=== PATIENT | female | born 1930 | race Caucasian/White ===

== ENCOUNTER 2016-03-10 09:28 | Emergency (ER) | payer MEDICARE ==
[~2016-03-10 09:28] MED LIST: /ATOR40TA OR; /LANS30GR OR; /MOXI40TA PO; /SUCR1TA OR; /WARF25TA OR; ACET50TAOT PO; ACET65TA OR; ACET65TA PR; ACTO75TA OR; ACYC400T PO; ADV250INH INH; ALPR0.25 OR; ASPI81TA13 PO; ASPI81TA83 OR; ATEN25TA OR; ATEN25TA PO; ATEN50TA2 OR; ATOR40TA PO; AVAP150T OR; BISA10SU2 RE; BISA5TA OR; CALCCHW12 OR; CETI10TA OR; CHLO125TA PO; CLAR10CA3 PO; COZA100T OR; GLIP5TAB8 PO; HEPA500020 SC; INSUDET SC; ISOS30TA4 OR; ISOS30TA4 PO; Isosorbide OR; KLOR1TAB73 PO; LEVO112T2 PO; LEVO75TA2 OR; LOSA50TA20 PO; NITR0.4S SL; NITR4TASL SL; OMEP20CA3 PO; PLAV75TA2 OR; PLAV75TA38 PO; PRED20TAB PO; PROA1AER INH; TRAM50TA2 OR; TYL RE; TYLE325T5 PO; VELC3.5I IV; VIT D 2000 PO; VITA-113 OR; VITA-121 PO; VITA100T PO; ZETI10TA OR; januvia OR
[2016-03-10] MEDS ORDERED: ACETAMINOPHEN 325 MG TAB As Ordered ONE (09:59)
--- NOTE | 2016-03-10 10:49 | REP ---
PELVIS RIGHT HIP: Three views. HISTORY: Trauma. FINDINGS: AP view of the pelvis shows an intact bony pelvic ring. No sacral or pelvic fracture is seen. Proximal femurs appear intact. The hip joint spaces are preserved. AP and frog leg views of the right hip show normal bones joints and soft tissues. IMPRESSION: No fracture noted. Signed by Honorio Zarate MD 03/10/2016 01:18 P
--- NOTE | 2016-03-10 10:52 | REP ---
RIGHT FOREARM: Two views. HISTORY: Trauma. Injury in a fall. FINDINGS: AP and lateral views of the right forearm show coronoid and olecranon process spurring on the proximal ulna. No fracture or subluxation is seen. There is some diffuse osteopenia. IMPRESSION: No fracture noted. Signed by Honorio Zarate MD 03/10/2016 01:18 P
--- NOTE | 2016-03-10 10:53 | REP ---
RIGHT HUMERUS: Two views. HISTORY: Trauma. FINDINGS: Two views of the right humerus demonstrate normal alignment of the glenohumeral and acromioclavicular joints. There is some glenohumeral joint osteoarthritic spurring. Diffuse osteopenia is noted. No fracture or subluxation is seen. IMPRESSION: No fracture noted. Signed by Honorio Zarate MD 03/10/2016 01:18 P
--- NOTE | 2016-03-10 10:53 | REP ---
RIGHT FEMUR: Two views. HISTORY: Injury in a fall. FINDINGS: AP and lateral views of the right femur demonstrate osteoarthritis of the knee. No fracture or subluxation is seen. IMPRESSION: No fracture noted. Osteoarthritic changes noted at the knee. Signed by Honorio aZrate MD 03/10/2016 01:18 P
--- NOTE | 2016-03-10 10:54 | REP ---
RIGHT TIBIA/FIBULA SERIES: Four views. HISTORY: Trauma. FINDINGS: Four views right tibia and fibula demonstrate osteoarthritis at the knee and some vascular calcification. No fracture or subluxation is seen. Achilles calcaneal spurring is noted. IMPRESSION: Diffuse osteopenia. Knee joint osteoarthritis. No fracture seen. Signed by Honorio Zarate MD 03/10/2016 01:18 P
--- NOTE | 2016-03-10 11:26 | EDDOCDS ---
Physician Documentation [facility] Name: Kristina Cheema Age: 85 yrs Sex: Female : 1930 Arrival Date: 03/10/2016 Time: 09:28 Bed TR7 Private MD: Gwyn Lawler Disposition: 03/10/16 11:03 Discharged to Home/Self Care. Impression: Pain in right arm - Upper and Lower Arm, Pain in right leg - Upper and Lower, Pain in right hip, Osteoarthritis of knee - Right and diffuse osteopenia on R knee film, Fall due to ice and snow. - Condition is Stable. - Discharge Instructions: Musculoskeletal Pain, Hip Pain, Arthritis, Nonspecific, [id number]. - Medication Reconciliation, Local Pharmacy Hours form. - Follow up: Gwyn Lawler; When: 1 - 2 days; Reason: Recheck today's complaints, Continuance of care. Follow up: Emergency Department; Reason: Worsening of conditions. Follow up: Mannie Owens; When: Call to arrange an appointment; Reason: Further diagnostic work-up, Recheck today's complaints, Continuance of care. - Problem is new. - Symptoms have improved. Historical: - Allergies: Codeine Sulfate; Latex; SULFA (SULFONAMIDES); HYDROQUINONE DERIVATIVES; Vicodin; Morphine; - Home Meds: 1. Plavix 75 mg Oral tab 1 tab once daily 2. levothyroxine 100 mcg Oral tab 1 tab once daily 3. Advair Diskus Inhl 1 puff 2 times per day 4. chlorthalidone 25 mg Oral tab 0.5 tab once daily 5. glipizide 2.5 mg Oral tr24 2 x daily 6. potassium chloride 10 mEq Oral cpER 1 cap once daily 7. aspirin 81 mg Oral tab 1 tab once daily 8. atenolol 50 mg Oral tab 2 tabs once daily 9. losartan 50 mg oral tab 1 tab once daily 10. atorvastatin 40 mg oral tab 1 tab once daily 11. Vitamin B-12 100 mcg Oral tab daily 12. Vitamin D3 1,000 unit oral tab daily 13. Nitrostat 0.4 mg SL subl 1 tab every 5 minutes 14. Levemir 100 unit/mL subcutaneous soln 22 units daily 15. isosorbide mononitrate 30 mg Oral Tb24 1 tab once daily 16. spingloin 1 tab daily - PMHx: Cancer, Bone; Hypertension; Diabetes - IDDM: controlled; Heart Disease; - PSHx: Cardiac stents; Knee surgery- Left; Lasik Surgery; - Social history: Smoking status: Patient states was never smoker of tobacco. No barriers to communication noted, The patient speaks fluent Frisian, Speaks appropriately for age. - Family history: Not pertinent. - : The pt / caregiver states he / she is on anticoagulants: Plavix. Home medication list is obtained from the patient. - Exposure Risk Screening:: None identified. Vital Signs: 03/10 09:30 BP 137 / 56; Pulse 70; Resp 20; Temp 97(O); Pulse Ox 96% ; Weight 69.85 kg / 153.99 cmb lbs; Height 5 ft. 0 in. (152.40 cm); Pain 10/10; 11:23 BP 144 / 65; Pulse 61; Resp 16; Temp 97; Pulse Ox 98% on R/A; Pain 8/10; ead 09:30 Body Mass Index 30.07 (69.85 kg, 152.40 cm) cmb MDM: 09:57 Acetaminophen Tablet 650 mg PO once ordered. ef1 09:57 Ice Pack ordered. ef1 09:57 Tibia/Fibula Ordered. EDMS 09:57 Femur Ordered. EDMS 09:59 Humerus Ordered. EDMS 09:59 Forearm (radius/ulna) Ordered. EDMS 09:59 Hip,AP,LAT to include Pelvis Ordered. EDMS 11:11 [facility] Payment Agreement was scanned into [employer] and attached to record. jp5 11:11 Financial registration complete. jp5 Administered Medications: 10:03 Drug: Acetaminophen 650 mg [acetaminophen 325 mg tablet (2 tabs)] Route: PO; kr3 Signatures: Dispatcher [employer] EDMS Rhiannon Hemphill RN RN kr3 Estela Shay PAPaul PAPaul ef1 Ambar Valderrama,RN RN Dhara Gregory jp5 The chart was reviewed and I authenticate all verbal orders and agree with the evaluation and treatment provided.Attachments: 11:11 [facility] Payment Agreement jp5 MTDD
--- NOTE | 2016-03-10 11:26 | EDDOCDS ---
Nurse's Notes [facility] Name: Kristina Cheema Age: 85 yrs Sex: Female : 1930 Arrival Date: 03/10/2016 Time: 09:28 Bed TR7 Private MD: Gwyn Lawler Diagnosis: Pain in right arm-Upper and Lower Arm;Pain in right leg-Upper and Lower;Pain in right hip;Osteoarthritis of knee-Right and diffuse osteopenia on R knee film;Fall due to ice and snow Presentation: 03/10 09:35 Presenting complaint: Patient states: pain right knee. Reports twisted knee when fell. kr3 Pain right ankle and reports swelling to ankle. Adult Sepsis Screening: The patient does not have new or worsening altered mentation. Patient's respiratory rate is less than 22. Systolic blood pressure is greater than 100. Patient has a qSOFA score of 0- Negative Sepsis Screen. Suicide/Homicide risk assessment- the patient denies having any suicidal and/or homicidal ideations and does not present with any other emotional, behavioral or mental health complaints. 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 Transition of care: patient was not received from another setting of care. 09:35 Acuity: MARYLIN Level 4 kr3 09:35 Method Of Arrival: Wheelchair kr3 Triage Assessment: 09:41 General: Appears in no apparent distress, comfortable, Behavior is cooperative. Pain: kr3 Location: right ankle and right knee Pain currently is 10 out of 10 on a pain scale. Respiratory: Respiratory effort is even, unlabored. Derm: Skin is normal. Musculoskeletal:. Historical: - Allergies: Codeine Sulfate; Latex; SULFA (SULFONAMIDES); HYDROQUINONE DERIVATIVES; Vicodin; Morphine; - Home Meds: 1. Plavix 75 mg Oral tab 1 tab once daily 2. levothyroxine 100 mcg Oral tab 1 tab once daily 3. Advair Diskus Inhl 1 puff 2 times per day 4. chlorthalidone 25 mg Oral tab 0.5 tab once daily 5. glipizide 2.5 mg Oral tr24 2 x daily 6. potassium chloride 10 mEq Oral cpER 1 cap once daily 7. aspirin 81 mg Oral tab 1 tab once daily 8. atenolol 50 mg Oral tab 2 tabs once daily 9. losartan 50 mg oral tab 1 tab once daily 10. atorvastatin 40 mg oral tab 1 tab once daily 11. Vitamin B-12 100 mcg Oral tab daily 12. Vitamin D3 1,000 unit oral tab daily 13. Nitrostat 0.4 mg SL subl 1 tab every 5 minutes 14. Levemir 100 unit/mL subcutaneous soln 22 units daily 15. isosorbide mononitrate 30 mg Oral Tb24 1 tab once daily 16. spingloin 1 tab daily - PMHx: Cancer, Bone; Hypertension; Diabetes - IDDM: controlled; Heart Disease; - PSHx: Cardiac stents; Knee surgery- Left; Lasik Surgery; - Social history: Smoking status: Patient states was never smoker of tobacco. No barriers to communication noted, The patient speaks fluent Chinese, Speaks appropriately for age. - Family history: Not pertinent. - : The pt / caregiver states he / she is on anticoagulants: Plavix. Home medication list is obtained from the patient. - Exposure Risk Screening:: None identified. Screenin:04 Screening information is obtained from the patient. Fall risk: No risks identified. kr3 Assistance ADL's: requires no assistance with activities of daily living. Abuse/DV Screen: The patient / caregiver reports he/she is: not in a situation that causes fear, pain or injury. Nutritional screening: On diabetic diet. Advance Directives: Currently, there is a health care proxy, son. home support is adequate. Assessment: 10:03 Reassessment: Patient appears in no apparent distress at this time. Pain: Location: kr3 left knee, left ankle right elbow Pain currently is 10 out of 10 on a pain scale. Neurological: Level of Consciousness is awake, alert. Respiratory: Respiratory effort is even, unlabored. Derm: Skin is normal. 11:23 General: Appears in no apparent distress, comfortable, Behavior is appropriate for age, ead cooperative, pleasant. Neurological: No deficits noted. Respiratory: Airway is patent Respiratory effort is even, unlabored. Derm: Skin is pink, warm & dry. Vital Signs: 09:30 BP 137 / 56; Pulse 70; Resp 20; Temp 97(O); Pulse Ox 96% ; Weight 69.85 kg; Height 5 cmb ft. 0 in. (152.40 cm); Pain 10/10; 11:23 BP 144 / 65; Pulse 61; Resp 16; Temp 97; Pulse Ox 98% on R/A; Pain 8/10; ead 09:30 Body Mass Index 30.07 (69.85 kg, 152.40 cm) cmb Vitals: 09:30 Log In Time: March 10, 2016 at 09:28. cmb ED Course: 09:30 Patient visited by Lorenza Olmstead. cmb 09:30 Gwyn Lawler MD is Private Physician. cmb 09:30 Patient moved to Waiting cmb 09:33 Patient moved to Pre RCE cmb 09:36 Triage Initiated kr3 09:42 Patient moved to Triage 1 kr3 09:43 Patient moved to Triage 3 kr3 09:49 [facility]C [facility]. ef1 09:49 Hannah Spencer MD is Attending Physician. ef1 09:49 Patient visited by Estela Shay PA-C. ef1 10:04 The patient / caregiver is instructed regarding the plan of care and ED course. kr3 Accompanied by Family Member, Patient has correct armband on for positive identification. 10:04 Patient moved to TR1 kr3 10:20 Patient visited by Estela Shay PA-C. ef1 10:51 Patient visited by Estela Shay PA-C. ef1 11:03 Gwyn Lawler MD is Referral Physician. ef1 11:03 Mannie Owens is Referral Physician. ef1 11:04 Hip,AP,LAT to include Pelvis Returned. EDMS 11:04 Forearm (radius/ulna) Returned. EDMS 11:04 Humerus Returned. EDMS 11:04 Femur Returned. EDMS 11:04 Tibia/Fibula Returned. EDMS 11:11 [facility] Payment Agreement was scanned into [employer] and attached to record. jp5 11:17 Patient moved to PD2 / 27 ead 11:23 Patient moved to TR7 ead 11:23 No IV's were initiated during this patient's visit. No procedures done that require ead assistance. Administered Medications: 10:03 Drug: Acetaminophen 650 mg [acetaminophen 325 mg tablet (2 tabs)] Route: PO; kr3 Order Results: Radiology Order: Tibia/Fibula Test: Tibia/Fibula REASON FOR EXAMINATION: Trauma; RIGHT TIBIA/FIBULA SERIES: Four views.; ; HISTORY: Trauma.; ; FINDINGS: Four views right tibia and fibula demonstrate osteoarthritis at the; knee and some vascular calcification. No fracture or subluxation is seen.; Achilles calcaneal spurring is noted.; ; IMPRESSION:; Diffuse osteopenia. Knee joint osteoarthritis. No fracture seen.; ; ; ; ; Unreviewed; Radiology Order: Femur Test: Femur REASON FOR EXAMINATION: Trauma; RIGHT FEMUR: Two views.; ; HISTORY: Injury in a fall.; ; FINDINGS: AP and lateral views of the right femur demonstrate osteoarthritis of; the knee. No fracture or subluxation is seen.; ; IMPRESSION:; No fracture noted. Osteoarthritic changes noted at the knee.; ; ; ; ; Unreviewed; Radiology Order: Humerus Test: Humerus REASON FOR EXAMINATION: Trauma; RIGHT HUMERUS: Two views.; ; HISTORY: Trauma.; ; FINDINGS: Two views of the right humerus demonstrate normal alignment of the; glenohumeral and acromioclavicular joints. There is some glenohumeral joint; osteoarthritic spurring. Diffuse osteopenia is noted. No fracture or; subluxation is seen.; ; IMPRESSION:; No fracture noted.; ; ; ; ; Unreviewed; Radiology Order: Forearm (radius/ulna) Test: Forearm (radius/ulna) REASON FOR EXAMINATION: Trauma; RIGHT FOREARM: Two views.; ; HISTORY: Trauma. Injury in a fall.; ; FINDINGS: AP and lateral views of the right forearm show coronoid and olecranon; process spurring on the proximal ulna. No fracture or subluxation is seen.; There is some diffuse osteopenia.; ; IMPRESSION:; No fracture noted.; ; ; ; ; Unreviewed; Radiology Order: Hip,AP,LAT to include Pelvis Test: Hip,AP,LAT to include Pelvis REASON FOR EXAMINATION: Trauma; PELVIS RIGHT HIP: Three views.; ; HISTORY: Trauma.; ; FINDINGS: AP view of the pelvis shows an intact bony pelvic ring. No sacral or; pelvic fracture is seen. Proximal femurs appear intact. The hip joint spaces; are preserved. AP and frog leg views of the right hip show normal bones joints; and soft tissues.; ; IMPRESSION:; No fracture noted.; ; ; ; ; Unreviewed; Outcome: 11:03 Discharge ordered by Provider. ef1 11:23 Discharge Assessment: Patient awake and alert. obeys commands, Oriented to person, ead place and time. patient administered narcotics - no. The following High Risk Discharge criteria are identified: None. Discharged to home via wheelchair, with family. Condition: unchanged. Discharge instructions given to patient, Instructed on discharge instructions, follow up and referral plans. Demonstrated understanding of instructions, Pt was receptive of discharge instructions/ teaching. No special radiology studies were completed. Property sent home with patient. 11:24 Patient left the ED. ead Signatures: Dispatcher [employer] Rhiannon Holguin,RN RN kr3 Estela Shay, PA-C PA-C ef1 Lorenza Olmstead Emily, RN RN ead Dhara Dodson jp5 Corrections: (The following items were deleted from the chart) 09:33 09:30 BP 13 / 56; Pulse 70bpm; Resp 20bpm; Pulse Ox 96%; Temp 97F Oral; 69.85 kg; cmb Height 5 ft. 0 in.; BMI: 30.0; Pain 10/10; cmb MTDD
--- NOTE | 2016-03-12 12:26 | EDDOCDS ---
Physician Documentation [facility] Name: Kristina Cheema Age: 85 yrs Sex: Female : 1930 Arrival Date: 03/10/2016 Time: 09:28 Bed TR7 Private MD: Gwyn Lawler Disposition: 03/10/16 11:03 Discharged to Home/Self Care. Impression: Pain in right arm - Upper and Lower Arm, Pain in right leg - Upper and Lower, Pain in right hip, Osteoarthritis of knee - Right and diffuse osteopenia on R knee film, Fall due to ice and snow. - Condition is Stable. - Discharge Instructions: Musculoskeletal Pain, Hip Pain, Arthritis, Nonspecific, [id number]. - Medication Reconciliation, Local Pharmacy Hours form. - Follow up: Gwyn Lawler; When: 1 - 2 days; Reason: Recheck today's complaints, Continuance of care. Follow up: Emergency Department; Reason: Worsening of conditions. Follow up: Mannie Owens; When: Call to arrange an appointment; Reason: Further diagnostic work-up, Recheck today's complaints, Continuance of care. - Problem is new. - Symptoms have improved. Historical: - Allergies: Codeine Sulfate; Latex; SULFA (SULFONAMIDES); HYDROQUINONE DERIVATIVES; Vicodin; Morphine; - Home Meds: 1. Plavix 75 mg Oral tab 1 tab once daily 2. levothyroxine 100 mcg Oral tab 1 tab once daily 3. Advair Diskus Inhl 1 puff 2 times per day 4. chlorthalidone 25 mg Oral tab 0.5 tab once daily 5. glipizide 2.5 mg Oral tr24 2 x daily 6. potassium chloride 10 mEq Oral cpER 1 cap once daily 7. aspirin 81 mg Oral tab 1 tab once daily 8. atenolol 50 mg Oral tab 2 tabs once daily 9. losartan 50 mg oral tab 1 tab once daily 10. atorvastatin 40 mg oral tab 1 tab once daily 11. Vitamin B-12 100 mcg Oral tab daily 12. Vitamin D3 1,000 unit oral tab daily 13. Nitrostat 0.4 mg SL subl 1 tab every 5 minutes 14. Levemir 100 unit/mL subcutaneous soln 22 units daily 15. isosorbide mononitrate 30 mg Oral Tb24 1 tab once daily 16. spingloin 1 tab daily - PMHx: Cancer, Bone; Hypertension; Diabetes - IDDM: controlled; Heart Disease; - PSHx: Cardiac stents; Knee surgery- Left; Lasik Surgery; - Social history: Smoking status: Patient states was never smoker of tobacco. No barriers to communication noted, The patient speaks fluent Welsh, Speaks appropriately for age. - Family history: Not pertinent. - : The pt / caregiver states he / she is on anticoagulants: Plavix. Home medication list is obtained from the patient. - Exposure Risk Screening:: None identified. Vital Signs: 03/10 09:30 BP 137 / 56; Pulse 70; Resp 20; Temp 97(O); Pulse Ox 96% ; Weight 69.85 kg / 153.99 cmb lbs; Height 5 ft. 0 in. (152.40 cm); Pain 10/10; 11:23 BP 144 / 65; Pulse 61; Resp 16; Temp 97; Pulse Ox 98% on R/A; Pain 8/10; ead 09:30 Body Mass Index 30.07 (69.85 kg, 152.40 cm) cmb MDM: 09:57 Acetaminophen Tablet 650 mg PO once ordered. ef1 09:57 Ice Pack ordered. ef1 09:57 Tibia/Fibula Ordered. EDMS 09:57 Femur Ordered. EDMS 09:59 Humerus Ordered. EDMS 09:59 Forearm (radius/ulna) Ordered. EDMS 09:59 Hip,AP,LAT to include Pelvis Ordered. EDMS 11:11 [facility] Payment Agreement was scanned into [employer] and attached to record. 5 11:11 Financial registration complete. 5 14:19 T-Sheet-- Draft Copy was scanned into [employer] and attached to record. 14:19 Radiology Report was scanned into [employer] and attached to record. Administered Medications: 10:03 Drug: Acetaminophen 650 mg [acetaminophen 325 mg tablet (2 tabs)] Route: PO; kr3 Signatures: Dispatcher [employer] EDMS Ange Vega, Rhiannon Mendoza,RN RN kr3 Estela Shay PAChaseC PAChaseC ef1 Ambar Valderrama,RN RN Dhara Gregory jp5 The chart was reviewed and I authenticate all verbal orders and agree with the evaluation and treatment provided.Attachments: 11:11 [facility] Payment Agreement jp5 14:19 T-Sheet-- Draft Copy gb Chart Complete MTDD
--- NOTE | 2016-03-12 12:26 | EDDOCDS ---
Nurse's Notes [facility] Name: Kristina Cheema Age: 85 yrs Sex: Female : 1930 Arrival Date: 03/10/2016 Time: 09:28 Bed TR7 Private MD: Gwyn Lawler Diagnosis: Pain in right arm-Upper and Lower Arm;Pain in right leg-Upper and Lower;Pain in right hip;Osteoarthritis of knee-Right and diffuse osteopenia on R knee film;Fall due to ice and snow Presentation: 03/10 09:35 Presenting complaint: Patient states: pain right knee. Reports twisted knee when fell. kr3 Pain right ankle and reports swelling to ankle. Adult Sepsis Screening: The patient does not have new or worsening altered mentation. Patient's respiratory rate is less than 22. Systolic blood pressure is greater than 100. Patient has a qSOFA score of 0- Negative Sepsis Screen. Suicide/Homicide risk assessment- the patient denies having any suicidal and/or homicidal ideations and does not present with any other emotional, behavioral or mental health complaints. Status: Patient is not a director human services or dependent. Transition of care: patient was not received from another setting of care. 09:35 Acuity: MARYLIN Level 4 kr3 09:35 Method Of Arrival: Wheelchair kr3 Triage Assessment: 09:41 General: Appears in no apparent distress, comfortable, Behavior is cooperative. Pain: kr3 Location: right ankle and right knee Pain currently is 10 out of 10 on a pain scale. Respiratory: Respiratory effort is even, unlabored. Derm: Skin is normal. Musculoskeletal:. Historical: - Allergies: Codeine Sulfate; Latex; SULFA (SULFONAMIDES); HYDROQUINONE DERIVATIVES; Vicodin; Morphine; - Home Meds: 1. Plavix 75 mg Oral tab 1 tab once daily 2. levothyroxine 100 mcg Oral tab 1 tab once daily 3. Advair Diskus Inhl 1 puff 2 times per day 4. chlorthalidone 25 mg Oral tab 0.5 tab once daily 5. glipizide 2.5 mg Oral tr24 2 x daily 6. potassium chloride 10 mEq Oral cpER 1 cap once daily 7. aspirin 81 mg Oral tab 1 tab once daily 8. atenolol 50 mg Oral tab 2 tabs once daily 9. losartan 50 mg oral tab 1 tab once daily 10. atorvastatin 40 mg oral tab 1 tab once daily 11. Vitamin B-12 100 mcg Oral tab daily 12. Vitamin D3 1,000 unit oral tab daily 13. Nitrostat 0.4 mg SL subl 1 tab every 5 minutes 14. Levemir 100 unit/mL subcutaneous soln 22 units daily 15. isosorbide mononitrate 30 mg Oral Tb24 1 tab once daily 16. spingloin 1 tab daily - PMHx: Cancer, Bone; Hypertension; Diabetes - IDDM: controlled; Heart Disease; - PSHx: Cardiac stents; Knee surgery- Left; Lasik Surgery; - Social history: Smoking status: Patient states was never smoker of tobacco. No barriers to communication noted, The patient speaks fluent German, Speaks appropriately for age. - Family history: Not pertinent. - : The pt / caregiver states he / she is on anticoagulants: Plavix. Home medication list is obtained from the patient. - Exposure Risk Screening:: None identified. Screenin:04 Screening information is obtained from the patient. Fall risk: No risks identified. kr3 Assistance ADL's: requires no assistance with activities of daily living. Abuse/DV Screen: The patient / caregiver reports he/she is: not in a situation that causes fear, pain or injury. Nutritional screening: On diabetic diet. Advance Directives: Currently, there is a health care proxy, son. home support is adequate. Assessment: 10:03 Reassessment: Patient appears in no apparent distress at this time. Pain: Location: kr3 left knee, left ankle right elbow Pain currently is 10 out of 10 on a pain scale. Neurological: Level of Consciousness is awake, alert. Respiratory: Respiratory effort is even, unlabored. Derm: Skin is normal. 11:23 General: Appears in no apparent distress, comfortable, Behavior is appropriate for age, ead cooperative, pleasant. Neurological: No deficits noted. Respiratory: Airway is patent Respiratory effort is even, unlabored. Derm: Skin is pink, warm & dry. Vital Signs: 09:30 BP 137 / 56; Pulse 70; Resp 20; Temp 97(O); Pulse Ox 96% ; Weight 69.85 kg; Height 5 cmb ft. 0 in. (152.40 cm); Pain 10/10; 11:23 BP 144 / 65; Pulse 61; Resp 16; Temp 97; Pulse Ox 98% on R/A; Pain 8/10; ead 09:30 Body Mass Index 30.07 (69.85 kg, 152.40 cm) cmb Vitals: 09:30 Log In Time: March 10, 2016 at 09:28. cmb ED Course: 09:30 Patient visited by Lorenza Olmstead. cmb 09:30 Gwyn Lawler MD is Private Physician. cmb 09:30 Patient moved to Waiting cmb 09:33 Patient moved to Pre RCE cmb 09:36 Triage Initiated kr3 09:42 Patient moved to Triage 1 kr3 09:43 Patient moved to Triage 3 kr3 09:49 [facility] ef1 09:49 Hannah Spencer MD is Attending Physician. ef1 09:49 Patient visited by Estela Shay PA-C. ef1 10:04 The patient / caregiver is instructed regarding the plan of care and ED course. kr3 Accompanied by Family Member, Patient has correct armband on for positive identification. 10:04 Patient moved to TR1 kr3 10:20 Patient visited by Estela Shay PA-C. ef1 10:51 Patient visited by Estela Shay PA-C. ef1 11:03 Gwyn Lawler MD is Referral Physician. ef1 11:03 Mannie Owens is Referral Physician. ef1 11:04 Hip,AP,LAT to include Pelvis Returned. EDMS 11:04 Forearm (radius/ulna) Returned. EDMS 11:04 Humerus Returned. EDMS 11:04 Femur Returned. EDMS 11:04 Tibia/Fibula Returned. EDMS 11:11 [facility] Payment Agreement was scanned into [employer] and attached to record. jp5 11:17 Patient moved to PD2 / 27 ead 11:23 Patient moved to TR7 ead 11:23 No IV's were initiated during this patient's visit. No procedures done that require ead assistance. 14:19 T-Sheet-- Draft Copy was scanned into [employer] and attached to record. gb 14:19 Radiology Report was scanned into [employer] and attached to record. gb Administered Medications: 10:03 Drug: Acetaminophen 650 mg [acetaminophen 325 mg tablet (2 tabs)] Route: PO; kr3 Order Results: Radiology Order: Tibia/Fibula Test: Tibia/Fibula REASON FOR EXAMINATION: Trauma; RIGHT TIBIA/FIBULA SERIES: Four views.; ; HISTORY: Trauma.; ; FINDINGS: Four views right tibia and fibula demonstrate osteoarthritis at the; knee and some vascular calcification. No fracture or subluxation is seen.; Achilles calcaneal spurring is noted.; ; IMPRESSION: Diffuse osteopenia. Knee joint osteoarthritis. No fracture seen.; ; ; Signed by; Honorio Zarate MD 03/10/2016 01:18 P; Radiology Order: Femur Test: Femur REASON FOR EXAMINATION: Trauma; RIGHT FEMUR: Two views.; ; HISTORY: Injury in a fall.; ; FINDINGS: AP and lateral views of the right femur demonstrate osteoarthritis of; the knee. No fracture or subluxation is seen.; ; IMPRESSION: No fracture noted. Osteoarthritic changes noted at the knee.; ; ; Signed by; Honorio Zarate MD 03/10/2016 01:18 P; Radiology Order: Humerus Test: Humerus REASON FOR EXAMINATION: Trauma; RIGHT HUMERUS: Two views.; ; HISTORY: Trauma.; ; FINDINGS: Two views of the right humerus demonstrate normal alignment of the; glenohumeral and acromioclavicular joints. There is some glenohumeral joint; osteoarthritic spurring. Diffuse osteopenia is noted. No fracture or; subluxation is seen.; ; IMPRESSION: No fracture noted.; ; ; Signed by; Honorio Zarate MD 03/10/2016 01:18 P; Radiology Order: Forearm (radius/ulna) Test: Forearm (radius/ulna) REASON FOR EXAMINATION: Trauma; RIGHT FOREARM: Two views.; ; HISTORY: Trauma. Injury in a fall.; ; FINDINGS: AP and lateral views of the right forearm show coronoid and olecranon; process spurring on the proximal ulna. No fracture or subluxation is seen.; There is some diffuse osteopenia.; ; IMPRESSION: No fracture noted.; ; ; Signed by; Honorio Zarate MD 03/10/2016 01:18 P; Radiology Order: Hip,AP,LAT to include Pelvis Test: Hip,AP,LAT to include Pelvis REASON FOR EXAMINATION: Trauma; PELVIS RIGHT HIP: Three views.; ; HISTORY: Trauma.; ; FINDINGS: AP view of the pelvis shows an intact bony pelvic ring. No sacral or; pelvic fracture is seen. Proximal femurs appear intact. The hip joint spaces; are preserved. AP and frog leg views of the right hip show normal bones joints; and soft tissues.; ; IMPRESSION: No fracture noted.; ; ; Signed by; Honorio Zarate MD 03/10/2016 01:18 P; Outcome: 11:03 Discharge ordered by Provider. ef1 11:23 Discharge Assessment: Patient awake and alert. obeys commands, Oriented to person, ead place and time. patient administered narcotics - no. The following High Risk Discharge criteria are identified: None. Discharged to home via wheelchair, with family. Condition: unchanged. Discharge instructions given to patient, Instructed on discharge instructions, follow up and referral plans. Demonstrated understanding of instructions, Pt was receptive of discharge instructions/ teaching. No special radiology studies were completed. Property sent home with patient. 11:24 Patient left the ED. ead Signatures: Dispatcher [employer] EDMS Ange Vega, Rhiannon Mendoza,RN RN kr3 Estela Shay PAChaseC PA-C ef1 Lorenza Olmstead Emily,CHRIS RN ead Dhara Dodson jp5 Corrections: (The following items were deleted from the chart) 09:33 09:30 BP 13 / 56; Pulse 70bpm; Resp 20bpm; Pulse Ox 96%; Temp 97F Oral; 69.85 kg; cmb Height 5 ft. 0 in.; BMI: 30.0; Pain 10/10; cmb Chart Complete MTDD
--- NOTE | 2016-03-12 12:26 | EDDOCDS ---
Physician Documentation [facility] Name: Kristina Cheema Age: 85 yrs Sex: Female : 1930 Arrival Date: 03/10/2016 Time: 09:28 Bed TR7 Private MD: Gwyn Lawler Disposition: 03/10/16 11:03 Discharged to Home/Self Care. Impression: Pain in right arm - Upper and Lower Arm, Pain in right leg - Upper and Lower, Pain in right hip, Osteoarthritis of knee - Right and diffuse osteopenia on R knee film, Fall due to ice and snow. - Condition is Stable. - Discharge Instructions: Musculoskeletal Pain, Hip Pain, Arthritis, Nonspecific, [id number]. - Medication Reconciliation, Local Pharmacy Hours form. - Follow up: Gwyn Lawler; When: 1 - 2 days; Reason: Recheck today's complaints, Continuance of care. Follow up: Emergency Department; Reason: Worsening of conditions. Follow up: Mannie Owens; When: Call to arrange an appointment; Reason: Further diagnostic work-up, Recheck today's complaints, Continuance of care. - Problem is new. - Symptoms have improved. Historical: - Allergies: Codeine Sulfate; Latex; SULFA (SULFONAMIDES); HYDROQUINONE DERIVATIVES; Vicodin; Morphine; - Home Meds: 1. Plavix 75 mg Oral tab 1 tab once daily 2. levothyroxine 100 mcg Oral tab 1 tab once daily 3. Advair Diskus Inhl 1 puff 2 times per day 4. chlorthalidone 25 mg Oral tab 0.5 tab once daily 5. glipizide 2.5 mg Oral tr24 2 x daily 6. potassium chloride 10 mEq Oral cpER 1 cap once daily 7. aspirin 81 mg Oral tab 1 tab once daily 8. atenolol 50 mg Oral tab 2 tabs once daily 9. losartan 50 mg oral tab 1 tab once daily 10. atorvastatin 40 mg oral tab 1 tab once daily 11. Vitamin B-12 100 mcg Oral tab daily 12. Vitamin D3 1,000 unit oral tab daily 13. Nitrostat 0.4 mg SL subl 1 tab every 5 minutes 14. Levemir 100 unit/mL subcutaneous soln 22 units daily 15. isosorbide mononitrate 30 mg Oral Tb24 1 tab once daily 16. spingloin 1 tab daily - PMHx: Cancer, Bone; Hypertension; Diabetes - IDDM: controlled; Heart Disease; - PSHx: Cardiac stents; Knee surgery- Left; Lasik Surgery; - Social history: Smoking status: Patient states was never smoker of tobacco. No barriers to communication noted, The patient speaks fluent Irish, Speaks appropriately for age. - Family history: Not pertinent. - : The pt / caregiver states he / she is on anticoagulants: Plavix. Home medication list is obtained from the patient. - Exposure Risk Screening:: None identified. Vital Signs: 03/10 09:30 BP 137 / 56; Pulse 70; Resp 20; Temp 97(O); Pulse Ox 96% ; Weight 69.85 kg / 153.99 cmb lbs; Height 5 ft. 0 in. (152.40 cm); Pain 10/10; 11:23 BP 144 / 65; Pulse 61; Resp 16; Temp 97; Pulse Ox 98% on R/A; Pain 8/10; ead 09:30 Body Mass Index 30.07 (69.85 kg, 152.40 cm) cmb MDM: 09:57 Acetaminophen Tablet 650 mg PO once ordered. ef1 09:57 Ice Pack ordered. ef1 09:57 Tibia/Fibula Ordered. EDMS 09:57 Femur Ordered. EDMS 09:59 Humerus Ordered. EDMS 09:59 Forearm (radius/ulna) Ordered. EDMS 09:59 Hip,AP,LAT to include Pelvis Ordered. EDMS 11:11 [facility] Payment Agreement was scanned into [employer]IG[employer] and attached to record. 5 11:11 Financial registration complete. 5 14:19 T-Sheet-- Draft Copy was scanned into [employer] and attached to record. 14:19 Radiology Report was scanned into [employer] and attached to record. Administered Medications: 10:03 Drug: Acetaminophen 650 mg [acetaminophen 325 mg tablet (2 tabs)] Route: PO; kr3 Signatures: Dispatcher [employer] EDMS Ange Vega, Rhiannon Mendoza,RN RN kr3 Estela Shay PAChaseC PAChaseC ef1 Ambar Valderrama,RN RN Dhara Gregory jp5 The chart was reviewed and I authenticate all verbal orders and agree with the evaluation and treatment provided.Attachments: 11:11 [facility] Payment Agreement jp5 14:19 T-Sheet-- Draft Copy gb Chart Complete MTDD
== END 2016-03-10 11:24 | disposition home or self-care (01) ==
LOC: M ED 09:28
DX: M79.601 Pain in right arm (principal); M79.604 Pain in right leg; M25.551 Pain in right hip; M17.11 Unilateral primary osteoarthritis, right knee; M85.861 Other specified disorders of bone density and structure, right lower leg; I10 Essential (primary) hypertension; E11.9 Type 2 diabetes mellitus without complications; I51.9 Heart disease, unspecified; Z79.899 Other long term (current) drug therapy; Z79.51 Long term (current) use of inhaled steroids; Z79.82 Long term (current) use of aspirin; Z79.4 Long term (current) use of insulin; Z88.2 Allergy status to sulfonamides; Z88.8 Allergy status to other drugs, medicaments and biological substances; Z88.5 Allergy status to narcotic agent; Z91.040 Latex allergy status; Z85.830 Personal history of malignant neoplasm of bone

== ENCOUNTER → 2016-04-08 | Outpatient (REF) | payer MEDICARE ==
[2016-04-08 12:43] LABS: PERCENT SATURATION 31.8 % (13.2-37.4)
[2016-04-08 14:03] LABS: FOLATE 8.5 NG/ML
== END ==
LOC: M LAB REF 11:52
PROVIDERS: ATTEND Nurse Practitioner Adult Health
DX: D64.9 Anemia, unspecified (principal)

== ENCOUNTER 2016-05-16 20:30 | Inpatient (IN) | payer MEDICARE ==
[~2016-05-16] VITALS: Ht 154.9 cm; Wt 69.9 kg
[2016-05-16] MEDS ORDERED: ASPIRIN 81 MG CHEW TABLET PO ONE (21:00)
[2016-05-16] MEDS ORDERED: POTA10TA34 PO (21:02)
[2016-05-16] MEDS ORDERED: INSUDET SC (21:02)
[2016-05-16] MEDS ORDERED: GLIP5TAB8 PO (21:02)
[2016-05-16] MEDS: NITROGLYCERIN 0.4 MG SUBL TABLET SL PRN ×3 (21:19→21:34)
[2016-05-16 21:53] LABS: BASO % 0.3 % (0.0-1.0); EOS # 0.2 K/mm3 (0.0-0.50); EOS % 3.8 % (0.0-3.0); LARGE UNSTAINED CELL # 0.2 K/mm3 (0.0-0.4); LARGE UNSTAINED CELL % 2.9 % (0.0-4.0); LYMPH % 17.3 % (24.0-44.0); MEAN CORPUSCULAR HEMOGLOBIN 29.5 pg (27.0-33.0); MEAN CORPUSCULAR HGB CONC 31.5 g/dl (32.0-36.5); MEAN CORPUSCULAR VOLUME 93.4 fl (80.0-96.0); MONO # 0.6 K/mm3 (0.0-0.8); MONO % 10.7 % (0.0-5.0); NEUTROPHILS # 3.4 K/mm3 (1.8-7.7); PLATELET COUNT, AUTOMATED 188 k/mm3 (150-450); RED CELL DISTRIBUTION WIDTH 15.8 % (11.5-14.5); WHITE BLOOD COUNT 5.2 K/mm3 (4.0-10.0)
[2016-05-16 22:00] LABS: INR 1.12
[2016-05-16] MEDS ORDERED: POTA20TA PO (22:13)
[2016-05-16] MEDS ORDERED: ATEN50TA2 PO (22:13)
[2016-05-16] MEDS ORDERED: CHLO125TA PO (22:15)
[2016-05-16 22:19] LABS: ALBUMIN 3.6 GM/DL (3.2-5.2); ALKALINE PHOSPHATASE 77 U/L (45-117); ALT/SGPT 14 U/L (12-78); ANION GAP 11 MEQ/L (8-16); AST/SGOT 10 U/L (15-37); BILIRUBIN,DIRECT 0.2 MG/DL (0.0-0.2); BILIRUBIN,TOTAL 0.6 MG/DL (0.2-1.0); BLOOD UREA NITROGEN 17 MG/DL (7-18); CALCIUM LEVEL 9.1 MG/DL (8.8-10.2); CARBON DIOXIDE LEVEL 24 MEQ/L (21-32); CHLORIDE LEVEL 101 MEQ/L (98-107); CREATININE FOR GFR 1.54 MG/DL (0.55-1.02); GLOMERULAR FILTRATION RATE 33.9 (>32); GLUCOSE, FASTING 217 MG/DL (83-110); POTASSIUM SERUM 3.6 MEQ/L (3.5-5.1); SODIUM LEVEL 136 MEQ/L (136-145)
[2016-05-16] MEDS ORDERED: ISOVUE-370 76% 100ML VIAL (Q9967) As Ordered ONE (23:00)
--- NOTE | 2016-05-16 23:30 | REPUSA ---
CT angiogram of the chest Clinical statement: Chest pain. Technique: Multiple axial CT images were obtained from the thoracic inlet through the upper abdomen a fter a bolus administration of nonionic intravenous contrast. Coronal and sagittal reconstructions we re also obtained. No comparison is available. Findings: The pulmonary arteries are well-opacified with contrast, with no intraluminal filling defec ts to suggest embolism. The thoracic aorta is unremarkable. Thyroid gland is within normal limits. Th ere is no thoracic lymphadenopathy. There are no pericardial or pleural effusions. The lungs are bisi r. Limited imaging of the upper abdomen is unremarkable. There are no suspicious osseous lesions. Impression: Unremarkable CT examination of the chest. No evidence of pulmonary embolism.
[2016-05-17] MEDS ORDERED: HEPARIN SOD (PORCINE) 5000 UNITS/ML VIAL SC SCH (01:00)
[2016-05-17] MEDS ORDERED: NITROGLYCERIN 0.4 MG SUBL TABLET SL PRN (01:00)
[2016-05-17] MEDS ORDERED: ALBUTEROL 90 MCG/ACT 8GM HFA INHALER INH PRN (01:00)
[2016-05-17] MEDS ORDERED: ACETAMINOPHEN TAB 650MG DOSE (2X325MG) PO PRN (01:00)
[2016-05-17] MEDS ORDERED: GLUCOSE 4 GM CHEW TABLET PO PRN (01:15)
[2016-05-17] MEDS ORDERED: DEXTROSE 50% 50 ML SYRINGE IV PRN (01:15)
[2016-05-17] MEDS ORDERED: GLUCAGON FOR INJ 1 MG VIAL (J1610) SC PRN (01:15)
[2016-05-17 01:37] LABS: PERCENT SATURATION 30.7 % (13.2-37.4); TOTAL IRON BINDING CAPACITY 257 UG/DL (250-450)
[2016-05-17 01:56] VITALS: BP 133/69
--- NOTE | 2016-05-17 02:41 | HPE ---
DATE OF ADMISSION: 05/17/2016 PRIMARY CARE PROVIDER: Dr. Lawler DRY KILN LOADER: Dr. Pinzon ONCOLOGIST: Dr. Mazariegos. Patient's new oncologist, Dr. Charles, however, they have not had their first meeting. CHIEF COMPLAINT: Chest pain. HISTORY OF PRESENT ILLNESS: Patient is an 85-year-old female with a past medical history significant for multiple myeloma, asthma, coronary artery disease status post five stents, gastroesophageal reflux disease (GERD), hypertension, diabetes, angina, chronic kidney disease stage 3, hyperlipidemia, hypothyroidism, aortic regurgitation, mitral regurgitation, who presented to [facility] on 05/16/2016, after an episode of chest pain. Patient was on her way to the emergency room, on her way out of the car, the patient started having chest pain, originally from the right arm pit and pain radiated to the whole front chest. The pain was sharp and the pain lasted approximately a half hour. The pain improved after aspirin and nitroglycerin. Besides the chest pain, the patient complained about dizziness, worsening shortness of breath, weakness. Patient states that she has been having intermittent chest pain in the last few weeks sometimes the chest pain occurred at the left chest, sometimes it ioccurs at the right chest. She cannot recall any specific patterns. A few days ago, the patient received a call from her primary care provider (PCP) and she was informed that she has significant anemia. Patient does have a significant coronary artery disease. Patient had five stents performed in the past. Patient was seen Dr. Carranza in the past. The patient has a regular supervisor policy change clerks, Dr. Pinzon. Patient does have a history of multiple myeloma. Patient had chemotherapy in the past. Cancer was in remission in the past. However, patient had a visit with Dr. Still and patient was told her cancer started to recur. Currently, patient has not told the news to the primary care provider nor the new oncologist, Dr. Charles. Patient is not sure whether she wants to start on chemotherapy, because she does not feel that it is useful. When patient arrived at the emergency room, multiple tests were performed. CT angiogram showed negative for pulmonary embolism (PE). However, EKG showed starting of ST-T depression, which was not present last year in November 2015. First set of troponin was obtained and supervisor policy change clerks on-call, Dr. Moreno was informed about the case and recommended cardiac telemetry monitoring and trending the troponin. Hospitalist team was called for admission. ALLERGIES: 1. SULFA (migraine and gastrointestinal (GI) upset). 2. MORPHINE (palpitations). 3. CODEINE (decreased mentation). 4. VICODIN (confusion). 5. LISINOPRIL (rash). 6. Patient is unable to tolerate metformin or glitazones due to poor renal function. PAST MEDICAL HISTORY: 1. Asthma. 2. Coronary artery disease status post five stents in 2001, 2003, and 2004. 3. Gastroesophageal reflux disease. 4. History of gastric ulcer. 5. Hypertension. 6. Diabetes. 7. Multiple myeloma. 8. Angina. 9. Chronic kidney disease stage 3. 10. Hyperlipidemia. 11. Hypothyroidism. 12. Aortic regurgitation. 13. Mitral regurgitation. 14. Foot drop. PAST SURGICAL HISTORY: 1. Cardiac stents times five. 2. Left cataract surgery. 3. Hysterectomy. 4. Left knee repair. 5. Appendectomy. 6. Bilateral carpal tunnel repair. 7. Gastric ulcer repair. HOME MEDICATIONS: - albuterol two puff inhalation four times a day as needed - aspirin 81 mg by mouth daily - atenolol 50 mg by mouth daily - atorvastatin 40 mg by mouth daily - chlorthalidone 12.5 mg by mouth daily - Plavix 75 mg by mouth daily - glipizide 2.5 mg by mouth daily - Levemir 22 units subcu daily - isosorbide mononitrate 30 mg by mouth daily - Synthroid 112 mcg by mouth every morning - losartan 50 mg by mouth daily - nitroglycerin 0.5 mg sublingual as needed for chest pain - omeprazole 20 mg by mouth daily - potassium chloride 20 mEq by mouth daily - Advair Diskus one puff inhalation twice a day. REVIEW OF SYSTEMS: GENERAL: No fever, no chills. HEENT: No vision changes, no auditory changes. CARDIOVASCULAR: Patient started having sharp chest pain across the whole chest today during dinner time. Pain resolved with nitroglycerin and aspirin. Patient has intermittent chest pain in the past few weeks. Patient has significant history of myocardial infarction (FL) status post stent in the past. Currently, denies any palpitations. RESPIRATORY: Having increased shortness of breath during the chest pain episode. Denies any cough or sputum production. GI: No nausea, no vomiting, no abdominal pain, no diarrhea. MUSCULOSKELETAL: History of osteoarthritis. Denies any other joint pain or muscle pain. NEUROLOGICAL: No numbness or tingling. HEMATOLOGICAL Patient has history of multiple myeloma status post chemotherapy was in remission. However, patient was told that her multiple myeloma has recurred. Patient had cancer metastasis in the past. OBJECTIVE: VITAL SIGNS: Temperature is 96.8, pulse is 72, blood pressure is 133/60, pulse oximetry is 95% in room air. GENERAL: Pale, no signs of acute distress, alert, and oriented times three. HEENT: Normocephalic, atraumatic. Extraocular movements are grossly intact. CARDIOVASCULAR: Positive S1, S2, very distant heart sounds, mildly irregular. RESPIRATORY: Clear to auscultation bilaterally. ABDOMEN: Soft and nontender, nondistended. Bowel sounds are present. No rebound, no guarding. EXTREMITIES: Positive pitting edema bilaterally. No cyanosis. LABORATORY DATA: WBC is 5.3, hemoglobin 7.7, hematocrit 24.4, platelet count is 188. Sodium 136, potassium 3.6, chloride 101, carbon dioxide 24, BUN 17, creatinine 1.54, GFR is 33.9, fasting glucose 217, calcium is 9.1, total bilirubin 0.6, direct bilirubin 0.2, AST 10, ALT 14, alkaline phosphatase 77, total CK is 247, troponin I is less than 0.02, BNP is 167, total protein 6, albumin 3.6, lipase is 127. PT is 14.5, INR is 1.12, PTT is 28.6, D-dimer is 699.6. IMAGING STUDIES: CT angiogram of the chest showed unremarkable CT of the chest. No evidence of pulmonary embolism. ASSESSMENT AND PLAN: 1. Non-ST segment elevation myocardial infarction (NSTEMI). Patient will be admitted to the progressive care unit (PCU) under inpatient status. Dr. Moreno has been consulted. Patient does have significant cardiac history including status post five stents. Patient will be on aspirin, atenolol, atorvastatin, Plavix, and patient will have as needed sublingual nitroglycerin. We will continue to trend cardiac enzymes. The first set is negative. We will also repeat EKG. Patient does have significant anemia. Consent obtained. Patient will get blood transfusion and follow hemoglobin and hematocrit. 2. Anemia, possibly due to chronic disease. We will check stool occult, iron studies, folate, and B12. 3. Multiple myeloma with history of metastasis status post chemotherapy in the past. Patient was seeing Dr. Mazariegos in the past; however, after Dr. Mazariegos retired, patient was assigned to Dr. Charles; however, she has not been seen by Dr. Charles. Patient was told her cancer may have recurred by Dr. Still. 4. Gastroesophageal reflux disease on IV Protonix. Patient has history of gastric ulcers requiring significant surgical repair. 5. History of angina. 6. Hypertension. Losartan on hold due to worsening renal function. 7. Tbnnv-lb-obddgot kidney disease stage 3. Will follow renal function and repeat hemoglobin and hematocrit. 8. Hyperlipidemia. Continue statin. 9. History of aortic regurgitation. 10. Mitral regurgitation. 11. Osteoarthritis. 12. Deep vein thrombosis (DVT) prophylaxis on thromboembolic compression stockings and sequential compression devices (SCDs).
[2016-05-17 03:25] LABS: CHOLESTEROL LEVEL 127 MG/DL (<200); TRIGLYCERIDES LEVEL 167 MG/DL (<150)
[2016-05-17] MEDS: ADVAIR DISKUS 250/50 INH PWD INH SCH ×3 (04:53→20:43)
[2016-05-17 05:41] LABS: MEAN CORPUSCULAR HEMOGLOBIN 29.7 pg (27.0-33.0); MEAN CORPUSCULAR HGB CONC 32.8 g/dl (32.0-36.5); MEAN CORPUSCULAR VOLUME 90.5 fl (80.0-96.0); RED CELL DISTRIBUTION WIDTH 15.4 % (11.5-14.5); WHITE BLOOD COUNT 4.6 K/mm3 (4.0-10.0)
[2016-05-17 06:02] LABS: CALCIUM LEVEL 9.1 MG/DL (8.8-10.2); CREATININE FOR GFR 1.41 MG/DL (0.55-1.02); GLOMERULAR FILTRATION RATE 37.6 (>32); MAGNESIUM LEVEL 1.9 MG/DL (1.8-2.4); POTASSIUM SERUM 3.9 MEQ/L (3.5-5.1)
[2016-05-17] MEDS: LEVOTHYROXINE 0.112 MG TAB (112 MCG) PO SCH (06:09)
--- NOTE | 2016-05-17 07:20 | ECGEPIP ---
Stationary ECG Study [facility] - ED Test Date: 2016-05-16 Pat Name: CHELLE BROOKS Department: Room: - Gender: F Paper Slitter: TrevinoB: 1930 Requested By: MARIAMA Shearer Order Number: [id number] Reading MD: Apolinar Irene Measurements Intervals [place] Rate: 84 P: 42 FL: 191 QRS: -3 QRSD: 90 T: 44 QT: 364 QTc: 430 Interpretive Statements SINUS RHYTHM WITH OCCASIONAL VENTRICULAR PREMATURE COMPLEXES WITH FREQUENT SUPRAVENTRICULAR PREMATURE COMPLEXES NONSPECIFIC ST DEPRESSION ECTOPY NEW COMPARED TO 11/23/15 Electronically Signed On 05-17-2016 7:20:37 EDT by Apolinar Irene
[2016-05-17 08:00] VITALS: BP 148/67
--- NOTE | 2016-05-17 08:05 | REP ---
Clinical: Chest pain. Technique: AP and lateral. Comparison: 11/22/2015. Findings: Mediastinum and cardiac silhouette are within normal limits and stable. Lung zaidi demonstrate chronic changes. Trace basilar atelectasis cannot be excluded. No focal consolidation, effusion, or pneumothorax. Skeletal structures demonstrate age-related changes. Impression: No focal consolidation. Cannot exclude trace basilar atelectasis. Signed by Nils Ying MD 05/17/2016 07:56 A
[2016-05-17] MEDS: PANTOPRAZOLE 40MG INJ (PROTONIX) (C9113) IV SCH (08:16)
[2016-05-17] MEDS: CLOPIDOGREL 75 MG TAB PO SCH (08:16)
[2016-05-17] MEDS: LEVEMIR (INSULIN DETEMIR) 1 UNITS/0.01ML SC SCH (08:16)
[2016-05-17] MEDS: ASPIRIN 81 MG ENTERIC TAB PO SCH (08:17)
[2016-05-17] MEDS: CHLORTHALIDONE 12.5MG PER 1/2 TABLET PO SCH (08:17)
[2016-05-17] MEDS: ISOSORBIDE MON. (IMDUR) 30 MG XR TAB PO SCH (08:17)
[2016-05-17] MEDS: ATORVASTATIN 20 MG TAB PO SCH (08:17)
[2016-05-17] MEDS: ATENOLOL 50 MG TAB PO SCH (08:17)
[2016-05-17] MEDS: HumaLOG INSULIN (NovoLOG) PER UNIT SC SCH ×3 (08:18→18:27)
--- NOTE | 2016-05-17 08:25 | ECGEPIP ---
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
--- NOTE | 2016-05-17 11:21 | ECGEPIP ---
Stationary ECG Study [facility] Test Date: 2016-05-17 Pat Name: CHELLE BROOKS Department: Room: [place] [address] Gender: F Buttonhole Maker Hand: SHERRY : 1930 Requested By: ALETHEA LUNA Order Number: [id number] Reading MD: Desmond Paniagua Measurements Intervals [place] Rate: 74 P: 64 [place]: 195 QRS: -4 QRSD: 89 T: 40 QT: 388 QTc: 431 Interpretive Statements Normal sinus rhythm with occasional PVC and PAC Nonspecific repolarization abnormality no significant change since prior tracing done on 05/17/2016 at 02 32 Electronically Signed On 05-17-2016 11:21:12 EDT by Desmond Paniagua
[2016-05-17 11:42] VITALS: BP 131/59
--- NOTE | 2016-05-17 11:48 | CR ---
CARDIOLOGY CONSULTATION: DATE: 05/17/2016 REFERRING PROVIDER: Erica Hernandez MD PRIMARY LAUNDRY HOUSEKEEPING AIDE: Timo Stevens MD PRIMARY PHYSICIAN: Gwyn Lawler MD ONCOLOGIST: Sravani Marsh MD CANDY CUTTER MACHINE: Solis Still MD REASON FOR CONSULTATION: Chest pain. HISTORY OF PRESENT ILLNESS: 85-year-old woman with a history of coronary artery disease as well as percutaneous transluminal coronary angioplasty (PTCA) in the past has been stable from a cardiac point of view, but for about a week, she has been having chest pain on and off, severe, with activities, relieved with rest. She also complains of shortness of breath with activities and relieved with rest. She denies any palpitations. She had some blood work done earlier this week and she was called by her primary and she was told that she is markedly anemic, to come to his office on this coming Wednesday. She developed more chest pain yesterday and she was brought to the hospital by her family for further evaluation. She was found to have abnormal EKG and she was admitted for further management and monitoring. She also was found to be markedly anemic and she was transfused 1 unit of packed red blood cells. When I saw Mrs. Kristina Cheema this morning, she was sitting in a chair in no acute distress, and just finishing her breakfast. She stated that the chest pain was a heaviness in the chest with radiation to both upper extremities and also to the neck, associated with shortness of breath, with activities. It is also difficult to catch her breath. She denies any palpitations, pedal edema. She has no orthopnea or paroxysmal nocturnal dyspnea (PND). She denies any bleeding. She was coughing and she thought that the shortness of breath was related to bronchitis. She has occasional heartburn, being treated. She denies any nausea, vomiting, diarrhea, melena, or hematemesis. She denies any dysuria, polyuria, or hematuria. There is no active swelling or redness of the joints. Since in the hospital, she has been free of chest pain and she is feeling much better without any shortness of breath after blood transfusion. She has a past medical history as mentioned above for coronary artery disease with PTCA/stent and last fall she stated that she was told that it was okay. She also has a history of hypertension, hyperlipidemia, diabetes mellitus, multiple myeloma and chronic kidney disease, hypothyroidism, valvular heart disease, gastroesophageal reflux disease (GERD) and peptic ulcer disease, as well as left foot drop. There is no history of congestive heart failure, atrial fibrillation, cerebrovascular accident (CVA), cardiomyopathy, sudden cardiac . She denies any prior history of myocardial infarction. PAST SURGICAL HISTORY: 1. Left cataract extraction. 2. LASIK surgery. 3. Hysterectomy. 4. Left knee repair. 5. Appendectomy. 6. Bilateral carpal tunnel repair. 7. Surgery done for gastric ulcer. FAMILY HISTORY: Positive for heart disease. MEDICATIONS AT HOME: - aspirin 81 mg by mouth daily - atenolol 50 mg by mouth daily - atorvastatin 40 mg by mouth daily - albuterol nebulizer 2 puffs four times a day as needed - chlorthalidone 12.5 mg by mouth daily - glipizide 2.5 mg by mouth daily - Levemir 22 units subcutaneous daily - Plavix 75 mg by mouth daily - isosorbide mononitrate 30 mg by mouth daily - Synthroid 112 mcg by mouth daily - losartan 50 mg by mouth daily - nitroglycerin sublingual as needed for chest pain - omeprazole 20 mg by mouth daily - KCl 20 mEq by mouth daily - Advair Diskus 1 puff twice daily SOCIAL HISTORY: The patient lives with her family and she does not smoke or abuse alcohol. ALLERGIES: She has multiple allergies to SULFA and adverse reaction describes migraine headache and GI upset. She also has allergies to MORPHINE that caused palpitations, CODEINE that caused altered mental status, as well as VICODIN. Also allergies to LISINOPRIL, adverse reaction described as rash. She was not able to tolerate METFORMIN/GLITAZONE COMBINATION because of renal function. CURRENT MEDICATIONS: - Regular insulin coverage - pantoprazole 40 mg IV every 24 hours - aspirin 81 mg by mouth daily - atenolol 50 mg by mouth daily - Lipitor 40 mg by mouth daily - chlorthalidone 12.5 mg by mouth daily - Plavix 75 mg by mouth daily - Levemir 22 units subcutaneous daily - isosorbide mononitrate 10 mg by mouth daily - levothyroxine 112 mcg by mouth daily - glucose 16 grams as needed for hypoglycemia - glucagon 1 mg subcutaneous as needed for hypoglycemia - Tylenol 650 mg every 4 hours as needed for mild pain or fever - D50 25 mL IV as needed for hypoglycemia - albuterol sulfate 2 puffs four times a day as needed for shortness of breath - nitroglycerin sublingual 0.4 mg as needed for chest pain - Advair Diskus 1 puff twice a day PHYSICAL EXAMINATION: The patient is alert and oriented, in no acute distress and last vital signs this morning revealed a blood pressure of 148/67 with a pulse of 72, respiration 18, and maximum temperature is 99.2 degrees Fahrenheit with an oxygen saturation of 96% on room air. When she arrived on the floor last night her blood pressure was 138/65. HEAD: Normocephalic, atraumatic. NECK: Supple. No jugular venous distention (JVD) or carotid bruits. LUNGS: Clear bilaterally on auscultation without any wheezing or crackles. HEART: Revealed normal S1, S2. Without gallops. The point of maximal impulse (PMI) is not displaced. There is no rub. There is a systolic murmur, grade 1 to 2 over 6 at the lower left sternal border and at the apex without any significant radiation. ABDOMEN: Soft, nontender, bowel sounds active. EXTREMITIES: Revealed trace nonpitting lower leg and ankle edema. SKIN: Appeared to be normal. NEUROLOGICAL: Grossly was negative for focal deficit in the upper extremities. LABS: CBC done today revealed a WBC of 4.6, hemoglobin 8.8, hematocrit 26.8 and platelets 153,000. On admission the CBC revealed a WBC of 5.2, hemoglobin 7.7, hematocrit 24.4 and platelets 188,000. PT is 14.5 with an INR of 1.12 and a PTT of 28.6. BMP revealed a sodium of 138, potassium 3.9, chloride 104, CO2 23, BUN 18, creatinine 1.41, GFR 37.6. Fasting glucose 130, calcium 9.1 and magnesium 1.9. Serum troponin is less than 0.02 times two. BNP is 167. Lipid profile done today revealed a total cholesterol of 127, triglycerides 167, LDL cholesterol 53.6 and AGL 40. TSH is 0.95. On admission BMP revealed a sodium of 136, potassium 3.6, chloride 101, CO2 23. BUN 17, creatinine 1.54, GFR 33.9, and fasting glucose 217 and calcium 9.1. Anemia workup revealed a total iron of 79 with a TIBC of 257 and transferrin saturation 30.7. Liver enzymes revealed a total bilirubin of 0.6 and direct bilirubin 0.2, AST 10, ALT 14, alkaline phosphatase is 77. Total protein 6.0. Albumin 3.6. Albumin/globulin ratio of 1.5. Serum lipase was 127. PT was 14.5 with an INR of 1.12 and a PTT of 28.6. Electrocardiogram on admission revealed normal sinus rhythm with isolated premature atrial contractions (PACs) and premature ventricular contractions (PVCs), and nonspecific ST-T abnormalities noted in the anterolateral leads. Repeat electrocardiogram done today 05/17/2016 revealed also normal sinus rhythm with isolated PACs and PVCs with a heart rate of 74 beats per minute and nonspecific ST-T abnormalities noted also in the anterolateral leads. Chest x-ray was reviewed and revealed no manifestation of heart failure, no cardiomegaly and no pleural effusion. No pneumonia. The patient had a CT angio of the chest looking for pulmonary embolism because of elevated D-dimer and it was unremarkable. Not mentioned above, serum D-dimer was 699.6. IMPRESSION: Chest pain in this 85-year-old woman with a history of coronary artery disease and PTCA/stent and patient was found to have EKG changes consistent with ischemia, but her serum troponin remained negative. She also was markedly anemic; that could be a contributing factor of her chest pain. She feels better and asymptomatic since in the hospital and after transfusion of 1 pack of red blood cells. Stool guaiac was done as per her hospitalist and it was negative. I will continue current management and transfuse her one more unit of packed red blood cells. If she remains asymptomatic, she can be discharged later today or tomorrow for followup with her primary as well as her hair preparer, and her oncologist. It was a pleasure to participate in the care of Mrs. Kristina Cheema for her underlying cardiac condition. I will continue to monitor along with you as needed while in the hospital. Please do not hesitate to call if any changes in her condition.
--- NOTE | 2016-05-17 12:25 | REP ---
Clinical: Shortness of breath and crackles. Comparison: 05/16/2016. Findings: Mediastinum and cardiac silhouette are stable. Portable technique accentuates the pulmonary vasculature and interstitium, and mild pulmonary vascular congestion cannot be excluded. No focal consolidation, effusion, or pneumothorax. Skeletal structures stable. Impression: No obvious acute cardiopulmonary process. Mild pulmonary vascular congestion cannot be excluded. Signed by Nils Ying MD 05/17/2016 12:17 P
[2016-05-17] MEDS ORDERED: FUROSEMIDE 40 MG/4 ML VIAL (J1940) IV ONE (13:00)
[2016-05-17 20:00] VITALS: BP 120/47
[2016-05-17] MEDS ORDERED: HumaLOG INSULIN (NovoLOG) PER UNIT SC SCH (21:00)
[2016-05-18] VITALS: BP 100/49
[2016-05-18] MEDS ORDERED: SLF 3 ML SYR IV PRN (00:15)
[2016-05-18 04:00] VITALS: BP 135/66
[2016-05-18 05:33] LABS: MEAN CORPUSCULAR HEMOGLOBIN 30.2 pg (27.0-33.0); MEAN CORPUSCULAR HGB CONC 33.3 g/dl (32.0-36.5); MEAN CORPUSCULAR VOLUME 90.6 fl (80.0-96.0); RED CELL DISTRIBUTION WIDTH 15.3 % (11.5-14.5); WHITE BLOOD COUNT 4.6 K/mm3 (4.0-10.0)
[2016-05-18] MEDS: LEVOTHYROXINE 0.112 MG TAB (112 MCG) PO SCH (05:41)
[2016-05-18 05:43] LABS: CALCIUM LEVEL 9.6 MG/DL (8.8-10.2); CREATININE FOR GFR 1.47 MG/DL (0.55-1.02); GLOMERULAR FILTRATION RATE 35.8 (>32); POTASSIUM SERUM 3.2 MEQ/L (3.5-5.1)
[2016-05-18] MEDS ORDERED: SLF 3 ML SYR IV SCH (06:00)
[2016-05-18] MEDS ORDERED: POTASSIUM CHLORIDE 10 MEQ SR TABLET PO ONE (07:15)
[2016-05-18 08:00] VITALS: BP 180/79
[2016-05-18] MEDS: ADVAIR DISKUS 250/50 INH PWD INH SCH (08:57)
[2016-05-18 09:01] VITALS: BP 125/65
[2016-05-18] MEDS: ASPIRIN 81 MG ENTERIC TAB PO SCH (09:01)
[2016-05-18] MEDS: ATORVASTATIN 20 MG TAB PO SCH (09:01)
[2016-05-18] MEDS: ISOSORBIDE MON. (IMDUR) 30 MG XR TAB PO SCH (09:01)
[2016-05-18] MEDS: CLOPIDOGREL 75 MG TAB PO SCH (09:02)
[2016-05-18] MEDS: CHLORTHALIDONE 12.5MG PER 1/2 TABLET PO SCH (09:02)
[2016-05-18] MEDS: ATENOLOL 50 MG TAB PO SCH (09:03)
[2016-05-18] MEDS: PANTOPRAZOLE 40MG INJ (PROTONIX) (C9113) IV SCH (09:04)
[2016-05-18] MEDS: HumaLOG INSULIN (NovoLOG) PER UNIT SC SCH (09:08)
[2016-05-18] MEDS: LEVEMIR (INSULIN DETEMIR) 1 UNITS/0.01ML SC SCH (09:31)
[2016-05-18 09:34] LABS: VITAMIN B12 LEVEL 416 PG/ML
[2016-05-18 09:35] LABS: FOLATE 8.4 NG/ML
[2016-05-18] MEDS ORDERED: PROTPAK PO (10:08)
--- NOTE | 2016-05-18 11:21 | DSES ---
DATE OF ADMISSION: 05/17/2016 DATE OF DISCHARGE: ATTENDING PHYSICIAN: Dr. Tita Walker DICTATING PHYSICIAN: Dr. Tita Walker PRIMARY CARE PHYSICIAN: Dr. Gwyn Lawler REFERRING PHYSICIAN: None. CONSULTING PHYSICIAN: Dr. Moreno CONDITION ON DISCHARGE: Stable. FINAL DIAGNOSIS: Chest pain with some shortness of breath, possibly secondary to anemia, possibly secondary to gastrointestinal etiology, less likely secondary to cardiac etiology. PROCEDURES: None. HISTORY OF PRESENT ILLNESS: The patient is an 85-year-old female with a past medical history significant for multiple myeloma, asthma, coronary artery disease, status post five stents, gastroesophageal reflux disease (GERD), hypertension, diabetes, angina, chronic kidney disease stage III, dyslipidemia, hypothyroidism, aortic regurgitation, mitral regurgitation, who presented to the emergency room after an episode of chest pain. The patient complains of chest pain originating at the right arm and radiating to the whole front of her chest. The pain was sharp and lasted for about 30 minutes. The pain improved with aspirin and nitroglycerin. The patient was admitted to progressive care unit (PCU) for serial monitoring of her cardiac enzymes and cardiology was consulted. HOSPITALIZATION COURSE: 1. Chest pain, possibly secondary to non ST elevation myocardial infarction. EKG revealed that there was some ST segment depressions in leads 3, 4, and 5. However, her cardiac enzymes have remained negative. The patient was continued with her home medications and cardiology was consulted and has been cleared. 2. Anemia, possibly secondary to chronic disease, possibly secondary to multiple myeloma. The patient's hemoglobin upon admission was 7.7. She has received 2 units of packed red blood cell transfusion and is no longer experiencing any symptoms. Her hemoglobin has remained stable. 3. Multiple myeloma with history of metastases, status post chemotherapy. The patient is going to followup with Dr. Sravani Marsh as an outpatient. 4. Gastroesophageal reflux disease (GERD). Continue with Protonix. She has been put on Protonix upon discharge. 5. History of angina. 6. Hypertension. Blood pressure running well controlled. 7. Acute on chronic kidney disease stage III. 8. Dyslipidemia. 9. Aortic regurgitation. 10. Mitral regurgitation. 11. Osteoarthritis. 12. Deep vein thrombosis (DVT) prophylaxis. She has been on sleeve compression devices. DISCHARGE MEDICATIONS: The patient will be discharged home with the following medication list: - albuterol two puffs inhaled four times a day as needed for shortness of breath - aspirin 81 mg by mouth daily - atenolol 50 mg by mouth daily - atorvastatin 40 mg by mouth daily - chlorthalidone 12.5 mg by mouth daily - Plavix 75 mg by mouth daily - glipizide 2.5 mg by mouth daily - Levemir 22 units subcutaneously daily - isosorbide mononitrate 30 mg by mouth daily - levothyroxine 112 mcg by mouth in the morning - losartan 50 mg by mouth daily - nitroglycerin 0.4 sublingual to be taken as directed - potassium chloride 20 mEq by mouth daily - Advair Diskus 250/50 one puff inhaled twice a day Stopped medications include: - omeprazole 20 mg by mouth daily New medications include: - Protonix 40 mg by mouth daily DISCHARGE INSTRUCTIONS: The patient has been advised to followup with primary care provider and cardiology, as well as oncology, Dr. Sravani Marsh, within the next 7 days. She has been advised to remain compliant with treatment plan and medications and return to the emergency room if she experiences any problems. Time spent on discharge: 35 minutes.
== END 2016-05-18 12:09 | disposition home or self-care (01) | DRG 842 ==
LOC: M ED 21:39 → M ED INP 05-17 01:09 → M PCU 05-17 02:00
PROVIDERS: ADMIT Internal Medicine; ATTEND Internal Medicine
PROC: 30253N1 (ICD-10-PCS; principal; 2016-05-17)
DX: C90.00 Multiple myeloma not having achieved remission (principal); D63.0 Anemia in neoplastic disease; J45.909 Unspecified asthma, uncomplicated; I25.119 Atherosclerotic heart disease of native coronary artery with unspecified angina pectoris; K21.9 Gastro-esophageal reflux disease without esophagitis; I12.9 Hypertensive chronic kidney disease with stage 1 through stage 4 chronic kidney disease, or unspecified chronic kidney disease; E11.9 Type 2 diabetes mellitus without complications; E78.5 Hyperlipidemia, unspecified; N18.3 Chronic kidney disease, stage 3 (moderate); E03.9 Hypothyroidism, unspecified; I08.0 Rheumatic disorders of both mitral and aortic valves; M19.90 Unspecified osteoarthritis, unspecified site; Z95.5 Presence of coronary angioplasty implant and graft; Z92.21 Personal history of antineoplastic chemotherapy; Z88.2 Allergy status to sulfonamides; Z88.5 Allergy status to narcotic agent; Z88.8 Allergy status to other drugs, medicaments and biological substances; Z79.82 Long term (current) use of aspirin; Z79.02 Long term (current) use of antithrombotics/antiplatelets; Z79.4 Long term (current) use of insulin; Z79.84 Long term (current) use of oral hypoglycemic drugs; Z79.899 Other long term (current) drug therapy; Z79.51 Long term (current) use of inhaled steroids

== ENCOUNTER → 2016-05-21 | Outpatient (REF) | payer MEDICARE ==
[~2016-05-21] MED LIST changes: +ATEN50TA2 PO; +POTA10TA34 PO; +POTA20TA PO; +PROTPAK PO
[2016-05-21 19:19] LABS: PERCENT SATURATION 30.3 % (13.2-37.4)
== END ==
LOC: M LAB REF 16:51
PROVIDERS: ATTEND Internal Medicine Nephrology
DX: C90.01 Multiple myeloma in remission (principal); D50.9 Iron deficiency anemia, unspecified

== ENCOUNTER → 2016-05-27 | Outpatient (REF) | payer MEDICARE ==
[2016-05-27 19:43] LABS: IMMUNOGLOBULIN G 258 MG/DL (681-1648); TOTAL PROTEIN 6.1 GM/DL (6.4-8.2)
[2016-05-27 20:09] LABS: IMMUNOGLOBULIN M < 5.3 MG/DL (40-230)
[2016-05-28 12:30] LABS: ALBUMIN 3.86 GM/DL (3.29-5.55); ALBUMIN % 63.3 % (55.8-66.1); GAMMA GLOBULIN % 4.3 % (11.1-18.8)
[2016-05-29 14:37] LABS: BETA 2 MICROGLOBULIN 5.9 mg/L (0.6-2.4)
[2016-05-30 00:06] LABS: FREE KAPPA LIGHT CHAINS SERUM 7.93 mg/L (3.30-19.40)
== END ==
LOC: M LAB REF 17:00
PROVIDERS: ATTEND Internal Medicine Medical Oncology
DX: C90.00 Multiple myeloma not having achieved remission (principal)

== ENCOUNTER → 2016-06-01 | Outpatient (CLI) | payer MEDICARE ==
--- NOTE | 2016-06-01 08:46 | REP ---
Pelvis, bilateral hip study: History: Multiple myeloma. Findings: AP view of the pelvis and AP and frog-leg views of both hips are obtained. There is a 6 mm radiolucency in the ischium on the right side. A lytic 9 mm lesion is seen in the right femoral neck near its junction with the intertrochanteric portion of the femur. No other definite lytic lesion is appreciated. Impression: Suspect two lytic lesions, one in the right ischium and the other in the base of the right femoral neck. Signed by Honorio Zarate MD 06/01/2016 12:07 P
--- NOTE | 2016-06-01 09:08 | REP ---
Adult skeletal survey: 13 views. History: Multiple myeloma. Comparison is made with today's radiographs of the hips and pelvis as well as recent chest CT study. Technique: PA and lateral views of the skull are obtained along with AP and lateral views of the cervical, thoracic and lumbar spine, and AP views of each humerus and each femur. Findings: The bony calvarium is intact. No suspicious lytic lesion is seen. The patient is edentulous. There are degenerative spondylosis changes in the cervical spine and lumbar spine. Vertebral body heights are preserved and alignment is normal. No collapse or fracture is seen in the cervical, thoracic or lumbar spine. There are osteoarthritic changes in the shoulders bilaterally and some diffuse osteopenia is seen. No definite lytic lesion is seen in the long bones. 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 Impression: No lytic bony destructive lesion seen. Signed by Honorio Zarate MD 06/01/2016 12:07 P
== END ==
LOC: M LAB 07:39
PROVIDERS: ATTEND Internal Medicine Medical Oncology
DX: C90.00 Multiple myeloma not having achieved remission (principal); M25.559 Pain in unspecified hip

== ENCOUNTER → 2016-06-09 | Outpatient (CLI) | payer MEDICARE ==
[2016-06-09 10:28] LABS: BASO % 0.5 % (0.0-1.0); EOS # 0.2 K/mm3 (0.0-0.50); EOS % 4.4 % (0.0-3.0); LARGE UNSTAINED CELL # 0.1 K/mm3 (0.0-0.4); LARGE UNSTAINED CELL % 2.1 % (0.0-4.0); MEAN CORPUSCULAR HEMOGLOBIN 30.8 pg (27.0-33.0); MEAN CORPUSCULAR HGB CONC 34.4 g/dl (32.0-36.5); MEAN CORPUSCULAR VOLUME 89.7 fl (80.0-96.0); MONO # 0.5 K/mm3 (0.0-0.8); MONO % 9.9 % (0.0-5.0); NEUTROPHILS # 3.3 K/mm3 (1.8-7.7); NEUTROPHILS % 65.2 % (36.0-66.0); PLATELET COUNT, AUTOMATED 152 k/mm3 (150-450); RED CELL DISTRIBUTION WIDTH 15.1 % (11.5-14.5); WHITE BLOOD COUNT 5.1 K/mm3 (4.0-10.0)
[2016-06-09 10:36] LABS: ALBUMIN 3.5 GM/DL (3.2-5.2); CALCIUM LEVEL 9.2 MG/DL (8.8-10.2); CREATININE FOR GFR 1.45 MG/DL (0.55-1.02); GLOMERULAR FILTRATION RATE 36.4 (>32); PHOSPHORUS LEVEL 3.7 MG/DL (2.5-4.9); POTASSIUM SERUM 4.1 MEQ/L (3.5-5.1)
== END ==
LOC: M LAB 09:40
PROVIDERS: ATTEND Physician Assistant
DX: I25.118 Atherosclerotic heart disease of native coronary artery with other forms of angina pectoris (principal)

== ENCOUNTER 2016-06-10 12:11 | Outpatient (CLI) | payer MEDICARE ==
[~2016-06-10 12:11] MED LIST changes: +ACETAMINOPHEN TAB 650MG DOSE (2X325MG) PO SCH; +diphenhydrAMINE 25 MG CAP PO SCH
[2016-06-10] MEDS ORDERED: FUROSEMIDE 20 MG/2 ML VIAL (J1940) IV ONE (13:30)
== END 2016-06-10 20:00 | disposition other institution (70) ==
LOC: M INFU 12:11 → M MSPAV 17:11 → M INFU 20:00
PROVIDERS: ATTEND Internal Medicine Medical Oncology
DX: D64.9 Anemia, unspecified (principal); Z88.8 Allergy status to other drugs, medicaments and biological substances; Z88.2 Allergy status to sulfonamides; Z91.040 Latex allergy status

== ENCOUNTER 2016-06-10 20:08 | Emergency (ER) | payer MEDICARE ==
[~2016-06-10] VITALS: Ht 154.9 cm; Wt 67.1 kg
[~2016-06-10 20:08] MED LIST changes: -ACETAMINOPHEN TAB 650MG DOSE (2X325MG) PO SCH; -diphenhydrAMINE 25 MG CAP PO SCH
[2016-06-10] MEDS ORDERED: NITROGLYCERIN 2% OINT 1 GM *U/D* PKT TOP ONE (20:45)
[2016-06-10 21:15] LABS: BASO % 0.4 % (0.0-1.0); EOS # 0.2 K/mm3 (0.0-0.50); EOS % 4.9 % (0.0-3.0); LARGE UNSTAINED CELL # 0.1 K/mm3 (0.0-0.4); LARGE UNSTAINED CELL % 2.3 % (0.0-4.0); LYMPH # 1.2 K/mm3 (1.5-4.5); LYMPH % 23.7 % (24.0-44.0); MEAN CORPUSCULAR HEMOGLOBIN 30.5 pg (27.0-33.0); MEAN CORPUSCULAR HGB CONC 34.1 g/dl (32.0-36.5); MEAN CORPUSCULAR VOLUME 89.3 fl (80.0-96.0); MONO # 0.5 K/mm3 (0.0-0.8); MONO % 10.2 % (0.0-5.0); NEUTROPHILS # 2.6 K/mm3 (1.8-7.7); NEUTROPHILS % 58.6 % (36.0-66.0); PLATELET COUNT, AUTOMATED 129 k/mm3 (150-450); RED CELL DISTRIBUTION WIDTH 14.5 % (11.5-14.5); WHITE BLOOD COUNT 4.5 K/mm3 (4.0-10.0)
[2016-06-10 21:42] LABS: ANION GAP 10 MEQ/L (8-16); BLOOD UREA NITROGEN 23 MG/DL (7-18); CALCIUM LEVEL 9.1 MG/DL (8.8-10.2); CARBON DIOXIDE LEVEL 26 MEQ/L (21-32); CHLORIDE LEVEL 102 MEQ/L (98-107); GLUCOSE, FASTING 177 MG/DL (83-110); POTASSIUM SERUM 3.3 MEQ/L (3.5-5.1); SODIUM LEVEL 138 MEQ/L (136-145)
[2016-06-10] MEDS ORDERED: hydrALAZINE INJ 20 MG/ML VIAL IV ONE (22:15)
[2016-06-10 22:22] VITALS: BP 214/92
[2016-06-11 05:40] VITALS: BP 204/84
--- NOTE | 2016-06-11 09:04 | REP ---
PORTABLE CHEST: Single portable view of the chest is performed and compared to prior study of 05/17/2016. There is no change since the prior exam. There is mild cardiomegaly and pulmonary venous hypertension. No new infiltrates are seen. There is tortuosity of the thoracic aorta. The mediastinal silhouette is unchanged. IMPRESSION: Mild cardiomegaly. No new infiltrates. Signed by Edmund Branch MD 06/11/2016 04:47 P
--- NOTE | 2016-06-11 09:25 | ECGEPIP ---
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
--- NOTE | 2016-06-11 09:29 | ECGEPIP ---
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
== END 2016-06-11 05:50 | disposition home or self-care (01) ==
LOC: M ED 20:36
DX: I16.0 Hypertensive urgency (principal); R94.31 Abnormal electrocardiogram [ECG] [EKG]; I44.0 Atrioventricular block, first degree; I25.10 Atherosclerotic heart disease of native coronary artery without angina pectoris; R11.0 Nausea; Z82.49 Family history of ischemic heart disease and other diseases of the circulatory system; Z79.899 Other long term (current) drug therapy; Z79.02 Long term (current) use of antithrombotics/antiplatelets; D64.9 Anemia, unspecified; Z88.8 Allergy status to other drugs, medicaments and biological substances; Z88.2 Allergy status to sulfonamides; Z91.040 Latex allergy status
CPT/HCPCS: 36430; 71010; 80048; 82550; 82553; 84484; 85025; 86850; 86880; 86900; 86901; 86920; 93005; 93041; 94760; 96374; 99285; J1940; P9016

== ENCOUNTER → 2016-06-18 | Outpatient (REF) | payer MEDICARE ==
[2016-06-18 15:00] LABS: IMMUNOGLOBULIN G 262 MG/DL (681-1648); TOTAL PROTEIN 6.2 GM/DL (6.4-8.2)
[2016-06-18 15:49] LABS: IMMUNOGLOBULIN M < 5.3 MG/DL (40-230)
[2016-06-19 12:53] LABS: ALBUMIN 3.97 GM/DL (3.29-5.55); GAMMA GLOBULIN % 4.3 % (11.1-18.8)
[2016-06-20 00:06] LABS: FREE KAPPA LIGHT CHAINS SERUM 8.73 mg/L (3.30-19.40)
== END ==
LOC: M LAB REF 12:53
PROVIDERS: ATTEND Internal Medicine Medical Oncology
DX: C90.00 Multiple myeloma not having achieved remission (principal)

== ENCOUNTER → 2016-07-02 | Outpatient (REF) | payer MEDICARE ==
[~2016-07-02] MED LIST changes: +DEXA4TA PO; +PANT40TA2 PO; +REVL10CA2 PO; +SPIR25TA2 PO; +VITA100041 PO; +VITA100L PO
[2016-07-04 00:07] LABS: FREE KAPPA LIGHT CHAINS SERUM 11.07 mg/L (3.30-19.40)
== END ==
LOC: M LAB REF 13:38
PROVIDERS: ATTEND Internal Medicine Medical Oncology
DX: C90.00 Multiple myeloma not having achieved remission (principal)

== ENCOUNTER 2016-07-04 23:45 | Emergency (ER) | payer MEDICARE ==
[~2016-07-04] VITALS: Ht 154.9 cm; Wt 66.2 kg
[~2016-07-04 23:45] MED LIST changes: -DEXA4TA PO; -PANT40TA2 PO; -REVL10CA2 PO; -SPIR25TA2 PO; -VITA100041 PO; -VITA100L PO
[2016-07-05] MEDS ORDERED: VITA100L PO (00:09)
[2016-07-05] MEDS ORDERED: DEXA4TA PO (00:09)
[2016-07-05] MEDS ORDERED: SPIR25TA2 PO (00:09)
[2016-07-05] MEDS ORDERED: REVL10CA2 PO (00:09)
[2016-07-05] MEDS ORDERED: VITA100041 PO (00:09)
[2016-07-05] MEDS ORDERED: PANT40TA2 PO (00:09)
[2016-07-05 01:52] LABS: BASO % 0.2 % (0.0-1.0); EOS # 0.2 K/mm3 (0.0-0.50); EOS % 4.2 % (0.0-3.0); LARGE UNSTAINED CELL # 0.1 K/mm3 (0.0-0.4); LARGE UNSTAINED CELL % 1.8 % (0.0-4.0); LYMPH # 0.6 K/mm3 (1.5-4.5); LYMPH % 9.3 % (24.0-44.0); MEAN CORPUSCULAR HEMOGLOBIN 30.8 pg (27.0-33.0); MEAN CORPUSCULAR VOLUME 93.4 fl (80.0-96.0); MONO # 0.6 K/mm3 (0.0-0.8); MONO % 9.8 % (0.0-5.0); NEUTROPHILS # 4.6 K/mm3 (1.8-7.7); NEUTROPHILS % 74.8 % (36.0-66.0); PLATELET COUNT, AUTOMATED 107 k/mm3 (150-450); RED CELL DISTRIBUTION WIDTH 14.8 % (11.5-14.5); WHITE BLOOD COUNT 6.1 K/mm3 (4.0-10.0)
[2016-07-05] MEDS ORDERED: NS 500 ML IV ONE (02:00)
[2016-07-05 02:09] LABS: CALCIUM LEVEL 8.9 MG/DL (8.8-10.2); CREATININE FOR GFR 1.71 MG/DL (0.55-1.02); GLOMERULAR FILTRATION RATE 30.1 (>32); POTASSIUM SERUM 3.6 MEQ/L (3.5-5.1)
[2016-07-05] MEDS ORDERED: HumuLIN R (REGULAR) INSULIN (NovoLIN R) **100U/ML** PER UNIT IV ONE (02:30)
[2016-07-05 05:29] VITALS: BP 174/77
== END 2016-07-05 05:30 | disposition home or self-care (01) ==
LOC: M ED 07-05 02:31
DX: E11.65 Type 2 diabetes mellitus with hyperglycemia (principal); I10 Essential (primary) hypertension; I25.10 Atherosclerotic heart disease of native coronary artery without angina pectoris; J44.9 Chronic obstructive pulmonary disease, unspecified; K21.9 Gastro-esophageal reflux disease without esophagitis; K03.9 Disease of hard tissues of teeth, unspecified; C92.10 Chronic myeloid leukemia, BCR/ABL-positive, not having achieved remission; Z95.5 Presence of coronary angioplasty implant and graft; Z79.899 Other long term (current) drug therapy; Z79.02 Long term (current) use of antithrombotics/antiplatelets; Z79.4 Long term (current) use of insulin; Z88.8 Allergy status to other drugs, medicaments and biological substances; Z88.5 Allergy status to narcotic agent; Z88.7 Allergy status to serum and vaccine; Z91.040 Latex allergy status; Z88.2 Allergy status to sulfonamides

== ENCOUNTER → 2016-07-09 | Outpatient (CLI) | payer MEDICARE ==
[~2016-07-09] MED LIST changes: +DEXA4TA PO; +PANT40TA2 PO; +REVL10CA2 PO; +SPIR25TA2 PO; +VITA100041 PO; +VITA100L PO
--- NOTE | 2016-07-09 09:11 | REP ---
Skeletal survey adult: 17 views. History: Anemia. Comparison skeletal survey is from June 01, 2016. Technique: AP and lateral views of the skull, cervical spine, thoracic spine, lumbar spine are performed. AP views of the chest, pelvis, and each humerus and each femur are performed. Findings: The bony calvarium remains intact. The patient is edentulous. No bony destructive lesion is seen. There are degenerative disc changes in the cervical spine at C5-6 and to a lesser extent C6-7 and C4-5. Facet osteoarthritis is seen in the cervical spine. No bony destructive lesion is seen. No bony destructive rib lesion is seen. Thoracic vertebral body heights are preserved. Pedicles and posterior elements are intact. There are degenerative disc changes in the thoracic spine. There is evidence of coronary artery stent material. Femur and humerus images show no bony destructive lesion. A left knee arthroplasty is seen. Lumbar spine radiographs show no evidence of fracture, collapse, or bony destructive lesion. There are degenerative disc changes again noted. AP view of the pelvis shows an intact bony pelvic ring and sacrum. No bony destructive lesion is seen. There are osteoarthritic changes at the shoulders bilaterally. Impression: No bony destructive lesion seen. No change from recent prior skeletal survey. Signed by Honorio Zarate MD 07/09/2016 12:37 P
== END ==
LOC: M RAD 06:16
PROVIDERS: ATTEND Internal Medicine Medical Oncology
DX: D64.9 Anemia, unspecified (principal)

== ENCOUNTER → 2016-07-17 | Outpatient (REF) | payer MEDICARE ==
[2016-07-17 13:36] LABS: IMMUNOGLOBULIN G 217 MG/DL (681-1648); TOTAL PROTEIN 5.6 GM/DL (6.4-8.2)
[2016-07-17 13:41] LABS: IMMUNOGLOBULIN M < 5.3 MG/DL (40-230)
[2016-07-19 00:06] LABS: FREE KAPPA LIGHT CHAINS SERUM 11.44 mg/L (3.30-19.40)
[2016-07-21 13:31] LABS: ALBUMIN 3.52 GM/DL (3.29-5.55); ALBUMIN % 62.8 % (55.8-66.1)
== END ==
LOC: M LAB REF 12:18
PROVIDERS: ATTEND Internal Medicine Medical Oncology
DX: C90.00 Multiple myeloma not having achieved remission (principal)

== ENCOUNTER 2016-08-02 00:02 | Inpatient (IN) | payer MEDICARE ==
[~2016-08-02] VITALS: Ht 154.9 cm; Wt 66.1 kg
[2016-08-02] MEDS ORDERED: NS 500 ML IV ONE (00:45)
[2016-08-02 01:10] LABS: VENOUS BASE EXCESS -4.4 (-2.0-2.0); VENOUS O2 SATURATION 97.8 % (60.0-80.0); VENOUS PARTIAL PRESSURE CO2 24.3 mmHg (38.0-50.0); VENOUS PARTIAL PRESSURE O2 109.8 mmHg (30.0-50.0); VENOUS STANDARD HCO3 20.8 MEQ/L; VENOUS TOTAL CO2 18.9 MEQ/L (24.0-28.0)
[2016-08-02 01:11] LABS: BASO % 0.8 % (0.0-1.0); EOS # 0.1 K/mm3 (0.0-0.50); EOS % 1.8 % (0.0-3.0); LARGE UNSTAINED CELL % 1.1 % (0.0-4.0); LYMPH # 0.5 K/mm3 (1.5-4.5); LYMPH % 13.1 % (24.0-44.0); MEAN CORPUSCULAR HEMOGLOBIN 31.6 pg (27.0-33.0); MEAN CORPUSCULAR HGB CONC 33.6 g/dl (32.0-36.5); MONO # 0.2 K/mm3 (0.0-0.8); MONO % 5.2 % (0.0-5.0); NEUTROPHILS # 2.7 K/mm3 (1.8-7.7); PLATELET COUNT, AUTOMATED 124 k/mm3 (150-450); RED CELL DISTRIBUTION WIDTH 16.3 % (11.5-14.5); WHITE BLOOD COUNT 3.4 K/mm3 (4.0-10.0)
[2016-08-02 01:18] LABS: INR 1.15
[2016-08-02 01:35] LABS: CALCIUM LEVEL 8.5 MG/DL (8.8-10.2); GLOMERULAR FILTRATION RATE 25.1 (>32); POTASSIUM SERUM 3.7 MEQ/L (3.5-5.1)
[2016-08-02] MEDS ORDERED: HumuLIN R (REGULAR) INSULIN (NovoLIN R) **100U/ML** PER UNIT IV STA (02:05)
[2016-08-02] MEDS ORDERED: POTASSIUM CHLORIDE 10 MEQ SR TABLET PO ONE (05:00)
[2016-08-02] MEDS: LEVOTHYROXINE 112MCG TABLET (0.112MG) PO SCH (06:00)
[2016-08-02] MEDS ORDERED: GLIP5TAB8 PO (06:40)
[2016-08-02] MEDS ORDERED: B-1210009 PO (06:40)
[2016-08-02] MEDS ORDERED: ISOS60TA2 PO (06:42)
[2016-08-02] MEDS ORDERED: POTA10TA34 PO (06:42)
[2016-08-02] MEDS ORDERED: ONDANSETRON 4MG/2ML VIAL (J2405) IV PRN (07:30)
[2016-08-02] MEDS ORDERED: ACETAMINOPHEN TAB 650MG DOSE (2X325MG) PO PRN (07:30)
[2016-08-02] MEDS ORDERED: diphenhydrAMINE 25 MG CAP PO ONE ×2 (07:45→21:00)
[2016-08-02] MEDS ORDERED: FUROSEMIDE 20 MG/2 ML VIAL (J1940) IV SCH (07:45)
[2016-08-02] MEDS ORDERED: ACETAMINOPHEN TAB 650MG DOSE (2X325MG) PO ONE ×2 (07:45→21:00)
[2016-08-02 09:45] LABS: RETICULOCYTE ABSOLUTE ADVIA212 76 x10(9)/L (17-77)
[2016-08-02 09:59] LABS: PERCENT SATURATION 33.6 % (13.2-37.4)
[2016-08-02 10:06] LABS: REASON FOR REVIEW COMPREHENSIVE REVIEW
[2016-08-02] MEDS ORDERED: NITROGLYCERIN 0.4 MG SUBL TABLET SL PRN (10:15)
[2016-08-02] MEDS ORDERED: ALBUTEROL 90 MCG/ACT 8GM HFA INHALER INH PRN (10:15)
--- NOTE | 2016-08-02 11:14 | HPE ---
DATE OF ADMISSION: 08/02/2016 PRIMARY CARE PHYSICIAN: Dr. Lawler MEDICAL ONCOLOGIST: Dr. Marsh EX CHEF: Dr. Still CHIEF COMPLAINT: Shortness of breath, weakness. HISTORY OF THE PRESENT ILLNESS: An 85-year-old female who lives at home with prior history significant for multiple myeloma with recent recurrence, follows with Dr. Sravani Marsh, restarted on Decadron, asthma, coronary artery disease, status post five stents, on chronic aspirin and Plavix, reflux disease, hypertension, diabetes, chronic kidney disease, stage III-IV, hyperlipidemia, hypothyroidism, aortic regurgitation, mitral regurgitation, presented to [facility] with a few day history of generalized weakness, her legs giving out on her, blurred vision and uncontrolled glucose. The patient states that she appeared to be incoherent, had to have her son help her with most of the things at home. She saw Dr. Sravani Marsh on Wednesday and was given intravenous medications for recurrence for myeloma. 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 The patient was found to be severely anemic with hemoglobin of 7. She otherwise denies any chest pressure or tightness. She states that she does have occasional discomfort in the chest, she describes heartburn but no medications were taken at home, unlike her previous chest pain when she was sent to [place] for stent placement. The patient denies any diaphoresis. She has had some exercise intolerance, unable to go 5-10 feet without feeling short of breath with accompanying dyspnea on exertion. She denies any fever, chills or cough, dysuria, urgency, frequency. No recent weight gain or weight loss, changes in appetite. Complains of bilateral lower extremity weakness, as if her legs were giving up and some blurred vision. Glucose levels were found to be 479. Hospitalist was called for admission for symptomatic anemia, multiple myeloma recurrence as well as hyperglycemia with difficult to control glucose. She was also found to have acute on chronic renal failure. PAST MEDICAL HISTORY: Multiple myeloma. Chronic kidney disease, stage III-IV. Coronary artery disease, status post stent times five. Reflux disease. Hypertension. Diabetes. Hyperlipidemia. Hypothyroidism. Aortic regurgitation. Mitral regurgitation. History of gastric ulcer. Hypertension. Diabetes. Angina. Foot drop. ALLERGIES: SULFA causing migraine, gastrointestinal (GI) upset. MORPHINE palpitations. CODEINE decreased mentation. VICODIN confusion. LISINOPRIL rash. Unable to tolerate METFORMIN, ROSIGLITAZONE due to poor renal function. PAST SURGICAL HISTORY: Cardiac stent times five. Left cataract surgery. Hysterectomy. Left knee repair. Appendectomy. Bilateral carpal tunnel repair. Gastric ulcer repair. HOME MEDICATIONS: - aspirin 81 mg daily - Plavix 75 mg daily - chlorthalidone 12.5 mg daily - Levemir insulin 22 units daily - losartan 50 mg daily - spironolactone 25 mg daily - revlimid 10 mg nightly - albuterol as needed - atenolol 50 mg daily - atorvastatin 40 mg daily - vitamin D3 1000 units daily - B12 1000 mcg daily - dexamethasone 4 mg tablet, 20 mg once weekly - glipizide 2-1/2 mg daily - isosorbide mononitrate 60 mg daily - levothyroxine 112 mcg daily - nitroglycerin as needed - Protonix 40 mg daily - potassium chloride 10 mEq daily SOCIAL HISTORY: Denies any current recreational drug use, smoking or alcohol use. Retired. Has a supportive family. REVIEW OF SYSTEMS: Twelve point system obtained, all of which are negative except for positive findings in the history of the present illness. PHYSICAL EXAMINATION: VITAL SIGNS: Temperature 98, pulse 57, sinus rhythm, respiratory rate 16, blood pressure 125/54 to 148/63, 96% on room air. General: The patient appears pale, no icterus, no jaundice, no respiratory distress. No facial asymmetry. Tongue is midline. Trachea is midline. Moist mucous membranes. Speaks in full sentences. No respiratory distress. No jugular venous distention, thyromegaly or cervical lymphadenopathy. Lungs: Clear auscultation. No wheezing, rales, or rhonchi. Heart: S1, S2, sinus rhythm. Abdomen: Soft, nontender, nondistended. Positive bowel sounds. Extremities: Have no pitting edema. EKG: Sinus rhythm, ventricular rate of [address] changes. Left atrial enlargement. White count 3.4, hemoglobin 7.5, hematocrit 22.3, platelet count 124. Sodium 131 , potassium 3.7, chloride 96, bicarbonate 23, BUN 23, creatinine 2, glucose of 479 , calcium 8.5, iron 72, TIBC 214, total CK 138, MB fraction 1.4, troponin 0.03. ASSESSMENT AND PLAN: This is an 85-year-old female with a history of multiple myeloma, asthma, reflux, coronary artery disease, stent times five, chronic kidney disease III-IV, hyperlipidemia, hypothyroidism, aortic regurgitation, mitral regurgitation, recently diagnosed with recurrence of multiple myeloma, on revlimid and dexamethasone, follows with Dr. Marsh, previously followed with Dr. Mazariegos, presents to the emergency room with a few day history of weakness, felt like her legs were giving out, uncontrolled sugar with glucose level of 479 in the emergency room with complaints of blurred vision, unable to ambulate due to severe lower extremity weakness. She was found to be severely anemic with hemoglobin of 7, admitted for evaluation of pancytopenia, most likely related to multiple myeloma, rule out gastrointestinal bleed for anemia, still on anticoagulation, aspirin and Plavix for her five cardiac stents. The patient is admitted as an inpatient for two midnights for the following issues: 1. Symptomatic anemia. Most likely secondary to recurrence for multiple myeloma. Cannot rule out gastrointestinal bleed due to prior history of gastric ulcers. The patient will be treated symptomatically. She does complain of weakness, dizziness and inability to ambulate due to lower extremity weakness. She will be transfused two units of irradiated red blood cells, check hemoglobin and hematocrit every 6 hours, check reticulocyte count, peripheral blood smear and iron studies. Consult Dr. Ian Paris who is covering for Dr. Marsh today for medical oncology. Continue the patient's revlimid and dexamethasone as previously prescribed by Dr. Marsh for her multiple myeloma recurrence. The patient does have a history of gastric ulcers; therefore, she will be continued on Protonix 40 mg daily. Carafate will be added 1 gram before food and nightly. Obtain stool hemoccult and monitor for any new active GI bleed. The patient adamantly denies any hematemesis, bright red blood per rectum, melena or black tarry stools and states that she has not noticed any intestinal bleeding. 2. Pancytopenia, most likely related to multiple myeloma recurrence. Defer to Dr. Paris, who is diesel stationary engineer for Dr. Sravani Marsh, to manage. We will continue her on her revlimid and dexamethasone. At this time, will provide supportive care. No active signs of bleeding. Platelet count seems to be adequate. Will transfuse three units of irradiated red blood cells. She currently has no signs of acute infection, so, therefore, no empiric antibiotics. She is afebrile with some leukopenia. Repeat complete blood count (CBC) after blood transfusion. 3. History of coronary artery disease and stents times five, on chronic aspirin and Plavix, beta blockade. At this time, since I do not have a sample of a hemoccult, I will continue the aspirin and Plavix despite the severe anemia. She does have a history of prior gastric ulcer and may be at risk of GI bleed; therefore, will continue the Protonix and add Carafate. 4. History of asthma. No wheezing at the bedside. Proventil as needed. 5. Hypertension. Due to worsening renal function, I have held the patient's diuretic as well as her angiotensin receptor sury (ARB)/angiotensin- converting enzyme (JUSTICE) inhibitor. Defer to Dr. Still for resumption once creatinine has improved. Monitor intake and output and daily weight for now, monitor for symptoms. 6. Uncontrolled type 2 diabetes. No signs and symptoms of diabetic ketoacidosis. Will change Levemir insulin to twice a day dosing and may resume home dose of glipizide, which is safe in renal insufficiency. 7. Hypothyroidism. Continue on home dose of Synthroid. 8. Hyperlipidemia. Continue on Lipitor. 9. Deep vein thrombosis (DVT) prophylaxis. Currently on aspirin and Plavix. Will add compression stockings. Addendum: Per Dr. Ian Paris, medical oncologist diesel stationary engineer, 10:34 am, no change in management. Pt may follow as outpatient with Dr. Marsh at hospital discharge, and no immediate need for inpatient consultation. Therefore, will discontinue inpatient oncology consult. ALEKSEY
--- NOTE | 2016-08-02 11:22 | REP ---
Chest x-ray: Two views. History: Shortness of breath and chest pain. Comparison chest x-ray June 10, 2016. Findings: EKG monitoring electrodes overlie the chest. Mild cardiomegaly is observed. The aorta is somewhat tortuous. There is no evidence of pleural effusion. Pulmonary vasculature is not increased. Impression: Mild to moderate cardiomegaly. Otherwise no acute disease. Signed by Honorio Zarate MD 08/02/2016 11:33 A
[2016-08-02 12:15] VITALS: BP 183/78
[2016-08-02] MEDS: ATORVASTATIN 20 MG TAB PO SCH (13:08)
[2016-08-02] MEDS: ATENOLOL 50 MG TAB PO SCH (13:08)
[2016-08-02] MEDS: SUCRALFATE 1 GM TAB PO SCH ×3 (13:08→20:53)
[2016-08-02] MEDS: PANTOPRAZOLE 40MG TAB (PROTONIX) PO SCH (13:08)
[2016-08-02] MEDS: CLOPIDOGREL 75 MG TAB PO SCH (13:08)
[2016-08-02] MEDS: CYANOCOBALAMIN 500 MCG TAB PO SCH (13:09)
[2016-08-02] MEDS: ASPIRIN 81 MG ENTERIC TAB PO SCH (13:09)
[2016-08-02] MEDS: glipiZIDE *2.5MG* 1/2 TABLET PO SCH (13:09)
[2016-08-02] MEDS: HEPARIN SOD (PORCINE) 5000 UNITS/ML VIAL SC SCH ×2 (13:10→21:07)
[2016-08-02] MEDS: VITAMIN D 1,000 INTERNATIONAL UNITS TABLET PO SCH (13:10)
[2016-08-02] MEDS: ISOSORBIDE MON. (IMDUR) 60 MG XR TAB PO SCH (13:10)
[2016-08-02] MEDS: LEVEMIR (INSULIN DETEMIR) 1 UNITS/0.01ML SC SCH ×2 (13:11→20:54)
[2016-08-02 16:00] VITALS: BP 148/65
--- NOTE | 2016-08-02 19:01 | ROOPDOC ---
[facility] Report Of Operation Report of Operation DATE OF PROCEDURE: 08/02/16 PREPROCEDURE DIAGNOSES: symptomatic anemia, need for IV access POSTPROCEDURE DIAGNOSES: same. PROCEDURE: insertion of left subclavian triple lumen central venous catheter. SURGEON: Sara Samano MD ANESTHESIA: local anesthesia with 1% lidocaine. ESTIMATED BLOOD LOSS: Approximately 3 mL. COMPLICATIONS: none CXR pending REMARKS: PROCEDURE NOTE:I was asked to place a central venous catheter on Ms. Cheema who is 85 with symptomatic anemia from her multiple myeloma DESCRIPTION OF PROCEDURE: After explaining the procedure, consent was obtained. A central line bundle was used. She was positioned on a trendelenburg position on her bed. The left chest and neck was prepped and draped. Using her clavicular landmarks the subclavian vein was accessed infraclavicularly. A guidewire then threaded through the syringe. Using a modified seldinger technique, the tract was dilated and a triple lumen venous catheter was threaded through the guidewire and placed at 19 cms at skin level. All ports were accessed and noted to be working. A sterile dressing then placed after securing the catheter to the skin. Patient tolerated the procedure well. A pcxr is pending. NATALIA SAMANO MD Aug 02, 2016 19:01
[2016-08-02 20:00] VITALS: BP 131/63
--- NOTE | 2016-08-02 21:22 | CR ---
DATE OF CONSULTATION: 08/02/2016 REFERRING PHYSICIAN: Nereyda Barajas MD. REASON FOR CONSULTATION: Acute renal failure and severe anemia. HISTORY OF PRESENT ILLNESS: Ms. Cheema is an 85-year-old female who is admitted due to shortness of breath and generalized weakness. She has multiple chronic medical problems including history of multiple myeloma, stage III to stage IV of chronic kidney disease and recurrent anemia requiring transfusions. Nephrology consultation was requested as the patient is noticed to have worsening kidney function, and the patient is seen this afternoon on her bedside. PAST MEDICAL AND SURGICAL HISTORY Significant for: 1. History of multiple myeloma diagnosed in 2011, and treated. Was remission up until recently. 2. History of stage III to stage IV of chronic kidney disease with baseline creatinine about 1.4 mg/dL. 3. History of coronary artery disease, status post angioplasty with stent. 4. History of gastroesophageal reflux disease. 5. Hypertension. 6. Type 2 diabetes. 7. Hyperlipidemia. 8. Hypothyroidism. 9. History of gastric ulcer in the past. 10. History of aortic and mitral regurgitation. Past surgical history is significant for: 1. Coronary angioplasty with stent. 2. History of left eye cataract surgery. 3. Hysterectomy. 4. Left knee repair. 5. Appendectomy. 6. Bilateral carpal tunnel release. 7. History of gastric ulcer surgery. ALLERGIES: The patient has multiple allergies includin. SULFA 2. MORPHINE 3. CODEINE 4. VICODIN 5. LISINOPRIL 6. METFORMIN 7. ROSIGLITAZONE HOME MEDICATIONS: - aspirin 81 mg daily - Plavix 75 mg daily - chlorthalidone 12.5 mg daily - Levemir insulin 22 units daily - losartan 50 mg daily - spironolactone 25 mg daily - Revlimid 10 mg at night - albuterol as needed for dyspnea - atenolol 50 mg daily - atorvastatin 40 mg daily - vitamin D 1000 units daily - vitamin B12 1000 mcg daily - Decadron 20 mg once a week - glipizide 2 mg half a tablet daily - isosorbide 60 mg daily - levothyroxine 112 mcg daily - Protonix 40 mg daily - potassium chloride 10 mEq daily PERSONAL AND SOCIAL HISTORY: The patient has no history of alcohol, drug or tobacco use. FAMILY HISTORY: Noncontributory in this elderly lady. There is no family history of end-stage renal disease. REVIEW OF SYSTEMS: She is generally feeling poorly. She denies any fever or chills. Ears, nose and throat are unremarkable. She denies any sore throat or nosebleed. Cardiovascular system is significant for history of dyspnea but denies any chest pain. Respiratory system is negative for cough, hemoptysis or pleuritic type of chest pain. Gastrointestinal (GI) system is significant for poor oral intake. There is no history of abdominal pain or diarrhea. She denies any rectal bleeding or black colored stools. Genitourinary () system negative for dysuria or hematuria. There is no known history of kidney stones. Endocrine system is significant for diabetes, hypothyroidism and secondary hyperparathyroidism. She has history of multiple myeloma. Psychosocial system negative for depression or anxiety. Neurological system negative for seizures or stroke. Skin is negative for rash or ulcers. PHYSICAL EXAMINATION: GENERAL: This is an elderly female lying in the bed without any acute distress. She looks pale but not in any acute distress. VITAL SIGNS: Temperature 98.7 degrees Fahrenheit, heart rate 66 per minute and respiratory rate 18 per minute. Blood pressure 135/62 mmHg and oxygen saturation 96% on room air. HEENT: Head is atraumatic. Ears, nose and throat are unremarkable. There is no oral thrush or ulcers. Pupils equal and reactive to light and sclerae are anicteric. NECK: Is supple and without jugular venous distention (JVD) or thyroid enlargement. CARDIAC/RESPIRATORY: Heart sounds are regular and lungs with few basilar crepitations bilaterally. ABDOMEN: Soft and nontender. Bowel sounds are normal and there is no palpable organomegaly. EXTREMITIES: Have no cyanosis or clubbing. SKIN: Has no rash or ulcers. NEUROLOGIC: She is awake, alert and oriented times three. LABORATORY DATA: WBC count 3.4, hemoglobin 7.5 and hematocrit 22.3. Platelets 124. Blood gas showed a pH of 7.49, pCO2 of 24.3, pO2 109.8 and bicarb 18. INR 1.15 and PTT 29.4. Sodium 131, potassium 3.7, CO2 of 23, BUN 23 and creatinine 2.0. Glucose 479 and serum osmolality 296. Calcium level 8.5. Iron 72 and saturation 33.6%. PROBLEMS: 1. Acute kidney injury superimposed on chronic kidney disease. Probably related to multiple myeloma. The patient does not seem to be clinically significantly dehydrated. I suggest to hold her diuretic for now and monitor kidney function. We will stop her chlorthalidone and potassium supplement. She may be slightly dehydrated because of osmotic diuresis caused by hyperglycemia. 2. Severe anemia. Patient has long history of recurrent anemia requiring transfusions, which is most likely related to her multiple myeloma. At present she will need to be transfused and I suggest to go ahead and transfuse her with packed red blood cells (RBCs). 3. Hyponatremia. This is caused by hyperglycemia and is likely to improve with good control of her hyperglycemia. No other intervention will be needed. 4. Pancytopenia. Most likely related to multiple myeloma. She is followed by oncology as an outpatient. I suggest to get oncology evaluation for followup while she is in the hospital. I thank you for involving me in the care of Ms. Cheema. I will follow her along with you.
[2016-08-03] VITALS (7 sets, daily range): BP systolic 133–162; BP diastolic 61–74; PULSE 46–52
[2016-08-03] MEDS ORDERED: SODIUM CHLORIDE 0.9% INJ 10 ML SYR IV PRN (05:00)
[2016-08-03] MEDS: SODIUM CHLORIDE 0.9% INJ 10 ML SYR IV SCH ×3 (05:19→20:53)
[2016-08-03] MEDS: HEPARIN SOD (PORCINE) 5000 UNITS/ML VIAL SC SCH ×3 (05:19→20:50)
[2016-08-03] MEDS: LEVOTHYROXINE 112MCG TABLET (0.112MG) PO SCH (05:19)
[2016-08-03] MEDS ORDERED: REVLIMID 10 MG PO SCH (09:00)
--- NOTE | 2016-08-03 09:37 | REP ---
PORTABLE CHEST: AP portable view of the chest is performed and compared to a prior study of 08/02/2016. There is placement of the left central venous catheter and the tip is in the superior vena cava. There is no pneumothorax. Stable chronic interstitial opacities are present. There is cardiomegaly. IMPRESSION: Placement of the left subclavian central venous catheter with the tip in superior vena cava. No pneumothorax. No other acute change. Signed by Edmund Branch MD 08/03/2016 08:16 P
[2016-08-03] MEDS: POTASSIUM CHLORIDE 10 MEQ SR TABLET PO SCH (10:03)
[2016-08-03] MEDS: SUCRALFATE 1 GM TAB PO SCH ×4 (10:03→20:50)
[2016-08-03] MEDS: ATORVASTATIN 20 MG TAB PO SCH (10:04)
[2016-08-03] MEDS: CLOPIDOGREL 75 MG TAB PO SCH (10:04)
[2016-08-03] MEDS: ASPIRIN 81 MG ENTERIC TAB PO SCH (10:04)
[2016-08-03] MEDS: CYANOCOBALAMIN 500 MCG TAB PO SCH (10:04)
[2016-08-03] MEDS: VITAMIN D 1,000 INTERNATIONAL UNITS TABLET PO SCH (10:04)
[2016-08-03] MEDS: PANTOPRAZOLE 40MG TAB (PROTONIX) PO SCH (10:04)
[2016-08-03] MEDS: ISOSORBIDE MON. (IMDUR) 60 MG XR TAB PO SCH (10:06)
[2016-08-03] MEDS: ATENOLOL 50 MG TAB PO SCH (10:06)
[2016-08-03 10:45] LABS: BASO % 0.7 % (0.0-1.0); EOS # 0.4 K/mm3 (0.0-0.50); EOS % 11.6 % (0.0-3.0); LARGE UNSTAINED CELL # 0.1 K/mm3 (0.0-0.4); LARGE UNSTAINED CELL % 1.2 % (0.0-4.0); LYMPH # 0.6 K/mm3 (1.5-4.5); LYMPH % 15.1 % (24.0-44.0); MONO # 0.3 K/mm3 (0.0-0.8); MONO % 6.9 % (0.0-5.0); NEUTROPHILS # 2.4 K/mm3 (1.8-7.7); NEUTROPHILS % 64.4 % (36.0-66.0); PLATELET COUNT, AUTOMATED 120 k/mm3 (150-450); RED CELL DISTRIBUTION WIDTH 17.5 % (11.5-14.5); WHITE BLOOD COUNT 3.7 K/mm3 (4.0-10.0)
[2016-08-03 10:56] LABS: MEAN CORPUSCULAR VOLUME 86.1 fl (80.0-96.0)
[2016-08-03 11:02] LABS: DIFF SLIDE NUMBER 185
[2016-08-03] MEDS: glipiZIDE *2.5MG* 1/2 TABLET PO SCH (11:16)
[2016-08-03] MEDS: NYSTATIN 100,000 UNITS/GM TOPICAL PWD 15 GM TOP SCH ×2 (11:17→21:00)
[2016-08-03] MEDS: NYSTATIN CREAM 15 GM TOP SCH ×2 (11:18→21:00)
[2016-08-03 11:35] LABS: ALBUMIN 3.1 GM/DL (3.2-5.2); CALCIUM LEVEL 8.2 MG/DL (8.8-10.2); CREATININE FOR GFR 1.8 MG/DL (0.55-1.02); GLOMERULAR FILTRATION RATE 28.3 (>32); PHOSPHORUS LEVEL 2.8 MG/DL (2.5-4.9); POTASSIUM SERUM 3.3 MEQ/L (3.5-5.1)
--- NOTE | 2016-08-03 11:54 | IPN ---
DATE OF VISIT: 08/03/2016 Ms. Cheema is this morning on her bedside. She is feeling better today and reports that she received 3 units of packed RBCs through the night. She denies any dyspnea, chest pain, nausea or vomiting. PHYSICAL EXAMINATION: Temperature 98.3 degrees Fahrenheit, heart rate 50 per minute, respiratory rate 18 per minute. Blood pressure 162/69 mmHg and oxygen saturation 95% on room air. Intake and output are inaccurate. Neck is supple and JVD is mildly elevated. Head is atraumatic. Pupils equal and reactive to light and sclera is anicteric. Heart sounds are regular and lungs with diminished breath sounds at bases and bibasilar rales. Abdomen soft and nontender and without a palpable organomegaly. Bowel sounds are normal. Extremities have no cyanosis or clubbing. Skin has no rash or ulcers. Neurologically she is awake, alert and oriented times three. Her labs have not been drawn as the patient was receiving blood transfusion. PROBLEMS: 1. Acute renal failure superimposed on chronic kidney disease. Today's labs are going to be drawn as she just finished her blood transfusion. We will monitor her renal function closely. She has no uremic symptoms at this point. 2. Hyponatremia related to uncontrolled hyperglycemia. Electrolytes will be checked again today. No intervention needed, so far. 3. Anemia. The patient does have history of multiple myeloma and chronic anemia. She just finished her transfusion of 3 units of packed RBCs. A followup CBC is pending.
[2016-08-03] MEDS: REVLIMID 10 MG PO SCH (21:00)
--- NOTE | 2016-08-03 21:43 | IPN ---
DATE: 08/03/2016 Yesterday, the patient had poor venous access and central line was placed via subclavian approach by Dr. Samano on the left. She has received 3 units of blood today, with resultant improvement in hemoglobin from admission of 7 to current hemoglobin of 9.9. At this time, the patient denies any chest pain, pressure, tightness, shortness of breath. Her fatigue is improved. She has not ambulated this morning as yet. PHYSICAL EXAMINATION: VITAL SIGNS: Temperature 97.6, pulse 54, respiratory rate 18, blood pressure 157/70, 96% on room air. GENERAL: The patient is awake, alert and oriented times three. Answers questions appropriately. LUNGS: Clear to auscultation. No wheezing, rales or rhonchi. HEART: S1, S2. Sinus rhythm. ABDOMEN: Soft and nontender, nondistended. Positive bowel sounds. EXTREMITIES: No pitting edema. LABORATORY DATA: Hemoglobin 9.9, hematocrit 27.8, white count 3.7, platelet count of 120. Sodium 140, potassium 2.3, chloride 108, bicarbonate 20, BUN 27, creatinine 1.8, glucose of 160. Microbiology: None. IMAGING STUDIES: Chest x-ray showed no acute infiltrate. ASSESSMENT AND PLAN: This is an 85-year-old female with a history of multiple myeloma, previously in remission, currently with recurrence, follows with Dr. Sravani Marsh, chronic kidney disease stage IV, coronary artery disease, status post stent times five, reflux, hypertension, diabetes, hyperlipidemia, hypothyroidism, aortic regurgitation, mitral regurgitation, gastric ulcers, foot drop, and angina, followed by Dr. Still and Dr. Sravani Marsh, presents to the emergency room with shortness of breath, weakness in bilateral lower extremities and uncontrolled type 2 diabetes. Current issues are as follows: 1. Symptomatic anemia, most likely secondary to recurrence of multiple myeloma, cannot rule out gastrointestinal bleed due to prior history of gastric ulcers. The patient is treated symptomatically. She did complain of weakness, dizziness, inability to ambulate due to weakness of her lower extremities, felt like they were giving out on her. The patient has been transfused irradiated red blood cells. Check hemoglobin and hematocrit every 6 hours, peripheral smear, iron studies prior to blood transfusion. Per Dr. Paris, who is covering for Dr. Sravani Marsh, no acute changes in her management. Continue with Revlimid and Decadron. At this time, the patient has not given a stool sample. We will continue to monitor. She otherwise adamantly denies hematemesis, bright red blood per rectum, melena, black/tarry stools. She states that she has not noticed any other intestinal bleeding. Denies any abdominal discomfort. 2. Pancytopenia. 3. Multiple myeloma with recurrence. Per Dr. Paris, who was optical effects layout person on Wednesday, the patient does not require inpatient medical oncology consultation. May discharge home with followup with Dr. Sravani Marsh once the patient's symptoms have improved and the patient is optimized with her anemia. 4. History of coronary artery disease, stents. On chronic aspirin and Plavix, beta blockade. Since I have no stool for hemoccult showing positive hemoccult, I will continue the aspirin and Plavix and assume that the patient's anemia is secondary to multiple myeloma. However, if the patient develops heme positive stool, she will need repeat workup despite history of gastric ulcers and being on proton pump inhibitor, the patient will need workup in light of the need for aspirin and Plavix for a history of coronary artery disease and stents. 5. History of asthma. No wheezing. Proventil as needed. 6. Hypertension due to worsening renal function. Outpatient therapy with Dr. Still for management. 7. Uncontrolled type 2 diabetes. No signs or symptoms of DKA. I have changed the patient's Levemir to twice a day and home dose of glipizide. 8. Renal insufficiency. 9. Hypothyroidism. On home Synthroid. 10. Hyperlipidemia. On Lipitor. 11. Deep vein thrombosis (DVT) prophylaxis. Compression stockings.
[2016-08-04] MEDS: SODIUM CHLORIDE 0.9% INJ 10 ML SYR IV SCH ×3 (05:37→21:13)
[2016-08-04] MEDS: HEPARIN SOD (PORCINE) 5000 UNITS/ML VIAL SC SCH ×3 (05:37→21:15)
[2016-08-04] MEDS: LEVOTHYROXINE 112MCG TABLET (0.112MG) PO SCH (05:37)
[2016-08-04 06:34] LABS: BASO % 1.1 % (0.0-1.0); EOS # 0.8 K/mm3 (0.0-0.50); EOS % 17.2 % (0.0-3.0); LARGE UNSTAINED CELL # 0.1 K/mm3 (0.0-0.4); LARGE UNSTAINED CELL % 1.3 % (0.0-4.0); LYMPH # 0.9 K/mm3 (1.5-4.5); LYMPH % 17.2 % (24.0-44.0); MEAN CORPUSCULAR HEMOGLOBIN 30.3 pg (27.0-33.0); MEAN CORPUSCULAR HGB CONC 35.1 g/dl (32.0-36.5); MEAN CORPUSCULAR VOLUME 86.4 fl (80.0-96.0); MONO # 0.4 K/mm3 (0.0-0.8); MONO % 9.3 % (0.0-5.0); NEUTROPHILS # 2.6 K/mm3 (1.8-7.7); NEUTROPHILS % 53.9 % (36.0-66.0); PLATELET COUNT, AUTOMATED 119 k/mm3 (150-450); RED CELL DISTRIBUTION WIDTH 17.7 % (11.5-14.5); WHITE BLOOD COUNT 4.7 K/mm3 (4.0-10.0)
[2016-08-04 06:47] LABS: CREATININE FOR GFR 1.73 MG/DL (0.55-1.02); GLOMERULAR FILTRATION RATE 29.7 (>32); POTASSIUM SERUM 3.7 MEQ/L (3.5-5.1)
[2016-08-04] MEDS: PANTOPRAZOLE 40MG TAB (PROTONIX) PO SCH (08:08)
[2016-08-04] MEDS: ASPIRIN 81 MG ENTERIC TAB PO SCH (08:09)
[2016-08-04] MEDS: SUCRALFATE 1 GM TAB PO SCH ×4 (08:09→21:12)
[2016-08-04] MEDS: POTASSIUM CHLORIDE 10 MEQ SR TABLET PO SCH (08:09)
[2016-08-04] MEDS: CLOPIDOGREL 75 MG TAB PO SCH (08:09)
[2016-08-04] MEDS: ISOSORBIDE MON. (IMDUR) 60 MG XR TAB PO SCH (08:09)
[2016-08-04] MEDS: CYANOCOBALAMIN 500 MCG TAB PO SCH (08:10)
[2016-08-04] MEDS: NYSTATIN 100,000 UNITS/GM TOPICAL PWD 15 GM TOP SCH ×2 (08:10→21:15)
[2016-08-04] MEDS: ATORVASTATIN 20 MG TAB PO SCH (08:10)
[2016-08-04] MEDS: VITAMIN D 1,000 INTERNATIONAL UNITS TABLET PO SCH (08:10)
[2016-08-04] MEDS: NYSTATIN CREAM 15 GM TOP SCH ×2 (08:11→21:15)
[2016-08-04] MEDS: ATENOLOL 50 MG TAB PO SCH (08:11)
[2016-08-04] MEDS: glipiZIDE *2.5MG* 1/2 TABLET PO SCH (08:12)
--- NOTE | 2016-08-04 08:38 | ECGEPIP ---
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
[2016-08-04] MEDS ORDERED: NS 1,000 ML IV SCH (10:30)
--- NOTE | 2016-08-04 13:49 | IPN ---
DATE: 08/04/2016 Mrs. Cheema is seen this morning on her bedside. She is feeling better today and denies any nausea, vomiting, dyspnea or chest pain. She has been transferred out of progressive care unit to regular medical floor since yesterday. Intake and output records from yesterday are incomplete. PHYSICAL EXAMINATION: She is awake, alert and oriented times three. Temperature 98.2 degrees Fahrenheit, heart rate 60 per minute and respiratory rate 17 per minute. Blood pressure 156/70 mmHg and oxygen saturation 92% on room air. Head is atraumatic. Ears, nose and throat are unremarkable. Neck is supple and without jugular venous distention (JVD) or thyroid enlargement. Left subclavian central line is in place. Heart sounds are regular and lungs sound clear to auscultation. Abdomen is soft and nontender and bowel sounds normal. Extremities have no cyanosis or clubbing. Skin has no rash or ulcers. Neurologically, she is awake, alert and oriented times three. Today's labs show WBC count 4.7, hemoglobin 10.7 and hematocrit 30.4. Platelets 119. Sodium 140 and potassium 3.7. BUN 23 and creatinine 1.73. PROBLEMS: 1. Acute renal failure superimposed on chronic kidney disease. Kidney function has improved to almost her preadmission baseline. At present, her electrolytes are within normal range. Her oral intake is adequate and she does not need IV fluid. Her diuretics have been on hold. 2. Anemia. The patient has history of recurrent anemia with multiple myeloma. Since transfusion, her anemia has remained stable. At present, no intervention is indicated. 3. Hypertension. Blood pressure is reasonable. At present, we will continue with current antihypertensive medications and monitor closely. 4. Hypokalemia. Her potassium level has improved. She is receiving 10 mEq potassium chloride daily. We will recheck her electrolytes tomorrow morning.
[2016-08-04 14:00] VITALS: BP 148/72
--- NOTE | 2016-08-04 14:12 | IPNPDOC ---
Text Note Date of Service The patient was seen on 08/04/16. NOTE Subjective: Patient is an 85 year old female with a PMHx of CKD3-4, Multiple myeloma (with recurrence, follows with Dr. Moran), Asthma, CAD s/p stent x5 , GERD, HTN, DM2, DLP, Hypothyroidism, Aortic regurgitation, and Mitral regurgitation who presented to the ER with generalized weakness and fatigue. Patient was found to be severely anemic. She was admitted to medical surgical floor and received blood transfusions. Patient was seen and examined at the bedside. Currently she notes that she is feeling better. Denies any new problems. Objective: Vitals (See below) General: Lying in bed, no acute distress, comfortable, AAOx3 HEENT: NC, AT CVS: RRR, +S1S2 Lungs: Fair air entry b/l, -w/r/r Abdomen: Soft, ND, NT, +BSx4 Extremities: +PPx4, - Edema, - Calf tenderness Assessment and plan: 1. Symptomatic anemia - likely 2/2 multiple myeloma, less likely 2/2 acute blood loss 2/2 GI source - history of prior GI bleeding 2/2 ulcers - currently asymptomatic; no abdominal pain, no change in bowel habits (gross blood or dark stools) - physical unrevealing - s/p 3 units of PRBC - H&H stable - Fecal occult blood sample pending - c/w Decadron and Revlimid 2. Pancytopenia - likely 2/2 multiple myeloma, possibly 2/2 medications ( Lenalidomide) 3. Multiple myeloma with recurrence - Follow with Dr. Moran as an outpatient - Case was discussed [place] Dr. [place] [facility] [place] Veras - c/w Decadron and Revlimid - Will follow with oncology as an outpatient 4. CKD3/4 - Cr appears to be slightly above baseline - Will monitor for now - Dr. Still (Nephrology) following 5. CAD - s/p stent x5 - c/w ASA and Plavix - c/w Beta-sury and Isosorbide mononitrate 6. Asthma - no evidence of exacerbation - c/w albuterol PRN 7. HTN - BP moderately controlled - c/w Atenolol 8. IDDM2 - c/w adjusted Levemir dose - c/w ISS and Glipizide 9. Hypothyroidism - c/w levothyroxine 10. DLP - c/w Atorvastatin 11. DVT prophylaxis - c/w SCDs Disposition: - Awaiting clearance from PT prior to discharge VS,Kodie, I+O VS, Kodie, I+O Laboratory Tests 08/03/16 14:42 08/03/16 21:01 08/03/16 23:54 08/04/16 05:41 Red Blood Count 3.52 L, Mean Corpuscular Volume 86.4, Mean Corpuscular Hemoglobin 30.3, Mean Corpuscular Hemoglobin Concent 35.1, Red Cell Distribution Width 17.7 H, Neutrophils (%) (Auto) 53.9, Lymphocytes (%) (Auto) 17.2 L, Monocytes (%) (Auto) 9.3 H, Eosinophils (%) (Auto) 17.2 H, Basophils (% ) (Auto) 1.1 H, Neutrophils # (Auto) 2.6, Lymphocytes # (Auto) 0.9 L, Monocytes # (Auto) 0.4, Eosinophils # (Auto) 0.8 H, Basophils # (Auto) 0.0, Calcium Level 8.0 L 08/04/16 13:10 Vital Signs Date Time Temp Pulse Resp B/P (MAP) Pulse Ox O2 Delivery O2 Flow Rate FiO2 08/04/16 09:00 Room Air 08/04/16 08:11 60 156/60 08/03/16 22:00 98.2 17 92 08/02/16 00:10 2.0 I&O- Last 24 Hours up to 6 AM 08/04/16 05:59 Intake Total 1000 ml Output Total 625 ml Balance 375 ml ALETHEA LUNA MD Aug 04, 2016 14:12
[2016-08-04] MEDS: REVLIMID 10 MG PO SCH (21:13)
[2016-08-04 22:00] VITALS: BP 155/60
[2016-08-05] MEDS: HEPARIN SOD (PORCINE) 5000 UNITS/ML VIAL SC SCH ×2 (05:49→14:10)
[2016-08-05] MEDS: SODIUM CHLORIDE 0.9% INJ 10 ML SYR IV SCH ×2 (05:50→14:11)
[2016-08-05] MEDS: LEVOTHYROXINE 112MCG TABLET (0.112MG) PO SCH (05:50)
[2016-08-05 06:00] VITALS: BP 150/63
[2016-08-05 06:11] LABS: BASO % 1.2 % (0.0-1.0); EOS # 0.6 K/mm3 (0.0-0.50); EOS % 17.6 % (0.0-3.0); LARGE UNSTAINED CELL # 0.1 K/mm3 (0.0-0.4); LARGE UNSTAINED CELL % 1.7 % (0.0-4.0); LYMPH # 0.5 K/mm3 (1.5-4.5); LYMPH % 12.8 % (24.0-44.0); MEAN CORPUSCULAR HEMOGLOBIN 30.7 pg (27.0-33.0); MEAN CORPUSCULAR HGB CONC 35.6 g/dl (32.0-36.5); MEAN CORPUSCULAR VOLUME 86.3 fl (80.0-96.0); MONO # 0.3 K/mm3 (0.0-0.8); MONO % 7.9 % (0.0-5.0); NEUTROPHILS # 2.1 K/mm3 (1.8-7.7); NEUTROPHILS % 58.7 % (36.0-66.0); PLATELET COUNT, AUTOMATED 113 k/mm3 (150-450); RED CELL DISTRIBUTION WIDTH 16.9 % (11.5-14.5); WHITE BLOOD COUNT 3.6 K/mm3 (4.0-10.0)
[2016-08-05 06:40] LABS: CALCIUM LEVEL 7.8 MG/DL (8.8-10.2); CREATININE FOR GFR 1.6 MG/DL (0.55-1.02); GLOMERULAR FILTRATION RATE 32.5 (>32); POTASSIUM SERUM 3.4 MEQ/L (3.5-5.1)
[2016-08-05] MEDS ORDERED: POTASSIUM CHLORIDE 10 MEQ SR TABLET PO ONE (07:45)
[2016-08-05] MEDS: CLOPIDOGREL 75 MG TAB PO SCH (08:49)
[2016-08-05] MEDS: ASPIRIN 81 MG ENTERIC TAB PO SCH (08:49)
[2016-08-05] MEDS: ATORVASTATIN 20 MG TAB PO SCH (08:50)
[2016-08-05] MEDS: CYANOCOBALAMIN 500 MCG TAB PO SCH (08:50)
[2016-08-05] MEDS: ISOSORBIDE MON. (IMDUR) 60 MG XR TAB PO SCH (08:51)
[2016-08-05] MEDS: ATENOLOL 50 MG TAB PO SCH (08:51)
[2016-08-05] MEDS: POTASSIUM CHLORIDE 10 MEQ SR TABLET PO SCH (08:56)
[2016-08-05] MEDS: PANTOPRAZOLE 40MG TAB (PROTONIX) PO SCH (08:56)
[2016-08-05] MEDS: VITAMIN D 1,000 INTERNATIONAL UNITS TABLET PO SCH (08:57)
[2016-08-05] MEDS: SUCRALFATE 1 GM TAB PO SCH ×2 (08:57→11:55)
[2016-08-05] MEDS: glipiZIDE *2.5MG* 1/2 TABLET PO SCH (09:42)
[2016-08-05] MEDS: NYSTATIN CREAM 15 GM TOP SCH (09:43)
[2016-08-05] MEDS: NYSTATIN 100,000 UNITS/GM TOPICAL PWD 15 GM TOP SCH (09:43)
--- NOTE | 2016-08-05 10:36 | IPNPDOC ---
Text Note Date of Service The patient was seen on 08/05/16. NOTE Subjective: Patient is an 85 year old female with a PMHx of CKD3-4, Multiple myeloma (with recurrence, follows with Dr. Moran), Asthma, CAD s/p stent x5 , GERD, HTN, DM2, DLP, Hypothyroidism, Aortic regurgitation, and Mitral regurgitation who presented to the ER with generalized weakness and fatigue. Patient was found to be severely anemic. She was admitted to medical surgical floor and received blood transfusions. Patient was seen and examined at the bedside. At this time her labs have now normalized. She denies any new complaints. I have advised her that we are waiting for physical therapy clearance. Objective: Vitals (See below) General: Lying in bed, no acute distress, comfortable, AAOx3 HEENT: NC, AT CVS: RRR, +S1S2 Lungs: Fair air entry b/l, -w/r/r Abdomen: Soft, ND, NT, +BSx4 Extremities: +PPx4, - Edema, - Calf tenderness Assessment and plan: 1. s/p symptomatic anemia - likely 2/2 multiple myeloma, less likely 2/2 acute blood loss 2/2 GI source - history of prior GI bleeding 2/2 ulcers - currently asymptomatic; no abdominal pain, no change in bowel habits (gross blood or dark stools) - physical unrevealing - s/p 3 units of PRBC - H&H stable - Fecal occult blood sample pending - c/w Decadron and Revlimid 2. Pancytopenia - likely 2/2 multiple myeloma, possibly 2/2 medications ( Lenalidomide) 3. Multiple myeloma with recurrence - Follow with Dr. Moran as an outpatient - Case was discussed with Dr. Paris by [employer], Dr. Veras - c/w Decadron and Revlimid - Will follow with oncology as an outpatient 4. CKD3/4 - Cr appears to be at baseline - Will monitor for now - Dr. Still (Nephrology) following 5. CAD - s/p stent x5 - c/w ASA and Plavix - c/w Beta-sury and Isosorbide mononitrate 6. Asthma - no evidence of exacerbation - c/w albuterol PRN 7. HTN - BP moderately controlled - c/w Atenolol - Will add hydralazine for better control 8. IDDM2 - c/w adjusted Levemir dose - c/w ISS and Glipizide 9. Hypothyroidism - c/w levothyroxine 10. DLP - c/w Atorvastatin 11. Hypokalemia - will supplement 12. DVT prophylaxis - c/w SCDs Disposition: - Awaiting clearance from PT prior to discharge VS,Fishbone, I+O VS, Fishbone, I+O Laboratory Tests 08/04/16 13:10 08/04/16 17:40 08/04/16 23:52 08/05/16 05:56 Red Blood Count 3.37 L, Mean Corpuscular Volume 86.3, Mean Corpuscular Hemoglobin 30.7, Mean Corpuscular Hemoglobin Concent 35.6, Red Cell Distribution Width 16.9 H, Neutrophils (%) (Auto) 58.7, Lymphocytes (%) (Auto) 12.8 L, Monocytes (%) (Auto) 7.9 H, Eosinophils (%) (Auto) 17.6 H, Basophils (% ) (Auto) 1.2 H, Neutrophils # (Auto) 2.1, Lymphocytes # (Auto) 0.5 L, Monocytes # (Auto) 0.3, Eosinophils # (Auto) 0.6 H, Basophils # (Auto) 0.0, Calcium Level 7.8 L Vital Signs Date Time Temp Pulse Resp B/P (MAP) Pulse Ox O2 Delivery O2 Flow Rate FiO2 08/05/16 09:00 Room Air 08/05/16 08:51 150/87 08/05/16 06:00 97.1 60 17 92 08/02/16 00:10 2.0 I&O- Last 24 Hours up to 6 AM 08/05/16 06:00 Intake Total 600 ml Output Total 750 ml Balance -150 ml ALETHEA LUNA MD Aug 05, 2016 10:36
[2016-08-05] MEDS ORDERED: **hydrALAZINE HCL** 25 MG TAB PO ONE (10:45)
[2016-08-05 10:49] VITALS: BP 150/87
[2016-08-05 14:00] VITALS: BP 146/64
--- NOTE | 2016-08-05 15:30 | DSES ---
DATE OF ADMISSION: 08/02/2016 DATE OF DISCHARGE: 08/05/2016 ATTENDING PHYSICIAN: Tita Walker MD PRIMARY CARE PHYSICIAN: Gwyn Lawler Jr., MD REFERRING PHYSICIAN: None. CONSULTING PHYSICIANS: Kristian Samano MD; Solis Still MD. CONDITION ON DISCHARGE: Stable. FINAL DIAGNOSES: 1. Symptomatic anemia. 2. Acute kidney injury. PROCEDURES: Insertion of left subclavian triple-lumen central venous catheter performed on 08/02/2016. HISTORY OF PRESENT ILLNESS: Patient is an 85-year-old female with a past medical history of chronic kidney disease (CKD) III-IV, multiple myeloma with recurrence, follows with Dr. Sravani Marsh as an outpatient, asthma, coronary artery disease status post stents times five, gastroesophageal reflux disease (GERD), hypertension, diabetes mellitus type 2, dyslipidemia, hypothyroidism, aortic regurgitation, and mitral regurgitation, who presented to the emergency room with generalized weakness and fatigue. Patient was found to be severely anemic. She was admitted to the medical/surgical floor and received blood transfusions. HOSPITAL COURSE: 1. Status post symptomatic anemia, likely secondary to multiple myeloma, less likely secondary to acute blood loss secondary to gastrointestinal (GI) source. History of prior GI bleeding secondary to ulcers. Currently asymptomatic. No abdominal pain. No change in bowel habits, gross blood, or dark stools were noted. Physical was unrevealing. Status post 3 units of packed red blood cells (PRBCs). Hemoglobin and hematocrit have been stable. Continue with Decadron and Revlimid. 2. Pancytopenia, likely secondary to multiple myeloma, and possibly secondary to medication lenalidomide. 3. Multiple myeloma with recurrence. Follows with Dr. Sravani Marsh as an outpatient. Case was discussed with Dr. Paris by my colleague, Dr. Barajas. Advised to continue with Decadron and Revlimid. Will follow with Dr. Sravani Marsh as an outpatient. 4. CKD III-IV. Creatinine appears to be at baseline. Will continue to monitor for now. Dr. Still from nephrology has been following. 5. Coronary artery disease status post stents times five. Continue with aspirin and Plavix. Continue with beta-sury and isosorbide mononitrate. 6. Asthma. No evidence of exacerbation. Continue with albuterol as needed. 7. Hypertension. Blood pressure remains moderately controlled. Continue with atenolol. Hydralazine has been added as an inpatient for better control. Upon discharge, patient has been restarted on her outpatient regimen. 8. Insulin-dependent diabetes mellitus type 2. Continue with adjusted Levemir dose. Continue with insulin sliding scale and glipizide. 9. Hypothyroidism. Continue with levothyroxine. 10. Dyslipidemia. Continue with atorvastatin. 11. Hypokalemia. Will supplement. 12. Deep venous thrombosis (DVT) prophylaxis. Continue with sequential compression devices. DISCHARGE MEDICATION: Patient is being discharged home with the following medication list: - albuterol two puffs inhaled four times a day as needed shortness of breath - aspirin 81 mg by mouth daily - atenolol 50 mg by mouth daily - atorvastatin 40 mg by mouth daily - chlorthalidone 12.5 mg by mouth daily - cholecalciferol 1000 units by mouth daily - Plavix 75 mg by mouth daily - vitamin B12, 1000 mcg by mouth daily - dexamethasone 20 mg by mouth one time a week - glipizide 2.5 mg by mouth daily - Levemir 22 units subcutaneous daily - isosorbide mononitrate 60 mg daily - levothyroxine 112 mcg by mouth every morning - losartan 50 mg by mouth daily - nitroglycerin 0.4 mg to be taken as directed - Protonix 40 mg by mouth daily - potassium chloride 10 mEq by mouth daily - Revlimid 10 mg by mouth nightly Stopped medications include spironolactone 25 mg by mouth daily and chlorthalidone 12.5 mg half a tablet. DISCHARGE INSTRUCTIONS: Patient has been advised to followup with her primary care provider and nephrology within the next 7 days. She has been advised to remain compliant with treatment plan and medications and return to the emergency room if she experiences any problems. TIME SPENT ON DISCHARGE: 35 minutes. Edited: [facility] 08/07/2016 [id number]
--- NOTE | 2016-08-05 18:27 | IPN ---
DATE: 08/05/2016 Ms. Cheema is seen this morning on her bedside. She is feeling well and denies any nausea, vomiting, dyspnea or chest pain. She reports that she has been ambulating without any difficulty. PHYSICAL EXAMINATION: On physical examination, temperature 97.1 degrees Fahrenheit, heart rate 60 per minute and respiratory rate 17 per minute. Blood pressure 150/87 mmHg and oxygen saturation 92% on room air. Head is atraumatic. Ears, nose and throat are unremarkable. Neck is supple and without jugular venous distention (JVD) or thyroid enlargement. Heart sounds are regular and lungs clear to auscultation. Abdomen is soft and nontender and without a palpable organomegaly. Extremities have no cyanosis or clubbing. Skin has no rash or ulcers. Neurologically, she is awake, alert and oriented times three. LABORATORY DATA: Today's laboratories show WBC count 3.6, hemoglobin 10.4 and hematocrit 29.1. Sodium 138 and potassium 3.4. BUN 18 and creatinine 1.60. PROBLEMS: 1. Acute kidney injury, superimposed on chronic kidney disease. Acute renal failure has improved and now her kidney function is stable at prior baseline. She is currently not on any nephrotoxic medications. 2. Hypokalemia. This is nutritional and likely to improve with improved appetite. She has already received a dose of potassium supplement 20 mEq today. I recommend to continue with a daily dose of 10 mEq of potassium chloride. 3. Multiple myeloma. The patient is being treated with chemotherapy as an outpatient. No acute intervention is indicated and she will followup with oncology. 4. Anemia. This is most likely related to her multiple myeloma and she has required frequent transfusions. At present, she is stable following blood transfusion. She will followup with oncology as an outpatient. DISPOSITION: From a renal standpoint, she is doing well and can be discharged to home. She will followup in my office in 2-3 weeks.
[2016-08-05] MEDS ORDERED: **hydrALAZINE HCL** 25 MG TAB PO SCH (21:00)
== END 2016-08-05 17:22 | disposition home health service (06) | DRG 840 ==
LOC: M ED 03:52 → M ED INP 07:26 → M PCU 11:55 → M MSPAV 08-03 17:15
PROVIDERS: ADMIT General Practice; ATTEND Internal Medicine
PROC: 05H633Z Insertion of Infusion Device into Left Subclavian Vein, Percutaneous Approach (ICD-10-PCS; principal; 2016-08-02)
PROC: 30253N1 (ICD-10-PCS; 2016-08-02)
DX: C90.00 Multiple myeloma not having achieved remission (principal); D61.811 Other drug-induced pancytopenia; N18.4 Chronic kidney disease, stage 4 (severe); N17.9 Acute kidney failure, unspecified; N25.81 Secondary hyperparathyroidism of renal origin; J45.909 Unspecified asthma, uncomplicated; I25.10 Atherosclerotic heart disease of native coronary artery without angina pectoris; D63.0 Anemia in neoplastic disease; K21.9 Gastro-esophageal reflux disease without esophagitis; I12.9 Hypertensive chronic kidney disease with stage 1 through stage 4 chronic kidney disease, or unspecified chronic kidney disease; E11.65 Type 2 diabetes mellitus with hyperglycemia; E03.9 Hypothyroidism, unspecified; I08.0 Rheumatic disorders of both mitral and aortic valves; Z95.5 Presence of coronary angioplasty implant and graft; Z79.82 Long term (current) use of aspirin; Z79.02 Long term (current) use of antithrombotics/antiplatelets; Z88.2 Allergy status to sulfonamides; Z88.5 Allergy status to narcotic agent; Z88.8 Allergy status to other drugs, medicaments and biological substances; Z79.4 Long term (current) use of insulin; Z79.899 Other long term (current) drug therapy

== ENCOUNTER → 2016-08-12 | Outpatient (CLI) | payer MEDICARE, MEDICAID ==
[~2016-08-12] MED LIST changes: +ADV100INH INH; -ASPI81TA13 PO; +ASPI81TA24 PO; -ATOR40TA PO; +ATOR40TA75 PO; +B-1210009 PO; +CEFD1CAP8 PO; +ISOS60TA2 PO; +LACT10SO29 PO; +LEVA1TAB2 PO; +LEVO500T3 PO; +PLAV1TAB2 PO; -PLAV75TA38 PO; +POTA10TA16 PO; -POTA10TA34 PO; +POTA10TA67 PO; -PROA1AER INH; +PROAAER10 INH; +ROCA0.25 PO; +VITA-182 PO; -VITA100041 PO
--- NOTE | 2016-08-13 10:25 | REP ---
PET/CT: HISTORY: Restaging multiple myeloma. Relapse. COMPARISONS: No comparison PET CT. Comparison bone survey July 09, 2016 showed no bony destructive lesion. Comparison CT study of the chest May 16, 2016. TECHNIQUE: 50 minutes following the intravenous injection of a 10.4 mCi dose of F-18 FDG, three-dimensional PET scintigraphy is acquired from the skull base to the proximal thighs. Triplanar noncontrast CT scanning is acquired through the same anatomic range for attenuation correction, and image registration with scan parameters optimized to minimize radiation exposure to the patient. PET scintigraphy and CT datasets were fused and displayed on a workstation with multiplanar and projection display capability. PET/CT FINDINGS: There is normal variant FDG uptake within the thyroid. This is bilateral and symmetric. The head and neck soft tissues are otherwise unremarkable. There is some normal variant skeletal muscle uptake near the skull base on the right. No abnormal hypermetabolic uptake is seen within the thorax. In the abdomen and pelvis, there is normal hepatic, splenic, gastrointestinal, and genitourinary FDG accumulation. No abnormal abdominal or pelvic FDG accumulation is seen. No abnormal skeletal hypermetabolic uptake is appreciated. IMPRESSION: Negative PET scintigraphy. No abnormal skeletal or other abnormal uptake. Signed by Honorio Zarate MD 08/13/2016 03:31 P
== END ==
LOC: M PLARAD 08:17
PROVIDERS: ATTEND Internal Medicine Medical Oncology
DX: C90.00 Multiple myeloma not having achieved remission (principal)
CPT/HCPCS: 78815; A9552

== ENCOUNTER → 2016-08-17 | Outpatient (CLI) | payer MEDICARE ==
[2016-08-17 08:57] LABS: CREATININE FOR GFR 2.72 MG/DL (0.55-1.02); GLOMERULAR FILTRATION RATE 17.6 (>32)
== END ==
LOC: M LAB 08:05
PROVIDERS: ATTEND Nurse Practitioner Adult Health
DX: E11.65 Type 2 diabetes mellitus with hyperglycemia (principal)

== ENCOUNTER → 2016-08-20 | Outpatient (REF) | payer MEDICARE ==
[2016-08-20 13:42] LABS: IMMUNOGLOBULIN A 48.8 MG/DL (70-400); IMMUNOGLOBULIN G 211 MG/DL (681-1648); TOTAL PROTEIN 5.6 GM/DL (6.4-8.2)
[2016-08-20 14:31] LABS: IMMUNOGLOBULIN M < 5.3 MG/DL (40-230)
[2016-08-22 00:07] LABS: FREE LAMBDA LIGHT CHAINS SERUM 3402.5 mg/L (5.7-26.3)
[2016-08-24 13:29] LABS: ALBUMIN % 60.5 % (55.8-66.1)
[2016-08-24 13:30] LABS: ALBUMIN 3.39 GM/DL (3.29-5.55); GAMMA GLOBULIN % 4.4 % (11.1-18.8)
== END ==
LOC: M LAB REF 12:14
PROVIDERS: ATTEND Internal Medicine Medical Oncology
DX: C90.00 Multiple myeloma not having achieved remission (principal)

== ENCOUNTER 2016-09-12 04:29 | Emergency (ER) | payer MEDICARE ==
[~2016-09-12 04:29] MED LIST changes: -ADV100INH INH; -CEFD1CAP8 PO; -LACT10SO29 PO; -LEVA1TAB2 PO; -LEVO500T3 PO; -POTA10TA16 PO; -ROCA0.25 PO
[2016-09-12] MEDS ORDERED: ADV100INH INH (04:44)
[2016-09-12] MEDS ORDERED: dexameTHASONE 20 MG/5 ML VIAL (J1100) IV ONE (05:30)
[2016-09-12 06:17] LABS: BASO % 1.1 % (0.0-1.0); EOS # 0.4 K/mm3 (0.0-0.50); EOS % 15.1 % (0.0-3.0); LARGE UNSTAINED CELL # 0.1 K/mm3 (0.0-0.4); LARGE UNSTAINED CELL % 3.6 % (0.0-4.0); LYMPH # 0.6 K/mm3 (1.5-4.5); LYMPH % 19.2 % (24.0-44.0); MEAN CORPUSCULAR HEMOGLOBIN 30.4 pg (27.0-33.0); MEAN CORPUSCULAR HGB CONC 34.1 g/dl (32.0-36.5); MEAN CORPUSCULAR VOLUME 89.1 fl (80.0-96.0); MONO # 0.4 K/mm3 (0.0-0.8); MONO % 14.1 % (0.0-5.0); NEUTROPHILS # 1.2 K/mm3 (1.8-7.7); NEUTROPHILS % 46.9 % (36.0-66.0); PLATELET COUNT, AUTOMATED 118 k/mm3 (150-450); RED CELL DISTRIBUTION WIDTH 17.2 % (11.5-14.5); WHITE BLOOD COUNT 2.5 K/mm3 (4.0-10.0)
[2016-09-12 06:33] LABS: ALBUMIN 3.3 GM/DL (3.2-5.2); ALBUMIN/GLOBULIN RATIO 1.5 (1.00-1.93); BILIRUBIN,DIRECT 0.3 MG/DL (0.0-0.2); BILIRUBIN,TOTAL 0.9 MG/DL (0.2-1.0); CREATININE FOR GFR 1.86 MG/DL (0.55-1.02); GLOMERULAR FILTRATION RATE 27.2 (>32); POTASSIUM SERUM 3.4 MEQ/L (3.5-5.1); TOTAL PROTEIN 5.5 GM/DL (6.4-8.2)
[2016-09-12] MEDS ORDERED: DEXTROSE 50% 50 ML SYRINGE IV STA (06:49)
[2016-09-12 07:06] VITALS: BP 187/79
== END 2016-09-12 07:13 | disposition home or self-care (01) ==
LOC: M ED 04:29
DX: E11.649 Type 2 diabetes mellitus with hypoglycemia without coma (principal); I10 Essential (primary) hypertension; E03.9 Hypothyroidism, unspecified; K21.9 Gastro-esophageal reflux disease without esophagitis; J45.909 Unspecified asthma, uncomplicated; J44.9 Chronic obstructive pulmonary disease, unspecified; C90.00 Multiple myeloma not having achieved remission; D64.9 Anemia, unspecified; D70.9 Neutropenia, unspecified; Z79.899 Other long term (current) drug therapy; Z79.82 Long term (current) use of aspirin; Z79.02 Long term (current) use of antithrombotics/antiplatelets; Z79.4 Long term (current) use of insulin; Z79.51 Long term (current) use of inhaled steroids; Z88.8 Allergy status to other drugs, medicaments and biological substances; Z88.7 Allergy status to serum and vaccine; Z88.5 Allergy status to narcotic agent; Z88.2 Allergy status to sulfonamides; Z91.040 Latex allergy status
CPT/HCPCS: 80048; 80076; 85025; 96374; 99284; J1100

== ENCOUNTER → 2016-09-16 | Outpatient (REF) | payer MEDICARE ==
[~2016-09-16] MED LIST changes: +ADV100INH INH; +CEFD1CAP8 PO; +LACT10SO29 PO; +LEVA1TAB2 PO; +LEVO500T3 PO; +POTA10TA16 PO; +ROCA0.25 PO
== END ==
LOC: M LAB REF 17:05
PROVIDERS: ATTEND Internal Medicine Nephrology
DX: C90.00 Multiple myeloma not having achieved remission (principal)

== ENCOUNTER → 2016-09-17 | Outpatient (REF) | payer MEDICARE ==
[2016-09-17 14:49] LABS: IMMUNOGLOBULIN A 45.4 MG/DL (70-400); IMMUNOGLOBULIN G 217 MG/DL (681-1648); TOTAL PROTEIN 5.6 GM/DL (6.4-8.2)
[2016-09-17 14:51] LABS: IMMUNOGLOBULIN M < 5.3 MG/DL (40-230)
[2016-09-19 00:07] LABS: FREE KAPPA LIGHT CHAINS SERUM 7.5 mg/L (3.3-19.4); FREE LAMBDA LIGHT CHAINS SERUM 2701.6 mg/L (5.7-26.3)
[2016-09-21 11:52] LABS: ALBUMIN 3.49 GM/DL (3.29-5.55); ALBUMIN % 62.3 % (55.8-66.1); GAMMA GLOBULIN % 4.4 % (11.1-18.8)
== END ==
LOC: M LAB REF 12:53
PROVIDERS: ATTEND Internal Medicine Medical Oncology
DX: C90.00 Multiple myeloma not having achieved remission (principal)

== ENCOUNTER 2016-09-18 08:02 | Outpatient (CLI) | payer MEDICARE ==
[~2016-09-18 08:02] MED LIST changes: -CEFD1CAP8 PO; -LACT10SO29 PO; -LEVA1TAB2 PO; -LEVO500T3 PO; -POTA10TA16 PO; -ROCA0.25 PO
== END 2016-09-18 13:05 | disposition home or self-care (01) ==
LOC: M INFU 08:02
PROVIDERS: ATTEND Internal Medicine Nephrology
DX: C90.00 Multiple myeloma not having achieved remission (principal); N18.9 Chronic kidney disease, unspecified; Z79.2 Long term (current) use of antibiotics; Z79.4 Long term (current) use of insulin; Z79.84 Long term (current) use of oral hypoglycemic drugs; Z79.899 Other long term (current) drug therapy; Z88.2 Allergy status to sulfonamides; Z88.5 Allergy status to narcotic agent; Z91.040 Latex allergy status; I25.10 Atherosclerotic heart disease of native coronary artery without angina pectoris; I10 Essential (primary) hypertension; K21.9 Gastro-esophageal reflux disease without esophagitis; E03.9 Hypothyroidism, unspecified; E11.9 Type 2 diabetes mellitus without complications; M19.90 Unspecified osteoarthritis, unspecified site
CPT/HCPCS: 36430; P9038

== ENCOUNTER 2016-10-06 21:53 | Emergency (ER) | payer MEDICARE ==
[~2016-10-06] VITALS: Ht 154.9 cm; Wt 63.6 kg
[2016-10-06 23:01] LABS: BASO % 1.1 % (0.0-1.0); EOS # 0.6 K/mm3 (0.0-0.50); EOS % 16.7 % (0.0-3.0); LARGE UNSTAINED CELL # 0.1 K/mm3 (0.0-0.4); LARGE UNSTAINED CELL % 2.1 % (0.0-4.0); LYMPH # 0.9 K/mm3 (1.5-4.5); LYMPH % 22.5 % (24.0-44.0); MEAN CORPUSCULAR HEMOGLOBIN 32.6 pg (27.0-33.0); MEAN CORPUSCULAR HGB CONC 35.8 g/dl (32.0-36.5); MONO # 0.4 K/mm3 (0.0-0.8); MONO % 10.2 % (0.0-5.0); NEUTROPHILS # 1.8 K/mm3 (1.8-7.7); NEUTROPHILS % 47.5 % (36.0-66.0); PLATELET COUNT, AUTOMATED 126 k/mm3 (150-450); RED CELL DISTRIBUTION WIDTH 16.8 % (11.5-14.5); WHITE BLOOD COUNT 3.8 K/mm3 (4.0-10.0)
[2016-10-06 23:25] LABS: ALBUMIN 3.4 GM/DL (3.2-5.2); ALBUMIN/GLOBULIN RATIO 1.26 (1.00-1.93); BILIRUBIN,DIRECT 0.3 MG/DL (0.0-0.2); BILIRUBIN,TOTAL 0.9 MG/DL (0.2-1.0); CREATININE FOR GFR 1.79 MG/DL (0.55-1.02); GLOMERULAR FILTRATION RATE 28.5 (>32); POTASSIUM SERUM 2.9 MEQ/L (3.5-5.1); TOTAL PROTEIN 6.1 GM/DL (6.4-8.2)
[2016-10-06] MEDS ORDERED: cefTRIAXone SOD 1 GM in D5W MINI-BAG PLUS 50 ML IV ONE (23:45)
[2016-10-06] MEDS ORDERED: CEFD1CAP8 PO (23:52)
[2016-10-06] MEDS ORDERED: LACT10SO29 PO (23:54)
[2016-10-07] MEDS ORDERED: POTASSIUM CHLORIDE 10 MEQ SR TABLET PO ONE
[2016-10-07 00:35] VITALS: BP 194/76
--- NOTE | 2016-10-07 07:49 | REP ---
Abdominal series: Three views. History: Abdominal pain. Comparison study August 02, 2016. Findings: Upright chest radiograph demonstrates cardiomegaly as on the prior study. Pulmonary vasculature is slightly cephalized. There is no evidence of infiltrate or free subdiaphragmatic air. Supine and erect views of the abdomen demonstrate colon air-fluid levels in transverse and hepatic flexure region. There is stool in the distal colon moderate in amount, question constipation. No evidence of free air. There are granulomatous calcifications in the spleen. Some vascular calcification is noted. Impression: Moderate distal colon stool. Right colonic air fluid levels, question constipation. Signed by Honorio Zaarte MD 10/07/2016 08:02 A
== END 2016-10-07 00:48 | disposition home or self-care (01) ==
LOC: M ED 21:53
DX: N39.0 Urinary tract infection, site not specified (principal); K59.00 Constipation, unspecified; E87.6 Hypokalemia; E11.9 Type 2 diabetes mellitus without complications; K21.9 Gastro-esophageal reflux disease without esophagitis; E03.9 Hypothyroidism, unspecified; C90.00 Multiple myeloma not having achieved remission; I25.10 Atherosclerotic heart disease of native coronary artery without angina pectoris; N18.3 Chronic kidney disease, stage 3 (moderate); E78.5 Hyperlipidemia, unspecified; I34.0 Nonrheumatic mitral (valve) insufficiency; Z95.5 Presence of coronary angioplasty implant and graft; Z79.899 Other long term (current) drug therapy; Z79.02 Long term (current) use of antithrombotics/antiplatelets; Z79.82 Long term (current) use of aspirin; Z79.4 Long term (current) use of insulin; Z79.51 Long term (current) use of inhaled steroids; Z88.8 Allergy status to other drugs, medicaments and biological substances; Z88.5 Allergy status to narcotic agent; Z88.7 Allergy status to serum and vaccine; Z91.040 Latex allergy status; Z88.2 Allergy status to sulfonamides
CPT/HCPCS: 74022; 80048; 80076; 81001; 83690; 85025; 87088; 87186; 96374; 99284; J0696

== ENCOUNTER 2016-10-23 06:45 | Emergency (ER) | payer MEDICARE ==
[~2016-10-23] VITALS: Ht 154.9 cm; Wt 63.6 kg
[~2016-10-23 06:45] MED LIST changes: +CEFD1CAP8 PO; +LACT10SO29 PO
[2016-10-23] MEDS ORDERED: methylPREDNISolone INJ 125 MG/2 ML VIAL (J2930) IV ONE (07:45)
[2016-10-23] MEDS ORDERED: IPRATROPIUM 0.5MG/ALBUTEROL 2.5MG INH SOL UD 3ML (DUONEB)(J7620) NEB ONE (07:45)
[2016-10-23 07:57] LABS: BASO % 1.1 % (0.0-1.0); EOS # 0.2 K/mm3 (0.0-0.50); EOS % 6.2 % (0.0-3.0); LARGE UNSTAINED CELL # 0.1 K/mm3 (0.0-0.4); LYMPH # 0.4 K/mm3 (1.5-4.5); LYMPH % 14.5 % (24.0-44.0); MEAN CORPUSCULAR HEMOGLOBIN 31.4 pg (27.0-33.0); MEAN CORPUSCULAR HGB CONC 34.4 g/dl (32.0-36.5); MEAN CORPUSCULAR VOLUME 91.4 fl (80.0-96.0); MONO # 0.2 K/mm3 (0.0-0.8); MONO % 8.4 % (0.0-5.0); NEUTROPHILS # 1.7 K/mm3 (1.8-7.7); NEUTROPHILS % 66.8 % (36.0-66.0); PLATELET COUNT, AUTOMATED 111 k/mm3 (150-450); RED CELL DISTRIBUTION WIDTH 16.9 % (11.5-14.5); WHITE BLOOD COUNT 2.5 K/mm3 (4.0-10.0)
[2016-10-23 08:06] LABS: CALCIUM LEVEL 8.4 MG/DL (8.8-10.2); CREATININE FOR GFR 1.52 MG/DL (0.55-1.02); GLOMERULAR FILTRATION RATE 34.4 (>32); POTASSIUM SERUM 3.1 MEQ/L (3.5-5.1)
--- NOTE | 2016-10-23 11:12 | REP ---
Clinical: Dyspnea and cough. Technique: PA and lateral. Comparison: 10/06/2016. Findings: Mediastinum and cardiac silhouette are normal. Chronic interstitial changes are appreciated with superimposed acute bibasilar atelectasis and small right pleural effusion. No pneumothorax. Skeletal structures stable. Impression: Superimposed bibasilar atelectasis (right greater than left) and right pleural effusion. Signed by Nils Ying MD 10/23/2016 08:25 A
--- NOTE | 2016-10-23 11:13 | REP ---
Noncontrast chest CT: History: Pancytopenia. Immune compromised. Cough. Question pneumonia. Comparison chest CT study May 16, 2016. CT findings: There is some patchy consolidation and atelectasis in the right lower lobe. There is mild bilateral lower lobe bronchiectasis. There is some discoid atelectasis in the lingula at the anterior lung base. The right lower lobe disease is new when compared with the May 16, 2016 study. The lingular atelectasis is unchanged. There is no evidence of hilar or mediastinal mass. There is a small pericardial effusion which is a little larger when compared with the May 16, 2016 study. No adrenal lesion is seen. There are granulomatous calcifications in the spleen. Heavy vascular calcification is seen in the distribution of the left coronary artery. No bony destructive lesion is seen. Impression: There is some consolidation and atelectasis in the right lower lobe which is new compared to the May 16, 2016 study. This is compatible with pneumonia. There is a small pericardial effusion which has increased somewhat since the May 16, 2016. Signed by Honorio Zarate MD 10/23/2016 02:14 P
[2016-10-23] MEDS ORDERED: LevoFLOXacin 750 MG TABLET PO ONE (11:30)
[2016-10-23] MEDS ORDERED: LEVA1TAB2 PO (11:35)
[2016-10-23 11:52] VITALS: BP 187/76
[2016-10-23] MEDS ORDERED: POTASSIUM CHLORIDE 10 MEQ SR TABLET PO ONE (12:00)
--- NOTE | 2016-10-24 08:06 | ECGEPIP ---
Stationary ECG Study [facility] - ED Test Date: 2016-10-23 Pat Name: CHELLE BROOKS Department: Room: - Gender: [employer]: SINDHU : [id number] Requested By: PAWEL Arriaga Order Number: [id number] Reading MD: Hannah Spencer Measurements Intervals [place] Rate: 80 P: 87 ND: 179 QRS: -1 QRSD: 89 T: 33 QT: 385 QTc: 445 Interpretive Statements SINUS RHYTHM POSSIBLE RIGHT VENTRICULAR CONDUCTION DELAY MODERATE ST DEPRESSION INCREASED RATE 08/02/16 Electronically Signed On 10-24-2016 8:06:42 EDT by Hannah Spencer
== END 2016-10-23 12:02 | disposition home or self-care (01) ==
LOC: M ED 06:45
DX: J18.9 Pneumonia, unspecified organism (principal); I25.10 Atherosclerotic heart disease of native coronary artery without angina pectoris; E11.9 Type 2 diabetes mellitus without complications; I12.9 Hypertensive chronic kidney disease with stage 1 through stage 4 chronic kidney disease, or unspecified chronic kidney disease; J45.909 Unspecified asthma, uncomplicated; E78.5 Hyperlipidemia, unspecified; N18.4 Chronic kidney disease, stage 4 (severe); E03.9 Hypothyroidism, unspecified; Z95.5 Presence of coronary angioplasty implant and graft; Z88.8 Allergy status to other drugs, medicaments and biological substances; Z88.5 Allergy status to narcotic agent; Z91.040 Latex allergy status; Z88.2 Allergy status to sulfonamides; Z79.899 Other long term (current) drug therapy; Z79.82 Long term (current) use of aspirin; Z79.4 Long term (current) use of insulin; Z85.6 Personal history of leukemia

== ENCOUNTER 2016-10-25 22:20 | Inpatient (IN) | payer MEDICARE ==
[~2016-10-25] VITALS: Ht 154.9 cm; Wt 64.3 kg
[~2016-10-25 22:20] MED LIST changes: +LEVA1TAB2 PO
[2016-10-25 23:50] LABS: BASO % 0.9 % (0.0-1.0); EOS # 0.3 K/mm3 (0.0-0.50); EOS % 7.2 % (0.0-3.0); LARGE UNSTAINED CELL # 0.1 K/mm3 (0.0-0.4); LARGE UNSTAINED CELL % 3.2 % (0.0-4.0); LYMPH # 0.6 K/mm3 (1.5-4.5); LYMPH % 14.5 % (24.0-44.0); MEAN CORPUSCULAR HEMOGLOBIN 31.1 pg (27.0-33.0); MEAN CORPUSCULAR HGB CONC 33.2 g/dl (32.0-36.5); MEAN CORPUSCULAR VOLUME 93.8 fl (80.0-96.0); MONO # 0.5 K/mm3 (0.0-0.8); MONO % 13.7 % (0.0-5.0); NEUTROPHILS # 2.2 K/mm3 (1.8-7.7); NEUTROPHILS % 60.6 % (36.0-66.0); PLATELET COUNT, AUTOMATED 122 k/mm3 (150-450); RED CELL DISTRIBUTION WIDTH 17.2 % (11.5-14.5); WHITE BLOOD COUNT 3.6 K/mm3 (4.0-10.0)
[2016-10-26] MEDS ORDERED: AZITHROMYCIN INJ 500 MG, VIAL MATE ADAPTER 1 EACH in D5W 250 ML IV ONE ×3
[2016-10-26] MEDS ORDERED: CEFUROXIME SODIUM 1.5 GM in D5W MINI-BAG PLUS 50 ML IV ONE ×2
[2016-10-26 00:06] LABS: CALCIUM LEVEL 8.1 MG/DL (8.8-10.2); CREATININE FOR GFR 1.81 MG/DL (0.55-1.02); GLOMERULAR FILTRATION RATE 28.1 (>32); POTASSIUM SERUM 3.6 MEQ/L (3.5-5.1)
[2016-10-26] MEDS ORDERED: IPRATROPIUM 0.5MG/ALBUTEROL 2.5MG INH SOL UD 3ML (DUONEB)(J7620) NEB ONE (01:00)
[2016-10-26 01:09] LABS: ABG BASE EXCESS -3.4 (-2.0-2.0); ABG HCO3 19.8 MEQ/L (22.0-26.0); ABG PARTIAL PRESSURE CO2 28.4 mmHg (35.0-45.0); ABG STANDARD HCO3 21.6 MEQ/L (22.0-26.0); ABG TOTAL CO2 20.7 MEQ/L (23.0-31.0); ABG pH (ARTERIAL) 7.461 UNITS (7.350-7.450)
[2016-10-26] MEDS ORDERED: POTA10TA16 PO (01:27)
[2016-10-26] MEDS ORDERED: ROCA0.25 PO (01:29)
[2016-10-26] MEDS ORDERED: LEVO500T3 PO (01:29)
[2016-10-26] MEDS ORDERED: ACETAMINOPHEN TAB 650MG DOSE (2X325MG) PO PRN (02:45)
[2016-10-26] MEDS ORDERED: ONDANSETRON 4MG/2ML VIAL (J2405) IV PRN (02:45)
[2016-10-26] MEDS ORDERED: NITROGLYCERIN 0.4 MG SUBL TABLET SL PRN (02:45)
[2016-10-26] MEDS ORDERED: hydrALAZINE INJ 20 MG/ML VIAL IV ONE (02:45)
[2016-10-26] MEDS ORDERED: ALBUTEROL SULFATE 2.5 MG/0.5 ML INH NEB SOLN INH PRN (03:00)
--- NOTE | 2016-10-26 03:00 | HPEPDOC ---
Medical History and Physical Date of Admission 10/26/16 History and Physical PRIMARY CARE PROVIDER: Dr. Lawler ATTENDING: Dr. Bam Pleitez CHIEF COMPLAINT: Shortness of breath/cough HISTORY OF PRESENT ILLNESS: This is a 78-year-old female past medical history multiple myeloma, CK D stage III, CAD status post PCI 5, diabetes mellitus, hypertension, hypothyroidism, dropfoot, hyperlipidemia who presents complaining of shortness of breath and cough. Patient's states she's been feeling short of breath since she presented to the ED on 10/22 and was diagnosed with right lower lobe pneumonia. In addition patient 's had her last chemotherapy on Wednesday. Patient states she started her Levaquin however felt nauseated after taking it. She hasn't been eating or drinking very much given her nonproductive cough and decreased appetite. Patient also complains of chills. No fevers at home. No chest pain/palpitations. In addition, patient feels lightheaded upon standing over the past few days. Denies any syncopal episodes. Patient was admitted for anemia in July 2016. PAST MEDICAL HISTORY: As per HPI PAST SURGICAL HISTORY: PCI 5, left cataract surgery, hysterectomy, left knee surgery, appendectomy, carpal tunnel, gastric ulcer repair SOCIAL HISTORY: Denies tobacco, alcohol, illicit drug use. FAMILY HISTORY: Mother with colon cancer, father with heart disease. ALLERGIES: Please see below. REVIEW OF SYSTEMS: HEENT: Denies sore throat/headache CARDIOVASCULAR: Denies chest pain/palpitations RESPIRATORY: + shortness of breath/cough GASTROINTESTINAL: denies nausea/vomiting GENITOURINARY: Denies dysuria/urinary urgency. MUSCULOSKELETAL: Denies myalgias/arthralgias NEUROLOGICAL: Denies any focal weakness HOME MEDICATIONS: Please see below. PHYSICAL EXAMINATION: Vitals: (see below) General: No acute distress, laying comfortably in bed. HEENT: Moist mucous membranes. Neck: No JVD or lymphadenopathy Cardiac: RRR, No murmurs Pulm: Diminished breath sounds are coarse crackles at the right base.No wheezing , rhonchi. Abd: NT/ND + BS Ext: Trace edema bilateral lower extremities. No cyanosis. LABORATORY DATA: See below. IMAGING: Chest x-ray on 10/26/16 with right lower lobe infiltrate. MICROBIOLOGY: Please see below. ASSESSMENT/PLAN: 1. Healthcare acquired pneumonia- patient states she does not tolerate Levaquin very well. We will start the patient on vancomycin/Zosyn pending cultures. Nebs , Mucinex. Her last chemotherapy was Wednesday. Blood cultures/sputum cultures pending. Trend CRP. No lactic acidosis. 2. Symptoms of orthostatic hypotension. Patient is had a decreased by mouth intake over the past 5 days. We'll check orthostatic vitals. 3. Hypertension- uncontrolled. We'll restart home medications tonight as well as treat with hydralazine IV. 4. Diabetes mellitus- continue Levemir./Scale insulin. 5. Multiple myeloma- being treated by Dr. Marsh. Last chemotherapy Wednesday. 6. CK D stage III- baseline creatinine 1.8. Stable. Avoid nephrotoxins. Being followed by Dr. Still outpatient. 7. History of CAD status post PCI 5- stable. Continue home meds. 8. Hyperlipidemia- continue statin 9. Hypothyroidism- continue Synthroid 10. Pancytopenia - chronic. stable. Being followed by Dr. Marsh. No need for transfusion at this time. DVT prophylaxis- heparin subcutaneous Patient will followed by Dr. Bam Pleitez starting 10/26/16 at 7 AM. Vital Signs Vital Signs Date Time Temp Pulse Resp B/P (MAP) Pulse Ox O2 Delivery O2 Flow Rate FiO2 10/25/16 23:38 20 95 Room Air 10/25/16 23:35 58 10/25/16 22:20 98.6 Laboratory Data Labs 24H Laboratory Tests 2 10/25/16 23:10: White Blood Count 3.6L, Red Blood Count 2.77L, Hemoglobin 8.6L, Hematocrit 26.0L , Mean Corpuscular Volume 93.8, Mean Corpuscular Hemoglobin 31.1, Mean Corpuscular Hemoglobin Concent 33.2, Red Cell Distribution Width 17.2H, Platelet Count 122L, Neutrophils (%) (Auto) 60.6, Lymphocytes (%) (Auto) 14.5L, Monocytes (%) (Auto) 13.7H, Eosinophils (%) (Auto) 7.2H, Basophils (%) (Auto) 0.9, Neutrophils # (Auto) 2.2, Lymphocytes # (Auto) 0.6L, Monocytes # (Auto) 0.5 , Eosinophils # (Auto) 0.3, Basophils # (Auto) 0.0, Large Unclassified Cells % 3.2, Large Unclassified Cells # 0.1, Anion Gap 8, Glomerular Filtration Rate 28.1L, Lactic Acid Level 1.5, Blood Urea Nitrogen 14#, Creatinine 1.81H, Sodium Level 139, Potassium Level 3.6, Chloride Level 107, Carbon Dioxide Level 24, Calcium Level 8.1L 10/26/16 00:43: Blood Gas Bicarbonate Standard 21.6L, Arterial Blood pH 7.461H, Arterial Blood Partial Pressure CO2 28.4L, Arterial Blood Partial Pressure O2 69.0L, Arterial Blood Total CO2 20.7L, Arterial Blood HCO3 19.8L, Arterial Blood Base Excess - 3.4L, Arterial Blood Oxygen Saturation 94.1L CBC/BMP Laboratory Tests 10/25/16 23:10 Red Blood Count 2.77 L, Mean Corpuscular Volume 93.8, Mean Corpuscular Hemoglobin 31.1, Mean Corpuscular Hemoglobin Concent 33.2, Red Cell Distribution Width 17.2 H, Neutrophils (%) (Auto) 60.6, Lymphocytes (%) (Auto) 14.5 L, Monocytes (%) (Auto) 13.7 H, Eosinophils (%) (Auto) 7.2 H, Basophils (% ) (Auto) 0.9, Neutrophils # (Auto) 2.2, Lymphocytes # (Auto) 0.6 L, Monocytes # (Auto) 0.5, Eosinophils # (Auto) 0.3, Basophils # (Auto) 0.0, Calcium Level 8.1 L Microbiology Microbiology 10/25/16 Blood Culture, Received Pending Home Medications Scheduled Aspirin (Aspirin EC) 81 Mg Tab, 81 MG PO DAILY Atenolol (Atenolol) 50 Mg Tab, 50 MG PO DAILY Atorvastatin Calcium (Atorvastatin Calcium) 40 Mg Tab, 40 MG PO DAILY Calcitriol (Rocaltrol) 0.25 Mcg Cap, 0.25 MCG PO Q2D Cholecalciferol (Vitamin D3) 1,000 Unit Cap, 1,000 UNIT PO DAILY Clopidogrel Bisulfate (Plavix) 75 Mg Tab, 75 MG PO DAILY Cyanocobalamin (B-12) 1,000 Mcg Tab, 1,000 MCG PO DAILY Dexamethasone (Dexamethasone) 4 Mg Tab, 20 MG PO 1XWK FRIDAYS Insulin Detemir (Levemir) 1 Units/0.01 Ml Susp, 22 UNITS SC DAILY Isosorbide Mononitrate (Isosorbide Mononitrate ER) 60 Mg Tab, 60 MG PO DAILY Levofloxacin Hemihydrate (Levofloxacin) 500 Mg Tab, 500 MG PO Q2D STARTED 10/25/16 TO END 10/31/16 Levothyroxine Sodium (Synthroid) 112 Mcg Tab, 112 MCG PO QAM Losartan Potassium (Losartan Potassium) 50 Mg Tab, 50 MG PO DAILY Pantoprazole Sodium (Pantoprazole Sodium) 40 Mg Tab, 40 MG PO DAILY Potassium Chloride (Potassium Chloride ER) 10 Meq Tab, 10 MEQ PO TID Salmeterol/Fluticasone (Advair Diskus 100-50 Mcg/Dose) 28 Puff/Inhaler Aerp, 1 PUFF INH BID Scheduled PRN Albuterol Sulfate (Proair Hfa) 108 Mcg/Act Aer, 2 PUFFS INH QID PRN for SHORTNESS OF BREATH Nitroglycerin (Nitrostat) 0.4 Mg Subl, 0.4 MG SL Q5MP PRN for CHEST PAIN Allergies Coded Allergies: Latex (Verified Allergy, Severe, PALPITATION & SWELLING, 08/02/16) Codeine (Verified Allergy, Unknown, 08/02/16) Diphtheria Toxoid (Verified Allergy, Unknown, 08/02/16) Hydrocodone (Verified Allergy, Unknown, 08/02/16) Hydroquinone (Verified Allergy, Unknown, RASH, 08/02/16) Metformin (Verified Allergy, Unknown, AVANDAMET, 08/02/16) Rosiglitazone (Verified Allergy, Unknown, AVANDAMET, 08/02/16) Sulfa Drugs (Verified Allergy, Unknown, 08/02/16) Sulfa Drugs Cross Reactors (Verified Allergy, Unknown, 08/02/16) Sulfites (Verified Allergy, Unknown, 08/02/16) Tetanus Toxoid (Verified Allergy, Unknown, 08/02/16) Aspirin (Verified Adverse Reaction, Unknown, "REGULAR ASPIRIN" TAKES 81MG AT HOME, 08/02/16) Lisinopril (Verified Adverse Reaction, Unknown, COUGH, 08/02/16) Morphine (Verified Adverse Reaction, Unknown, 08/02/16) VASILIY RETANA MD Oct 26, 2016 03:00
[2016-10-26] MEDS ORDERED: guaiFENesin ER 600 MG TAB PO ONE (03:30)
[2016-10-26] MEDS ORDERED: GLUCOSE 4 GM CHEW TABLET PO PRN (04:30)
[2016-10-26] MEDS ORDERED: amLODIPine 5 MG TAB PO ONE (04:30)
[2016-10-26] MEDS ORDERED: DEXTROSE 50% 50 ML SYRINGE IV PRN (04:30)
[2016-10-26] MEDS ORDERED: GLUCAGON FOR INJ 1 MG VIAL (J1610) SC PRN (04:30)
[2016-10-26] MEDS: PIPERACILLIN/TAZOBACTAM SOD 2.25 GM in D5W MINI-BAG PLUS 50 ML IV SCH ×4 (05:00→22:47)
[2016-10-26] MEDS: IPRATROPIUM 0.5MG/ALBUTEROL 2.5MG INH SOL UD 3ML (DUONEB)(J7620) NEB SCH ×6 (05:21→23:25)
--- NOTE | 2016-10-26 05:32 | PHACANCOPD ---
PHARMACY VANCOMYCIN DOSING Pt Demographics Demographics Patient Age:86 , Weight:63.640 , Gender: female Adjusted Body Weight Date: 10/26/16, Adjusted Body Weight: [63.64 KG] ACTUAL WT Vancomycin Vancomycin indication: HAP Vancomycin Target Ranges: 15-20 mcg/ml Vancomycin Load Y/N: No Load Dose Date Time Vancomycin Load Dose: Date: Time: Vancomycin Dose Date: 10/26/16. Current Vancomycin Dose: [750MG Q24H] Intermittent Dosing?: No Labs Labs Laboratory Tests 10/25/16 23:10 Red Blood Count 2.77 L, Mean Corpuscular Volume 93.8, Mean Corpuscular Hemoglobin 31.1, Mean Corpuscular Hemoglobin Concent 33.2, Red Cell Distribution Width 17.2 H, Neutrophils (%) (Auto) 60.6, Lymphocytes (%) (Auto) 14.5 L, Monocytes (%) (Auto) 13.7 H, Eosinophils (%) (Auto) 7.2 H, Basophils (% ) (Auto) 0.9, Neutrophils # (Auto) 2.2, Lymphocytes # (Auto) 0.6 L, Monocytes # (Auto) 0.5, Eosinophils # (Auto) 0.3, Basophils # (Auto) 0.0, Calcium Level 8.1 L Micro Microbiology 10/26/16 Blood Culture, Received Pending 10/25/16 Blood Culture, Received Pending Creatinine Clearance Date:10/26/16. Creatinine Clearance: [18].CALCULATED Pending Labs VANCOMYCIN TROUGH DUE 10/28 @0500 Assessment and Plan Maintaining Current Dose?: Yes Reason for dose change: No Dose Change Pharmacist Note Pharmacist Note Date: 10/26/16. Pharmacist note:86 YOF ADMITTED W/HAP,HT=61",WT=63.64KG,scr=1.81, CALCULATED crcl+18, ABX ALLERGY=SULFA,TREATING W/PIP/TAZO 2.25G IV Q6H AND VANCOMYCIN PER PHARMACY CONSULT. WILL BEGIN WITH vANCOMYCIN 750MG IV Q24H@06 WITH FIRST TROUGH TO BE DRAWN 10/28@0500-WILL CONTINUE TO FOLLOW LABS AND LEVELS. TITA SURESH PHARMACY Oct 26, 2016 05:32
[2016-10-26] MEDS: HEPARIN SOD (PORCINE) 5000 UNITS/ML VIAL SC SCH ×3 (06:00→21:20)
[2016-10-26] MEDS: VANCOMYCIN HCL 750 MG, VIAL MATE ADAPTER 1 EACH in D5W 250 ML IV SCH (06:00)
[2016-10-26] MEDS: LEVOTHYROXINE 112MCG TABLET (0.112MG) PO SCH (06:00)
[2016-10-26] MEDS: LOSARTAN 50 MG TAB PO SCH ×2 (07:24→09:00)
--- NOTE | 2016-10-26 07:53 | REP ---
Clinical: Dyspnea. Technique: PA and lateral. Comparison: 10/23/2016. Findings: Mediastinum and cardiac silhouette are stable. Lung zaidi demonstrate chronic interstitial changes and bronchiectasis along with bibasilar fibro atelectatic change. No obvious acute consolidation, effusion, or pneumothorax. Trace superimposed atelectasis cannot be excluded. Skeletal structures stable. Impression: Chronic stable changes. Cannot exclude trace superimposed right basilar atelectasis. Signed by Nils Ying MD 10/26/2016 07:45 A
[2016-10-26 08:00] VITALS: BP 180/79
[2016-10-26] MEDS: HumaLOG INSULIN (NovoLOG) PER UNIT SC SCH ×4 (08:15→21:00)
[2016-10-26] MEDS: CLOPIDOGREL 75 MG TAB PO SCH (08:16)
[2016-10-26] MEDS: ATENOLOL 50 MG TAB PO SCH (08:16)
[2016-10-26] MEDS: CALCITRIOL 0.25 MCG CAP (S0169) PO SCH (08:16)
[2016-10-26] MEDS: CYANOCOBALAMIN 500 MCG TAB PO SCH (08:17)
[2016-10-26] MEDS: ATORVASTATIN 20 MG TAB PO SCH (08:17)
[2016-10-26] MEDS: ASPIRIN 81 MG ENTERIC TAB PO SCH (08:17)
[2016-10-26] MEDS: ISOSORBIDE MON. (IMDUR) 60 MG XR TAB PO SCH (08:17)
[2016-10-26] MEDS: DOCUSATE SODIUM 100 MG CAP PO SCH ×2 (08:18→21:00)
[2016-10-26] MEDS: guaiFENesin ER 600 MG TAB PO SCH ×2 (08:18→21:19)
[2016-10-26] MEDS: PANTOPRAZOLE 40MG TAB (PROTONIX) PO SCH (08:18)
[2016-10-26] MEDS: VITAMIN D 1,000 INTERNATIONAL UNITS TABLET PO SCH (08:18)
[2016-10-26] MEDS ORDERED: LOSARTAN 50 MG TAB PO SCH (09:00)
[2016-10-26] MEDS ORDERED: LEVEMIR (INSULIN DETEMIR) 1 UNITS/0.01ML SC SCH (09:00)
[2016-10-26] MEDS ORDERED: INFLUENZA VIRUS VACCINE HIGH DOSE 0.5 ML SYRINGE (90662) IM SCH (11:45)
[2016-10-26 12:00] VITALS: BP 120/70
[2016-10-26 16:00] VITALS: BP 146/64
[2016-10-26 20:16] VITALS: BP 132/62
[2016-10-26 22:54] VITALS: BP 148/65
[2016-10-27] VITALS (7 sets, daily range): BP systolic 132–162; BP diastolic 58–72; PULSE 65–81
[2016-10-27] MEDS: IPRATROPIUM 0.5MG/ALBUTEROL 2.5MG INH SOL UD 3ML (DUONEB)(J7620) NEB SCH ×6 (03:36→23:39)
[2016-10-27] MEDS: PIPERACILLIN/TAZOBACTAM SOD 2.25 GM in D5W MINI-BAG PLUS 50 ML IV SCH ×3 (04:51→18:37)
[2016-10-27 05:28] LABS: MEAN CORPUSCULAR HEMOGLOBIN 31.3 pg (27.0-33.0); RED CELL DISTRIBUTION WIDTH 17.2 % (11.5-14.5); WHITE BLOOD COUNT 3.3 K/mm3 (4.0-10.0)
[2016-10-27] MEDS: HEPARIN SOD (PORCINE) 5000 UNITS/ML VIAL SC SCH ×3 (05:32→21:20)
[2016-10-27] MEDS: VANCOMYCIN HCL 750 MG, VIAL MATE ADAPTER 1 EACH in D5W 250 ML IV SCH (05:32)
[2016-10-27] MEDS: LEVOTHYROXINE 112MCG TABLET (0.112MG) PO SCH (05:33)
[2016-10-27 05:56] LABS: ALBUMIN 2.8 GM/DL (3.2-5.2); ALBUMIN/GLOBULIN RATIO 1.17 (1.00-1.93); BILIRUBIN,TOTAL 0.6 MG/DL (0.2-1.0); CALCIUM LEVEL 8.2 MG/DL (8.8-10.2); CREATININE FOR GFR 1.82 MG/DL (0.55-1.02); GLOMERULAR FILTRATION RATE 27.9 (>32); MAGNESIUM LEVEL 1.8 MG/DL (1.8-2.4); POTASSIUM SERUM 2.7 MEQ/L (3.5-5.1); TOTAL PROTEIN 5.2 GM/DL (6.4-8.2)
[2016-10-27] MEDS ORDERED: POTASSIUM CHLORIDE 10 MEQ SR TABLET PO ONE (06:30)
[2016-10-27] MEDS: DOCUSATE SODIUM 100 MG CAP PO SCH ×2 (08:26→21:20)
[2016-10-27] MEDS: HumaLOG INSULIN (NovoLOG) PER UNIT SC SCH ×4 (08:29→21:20)
[2016-10-27] MEDS: ATORVASTATIN 20 MG TAB PO SCH (08:55)
[2016-10-27] MEDS: LOSARTAN 50 MG TAB PO SCH (08:55)
[2016-10-27] MEDS: CLOPIDOGREL 75 MG TAB PO SCH (08:56)
[2016-10-27] MEDS: PANTOPRAZOLE 40MG TAB (PROTONIX) PO SCH (08:56)
[2016-10-27] MEDS: ASPIRIN 81 MG ENTERIC TAB PO SCH (08:56)
[2016-10-27] MEDS: ATENOLOL 50 MG TAB PO SCH (08:56)
[2016-10-27] MEDS: guaiFENesin ER 600 MG TAB PO SCH ×2 (08:56→21:19)
[2016-10-27] MEDS: CYANOCOBALAMIN 500 MCG TAB PO SCH (08:56)
[2016-10-27] MEDS: VITAMIN D 1,000 INTERNATIONAL UNITS TABLET PO SCH (08:57)
[2016-10-27] MEDS: POTASSIUM CHLORIDE 10 MEQ SR TABLET PO SCH ×2 (08:57→21:19)
[2016-10-27] MEDS: ISOSORBIDE MON. (IMDUR) 60 MG XR TAB PO SCH (08:57)
[2016-10-27] MEDS: LEVEMIR (INSULIN DETEMIR) 1 UNITS/0.01ML SC SCH (08:58)
[2016-10-27] MEDS: ADVAIR HFA 45/21MCG INHALER INH SCH ×2 (09:00→20:54)
--- NOTE | 2016-10-27 11:57 | REP ---
Clinical: Increasing chest pain. Comparison: 10/23/2016. Findings: Chronic age-related interstitial changes and moderate diffuse bronchiectasis appreciated. Mild superimposed bibasilar atelectasis is slightly increased when compared to prior examination. No further acute consolidation, obvious nodule or mass lesion appreciated. Mediastinal/pretracheal lymph nodes measuring up to 11 mm short axis diameter remain stable and are likely reactive. No pleural effusion or pneumothorax. Cardiomegaly along with atherosclerotic changes to the thoracic aorta and coronary arteries and small pericardial effusion are again identified and stable. Osseous structures are intact. Limited evaluation of the upper abdomen demonstrates normal bilateral adrenal glands. Impression: 1. Mild bibasilar atelectasis minimally increased from prior examination. 2. Chronic interstitial changes and bronchiectasis along with cardiomegaly and small pericardial effusion are unchanged. Signed by Nils Ying MD 10/27/2016 11:48 A
--- NOTE | 2016-10-27 13:47 | ECGEPIP ---
Stationary ECG Study [facility] Test Date: 2016-10-27 Pat Name: CHELLE BROOKS Department: Room: [place] [address] Gender: F Thermal Intelligence Analyst: CARLOS : 1930 Requested By: SUZE MURPHY Order Number: [id number] Reading MD: Timo Faria Measurements Intervals [place] Rate: 71 P: 42 OR: 172 QRS: -1 QRSD: 89 T: 44 QT: 414 QTc: 450 Interpretive Statements SINUS RHYTHM MINIMAL ST DEPRESSION Similar to tracing done 10-23-16 Electronically Signed On 10-27-2016 13:47:24 EDT by Timo Faria
--- NOTE | 2016-10-27 16:39 | IPNPDOC ---
Text Note Date of Service The patient was seen on 10/27/16. NOTE Patient seen and examined. Reported chest pressure, substernal overnight, relieved with sitting. Denied radiation, diaphoresis, n/v/abd pain. EKG wnl, sr TWI V1 General: No acute distress, laying comfortably in bed. HEENT: Moist mucous membranes. Neck: No JVD or lymphadenopathy Cardiac: RRR, No murmurs Pulm: Diminished breath sounds are coarse crackles at the right base.No wheezing , rhonchi. Abd: NT/ND + BS Ext: Trace edema bilateral lower extremities. No cyanosis. LABORATORY DATA: See below. IMAGING: Chest x-ray on 10/26/16 with right lower lobe infiltrate. MICROBIOLOGY: Please see below. ASSESSMENT/PLAN: 86-year-old female past medical history multiple myeloma, CK D stage III, CAD status post PCI 5, diabetes mellitus, hypertension, hypothyroidism, dropfoot, hyperlipidemia who presents complaining of shortness of breath and cough. 1. Healthcare acquired pneumonia- patient states she does not tolerate Levaquin very well. We will start the patient on vancomycin/Zosyn pending cultures. Nebs , Mucinex. Her last chemotherapy was Wednesday. Blood cultures/sputum cultures pending. Trend CRP. No lactic acidosis. CT chest appreciated 2. Symptoms of orthostatic hypotension. Patient is had a decreased by mouth intake over the past 5 days. We'll check orthostatic vitals. 3. chest pain, positional, tele, EKG, CE neg x1, likely 2/2 to PNA, vs anemia, transfuse 1U PRBC, d/w Dr Pinzon, recent cath June 2016, with not stent. c/w asa , plavix, statin, imdur, cozaar, and BB 4. Symptomatic Anemia 2/2 to Myeloma, d/w Dr Charles, Transfuse 1 U PRBC, f/u HH 5. Hypertension- uncontrolled. We'll restart home medications, hydralazine IV if needed 6. Diabetes mellitus- with hypoglycemia, continue Levemir at reduced dose./ Scale insulin. 7. Multiple myeloma- being treated by Dr. Marsh. Last chemotherapy Wednesday. d/w Dr Charles 8. CK D stage III- baseline creatinine 1.8. Stable. Avoid nephrotoxins. Being followed by Dr. Still outpatient. 9. History of CAD status post PCI 5- stable. Continue home meds. 10. Hyperlipidemia- continue statin 11. Hypothyroidism- continue Synthroid 12. Pancytopenia - chronic. 2.[address] Melvin fuentes. Being followed by Dr. Marsh. DVT prophylaxis- heparin subcutaneous Dispo Pending clinical improvement VS,Fishbone, I+O VS, Fishbone, I+O Laboratory Tests 10/27/16 05:04 Red Blood Count 2.49 L, Mean Corpuscular Volume 95.0, Mean Corpuscular Hemoglobin 31.3, Mean Corpuscular Hemoglobin Concent 33.0, Red Cell Distribution Width 17.2 H, Calcium Level 8.2 L, Aspartate Amino Transf (AST/SGOT ) 9 L, Alanine Aminotransferase (ALT/SGPT) 23, Alkaline Phosphatase 46, Total Bilirubin 0.6, Total Protein 5.2 L, Albumin 2.8 L Vital Signs Date Time Temp Pulse Resp B/P (MAP) Pulse Ox O2 Delivery O2 Flow Rate FiO2 10/27/16 16:19 135/59 (84) 10/27/16 16:02 98.3 70 18 94 Room Air 10/27/16 08:00 2.0 I&O- Last 24 Hours up to 6 AM 10/27/16 06:00 Intake Total 650 ml Output Total 2000 ml Balance -1350 ml SUZE MURPHY MD Oct 27, 2016 16:39
[2016-10-27 19:55] LABS: CALCIUM LEVEL 8.6 MG/DL (8.8-10.2); CREATININE FOR GFR 1.74 MG/DL (0.55-1.02); GLOMERULAR FILTRATION RATE 29.4 (>32)
[2016-10-27 19:59] LABS: POTASSIUM SERUM 3.9 MEQ/L (3.5-5.1)
[2016-10-28] VITALS (7 sets, daily range): BP systolic 97–182; BP diastolic 62–79
[2016-10-28] MEDS: PIPERACILLIN/TAZOBACTAM SOD 2.25 GM in D5W MINI-BAG PLUS 50 ML IV SCH ×2 (00:43→05:24)
[2016-10-28] MEDS: IPRATROPIUM 0.5MG/ALBUTEROL 2.5MG INH SOL UD 3ML (DUONEB)(J7620) NEB SCH ×6 (03:13→23:51)
[2016-10-28] MEDS: hydrALAZINE INJ 20 MG/ML VIAL IV PRN ×2 (05:23→23:39)
[2016-10-28] MEDS: LEVOTHYROXINE 112MCG TABLET (0.112MG) PO SCH (05:26)
[2016-10-28] MEDS: HEPARIN SOD (PORCINE) 5000 UNITS/ML VIAL SC SCH ×3 (05:26→21:49)
[2016-10-28 05:47] LABS: MEAN CORPUSCULAR HEMOGLOBIN 31.9 pg (27.0-33.0); MEAN CORPUSCULAR HGB CONC 35.4 g/dl (32.0-36.5); MEAN CORPUSCULAR VOLUME 90.1 fl (80.0-96.0); RED CELL DISTRIBUTION WIDTH 17.5 % (11.5-14.5)
[2016-10-28 06:06] LABS: ALBUMIN 2.7 GM/DL (3.2-5.2); ALBUMIN/GLOBULIN RATIO 1.08 (1.00-1.93); BILIRUBIN,TOTAL 0.8 MG/DL (0.2-1.0); CALCIUM LEVEL 8.9 MG/DL (8.8-10.2); CREATININE FOR GFR 1.73 MG/DL (0.55-1.02); GLOMERULAR FILTRATION RATE 29.6 (>32); MAGNESIUM LEVEL 1.9 MG/DL (1.8-2.4); POTASSIUM SERUM 3.9 MEQ/L (3.5-5.1); TOTAL PROTEIN 5.2 GM/DL (6.4-8.2)
--- NOTE | 2016-10-28 06:25 | PHACANCOPD ---
PHARMACY VANCOMYCIN DOSING Pt Demographics Demographics Patient Age:86 , Weight:62.700 , Gender: female Adjusted Body Weight Date: 10/26/16, Adjusted Body Weight: [63.64 KG] ACTUAL WT Events Past 24 Hours Events Past 24 Hours: NO: Dialysis, Diuretic Therapy, Change in CrCl, Fever, Elevation in WBC, Pending Diagnostics, Pending Procedures, Other Vancomycin Vancomycin indication: HAP Vancomycin Target Ranges: 15-20 mcg/ml Vancomycin Load Y/N: No Load Dose Date Time Vancomycin Load Dose: Date: Time: Vancomycin Dose Date: 10/28/16. Current Vancomycin Dose: [1000MG Q24H] Intermittent Dosing?: No Labs Labs Item Value Date Time White Blood Count 4.0 K/mm3 10/28/16515 Creatinine 1.73 MG/DL H 10/28/16515 Vancomycin Level Trough 9.6 UG/ML L 10/28/16515 Vital Signs Label Value Date Time Patient Temperature 97.7 degrees F 10/28/16132 Temperature Source Temporal 10/28/16132 Micro Microbiology 10/26/16 Blood Culture - Preliminary, Resulted No Growth after 48 hours. All Specime... 10/25/16 Blood Culture - Preliminary, Resulted No Growth after 48 hours. All Specime... 10/27/16 Respiratory Virus Panel (PCR) ([facility]) - Final, Complete Human Rhinovirus/Enterovirus Creatinine Clearance Date:10/26/16. Creatinine Clearance: [18] Pending Labs VANCOMYCIN TROUGH DUE 10/30 @0700 Assessment and Plan Maintaining Current Dose?: No Reason for dose change: Trough too low Pharmacist Note Pharmacist Note Date: 10/26/16. Pharmacist note:Trough of 9.6 is below target range. Dose increased to 1000mg q24h with a trough ordered for 10-30 @0700. Will continue to monitor and make adjustments as needed. NIURKA NATH PHARMACY Oct 28, 2016 06:25
[2016-10-28] MEDS: ADVAIR HFA 45/21MCG INHALER INH SCH ×2 (07:26→21:14)
[2016-10-28] MEDS ORDERED: VANCOMYCIN HCL 1,000 MG, VIAL MATE ADAPTER 1 EACH in D5W 250 ML IV SCH (08:00)
[2016-10-28] MEDS: CALCITRIOL 0.25 MCG CAP (S0169) PO SCH (08:19)
[2016-10-28] MEDS: HumaLOG INSULIN (NovoLOG) PER UNIT SC SCH ×4 (08:19→21:00)
[2016-10-28] MEDS: VITAMIN D 1,000 INTERNATIONAL UNITS TABLET PO SCH (08:19)
[2016-10-28] MEDS: LEVEMIR (INSULIN DETEMIR) 1 UNITS/0.01ML SC SCH (08:19)
[2016-10-28] MEDS: ISOSORBIDE MON. (IMDUR) 60 MG XR TAB PO SCH (08:19)
[2016-10-28] MEDS: PANTOPRAZOLE 40MG TAB (PROTONIX) PO SCH (08:20)
[2016-10-28] MEDS: ATORVASTATIN 20 MG TAB PO SCH (08:20)
[2016-10-28] MEDS: ASPIRIN 81 MG ENTERIC TAB PO SCH (08:20)
[2016-10-28] MEDS: guaiFENesin ER 600 MG TAB PO SCH ×2 (08:20→21:49)
[2016-10-28] MEDS: DOCUSATE SODIUM 100 MG CAP PO SCH ×2 (08:20→20:18)
[2016-10-28] MEDS: CLOPIDOGREL 75 MG TAB PO SCH (08:20)
[2016-10-28] MEDS: CYANOCOBALAMIN 500 MCG TAB PO SCH (08:20)
[2016-10-28] MEDS: ATENOLOL 50 MG TAB PO SCH (08:20)
[2016-10-28] MEDS: POTASSIUM CHLORIDE 10 MEQ SR TABLET PO SCH ×2 (08:21→21:46)
[2016-10-28] MEDS: LOSARTAN 50 MG TAB PO SCH (08:21)
--- NOTE | 2016-10-28 13:10 | IPNPDOC ---
Date Seen The patient was seen on 10/28/16. Progress Note SUBJECTIVE: Patient is a 86-year-old Female with PMH of MM, CKD Stage III, CAD status post PCI x 5, DM, HTN, Hypothyroid, Drop foot, Hyperlipidemia. Pt presented on Wednesday10/26/16 with SOB and cough that was diagnosed as HAP. Today, pt complains of nonproductive cough that is continuous but worse at night and is improving from admission, weakness and BAKER when walking to and from the bathroom, sinus congestion that has improved. Pt says that she has always felt weak and BAKER before presenting to hospital, but has been use O2 NC PRN more frequently. Pt says that her appetite is back to baseline and she no longer has chest pain/pressure. Pt denies fever, chills, night sweats, CARL, lightheadedness, sinus pain, trouble swallowing, lymphadenopathy, chest pain/ pressure/tightness, palpitations, SOB when sitting on bed, wheezing, abdominal pain, N/V/D/C, changes in bowel or urinary habits, lower leg edema. OBJECTIVE PHYSICAL EXAMINATION: VITAL SIGNS: Please see below. GENERAL: 86yo Female appears stated age laying on bed. NAD. AXOx3. Comfortable. HEENT: AT/NC. PERRLA. Nontender to palpation of orbits, sinuses, and external ears. Moist mucus membranes. Posterior pharynx pink and moist without exudate. No lymphadenopathy. CARDIOVASCULAR: W/o palpable lifts, heaves, or thrills. RRR w/o MRG. RESPIRATORY: Nontender to palpation. Chest expansion equal bilaterally. Diminished breath sounds posteriorly throughout lung zaidi. Course crackles on right base. Remainder to lung field w/o WRR. Negative TF and resonant to percussion throughout. ABDOMINAL: BS active w/o bruits of any arteries. Nontender to palpation. Nondistended. EXTREMITIES: Minimal edema noted LE bilaterally. LABORATORY DATA: Please see below. MICROBIOLOGY: Please see below. IMAGING: Chest CT 1. Mild bibasilar atelectasis minimally increased from prior examination. 2. Chronic interstitial changes and bronchiectasis along with cardiomegaly and small pericardial effusion are unchanged. CXR 1. Chronic stable changes. 2. Cannot exclude trace superimposed right basilar atelectasis. DVT prophylaxis ordered: Heparin 5,000 units Q8H SC ASSESSMENT AND PLAN: This is a 86-year-old Female with PMH MM, CKD stage II, CAD status post PCIx5, DM, HTN, Hypothyroid, Drop foot, Hyperlipidemia who today complains of continuous nonproductive cough, weakness, BAKER, and sinus congestion. PROBLEMS: 1. HAP: CXR and CT negative. Blood cultures negative. Nasopharynx culture positive for rhinovirus/enterovirus. DC IV Vanco and Zosyn. Continue Advair, Mucinex, Duoneb, Proventil, Decadron. O2 PRN. 2. Chest pain: Possibly positional in nature. Obtaining echocardiogram. 3. Orthostatic hypotension: Negative on VS obtained on 10/26/2016. 4. CAD status post PCI x 5: Stable. Continue with Aspirin, Plavix, Lipitor, Imdur, Losartan, Atenolol. 5. Multiple myeloma: Continue monitoring H/H. Follows with hematology/oncology. 6. Hypertension: Uncontrolled. Continue home medications of Atenolol, Hydralazine, Losartan. 7. Diabetes mellitus: Continue Levemir and Humalog. 8. CDK stage III: Cr today 1.73, baseline 1.8. Stable. Avoid nephrotoxins. Followed by Dr. Still outpatient. 9: Hyperlipidemia: Continue Statin. 10. Hypothyroidism: Continue Synthroid. 11. Pancytopenia: Improvement of WBC to 4.0. Secondary to multiple myeloma. DISPOSITION: Pt improving. Discontinuing IV antibiotics. Orthostatic VS within optimal range. VS, I&O, 24H, Fishbone Vital Signs/I&O Vital Signs Date Time Temp Pulse Resp B/P (MAP) Pulse Ox O2 Delivery O2 Flow Rate FiO2 10/28/16 08:19 182/79 10/28/16 08:00 99.0 77 20 95 Room Air 10/27/16 08:00 2.0 I&O- Last 24 Hours up to 6 AM 10/28/16 05:59 Intake Total 1685 ml Output Total 1425 ml Balance 260 ml Laboratory Data 24H LABS Laboratory Tests 2 10/27/16 11:17: Total Creatine Kinase 75, Creatine Kinase MB 1.7, Creatine Kinase MB Relative Index 2.26, Troponin I 0.06 10/27/16 12:20: Bedside Glucose (Misc Panel) 182H 10/27/16 16:55: Bedside Glucose (Misc Panel) 91 10/27/16 19:06: Total Creatine Kinase 89, Creatine Kinase MB 1.6, Creatine Kinase MB Relative Index 1.79, Troponin I 0.09#, Anion Gap 11, Glomerular Filtration Rate 29.4L, Blood Urea Nitrogen 12, Creatinine 1.74H, Sodium Level 143, Potassium Level 3.9# , Chloride Level 109H, Carbon Dioxide Level 23, Calcium Level 8.6L 10/27/16 20:42: Bedside Glucose (Misc Panel) 180H 10/28/16 05:16: Anion Gap 11, Glomerular Filtration Rate 29.6L, Blood Urea Nitrogen 11, Creatinine 1.73H, Sodium Level 144, Potassium Level 3.9, Chloride Level 112H, Carbon Dioxide Level 21, Calcium Level 8.9, Aspartate Amino Transf (AST/SGOT) 9L , Alanine Aminotransferase (ALT/SGPT) 14, Alkaline Phosphatase 43L, Total Bilirubin 0.8, Total Protein 5.2L, Albumin 2.7L, Magnesium Level 1.9, C- Reactive Protein, Quantitative 1.94H, Albumin/Globulin Ratio 1.08, Vancomycin Level Trough 9.6L CBC/BMP Laboratory Tests 10/27/16 19:06 Calcium Level 8.6 L, Total Creatine Kinase 89 10/28/16 05:16 Calcium Level 8.9, Red Blood Count 2.93 L, Mean Corpuscular Volume 90.1, Mean Corpuscular Hemoglobin 31.9, Mean Corpuscular Hemoglobin Concent 35.4, Red Cell Distribution Width 17.5 H, Aspartate Amino Transf (AST/SGOT) 9 L, Alanine Aminotransferase (ALT/SGPT) 14, Alkaline Phosphatase 43 L, Total Bilirubin 0.8, Total Protein 5.2 L, Albumin 2.7 L Microbiology Microbiology 10/26/16 Blood Culture - Preliminary, Resulted No Growth after 48 hours. All Specime... 10/25/16 Blood Culture - Preliminary, Resulted No Growth after 48 hours. All Specime... 10/27/16 Respiratory Virus Panel (PCR) ([facility]) - Final, Complete Human Rhinovirus/Enterovirus GME ATTESTATION GME ATTESTATION My preceptor for this patient encounter was physically present in the building during the encounter and was fully available. As needed, all aspects of the patient interview, examination, medical decision making process, and medical care plan development were reviewed and approved by the preceptor. Preceptor is aware and concurs with the plan as stated in the body of this note and will attest to such by his/her cosignature. ATTENDING NOTE I have both independently examined this patient as well as reviewed the note. I have discussed in detail with the resident the findings and plan of treatment as documented in the residents note. I will continue to follow the patient and offer further guidance to the patients care as necessary during this hospital stay. ENRRIQUE Hloly MD-Charo Oct 28, 2016 10:03 SUZE MURPHY MD Nov 16, 2016 18:44
--- NOTE | 2016-10-28 22:23 | ECHO ---
DATE OF PROCEDURE: 10/28/2016 AGE: 86 GENDER: Female HEIGHT: 61 inches WEIGHT: 138 pounds BODY SURFACE AREA: 1.63 m2 PATIENT LOCATION: Inpatient, PCU, room 3212 REFERRING PHYSICIAN: Dr. Hernandez INDICATION: Chest pain. 2-D MEASUREMENTS: RV: 3.6 cm LV: 4.1 cm Septum: 1.3 cm Posterior wall: 1.3 cm Aortic root: 3.0 cm LA: 4.0 cm LVEF: 60% DOPPLER MEASUREMENTS: AV: 1.6 m/s LVOT: 0.96 m/s LVOT diameter: 1.8 cm MV-E: 85, A: 87, EA ratio: 1 Early mitral deceleration time: 183 ms E-prime: 4, A-prime: 8, E/E prime ratio: 21 PV: 0.8 m/s RVSP: 51-56 mmHg IVC: 2.4 cm COMMENTS: Normal sinus rhythm without intraventricular conduction disturbance. Slightly dilated left atrium, but normal left ventricular size. Right ventricle upper limits of normal in size with mildly dilated right atrium and inferior vena cava. Her left ventricle was at least mild to moderately hypertrophied symmetrically. On real-time imaging from the parasternal and apical projections, there appeared to be a subtle proximal septal wall motion abnormality, but other nam move normally. There appeared to be slight right ventricular free wall hypertrophy, 0.8 cm. The right ventricle appeared to be slightly hypokinetic. Mild - moderate mitral annular calcification with normal leaflet thickness and excursion with no posterior systolic buckling. Three equal size aortic cusps with mildly thickened cusp edges, but adequate cusp separation. Normal aortic root size. No apparent intracardiac mass. Miniscule posterior pericardial effusion measuring 0.4 cm. Color flow Doppler study taken from the parasternal and apical projections showed trace aortic, mild mitral and mild to moderate tricuspid insufficiency. Guided continuous wave Doppler of her aortic valve showed a normal peak systolic velocity against LV outflow tract obstruction. Pulsed and continuous wave Doppler of her LV inflow tract taken from the apical four-chamber projection showed normal diastolic filling velocities against mitral stenosis. The current filling pattern was normal, but believed to be related to pseudo normalization based on tissue Doppler of her mitral annulus. Current estimated mean left atrial pressure was at least mildly increased. Pulsed and continuous wave Doppler of her pulmonary trunk showed a normal peak systolic velocity against RV outflow tract obstruction. Guided continuous wave Doppler of her tricuspid valve allowed our estimation of her right ventricular systolic pressure (at least moderately increased). Her inferior vena cava was at least mild to moderately dilated with reduced respiratory collapse in keeping with an elevation of her central venous pressure 15 - 20 mmHg. CONCLUSIONS: Unable to clearly specify the etiology of the patient's chest pain. Moderate concentric left ventricle hypertrophy with septal wall motion abnormality believed to be related to right ventricular pressure overload. Preserved global resting left ventricular systolic function. Borderline left atrial enlargement with Doppler findings suggestive of an impairment of left ventricle (LV) diastolic function and at least a mildly elevated mean left atrial pressure. Normal right ventricular size, but mild right ventricular free wall hypertrophy with hypokinesis and Doppler evidence of at least moderate pulmonary hypertension. Mildly dilated right atrium and inferior vena cava with reduced respiratory collapse in keeping with elevated central venous pressure/right heart failure. Aortic valvular sclerosis without stenosis and only trace insufficiency. Moderate mitral annular calcification with mild mitral insufficiency. Comparing the above test findings with those of November 26, 2014, there did not appear to be a dramatic change. Justice Pinzon MD if [facility] thank you
[2016-10-29 00:10] VITALS: BP 141/67
[2016-10-29] MEDS: IPRATROPIUM 0.5MG/ALBUTEROL 2.5MG INH SOL UD 3ML (DUONEB)(J7620) NEB SCH ×2 (02:54→08:00)
[2016-10-29 03:50] VITALS: BP 160/68
[2016-10-29 05:00] VITALS: BP 167/69
[2016-10-29] MEDS: LEVOTHYROXINE 112MCG TABLET (0.112MG) PO SCH (05:03)
[2016-10-29] MEDS: HEPARIN SOD (PORCINE) 5000 UNITS/ML VIAL SC SCH (05:05)
[2016-10-29] MEDS: hydrALAZINE INJ 20 MG/ML VIAL IV PRN (05:06)
[2016-10-29 05:20] VITALS: BP 138/66
[2016-10-29 05:29] LABS: MEAN CORPUSCULAR HEMOGLOBIN 31.6 pg (27.0-33.0); MEAN CORPUSCULAR HGB CONC 34.6 g/dl (32.0-36.5); MEAN CORPUSCULAR VOLUME 91.4 fl (80.0-96.0); RED CELL DISTRIBUTION WIDTH 17.6 % (11.5-14.5); WHITE BLOOD COUNT 4.1 K/mm3 (4.0-10.0)
[2016-10-29 05:48] LABS: ALBUMIN 2.8 GM/DL (3.2-5.2); ALBUMIN/GLOBULIN RATIO 1.08 (1.00-1.93); BILIRUBIN,TOTAL 0.7 MG/DL (0.2-1.0); CALCIUM LEVEL 9.6 MG/DL (8.8-10.2); CREATININE FOR GFR 1.59 MG/DL (0.55-1.02); GLOMERULAR FILTRATION RATE 32.6 (>32); MAGNESIUM LEVEL 1.9 MG/DL (1.8-2.4); POTASSIUM SERUM 4.6 MEQ/L (3.5-5.1); TOTAL PROTEIN 5.4 GM/DL (6.4-8.2)
[2016-10-29 08:00] VITALS: BP 126/61
[2016-10-29] MEDS: CLOPIDOGREL 75 MG TAB PO SCH (08:06)
[2016-10-29] MEDS: ATORVASTATIN 20 MG TAB PO SCH (08:06)
[2016-10-29] MEDS: DOCUSATE SODIUM 100 MG CAP PO SCH (08:06)
[2016-10-29] MEDS: guaiFENesin ER 600 MG TAB PO SCH (08:06)
[2016-10-29] MEDS: POTASSIUM CHLORIDE 10 MEQ SR TABLET PO SCH (08:06)
[2016-10-29] MEDS: PANTOPRAZOLE 40MG TAB (PROTONIX) PO SCH (08:06)
[2016-10-29] MEDS: ATENOLOL 50 MG TAB PO SCH (08:07)
[2016-10-29] MEDS: LOSARTAN 50 MG TAB PO SCH (08:07)
[2016-10-29] MEDS: ASPIRIN 81 MG ENTERIC TAB PO SCH (08:07)
[2016-10-29] MEDS: CYANOCOBALAMIN 500 MCG TAB PO SCH (08:07)
[2016-10-29 08:08] VITALS: BP 138/66
[2016-10-29] MEDS: HumaLOG INSULIN (NovoLOG) PER UNIT SC SCH (08:08)
[2016-10-29] MEDS: VITAMIN D 1,000 INTERNATIONAL UNITS TABLET PO SCH (08:08)
[2016-10-29] MEDS: ISOSORBIDE MON. (IMDUR) 60 MG XR TAB PO SCH (08:08)
[2016-10-29] MEDS: LEVEMIR (INSULIN DETEMIR) 1 UNITS/0.01ML SC SCH (08:09)
[2016-10-29] MEDS: ADVAIR HFA 45/21MCG INHALER INH SCH (09:00)
--- NOTE | 2016-10-29 10:49 | DS.PDOC ---
Discharge Summary General Date of Admission Oct 26, 2016 at 02:37 Date of Discharge 10/29/2016 Primary Care Physician: Bucky Attending Physician: HE Discharge Summary PROCEDURES PERFORMED DURING STAY: None. ADMITTING DIAGNOSES: 1. HAP. DISCHARGE DIAGNOSES: 1. Rhinovirus/Enterovirus. COMPLICATIONS/CHIEF COMPLAINT: Healthcare Associated Pneumonia. HISTORY OF PRESENT ILLNESS: This is a 78-year-old female past medical history multiple myeloma, CK D stage III, CAD status post PCI 5, diabetes mellitus, hypertension, hypothyroidism, dropfoot, hyperlipidemia who presents complaining of shortness of breath and cough. Patient was diagnosed with HAP of RLL on and presented to the ED with worsening symptoms of SOB and nonproductive cough on Wednesday10/26/16. Patient's last chemotherapy treatment was on 10/23. Patient was on Levaquin and stated she felt nauseated after taking it. She hasn't been eating or drinking very much given her nonproductive cough and decreased appetite. Patient also complains of chills. No fevers at home. No chest pain/palpitations. Patient feels lightheaded upon standing over the past few days. Denies any syncopal episodes. Patient was admitted for anemia in July 2016. HOSPITAL COURSE: Patient was admitted to the medical service on 10/26/16 for HAP with Vancomycin/Zosyn started due to patient not tolerating Levaquin very well. Patient continued with Advair, Mucinex, Duoneb, Provetil, Decadron, and O2 PRN. Blood cultures and sputum cultures came back with rhinovirus/enterovirus. Vancomycin/Zosyn was discontinued. Chest CT and CXR negative for HAP. No lactic acidosis. CRP progressively decreasing. Chest pain, postural in nature - patient on telemetry, EKG (no acute changes noted), cardiac markers were negative, likely due to PNA or anemia. Transfused one unit PRBC and discussed with cardiology and hematology/oncology. Patient has a history of multiple myeloma and follows with hematology/oncology. Orthostatic HoTN likley related to anemia. Improved by discharge. Negative orthostatic VS on 10/27/16. Patient had a recent catheterization in June 2016 with no stent. Continue ASA, Plavix, statin, Imdur, Cozaar, and beta-sury. Patient stated she had some chest pain during Duoneb treatment, educated patient that may be normal. Transthoracic echocardiogram obtained. Hypertension was uncontrolled, home medications were restarted on 10/27/16 with adequate control. Diabetes mellitus controlled with Levemir and Humalog. Hypoglycemia on 10/27/16, continued Levemir at reduced dose/sliding scale insulin, resulted in adequate control. CKD stage III with baseline Cr 1.8, stable while in hospital. Avoided nephrotoxins. Followed by Dr. Still outpatient. Hyperlipidemia continued Statin, stable. Hypothyroidism continued Synthroid, stable. Chronic pancytopenia secondary to multiple myeloma. DVT prophylaxis Heparin 5,000 units SC every 8 hours while in hospital. At time of discharge patient had returned to baseline with improvement in symptoms. Some subjective chest pain with DuoNeb treatment and nausea with ambulation. Both of which resolved appropriately. Patient stable for discharge at this time. DISCHARGE MEDICATIONS: Please see below. ALLERGIES: Please see below. PHYSICAL EXAMINATION ON DISCHARGE: VITAL SIGNS: Please see below. GENERAL: 86 year old female appears stated age laying in bed comfortably. NAD. AXOx3. HEENT: AT/NC. PERRLA. Sinuses nontender to palpation. Posterior pharynx pink and moist without erythema and exudate. NECK: No lymphadenopathy. CARDIOVASCULAR EXAMINATION: Without palpable lifts, heaves, or thrills. RRR w/o MRG. RESPIRATORY EXAMINATION: Nontender to palpation. Chest expansion equal bilaterally. Diminished breath sounds posteriorly throughout lung zaidi. Lung zaidi w/o WRR throughout. ABDOMINAL EXAMINATION: Nondistended. BS active without bruits of any arteries. Nontender to palpation. EXTREMITIES: Without edema of LE bilaterally. PSYCHIATRIC EXAMINATION: AXOx3. LABORATORY DATA: Please see below. IMAGING: CT chest IMPRESSION: 1. Mild bibasilar atelectasis minimally increased from prior examination 2. Chronic interstitial changes and bronchiectasis along with cardiomegaly and small pericardial effusion are unchanged. Chest x-ray IMPRESSION: Chronic stable changes Cannot exclude trace superimposed right basilar atelectasis. ECHOCARDIOGRAM IMPRESSION: Unable to clearly specify the etiology of the patient's chest pain. Moderate concentric left ventricle hypertrophy with septal wall motion abnormality believed to be related to right ventricular pressure overload. Preserved global resting left ventricular systolic function. Borderline left atrial enlargement with Doppler findings suggestive of an impairment of left ventricle (LV) diastolic function and at least a mildly elevated mean left atrial pressure. Normal right ventricular size, but mild right ventricular free wall hypertrophy with hypokinesis and Doppler evidence of at least moderate pulmonary hypertension. Mildly dilated right atrium and inferior vena cava with reduced respiratory collapse in keeping with elevated central venous pressure/right heart failure. Aortic valvular sclerosis without stenosis and only trace insufficiency. Moderate mitral annular calcification with mild mitral insufficiency. Comparing the above test findings with those of November 26, 2014, there did not appear to be a dramatic change. Electrocardiogram IMPRESSION: Sinus rhythm Minimal ST depression Similar tracing done 10-23-16 PROGNOSIS: Stable ACTIVITY: As tolerated. DIET: 2 gram sodium. DISPOSITION: Home. DISCHARGE INSTRUCTIONS: 1. Follow up with Dr. Lawler in 7-10 days. 2. Follow up with Dr. Marsh in 7-10 days. 3. Follow up with Dr. Pinzon in 2 weeks. 4. Continue home medications, no changes. 4. Return to nearest hospital ER if symptoms begin to worsen. ITEMS TO FOLLOWUP ON ON OUTPATIENT: 1. Rhinovirus/Enterovirus. 2. Multiple Myeloma. DISCHARGE CONDITION: Stable. TIME SPENT ON DISCHARGE: Greater than 30 minutes. Vital Signs/I&Os Vital Signs Date Time Temp Pulse Resp B/P (MAP) Pulse Ox O2 Delivery O2 Flow Rate FiO2 10/29/16 05:20 138/66 (90) 10/29/16 03:50 98.4 71 18 96 Room Air 10/27/16 08:00 2.0 I&O- Last 24 Hours up to 6 AM 10/29/16 06:00 Intake Total 1380 ml Output Total 900 ml Balance 480 ml Laboratory Data Labs 24H Laboratory Tests 2 10/28/16 11:33: Bedside Glucose (Misc Panel) 142H 10/28/16 17:02: Bedside Glucose (Misc Panel) 111H 10/28/16 21:45: Bedside Glucose (Misc Panel) 165H 10/29/16 05:00: Anion Gap 9, Glomerular Filtration Rate 32.6, Blood Urea Nitrogen 11, Creatinine 1.59H, Sodium Level 142, Potassium Level 4.6, Chloride Level 112H, Carbon Dioxide Level 21, Calcium Level 9.6, Aspartate Amino Transf (AST/SGOT) 9L , Alanine Aminotransferase (ALT/SGPT) 15, Alkaline Phosphatase 49, Total Bilirubin 0.7, Total Protein 5.4L, Albumin 2.8L, Magnesium Level 1.9, C- Reactive Protein, Quantitative 1.22H, Albumin/Globulin Ratio 1.08 CBC/BMP Laboratory Tests 10/29/16 05:00 Red Blood Count 2.94 L, Mean Corpuscular Volume 91.4, Mean Corpuscular Hemoglobin 31.6, Mean Corpuscular Hemoglobin Concent 34.6, Red Cell Distribution Width 17.6 H, Calcium Level 9.6, Aspartate Amino Transf (AST/SGOT) 9 L, Alanine Aminotransferase (ALT/SGPT) 15, Alkaline Phosphatase 49, Total Bilirubin 0.7, Total Protein 5.4 L, Albumin 2.8 L FSBS Laboratory Tests Test 10/28/16 11:33 10/28/16 17:02 10/28/16 21:45 Range/Units Bedside Glucose (Misc Panel) 142 111 165 83-110 MG/DL Microbiology Microbiology 10/26/16 Blood Culture - Preliminary, Resulted No Growth after 72 hours. All specime... 10/25/16 Blood Culture - Preliminary, Resulted No Growth after 72 hours. All specime... 10/28/16 Gram Stain, Received Pending 10/28/16 Sputum Culture, Received Pending 10/27/16 Respiratory Virus Panel (PCR) ([facility]) - Final, Complete Human Rhinovirus/Enterovirus Discharge Medications Scheduled Aspirin (Aspirin EC) 81 Mg Tab, 81 MG PO DAILY, (Reported) Atenolol (Atenolol) 50 Mg Tab, 50 MG PO DAILY, (Reported) Atorvastatin Calcium (Atorvastatin Calcium) 40 Mg Tab, 40 MG PO DAILY, (Reported ) Calcitriol (Rocaltrol) 0.25 Mcg Cap, 0.25 MCG PO Q2D, (Reported) Cholecalciferol (Vitamin D3) 1,000 Unit Cap, 1,000 UNIT PO DAILY, (Reported) Clopidogrel Bisulfate (Plavix) 75 Mg Tab, 75 MG PO DAILY, (Reported) Cyanocobalamin (B-12) 1,000 Mcg Tab, 1,000 MCG PO DAILY, (Reported) Dexamethasone (Dexamethasone) 4 Mg Tab, 20 MG PO 1XWK, (Reported) FRIDAYS Insulin Detemir (Levemir) 1 Units/0.01 Ml Susp, 22 UNITS SC DAILY, (Reported) Isosorbide Mononitrate (Isosorbide Mononitrate ER) 60 Mg Tab, 60 MG PO DAILY, ( Reported) Levothyroxine Sodium (Synthroid) 112 Mcg Tab, 112 MCG PO QAM, (Reported) Losartan Potassium (Losartan Potassium) 50 Mg Tab, 50 MG PO DAILY, (Reported) Pantoprazole Sodium (Pantoprazole Sodium) 40 Mg Tab, 40 MG PO DAILY, (Reported) Potassium Chloride (Potassium Chloride ER) 10 Meq Tab, 10 MEQ PO TID, (Reported) Salmeterol/Fluticasone (Advair Diskus 100-50 Mcg/Dose) 28 Puff/Inhaler Aerp, 1 PUFF INH BID, (Reported) Scheduled PRN Albuterol Sulfate (Proair Hfa) 108 Mcg/Act Aer, 2 PUFFS INH QID PRN for SHORTNESS OF BREATH, (Reported) Nitroglycerin (Nitrostat) 0.4 Mg Subl, 0.4 MG SL Q5MP PRN for CHEST PAIN, ( Reported) Allergies Coded Allergies: Latex (Verified Allergy, Severe, PALPITATION & SWELLING, 08/02/16) Codeine (Verified Allergy, Unknown, 08/02/16) Diphtheria Toxoid (Verified Allergy, Unknown, 08/02/16) Hydrocodone (Verified Allergy, Unknown, 08/02/16) Hydroquinone (Verified Allergy, Unknown, RASH, 08/02/16) Metformin (Verified Allergy, Unknown, AVANDAMET, 08/02/16) Rosiglitazone (Verified Allergy, Unknown, AVANDAMET, 08/02/16) Sulfa Drugs (Verified Allergy, Unknown, 08/02/16) Sulfa Drugs Cross Reactors (Verified Allergy, Unknown, 08/02/16) Sulfites (Verified Allergy, Unknown, 08/02/16) Tetanus Toxoid (Verified Allergy, Unknown, 08/02/16) Aspirin (Verified Adverse Reaction, Unknown, "REGULAR ASPIRIN" TAKES 81MG AT HOME, 08/02/16) Lisinopril (Verified Adverse Reaction, Unknown, COUGH, 08/02/16) Morphine (Verified Adverse Reaction, Unknown, 08/02/16) GME ATTESTATION GME ATTESTATION My preceptor for this patient encounter was physically present in the building during the encounter and was fully available. As needed, all aspects of the patient interview, examination, medical decision making process, and medical care plan development were reviewed and approved by the preceptor. Preceptor is aware and concurs with the plan as stated in the body of this note and will attest to such by his/her cosignature. ATTENDING NOTE I have both independently examined this patient as well as reviewed the note. I have discussed in detail with the resident the findings and plan of treatment as documented in the residents note. I will continue to follow the patient and offer further guidance to the patients care as necessary during this hospital stay. ENRRIQUE Holly MDME-I Oct 29, 2016 08:57 SUZE MURPHY MD Nov 16, 2016 18:45
== END 2016-10-29 11:02 | disposition home or self-care (01) | DRG 191 ==
LOC: M ED 22:20 → M ED INP 10-26 02:37 → M ICU 10-26 07:52 → M PCU 10-26 13:26
PROVIDERS: ADMIT Internal Medicine; ATTEND Hospitalist
PROC: 30253N1 (ICD-10-PCS; principal; 2016-10-27)
DX: J47.0 Bronchiectasis with acute lower respiratory infection (principal); C90.00 Multiple myeloma not having achieved remission; D61.818 Other pancytopenia; N18.3 Chronic kidney disease, stage 3 (moderate); I25.10 Atherosclerotic heart disease of native coronary artery without angina pectoris; B34.8 Other viral infections of unspecified site; E11.22 Type 2 diabetes mellitus with diabetic chronic kidney disease; I12.9 Hypertensive chronic kidney disease with stage 1 through stage 4 chronic kidney disease, or unspecified chronic kidney disease; E03.9 Hypothyroidism, unspecified; E78.5 Hyperlipidemia, unspecified; Z92.21 Personal history of antineoplastic chemotherapy; Z90.710 Acquired absence of both cervix and uterus; I95.1 Orthostatic hypotension; Z95.1 Presence of aortocoronary bypass graft; Z79.82 Long term (current) use of aspirin; Z79.899 Other long term (current) drug therapy; Z88.2 Allergy status to sulfonamides; Z88.8 Allergy status to other drugs, medicaments and biological substances; Z91.040 Latex allergy status

== ENCOUNTER → 2016-11-10 | Outpatient (REF) | payer MEDICARE ==
[~2016-11-10] MED LIST changes: +LEVO500T3 PO; +POTA10TA16 PO; +ROCA0.25 PO
[2016-11-10 17:13] LABS: IMMUNOGLOBULIN A 52.1 MG/DL (70-400); IMMUNOGLOBULIN G 286 MG/DL (681-1648); TOTAL PROTEIN 6.1 GM/DL (6.4-8.2)
[2016-11-10 18:59] LABS: IMMUNOGLOBULIN M 5.78 MG/DL (40-230)
[2016-11-12 12:19] LABS: ALBUMIN 3.89 GM/DL (3.29-5.55); ALBUMIN % 63.8 % (55.8-66.1); GAMMA GLOBULIN % 5.3 % (11.1-18.8)
[2016-11-14 00:06] LABS: BETA 2 MICROGLOBULIN 4.6 mg/L (0.6-2.4); FREE KAPPA LIGHT CHAINS SERUM 6.1 mg/L (3.3-19.4); FREE LAMBDA LIGHT CHAINS SERUM 2430.5 mg/L (5.7-26.3)
== END ==
LOC: M LAB REF 14:54
PROVIDERS: ATTEND Internal Medicine Medical Oncology
DX: C90.02 Multiple myeloma in relapse (principal)

== ENCOUNTER → 2017-01-18 | Outpatient (REF) | payer MEDICARE ==
[2017-01-18 14:43] LABS: TOTAL PROTEIN 5.4 GM/DL (6.4-8.2)
[2017-01-21 00:06] LABS: BETA 2 MICROGLOBULIN 4.4 mg/L (0.6-2.4); FREE KAPPA LIGHT CHAINS SERUM 7.3 mg/L (3.3-19.4); FREE LAMBDA LIGHT CHAINS SERUM 2255.8 mg/L (5.7-26.3)
[2017-01-21 10:59] LABS: ALBUMIN % 64.9 % (55.8-66.1); GAMMA GLOBULIN % 4.8 % (11.1-18.8)
== END ==
LOC: M LAB REF 13:01
PROVIDERS: ATTEND Nurse Practitioner Family
DX: D64.9 Anemia, unspecified (principal); C90.00 Multiple myeloma not having achieved remission

== ENCOUNTER 2017-01-19 09:20 | Outpatient (CLI) | payer MEDICARE ==
[~2017-01-19] VITALS: Ht 144.8 cm; Wt 69.9 kg
[~2017-01-19 09:20] MED LIST changes: +ACETAMINOPHEN TAB 650MG DOSE (2X325MG) PO SCH; +diphenhydrAMINE 25 MG CAP PO SCH
[2017-01-19] MEDS ORDERED: FUROSEMIDE 20 MG/2 ML VIAL (J1940) IV ONE (09:30)
== END 2017-01-19 14:00 | disposition home or self-care (01) ==
LOC: M INFU 09:20
PROVIDERS: ATTEND Nurse Practitioner Family
DX: D64.9 Anemia, unspecified (principal); Z95.5 Presence of coronary angioplasty implant and graft; Z85.79 Personal history of other malignant neoplasms of lymphoid, hematopoietic and related tissues; Z92.21 Personal history of antineoplastic chemotherapy; Z88.2 Allergy status to sulfonamides; Z88.5 Allergy status to narcotic agent; Z88.8 Allergy status to other drugs, medicaments and biological substances; Z88.7 Allergy status to serum and vaccine; Z91.040 Latex allergy status; Z79.82 Long term (current) use of aspirin; Z79.4 Long term (current) use of insulin; Z79.899 Other long term (current) drug therapy
CPT/HCPCS: 36430; J1940; P9016

== ENCOUNTER → 2017-01-28 | Outpatient (REF) | payer MEDICARE, MEDICAID ==
[~2017-01-28] MED LIST changes: -ACETAMINOPHEN TAB 650MG DOSE (2X325MG) PO SCH; -diphenhydrAMINE 25 MG CAP PO SCH
== END ==
LOC: M LAB REF 17:31
PROVIDERS: ATTEND Internal Medicine Medical Oncology
DX: C90.00 Multiple myeloma not having achieved remission (principal); Z79.899 Other long term (current) drug therapy

== ENCOUNTER → 2017-02-25 | Outpatient (REF) | payer MEDICARE, MEDICAID ==
[2017-02-25 19:34] LABS: URINE TOTAL PROTEIN 32.8 MG/DL (0-12)
[2017-02-25 20:07] LABS: IMMUNOGLOBULIN A 38.1 MG/DL (70-400); IMMUNOGLOBULIN G 243 MG/DL (681-1648); TOTAL PROTEIN 5.5 GM/DL (6.4-8.2)
[2017-02-25 21:34] LABS: IMMUNOGLOBULIN M < 5.3 MG/DL (40-230)
[2017-03-01 11:03] LABS: ALBUMIN 3.55 GM/DL (3.29-5.55); ALBUMIN % 64.5 % (55.8-66.1); ALPHA-1-GLOBULIN % 6.7 % (2.9-4.9); ALPHA-1-GLOBULINS 0.37 GM/DL (0.17-0.41); ALPHA-2-GLOBULINS 0.72 GM/DL (0.42-0.99); ALPHA-2-GLOBULINS % 13.1 % (7.1-11.8); BETA-1-GLOBULINS 0.31 GM/DL (0.28-0.60); BETA-1-GLOBULINS % 5.6 % (4.7-7.2); BETA-2-GLOBULINS 0.31 GM/DL (0.19-0.55); BETA-2-GLOBULINS % 5.6 % (3.2-6.5); GAMMA GLOBULIN % 4.5 % (11.1-18.8); GAMMA GLOBULINS 0.25 GM/DL (0.65-1.58)
== END ==
LOC: M LAB REF 18:02
DX: C90.00 Multiple myeloma not having achieved remission (principal)
CPT/HCPCS: 84165

== ENCOUNTER → 2017-03-04 | Outpatient (CLI) | payer MEDICARE ==
[~2017-03-04] MED LIST changes: -/ATOR40TA OR; -/LANS30GR OR; -/MOXI40TA PO; -/SUCR1TA OR; -/WARF25TA OR; -ACET50TAOT PO; -ACET65TA OR; -ACET65TA PR; -ACTO75TA OR; -ACYC400T PO; -ADV100INH INH; -ADV250INH INH; -ALPR0.25 OR; -ASPI81TA24 PO; -ASPI81TA83 OR; -ATEN25TA OR; -ATEN25TA PO; -ATEN50TA2 OR; -ATEN50TA2 PO; -ATOR40TA75 PO; -AVAP150T OR; -B-1210009 PO; -BISA10SU2 RE; -BISA5TA OR; -CALCCHW12 OR; -CEFD1CAP8 PO; -CETI10TA OR; -CHLO125TA PO; -CLAR10CA3 PO; -COZA100T OR; -DEXA4TA PO; -GLIP5TAB8 PO; -HEPA500020 SC; -INSUDET SC; -ISOS30TA4 OR; -ISOS30TA4 PO; -ISOS60TA2 PO; -Isosorbide OR; -KLOR1TAB73 PO; -LACT10SO29 PO; -LEVA1TAB2 PO; -LEVO112T2 PO; -LEVO500T3 PO; -LEVO75TA2 OR; -LOSA50TA20 PO; -NITR0.4S SL; -NITR4TASL SL; -OMEP20CA3 PO; -PANT40TA2 PO; -PLAV1TAB2 PO; -PLAV75TA2 OR; -POTA10TA16 PO; -POTA10TA67 PO; -POTA20TA PO; -PRED20TAB PO; -PROAAER10 INH; +PROHANCE 279.3MG/ML 5ML VIAL (A9576) As Ordered; -PROTPAK PO; -REVL10CA2 PO; -ROCA0.25 PO; -SPIR25TA2 PO; -TRAM50TA2 OR; -TYL RE; -TYLE325T5 PO; -VELC3.5I IV; -VIT D 2000 PO; -VITA-113 OR; -VITA-121 PO; -VITA-182 PO; -VITA100L PO; -VITA100T PO; -ZETI10TA OR; -januvia OR
== END ==
LOC: M RAD 09:21
DX: M25.551 Pain in right hip (principal); M71.21 Synovial cyst of popliteal space [Baker], right knee; M94.251 Chondromalacia, right hip; R59.1 Generalized enlarged lymph nodes; M16.11 Unilateral primary osteoarthritis, right hip
CPT/HCPCS: A9576

== ENCOUNTER → 2017-03-09 | Outpatient (REF) | payer MEDICARE ==
[2017-03-09 13:50] LABS: URINE TOTAL PROTEIN 101.8 MG/DL (0-12)
[2017-03-09 14:18] LABS: IMMUNOGLOBULIN A 43.6 MG/DL (70-400); IMMUNOGLOBULIN G 260 MG/DL (681-1648); TOTAL PROTEIN 5.5 GM/DL (6.4-8.2)
[2017-03-09 15:36] LABS: IMMUNOGLOBULIN M < 5.3 MG/DL (40-230)
[2017-03-11 10:37] LABS: ALBUMIN % 63.9 % (55.8-66.1); ALPHA-1-GLOBULIN % 6.5 % (2.9-4.9)
[2017-03-11 10:38] LABS: ALBUMIN 3.51 GM/DL (3.29-5.55); ALPHA-1-GLOBULINS 0.36 GM/DL (0.17-0.41); ALPHA-2-GLOBULINS 0.73 GM/DL (0.42-0.99); ALPHA-2-GLOBULINS % 13.2 % (7.1-11.8); BETA-1-GLOBULINS % 5.5 % (4.7-7.2); BETA-2-GLOBULINS 0.33 GM/DL (0.19-0.55); GAMMA GLOBULIN % 4.9 % (11.1-18.8); GAMMA GLOBULINS 0.27 GM/DL (0.65-1.58)
[2017-03-11 13:24] LABS: UPEP INTERPRETATION M-SPIKE IN BETA; URINE VOLUME RANDOM ML
[2017-03-12 00:09] LABS: FREE KAPPA LIGHT CHAINS SERUM 14.2 mg/L (3.3-19.4); FREE LAMBDA LIGHT CHAINS SERUM 2015.5 mg/L (5.7-26.3); KAPPA/LAMBDA RATIO SERUM 0.01 (0.26-1.65)
== END ==
LOC: M LAB REF 12:59
DX: Z79.899 Other long term (current) drug therapy (principal); C90.02 Multiple myeloma in relapse
CPT/HCPCS: 84165

== ENCOUNTER 2017-03-11 19:04 | Emergency (ER) | payer MEDICARE ==
[2017-03-11] MEDS: ONDANSETRON 4 MG ORAL DISINTEGRATING TAB (S0181) PO (20:16)
[2017-03-11 21:07] LABS: KETONE, URINE AUTO RFX NEGATIVE (NEGATIVE); MUCUS, URINE RFX SMALL (NEGATIVE); NITRITE, URINE AUTO RFX NEGATIVE (NEGATIVE); RBC, URINE AUTO RFX 1 /HPF (0-3); SPECIFIC GRAVITY UR AUTO RFX 1.011 (1.002-1.035); SQUAM EPITHELIAL CELL UR AURFX 1 /HPF (0-6); WBC, URINE AUTO RFX 7 /HPF (0-3)
[2017-03-11 21:35] LABS: LEUKOCYTE ESTERASE UR AUTO RFX 1+ (NEGATIVE)
[2017-03-11 21:38] LABS: BASO # 0.1 10^3/uL (0.0-0.2); EOS # 0.7 10^3/uL (0.0-0.50); EOS % 12.7 % (0.0-3.0); HEMATOCRIT 26.5 % (36.0-47.0); HEMOGLOBIN 8.8 g/dl (12.0-16.0); IMMATURE GRANULOCYTE # 0.1 10^3/uL (0-0); IMMATURE GRANULOCYTE % 1.4 % (0-0); LYMPH % 17.2 % (24.0-44.0); MEAN CORPUSCULAR HEMOGLOBIN 31.3 pg (27.0-33.0); MEAN CORPUSCULAR HGB CONC 33.2 g/dl (32.0-36.5); MEAN CORPUSCULAR VOLUME 94.3 fl (80.0-96.0); MONO # 1.3 10^3/uL (0.0-0.8); MONO % 22.5 % (0.0-5.0); NEUTROPHILS # 2.6 10^3/uL (1.8-7.7); NEUTROPHILS % 45.2 % (36.0-66.0); RED BLOOD COUNT 2.81 10^6/uL (4.00-5.40); RED CELL DISTRIBUTION WIDTH 15.8 % (11.5-14.5); WHITE BLOOD COUNT 5.8 10^3/uL (4.0-10.0)
[2017-03-11 21:58] LABS: ALBUMIN 3.1 GM/DL (3.2-5.2); ALBUMIN/GLOBULIN RATIO 1.29 (1.00-1.93); ALKALINE PHOSPHATASE 46 U/L (45-117); ALT/SGPT 19 U/L (12-78); ANION GAP 9 MEQ/L (8-16); AST/SGOT 11 U/L (7-37); BILIRUBIN,TOTAL 0.7 MG/DL (0.2-1.0); BLOOD UREA NITROGEN 24 MG/DL (7-18); CALCIUM LEVEL 8.6 MG/DL (8.8-10.2); CARBON DIOXIDE LEVEL 22 MEQ/L (21-32); CHLORIDE LEVEL 109 MEQ/L (98-107); CPK CREATINE PHOSPHOKINASE 40 U/L (26-192); CREATININE FOR GFR 1.83 MG/DL (0.55-1.02); GLOMERULAR FILTRATION RATE 27.7 (>32); GLUCOSE, FASTING 163 MG/DL (70-100); POTASSIUM SERUM 4.6 MEQ/L (3.5-5.1); SODIUM LEVEL 140 MEQ/L (136-145); TOTAL PROTEIN 5.5 GM/DL (6.4-8.2); TROPONIN I 0.02 NG/ML (< 0.10)
[2017-03-11 22:17] LABS: BEDSIDE GLUCOSE 194 MG/DL (83-110)
[2017-03-11 22:42] LABS: PLATELET COUNT, AUTOMATED 89 10^3/uL (150-450)
[2017-03-12 11:38] LABS: BEDSIDE GLUCOSE 67 MG/DL (83-110)
== END 2017-03-11 22:34 | disposition home or self-care (01) ==
LOC: M ED 19:04
DX: E10.649 Type 1 diabetes mellitus with hypoglycemia without coma (principal); I25.10 Atherosclerotic heart disease of native coronary artery without angina pectoris; I10 Essential (primary) hypertension; J45.909 Unspecified asthma, uncomplicated; J44.9 Chronic obstructive pulmonary disease, unspecified; E03.9 Hypothyroidism, unspecified; F41.9 Anxiety disorder, unspecified; Z79.899 Other long term (current) drug therapy; Z79.82 Long term (current) use of aspirin; Z79.01 Long term (current) use of anticoagulants; Z79.4 Long term (current) use of insulin; Z79.51 Long term (current) use of inhaled steroids; Z88.8 Allergy status to other drugs, medicaments and biological substances; Z88.5 Allergy status to narcotic agent; Z88.7 Allergy status to serum and vaccine; Z91.040 Latex allergy status; Z88.2 Allergy status to sulfonamides; Z86.2 Personal history of diseases of the blood and blood-forming organs and certain disorders involving the immune mechanism; Z95.5 Presence of coronary angioplasty implant and graft; Z98.890 Other specified postprocedural states; Z87.09 Personal history of other diseases of the respiratory system; Z85.820 Personal history of malignant melanoma of skin
CPT/HCPCS: 93005

== ENCOUNTER → 2017-04-16 | Outpatient (REF) | payer MEDICARE ==
[2017-04-16 14:33] LABS: IMMUNOGLOBULIN A 38.5 MG/DL (70-400); IMMUNOGLOBULIN G 243 MG/DL (681-1648); TOTAL PROTEIN 5.3 GM/DL (6.4-8.2)
[2017-04-16 15:16] LABS: IMMUNOGLOBULIN M < 5.3 MG/DL (40-230)
[2017-04-18 00:07] LABS: FREE KAPPA LIGHT CHAINS SERUM 9.7 mg/L (3.3-19.4); FREE LAMBDA LIGHT CHAINS SERUM 1467.3 mg/L (5.7-26.3); KAPPA/LAMBDA RATIO SERUM 0.01 (0.26-1.65)
[2017-04-20 13:25] LABS: ALBUMIN 3.37 GM/DL (3.29-5.55); ALBUMIN % 63.6 % (55.8-66.1); ALPHA-1-GLOBULIN % 6.2 % (2.9-4.9); ALPHA-1-GLOBULINS 0.33 GM/DL (0.17-0.41); ALPHA-2-GLOBULINS 0.68 GM/DL (0.42-0.99); ALPHA-2-GLOBULINS % 12.8 % (7.1-11.8); BETA-1-GLOBULINS 0.32 GM/DL (0.28-0.60); BETA-2-GLOBULINS 0.32 GM/DL (0.19-0.55); GAMMA GLOBULIN % 5.4 % (11.1-18.8); GAMMA GLOBULINS 0.29 GM/DL (0.65-1.58)
== END ==
LOC: M LAB REF 13:28
DX: C90.00 Multiple myeloma not having achieved remission (principal)
CPT/HCPCS: 84165

== ENCOUNTER 2017-05-04 21:44 | Inpatient (IN) | payer MEDICARE ==
[2017-05-04 22:28] LABS: BASO % 0.9 % (0.0-1.0); EOS # 0.6 10^3/uL (0.0-0.50); HEMOGLOBIN 8.2 g/dl (12.0-16.0); IMMATURE GRANULOCYTE % 1.6 % (0-3.0); LYMPH # 0.9 10^3/uL (1.5-4.5); LYMPH % 21.1 % (24.0-44.0); MEAN CORPUSCULAR HEMOGLOBIN 31.8 pg (27.0-33.0); MEAN CORPUSCULAR HGB CONC 34.2 g/dl (32.0-36.5); MONO % 21.5 % (0.0-5.0); NEUTROPHILS # 1.9 10^3/uL (1.8-7.7); NEUTROPHILS % 41.9 % (36.0-66.0); PLATELET COUNT, AUTOMATED 111 10^3/uL (150-450); RED BLOOD COUNT 2.58 10^6/uL (4.00-5.40); RED CELL DISTRIBUTION WIDTH 15.9 % (11.5-14.5); WHITE BLOOD COUNT 4.5 10^3/uL (4.0-10.0)
[2017-05-04 22:48] LABS: INR 1.07; PARTIAL THROMBOPLASTIN TIME 24.6 SECONDS (26.8-37.9)
[2017-05-04 22:52] LABS: ALBUMIN 3.3 GM/DL (3.2-5.2); ALBUMIN/GLOBULIN RATIO 1.43 (1.00-1.93); ALKALINE PHOSPHATASE 68 U/L (45-117); ALT/SGPT 24 U/L (12-78); ANION GAP 10 MEQ/L (8-16); AST/SGOT 30 U/L (7-37); BILIRUBIN,DIRECT 0.2 MG/DL (0.0-0.2); BILIRUBIN,TOTAL 0.9 MG/DL (0.2-1.0); BLOOD UREA NITROGEN 25 MG/DL (7-18); CALCIUM LEVEL 8.9 MG/DL (8.8-10.2); CARBON DIOXIDE LEVEL 24 MEQ/L (21-32); CHLORIDE LEVEL 104 MEQ/L (98-107); CPK CREATINE PHOSPHOKINASE 56 U/L (26-192); CREATININE FOR GFR 1.82 MG/DL (0.55-1.30); GLOMERULAR FILTRATION RATE 27.9 (>32); GLUCOSE, FASTING 67 MG/DL (70-100); LIPASE 119 U/L (73-393); MAGNESIUM LEVEL 1.8 MG/DL (1.8-2.4); POTASSIUM SERUM 4.2 MEQ/L (3.5-5.1); SODIUM LEVEL 138 MEQ/L (136-145); TOTAL PROTEIN 5.6 GM/DL (6.4-8.2); TROPONIN I 0.02 NG/ML (< 0.10)
[2017-05-04 22:58] LABS: MB/CK RELATIVE INDEX 1.78 (< OR =4)
[2017-05-04 23:42] LABS: D-DIMER QUANT 617.9 ng/ml (<500)
[2017-05-05 00:06] LABS: BEDSIDE GLUCOSE 66 MG/DL (83-110)
[2017-05-05] MEDS ORDERED: BISACODYL 5 MG TAB PO (03:30)
[2017-05-05] MEDS ORDERED: ONDANSETRON 4 MG TAB (S0181) PO (03:30)
[2017-05-05] MEDS ORDERED: DEXTROSE 50% 50 ML SYRINGE IV (04:00)
[2017-05-05] MEDS ORDERED: ALBUTEROL 90 MCG/ACT 8GM HFA INHALER INH (04:00)
[2017-05-05] MEDS ORDERED: GLUCOSE 4 GM CHEW TABLET PO (04:00)
[2017-05-05] MEDS ORDERED: GLUCAGON FOR INJ 1 MG VIAL (J1610) SC (04:00)
[2017-05-05] MEDS: ACETAMINOPHEN TAB 650MG DOSE (2X325MG) PO ×3 (05:06→19:39)
[2017-05-05 05:48] LABS: BASO % 0.9 % (0.0-1.0); EOS # 0.5 10^3/uL (0.0-0.50); EOS % 16.6 % (0.0-3.0); HEMATOCRIT 22.7 % (36.0-47.0); HEMOGLOBIN 7.8 g/dl (12.0-16.0); IMMATURE GRANULOCYTE % 1.3 % (0-3.0); LYMPH # 0.6 10^3/uL (1.5-4.5); LYMPH % 17.8 % (24.0-44.0); MEAN CORPUSCULAR HEMOGLOBIN 32.2 pg (27.0-33.0); MEAN CORPUSCULAR HGB CONC 34.4 g/dl (32.0-36.5); MEAN CORPUSCULAR VOLUME 93.8 fl (80.0-96.0); MONO # 0.6 10^3/uL (0.0-0.8); NEUTROPHILS # 1.4 10^3/uL (1.8-7.7); NEUTROPHILS % 43.4 % (36.0-66.0); PLATELET COUNT, AUTOMATED 107 10^3/uL (150-450); RED BLOOD COUNT 2.42 10^6/uL (4.00-5.40); RED CELL DISTRIBUTION WIDTH 15.9 % (11.5-14.5); WHITE BLOOD COUNT 3.2 10^3/uL (4.0-10.0)
[2017-05-05 06:11] LABS: ANION GAP 10 MEQ/L (8-16); BLOOD UREA NITROGEN 24 MG/DL (7-18); CARBON DIOXIDE LEVEL 25 MEQ/L (21-32); CHLORIDE LEVEL 105 MEQ/L (98-107); CPK CREATINE PHOSPHOKINASE 33 U/L (26-192); CREATININE FOR GFR 1.86 MG/DL (0.55-1.30); GLOMERULAR FILTRATION RATE 27.2 (>32); GLUCOSE, FASTING 121 MG/DL (70-100); MAGNESIUM LEVEL 1.8 MG/DL (1.8-2.4); POTASSIUM SERUM 3.4 MEQ/L (3.5-5.1); SODIUM LEVEL 140 MEQ/L (136-145); TROPONIN I 0.04 NG/ML (< 0.10)
[2017-05-05 06:12] LABS: CK-MB VALUE MASS 1.2 NG/ML (0.0-3.6); MB/CK RELATIVE INDEX 3.63 (< OR =4)
[2017-05-05] MEDS: HEPARIN SOD (PORCINE) 5000 UNITS/ML VIAL SC ×3 (06:25→22:23)
[2017-05-05] MEDS: LEVOTHYROXINE 112MCG TABLET (0.112MG) PO (06:25)
[2017-05-05 08:28] LABS: BEDSIDE GLUCOSE 62 MG/DL (83-110)
[2017-05-05] MEDS: CLOPIDOGREL 75 MG TAB PO (08:28)
[2017-05-05] MEDS: POTASSIUM CHLORIDE 10 MEQ SR TABLET PO ×5 (08:29→22:24)
[2017-05-05] MEDS: CYANOCOBALAMIN 500 MCG TAB PO (08:30)
[2017-05-05] MEDS: FAMOTIDINE 20 MG TAB PO ×2 (08:33→22:24)
[2017-05-05] MEDS: ATORVASTATIN 20 MG TAB PO (08:33)
[2017-05-05] MEDS: ASPIRIN 81 MG ENTERIC TAB PO (08:33)
[2017-05-05] MEDS: LOSARTAN 50 MG TAB PO (08:36)
[2017-05-05] MEDS: ISOSORBIDE MON. (IMDUR) 60 MG XR TAB PO (08:36)
[2017-05-05] MEDS: SPIRONOLACTONE 25 MG TAB PO ×2 (08:36→22:24)
[2017-05-05] MEDS: PANTOPRAZOLE 40MG TAB (PROTONIX) PO (08:37)
[2017-05-05] MEDS: VITAMIN D 1,000 INTERNATIONAL UNITS TABLET PO (08:37)
[2017-05-05] MEDS: HumaLOG INSULIN (NovoLOG) PER UNIT SC ×4 (08:40→20:40)
[2017-05-05] MEDS: ADVAIR HFA 115/21MCG INHALER INH ×2 (10:03→21:00)
[2017-05-05 10:36] LABS: CK-MB VALUE MASS 1.5 NG/ML (0.0-3.6); CPK CREATINE PHOSPHOKINASE 40 U/L (26-192); MB/CK RELATIVE INDEX 3.75 (< OR =4); TROPONIN I 0.03 NG/ML (< 0.10)
[2017-05-05 12:31] LABS: BEDSIDE GLUCOSE 165 MG/DL (83-110)
[2017-05-05] MEDS ORDERED: SLF 3 ML SYR IV (15:00)
[2017-05-05 16:31] LABS: BEDSIDE GLUCOSE 172 MG/DL (83-110)
[2017-05-05 20:43] LABS: BEDSIDE GLUCOSE 173 MG/DL (83-110)
[2017-05-05] MEDS: SLF 3 ML SYR IV (22:24)
[2017-05-06 05:43] LABS: BASO % 1.3 % (0.0-1.0); EOS # 0.5 10^3/uL (0.0-0.50); HEMOGLOBIN 7.3 g/dl (12.0-16.0); IMMATURE GRANULOCYTE % 0.8 % (0-3.0); LYMPH # 0.4 10^3/uL (1.5-4.5); LYMPH % 15.5 % (24.0-44.0); MEAN CORPUSCULAR HEMOGLOBIN 31.3 pg (27.0-33.0); MEAN CORPUSCULAR HGB CONC 33.2 g/dl (32.0-36.5); MEAN CORPUSCULAR VOLUME 94.4 fl (80.0-96.0); MONO # 0.6 10^3/uL (0.0-0.8); MONO % 24.8 % (0.0-5.0); NEUTROPHILS % 36.6 % (36.0-66.0); RED BLOOD COUNT 2.33 10^6/uL (4.00-5.40); RED CELL DISTRIBUTION WIDTH 16.1 % (11.5-14.5); WHITE BLOOD COUNT 2.4 10^3/uL (4.0-10.0)
[2017-05-06] MEDS: SLF 3 ML SYR IV ×3 (05:51→21:28)
[2017-05-06] MEDS: LEVOTHYROXINE 112MCG TABLET (0.112MG) PO (05:51)
[2017-05-06] MEDS: HEPARIN SOD (PORCINE) 5000 UNITS/ML VIAL SC ×3 (05:51→21:26)
[2017-05-06 05:57] LABS: NEUTROPHILS # 0.9 10^3/uL (1.8-7.7); PLATELET COUNT, AUTOMATED 90 10^3/uL (150-450); POSITIVE DIFF POS FLAG
[2017-05-06 05:58] LABS: IMMATURE PLATELET FRACTION % 9.7 % (0.0-9.6)
[2017-05-06 05:59] LABS: ANION GAP 9 MEQ/L (8-16); BLOOD UREA NITROGEN 23 MG/DL (7-18); CALCIUM LEVEL 8.7 MG/DL (8.8-10.2); CARBON DIOXIDE LEVEL 21 MEQ/L (21-32); CHLORIDE LEVEL 110 MEQ/L (98-107); CREATININE FOR GFR 1.95 MG/DL (0.55-1.30); GLOMERULAR FILTRATION RATE 25.8 (>32); GLUCOSE, FASTING 130 MG/DL (70-100); MAGNESIUM LEVEL 1.7 MG/DL (1.8-2.4); POTASSIUM SERUM 4.6 MEQ/L (3.5-5.1); SODIUM LEVEL 140 MEQ/L (136-145)
[2017-05-06] MEDS: HumaLOG INSULIN (NovoLOG) PER UNIT SC ×4 (07:38→21:00)
[2017-05-06] MEDS: POTASSIUM CHLORIDE 10 MEQ SR TABLET PO ×4 (07:41→21:26)
[2017-05-06] MEDS: LOSARTAN 50 MG TAB PO (08:49)
[2017-05-06] MEDS: ASPIRIN 81 MG ENTERIC TAB PO (08:49)
[2017-05-06] MEDS: CYANOCOBALAMIN 500 MCG TAB PO (08:50)
[2017-05-06] MEDS: ATORVASTATIN 20 MG TAB PO (08:50)
[2017-05-06] MEDS: SPIRONOLACTONE 25 MG TAB PO ×2 (08:50→21:26)
[2017-05-06] MEDS: PANTOPRAZOLE 40MG TAB (PROTONIX) PO (08:50)
[2017-05-06] MEDS: VITAMIN D 1,000 INTERNATIONAL UNITS TABLET PO (08:51)
[2017-05-06] MEDS: ISOSORBIDE MON. (IMDUR) 60 MG XR TAB PO (08:51)
[2017-05-06] MEDS: FAMOTIDINE 20 MG TAB PO ×2 (08:51→21:26)
[2017-05-06] MEDS: CLOPIDOGREL 75 MG TAB PO (08:51)
[2017-05-06] MEDS: LEVEMIR (INSULIN DETEMIR) 1 UNITS/0.01ML SC (08:52)
[2017-05-06] MEDS: ADVAIR HFA 115/21MCG INHALER INH ×2 (09:15→21:40)
[2017-05-06] MEDS: MAG SULF 1GM/100ML (MAG RUN) 1 GM in APPROPRIATE DILUENT 1 EA IV (10:32)
[2017-05-06 12:10] LABS: BEDSIDE GLUCOSE 278 MG/DL (83-110)
[2017-05-06 16:35] LABS: IMMEDIATE SPIN CROSSMATCH 1 2
[2017-05-06 17:15] LABS: BEDSIDE GLUCOSE 53 MG/DL (83-110)
[2017-05-06 18:04] LABS: BEDSIDE GLUCOSE 94 MG/DL (83-110)
[2017-05-06 20:10] LABS: HEMATOCRIT 29.8 % (36.0-47.0)
[2017-05-06 21:26] LABS: BEDSIDE GLUCOSE 192 MG/DL (83-110)
[2017-05-07] MEDS: LEVOTHYROXINE 112MCG TABLET (0.112MG) PO (05:29)
[2017-05-07] MEDS: SLF 3 ML SYR IV ×3 (05:30→21:51)
[2017-05-07] MEDS: HEPARIN SOD (PORCINE) 5000 UNITS/ML VIAL SC ×3 (05:30→21:50)
[2017-05-07 05:33] LABS: BASO # 0.1 10^3/uL (0.0-0.2); BASO % 1.7 % (0.0-1.0); EOS # 0.6 10^3/uL (0.0-0.50); HEMATOCRIT 29.4 % (36.0-47.0); HEMOGLOBIN 9.9 g/dl (12.0-16.0); IMMATURE GRANULOCYTE % 1.7 % (0-3.0); LYMPH # 0.4 10^3/uL (1.5-4.5); MEAN CORPUSCULAR HEMOGLOBIN 30.9 pg (27.0-33.0); MEAN CORPUSCULAR HGB CONC 33.7 g/dl (32.0-36.5); MEAN CORPUSCULAR VOLUME 91.9 fl (80.0-96.0); MONO # 0.7 10^3/uL (0.0-0.8); MONO % 24.1 % (0.0-5.0); NEUTROPHILS # 1.1 10^3/uL (1.8-7.7); NEUTROPHILS % 35.7 % (36.0-66.0); RED CELL DISTRIBUTION WIDTH 16.2 % (11.5-14.5); WHITE BLOOD COUNT 2.9 10^3/uL (4.0-10.0)
[2017-05-07 05:50] LABS: ANION GAP 8 MEQ/L (8-16); BLOOD UREA NITROGEN 21 MG/DL (7-18); CALCIUM LEVEL 8.7 MG/DL (8.8-10.2); CARBON DIOXIDE LEVEL 22 MEQ/L (21-32); CHLORIDE LEVEL 109 MEQ/L (98-107); CREATININE FOR GFR 1.87 MG/DL (0.55-1.30); GLOMERULAR FILTRATION RATE 27.1 (>32); GLUCOSE, FASTING 86 MG/DL (70-100); MAGNESIUM LEVEL 1.9 MG/DL (1.8-2.4); POTASSIUM SERUM 4.5 MEQ/L (3.5-5.1); SODIUM LEVEL 139 MEQ/L (136-145)
[2017-05-07 05:58] LABS: EOS % 21.8 % (0.0-3.0); PLATELET COUNT, AUTOMATED 87 10^3/uL (150-450); POSITIVE DIFF POS FLAG
[2017-05-07] MEDS: HumaLOG INSULIN (NovoLOG) PER UNIT SC ×4 (07:30→20:28)
[2017-05-07] MEDS: ADVAIR HFA 115/21MCG INHALER INH ×2 (07:36→20:50)
[2017-05-07] MEDS: ISOSORBIDE MON. (IMDUR) 60 MG XR TAB PO (09:29)
[2017-05-07] MEDS: ATORVASTATIN 20 MG TAB PO (09:30)
[2017-05-07] MEDS: FAMOTIDINE 20 MG TAB PO ×2 (09:30→20:31)
[2017-05-07] MEDS: POTASSIUM CHLORIDE 10 MEQ SR TABLET PO ×4 (09:30→20:32)
[2017-05-07] MEDS: CLOPIDOGREL 75 MG TAB PO (09:30)
[2017-05-07] MEDS: VITAMIN D 1,000 INTERNATIONAL UNITS TABLET PO (09:30)
[2017-05-07] MEDS: LOSARTAN 50 MG TAB PO (09:30)
[2017-05-07] MEDS: CYANOCOBALAMIN 500 MCG TAB PO (09:30)
[2017-05-07] MEDS: PANTOPRAZOLE 40MG TAB (PROTONIX) PO (09:30)
[2017-05-07] MEDS: SPIRONOLACTONE 25 MG TAB PO ×2 (09:30→20:30)
[2017-05-07] MEDS: LEVEMIR (INSULIN DETEMIR) 1 UNITS/0.01ML SC (09:31)
[2017-05-07] MEDS: ASPIRIN 81 MG ENTERIC TAB PO (09:31)
[2017-05-07 12:14] LABS: BEDSIDE GLUCOSE 205 MG/DL (83-110)
[2017-05-07] MEDS: ACETAMINOPHEN TAB 650MG DOSE (2X325MG) PO ×2 (13:45→20:42)
[2017-05-07 17:23] LABS: BEDSIDE GLUCOSE 83 MG/DL (83-110)
[2017-05-07 21:00] LABS: BEDSIDE GLUCOSE 193 MG/DL (83-110)
[2017-05-08 05:33] LABS: BASO # 0.1 10^3/uL (0.0-0.2); EOS # 0.7 10^3/uL (0.0-0.50); HEMATOCRIT 31.3 % (36.0-47.0); HEMOGLOBIN 10.3 g/dl (12.0-16.0); IMMATURE GRANULOCYTE % 1.4 % (0-3.0); LYMPH # 0.7 10^3/uL (1.5-4.5); LYMPH % 24.1 % (24.0-44.0); MEAN CORPUSCULAR HEMOGLOBIN 31.5 pg (27.0-33.0); MEAN CORPUSCULAR HGB CONC 32.9 g/dl (32.0-36.5); MEAN CORPUSCULAR VOLUME 95.7 fl (80.0-96.0); MONO # 0.7 10^3/uL (0.0-0.8); MONO % 22.7 % (0.0-5.0); NEUTROPHILS % 27.4 % (36.0-66.0); PLATELET COUNT, AUTOMATED 103 10^3/uL (150-450); RED BLOOD COUNT 3.27 10^6/uL (4.00-5.40)
[2017-05-08] MEDS: HEPARIN SOD (PORCINE) 5000 UNITS/ML VIAL SC ×3 (05:41→21:25)
[2017-05-08] MEDS: SLF 3 ML SYR IV ×3 (05:42→21:26)
[2017-05-08] MEDS: LEVOTHYROXINE 112MCG TABLET (0.112MG) PO (05:42)
[2017-05-08 05:52] LABS: EOS % 22.4 % (0.0-3.0); NEUTROPHILS # 0.8 10^3/uL (1.8-7.7); POSITIVE DIFF POS FLAG
[2017-05-08 06:11] LABS: ANION GAP 8 MEQ/L (8-16); BLOOD UREA NITROGEN 20 MG/DL (7-18); CALCIUM LEVEL 8.9 MG/DL (8.8-10.2); CARBON DIOXIDE LEVEL 23 MEQ/L (21-32); CHLORIDE LEVEL 111 MEQ/L (98-107); GLOMERULAR FILTRATION RATE 23.7 (>32); GLUCOSE, FASTING 104 MG/DL (70-100); MAGNESIUM LEVEL 2.1 MG/DL (1.8-2.4); POTASSIUM SERUM 4.6 MEQ/L (3.5-5.1); SODIUM LEVEL 142 MEQ/L (136-145)
[2017-05-08] MEDS: POTASSIUM CHLORIDE 10 MEQ SR TABLET PO ×4 (07:30→20:33)
[2017-05-08] MEDS: CLOPIDOGREL 75 MG TAB PO (08:30)
[2017-05-08] MEDS: FAMOTIDINE 20 MG TAB PO ×2 (08:30→20:33)
[2017-05-08] MEDS: ASPIRIN 81 MG ENTERIC TAB PO (08:30)
[2017-05-08] MEDS: ISOSORBIDE MON. (IMDUR) 60 MG XR TAB PO (08:30)
[2017-05-08] MEDS: PANTOPRAZOLE 40MG TAB (PROTONIX) PO (08:30)
[2017-05-08] MEDS: LEVEMIR (INSULIN DETEMIR) 1 UNITS/0.01ML SC (08:31)
[2017-05-08] MEDS: CYANOCOBALAMIN 500 MCG TAB PO (08:31)
[2017-05-08] MEDS: VITAMIN D 1,000 INTERNATIONAL UNITS TABLET PO (08:31)
[2017-05-08] MEDS: ATORVASTATIN 20 MG TAB PO (08:31)
[2017-05-08] MEDS: HumaLOG INSULIN (NovoLOG) PER UNIT SC ×4 (08:32→21:00)
[2017-05-08] MEDS: ADVAIR HFA 115/21MCG INHALER INH ×2 (08:47→20:55)
[2017-05-08 11:58] LABS: BEDSIDE GLUCOSE 155 MG/DL (83-110)
[2017-05-08 16:49] LABS: BEDSIDE GLUCOSE 71 MG/DL (83-110)
[2017-05-08 22:00] LABS: BEDSIDE GLUCOSE 154 MG/DL (83-110)
[2017-05-08] MEDS: ACETAMINOPHEN TAB 650MG DOSE (2X325MG) PO (22:18)
[2017-05-09 05:41] LABS: BASO # 0.1 10^3/uL (0.0-0.2); BASO % 2.9 % (0.0-1.0); EOS # 0.5 10^3/uL (0.0-0.50); HEMATOCRIT 29.9 % (36.0-47.0); HEMOGLOBIN 9.9 g/dl (12.0-16.0); IMMATURE GRANULOCYTE % 0.8 % (0-3.0); LYMPH # 0.5 10^3/uL (1.5-4.5); LYMPH % 19.1 % (24.0-44.0); MEAN CORPUSCULAR HEMOGLOBIN 31.4 pg (27.0-33.0); MEAN CORPUSCULAR HGB CONC 33.1 g/dl (32.0-36.5); MEAN CORPUSCULAR VOLUME 94.9 fl (80.0-96.0); MONO # 0.6 10^3/uL (0.0-0.8); MONO % 24.9 % (0.0-5.0); NEUTROPHILS % 31.1 % (36.0-66.0); PLATELET COUNT, AUTOMATED 109 10^3/uL (150-450); RED BLOOD COUNT 3.15 10^6/uL (4.00-5.40); RED CELL DISTRIBUTION WIDTH 15.9 % (11.5-14.5); WHITE BLOOD COUNT 2.4 10^3/uL (4.0-10.0)
[2017-05-09] MEDS: HEPARIN SOD (PORCINE) 5000 UNITS/ML VIAL SC (05:55)
[2017-05-09] MEDS: SLF 3 ML SYR IV (05:55)
[2017-05-09] MEDS: LEVOTHYROXINE 112MCG TABLET (0.112MG) PO (05:55)
[2017-05-09 05:59] LABS: ANION GAP 9 MEQ/L (8-16); BLOOD UREA NITROGEN 25 MG/DL (7-18); CALCIUM LEVEL 8.8 MG/DL (8.8-10.2); CARBON DIOXIDE LEVEL 23 MEQ/L (21-32); CHLORIDE LEVEL 107 MEQ/L (98-107); GLUCOSE, FASTING 120 MG/DL (70-100); MAGNESIUM LEVEL 2.1 MG/DL (1.8-2.4); POTASSIUM SERUM 4.5 MEQ/L (3.5-5.1); SODIUM LEVEL 139 MEQ/L (136-145)
[2017-05-09 06:20] LABS: EOS % 21.2 % (0.0-3.0); NEUTROPHILS # 0.8 10^3/uL (1.8-7.7); POSITIVE DIFF POS FLAG
[2017-05-09] MEDS: ADVAIR HFA 115/21MCG INHALER INH (07:49)
[2017-05-09] MEDS: VITAMIN D 1,000 INTERNATIONAL UNITS TABLET PO (08:43)
[2017-05-09] MEDS: FAMOTIDINE 20 MG TAB PO (08:43)
[2017-05-09] MEDS: PANTOPRAZOLE 40MG TAB (PROTONIX) PO (08:43)
[2017-05-09] MEDS: ASPIRIN 81 MG ENTERIC TAB PO (08:43)
[2017-05-09] MEDS: CLOPIDOGREL 75 MG TAB PO (08:43)
[2017-05-09] MEDS: CYANOCOBALAMIN 500 MCG TAB PO (08:43)
[2017-05-09] MEDS: POTASSIUM CHLORIDE 10 MEQ SR TABLET PO (08:44)
[2017-05-09] MEDS: ISOSORBIDE MON. (IMDUR) 60 MG XR TAB PO (08:44)
[2017-05-09] MEDS: ATORVASTATIN 20 MG TAB PO (08:44)
[2017-05-09] MEDS: HumaLOG INSULIN (NovoLOG) PER UNIT SC ×2 (08:45→12:00)
[2017-05-09] MEDS: LEVEMIR (INSULIN DETEMIR) 1 UNITS/0.01ML SC (08:45)
[2017-05-09] MEDS: ACETAMINOPHEN TAB 650MG DOSE (2X325MG) PO (09:42)
[2017-05-09 12:18] LABS: BEDSIDE GLUCOSE 80 MG/DL (83-110)
== END 2017-05-09 12:21 | disposition home or self-care (01) | DRG 638 ==
LOC: M ED 21:44 → M ED INP 21:45 → M MSPAV 05-07 18:10 → M PCU 05-05 04:44
PROVIDERS: Hospitalist
PROC: 30253N1 (ICD-10-PCS; principal; 2017-05-06)
DX: E11.649 Type 2 diabetes mellitus with hypoglycemia without coma (principal); C90.02 Multiple myeloma in relapse; N18.3 Chronic kidney disease, stage 3 (moderate); I25.10 Atherosclerotic heart disease of native coronary artery without angina pectoris; E11.22 Type 2 diabetes mellitus with diabetic chronic kidney disease; I12.9 Hypertensive chronic kidney disease with stage 1 through stage 4 chronic kidney disease, or unspecified chronic kidney disease; E03.9 Hypothyroidism, unspecified; M21.372 Foot drop, left foot; E78.5 Hyperlipidemia, unspecified; E87.6 Hypokalemia; E83.42 Hypomagnesemia; M85.862 Other specified disorders of bone density and structure, left lower leg; R53.1 Weakness; D64.9 Anemia, unspecified; Z96.652 Presence of left artificial knee joint; R07.9 Chest pain, unspecified; Z79.82 Long term (current) use of aspirin; Z79.02 Long term (current) use of antithrombotics/antiplatelets; Z79.4 Long term (current) use of insulin; Z79.899 Other long term (current) drug therapy; Z88.2 Allergy status to sulfonamides; Z88.5 Allergy status to narcotic agent; Z88.6 Allergy status to analgesic agent; Z88.7 Allergy status to serum and vaccine; Z88.8 Allergy status to other drugs, medicaments and biological substances; Z91.040 Latex allergy status

== ENCOUNTER 2017-06-17 16:38 | Outpatient (CLI) | payer MEDICARE, MEDICAID ==
[2017-06-17] MEDS: ACETAMINOPHEN TAB 650MG DOSE (2X325MG) PO (18:23)
[2017-06-17] MEDS: diphenhydrAMINE 25 MG CAP PO (18:23)
[2017-06-17 19:56] LABS: BEDSIDE GLUCOSE 206 MG/DL (83-110)
== END 2017-06-18 07:10 | disposition home or self-care (01) ==
LOC: M OPCLI4 06-18 07:10 → M MSPAV 17:40
DX: D64.9 Anemia, unspecified (principal); Z88.5 Allergy status to narcotic agent; Z88.8 Allergy status to other drugs, medicaments and biological substances; Z91.040 Latex allergy status
CPT/HCPCS: 36430

== ENCOUNTER → 2017-06-17 | Outpatient (REF) | payer MEDICARE, MEDICAID ==
[2017-06-17 16:09] LABS: IMMUNOGLOBULIN A 39.4 MG/DL (70-400); IMMUNOGLOBULIN G 200 MG/DL (681-1648); TOTAL PROTEIN 5.3 GM/DL (6.4-8.2)
[2017-06-17 16:13] LABS: IMMUNOGLOBULIN M < 5.3 MG/DL (40-230)
[2017-06-17 23:00] LABS: IMMEDIATE SPIN CROSSMATCH 1 2
[2017-06-19 00:06] LABS: FREE KAPPA LIGHT CHAINS SERUM 9.2 mg/L (3.3-19.4); FREE LAMBDA LIGHT CHAINS SERUM 1767.3 mg/L (5.7-26.3); KAPPA/LAMBDA RATIO SERUM 0.01 (0.26-1.65)
[2017-06-21 13:00] LABS: ALBUMIN 3.33 GM/DL (3.29-5.55); ALBUMIN % 62.9 % (55.8-66.1); ALPHA-1-GLOBULIN % 6.5 % (2.9-4.9); ALPHA-1-GLOBULINS 0.34 GM/DL (0.17-0.41); ALPHA-2-GLOBULINS 0.73 GM/DL (0.42-0.99); ALPHA-2-GLOBULINS % 13.8 % (7.1-11.8); BETA-1-GLOBULINS 0.32 GM/DL (0.28-0.60); BETA-1-GLOBULINS % 6.1 % (4.7-7.2); BETA-2-GLOBULINS 0.31 GM/DL (0.19-0.55); BETA-2-GLOBULINS % 5.9 % (3.2-6.5); GAMMA GLOBULIN % 4.8 % (11.1-18.8); GAMMA GLOBULINS 0.25 GM/DL (0.65-1.58)
== END ==
LOC: M LAB REF 13:06
DX: D64.9 Anemia, unspecified (principal)
CPT/HCPCS: 84165

== ENCOUNTER → 2017-07-15 | Outpatient (REF) | payer MEDICARE ==
[2017-07-15 15:16] LABS: IMMUNOGLOBULIN A 45.2 MG/DL (70-400); IMMUNOGLOBULIN G 244 MG/DL (681-1648); TOTAL PROTEIN 5.5 GM/DL (6.4-8.2)
[2017-07-15 16:12] LABS: IMMUNOGLOBULIN M < 5.3 MG/DL (40-230)
[2017-07-17 00:07] LABS: FREE KAPPA LIGHT CHAINS SERUM 5.7 mg/L (3.3-19.4); FREE LAMBDA LIGHT CHAINS SERUM 1271.6 mg/L (5.7-26.3)
[2017-07-20 14:32] LABS: ALBUMIN 3.51 GM/DL (3.29-5.55); ALBUMIN % 63.8 % (55.8-66.1); ALPHA-1-GLOBULIN % 5.9 % (2.9-4.9); ALPHA-1-GLOBULINS 0.32 GM/DL (0.17-0.41); ALPHA-2-GLOBULINS 0.78 GM/DL (0.42-0.99); ALPHA-2-GLOBULINS % 14.2 % (7.1-11.8); BETA-1-GLOBULINS % 5.8 % (4.7-7.2); BETA-2-GLOBULINS % 5.5 % (3.2-6.5); GAMMA GLOBULIN % 4.8 % (11.1-18.8); GAMMA GLOBULINS 0.26 GM/DL (0.65-1.58)
[2017-07-20 14:33] LABS: BETA-1-GLOBULINS 0.32 GM/DL (0.28-0.60)
== END ==
LOC: M LAB REF 14:00
DX: C90.02 Multiple myeloma in relapse (principal)
CPT/HCPCS: 84165

== ENCOUNTER 2017-08-10 12:29 | Outpatient (CLI) | payer MEDICARE ==
[2017-08-10] MEDS: ACETAMINOPHEN TAB 650MG DOSE (2X325MG) PO (14:33)
[2017-08-10] MEDS: diphenhydrAMINE 25 MG CAP PO (14:34)
[2017-08-10 15:08] LABS: IMMEDIATE SPIN CROSSMATCH 1 2
[2017-08-10] MEDS: FUROSEMIDE 20 MG/2 ML VIAL (J1940) IV (18:10)
== END 2017-08-10 22:41 | disposition home or self-care (01) ==
LOC: M OPCLI4PV 12:29 → M MSPAV 12:49 → M OPCLI4PV 22:41
DX: D64.9 Anemia, unspecified (principal); C90.02 Multiple myeloma in relapse; Z79.82 Long term (current) use of aspirin; Z79.899 Other long term (current) drug therapy; Z79.4 Long term (current) use of insulin; Z88.5 Allergy status to narcotic agent; Z88.2 Allergy status to sulfonamides; Z91.040 Latex allergy status; Z88.8 Allergy status to other drugs, medicaments and biological substances
CPT/HCPCS: 36430

== ENCOUNTER → 2017-08-10 | Outpatient (REF) | payer MEDICARE ==
[2017-08-10 14:12] LABS: AMORPHOUS SEDIMENT SMALL (NEGATIVE); APPEARANCE, URINE HAZY (CLEAR); BACTERIA, URINE AUTO 1+ (NEGATIVE); BILIRUBIN, URINE AUTO NEGATIVE (NEGATIVE); BLOOD, URINE BLOOD 1+ (NEGATIVE); COLOR, URINE YELLOW (YELLOW); GLUCOSE, URINE (UA) AUTO 3+ mg/dL (NEGATIVE); KETONE, URINE AUTO NEGATIVE (NEGATIVE); LEUKOCYTE ESTERASE, URINE AUTO 3+ (NEGATIVE); MUCUS, URINE SMALL (NEGATIVE); NITRITE, URINE AUTO NEGATIVE (NEGATIVE); PROTEIN, URINE AUTO 1+ mg/dL (NEGATIVE); RBC, URINE AUTO 7 /HPF (0-3); SPECIFIC GRAVITY URINE AUTO 1.012 (1.002-1.035); SQUAMOUS EPITHELIAL CELL UR AU 3 /HPF (0-6); TRANSITIONAL EPITHELIAL AUTO 1 /HPF; UROBILINOGEN, URINE AUTO 0.2 mg/dL (0.0-2.0); WBC, URINE AUTO 47 /HPF (0-3)
[2017-08-10 14:44] LABS: FERRITIN 668 NG/ML (8-252); IMMUNOGLOBULIN A 46.4 MG/DL (70-400); IMMUNOGLOBULIN G 225 MG/DL (681-1648); IRON (FE) 89 UG/DL (50-170); PERCENT SATURATION 48.6 % (13.2-45.0); TOTAL IRON BINDING CAPACITY 183 UG/DL (250-450); TOTAL PROTEIN 5.1 GM/DL (6.4-8.2)
[2017-08-10 15:54] LABS: IMMUNOGLOBULIN M < 5.3 MG/DL (40-230)
[2017-08-11 13:27] LABS: ALBUMIN 3.23 GM/DL (3.29-5.55); ALBUMIN % 63.4 % (55.8-66.1); ALPHA-1-GLOBULIN % 6.5 % (2.9-4.9); ALPHA-1-GLOBULINS 0.33 GM/DL (0.17-0.41); ALPHA-2-GLOBULINS 0.71 GM/DL (0.42-0.99); ALPHA-2-GLOBULINS % 13.9 % (7.1-11.8); BETA-1-GLOBULINS 0.28 GM/DL (0.28-0.60); BETA-1-GLOBULINS % 5.5 % (4.7-7.2); BETA-2-GLOBULINS % 5.9 % (3.2-6.5); GAMMA GLOBULIN % 4.8 % (11.1-18.8); GAMMA GLOBULINS 0.24 GM/DL (0.65-1.58)
[2017-08-13 00:06] LABS: FREE KAPPA LIGHT CHAINS SERUM 8.9 mg/L (3.3-19.4); FREE LAMBDA LIGHT CHAINS SERUM 1545.1 mg/L (5.7-26.3); KAPPA/LAMBDA RATIO SERUM 0.01 (0.26-1.65)
== END ==
LOC: M LAB REF 13:17
DX: C90.02 Multiple myeloma in relapse (principal)

== ENCOUNTER → 2017-08-16 | Outpatient (REF) | payer MEDICARE | LOC: M LAB REF 16:53 | DX: R19.5 Other fecal abnormalities (principal); C90.02 Multiple myeloma in relapse; Z12.10 Encounter for screening for malignant neoplasm of intestinal tract, unspecified | CPT/HCPCS: 82270 ==

== ENCOUNTER → 2017-08-19 | Outpatient (CLI) | payer MEDICARE ==
[~2017-08-19] MED LIST changes: +GASTROGRAFIN SOLUTION 30ML (Q9963) As Ordered; +ISOVUE-370 76% 100ML VIAL (Q9967) As Ordered; -PROHANCE 279.3MG/ML 5ML VIAL (A9576) As Ordered
== END ==
LOC: M RAD 15:15
DX: R10.2 Pelvic and perineal pain (principal); K57.30 Diverticulosis of large intestine without perforation or abscess without bleeding; C90.00 Multiple myeloma not having achieved remission
CPT/HCPCS: Q9963

== ENCOUNTER → 2017-08-24 | Outpatient (REF) | payer MEDICARE | LOC: M LAB REF 13:50 | DX: C90.02 Multiple myeloma in relapse (principal); D64.9 Anemia, unspecified | CPT/HCPCS: 82270 ==

== ENCOUNTER → 2017-08-30 | Outpatient (REF) | payer MEDICARE ==
[2017-08-30 14:27] LABS: TOTAL PROTEIN 5.3 GM/DL (6.4-8.2)
[2017-08-30 18:49] LABS: IMMUNOGLOBULIN A 47.5 MG/DL (70-400); IMMUNOGLOBULIN G 243 MG/DL (681-1648)
[2017-08-30 19:31] LABS: IMMUNOGLOBULIN M < 5.3 MG/DL (40-230)
[2017-09-01 00:12] LABS: FREE KAPPA LIGHT CHAINS SERUM 10.2 mg/L (3.3-19.4); FREE LAMBDA LIGHT CHAINS SERUM 1271.3 mg/L (5.7-26.3); KAPPA/LAMBDA RATIO SERUM 0.01 (0.26-1.65)
[2017-09-01 12:29] LABS: ALBUMIN 3.42 GM/DL (3.29-5.55); ALBUMIN % 64.6 % (55.8-66.1); ALPHA-1-GLOBULIN % 5.8 % (2.9-4.9); ALPHA-1-GLOBULINS 0.31 GM/DL (0.17-0.41); ALPHA-2-GLOBULINS % 13.2 % (7.1-11.8); BETA-1-GLOBULINS 0.31 GM/DL (0.28-0.60); BETA-1-GLOBULINS % 5.8 % (4.7-7.2); BETA-2-GLOBULINS 0.29 GM/DL (0.19-0.55); BETA-2-GLOBULINS % 5.5 % (3.2-6.5); GAMMA GLOBULIN % 5.1 % (11.1-18.8); GAMMA GLOBULINS 0.27 GM/DL (0.65-1.58)
== END ==
LOC: M LAB REF 13:52
DX: C90.02 Multiple myeloma in relapse (principal)
CPT/HCPCS: 84165

== ENCOUNTER 2017-09-09 21:48 | Emergency (ER) | payer MEDICARE | END 2017-09-10 00:30 | disposition home or self-care (01) | LOC: M ED 09-10 00:30 | DX: H61.23 Impacted cerumen, bilateral (principal); Z95.5 Presence of coronary angioplasty implant and graft; G43.909 Migraine, unspecified, not intractable, without status migrainosus; E78.00 Pure hypercholesterolemia, unspecified; I10 Essential (primary) hypertension; J44.9 Chronic obstructive pulmonary disease, unspecified; Z87.01 Personal history of pneumonia (recurrent); J45.909 Unspecified asthma, uncomplicated; E04.9 Nontoxic goiter, unspecified; K21.9 Gastro-esophageal reflux disease without esophagitis; K57.92 Diverticulitis of intestine, part unspecified, without perforation or abscess without bleeding; K44.9 Diaphragmatic hernia without obstruction or gangrene; K52.9 Noninfective gastroenteritis and colitis, unspecified; N18.4 Chronic kidney disease, stage 4 (severe); Z87.440 Personal history of urinary (tract) infections; M54.30 Sciatica, unspecified side; M81.0 Age-related osteoporosis without current pathological fracture; E11.9 Type 2 diabetes mellitus without complications; E03.9 Hypothyroidism, unspecified; D64.9 Anemia, unspecified; Z85.6 Personal history of leukemia; F41.9 Anxiety disorder, unspecified; Z79.82 Long term (current) use of aspirin; Z79.4 Long term (current) use of insulin; Z79.899 Other long term (current) drug therapy; Z91.040 Latex allergy status; Z88.5 Allergy status to narcotic agent; Z88.7 Allergy status to serum and vaccine; Z88.8 Allergy status to other drugs, medicaments and biological substances; Z88.2 Allergy status to sulfonamides; Z88.6 Allergy status to analgesic agent | CPT/HCPCS: 69210 ==

== ENCOUNTER → 2017-09-20 | Outpatient (REF) | payer MEDICARE ==
[2017-09-20 14:25] LABS: IMMUNOGLOBULIN A 43.2 MG/DL (70-400); IMMUNOGLOBULIN G 240 MG/DL (681-1648); IMMUNOGLOBULIN M 5.67 MG/DL (40-230); TOTAL PROTEIN 5.3 GM/DL (6.4-8.2)
[2017-09-22 00:07] LABS: FREE KAPPA LIGHT CHAINS SERUM 8.9 mg/L (3.3-19.4); KAPPA/LAMBDA RATIO SERUM 0.03 (0.26-1.65)
[2017-09-22 11:51] LABS: ALBUMIN 3.51 GM/DL (3.29-5.55); ALBUMIN % 66.3 % (55.8-66.1); ALPHA-1-GLOBULIN % 5.7 % (2.9-4.9); ALPHA-2-GLOBULINS 0.68 GM/DL (0.42-0.99); ALPHA-2-GLOBULINS % 12.8 % (7.1-11.8); BETA-1-GLOBULINS 0.32 GM/DL (0.28-0.60); BETA-2-GLOBULINS 0.23 GM/DL (0.19-0.55); BETA-2-GLOBULINS % 4.4 % (3.2-6.5); GAMMA GLOBULIN % 4.8 % (11.1-18.8)
[2017-09-22 11:52] LABS: GAMMA GLOBULINS 0.25 GM/DL (0.65-1.58)
== END ==
LOC: M LAB REF 13:08
DX: Z51.11 Encounter for antineoplastic chemotherapy (principal); Z79.899 Other long term (current) drug therapy; Z90.02 Acquired absence of larynx
CPT/HCPCS: 84165

== ENCOUNTER 2017-10-10 21:14 | Inpatient (IN) | payer MEDICARE ==
[2017-10-10 22:02] LABS: BASO # 0.1 10^3/uL (0.0-0.2); BASO % 1.2 % (0.0-1.0); EOS # 0.1 10^3/uL (0.0-0.50); EOS % 1.2 % (0.0-3.0); HEMATOCRIT 27.9 % (36.0-47.0); HEMOGLOBIN 9.4 g/dl (12.0-15.5); IMMATURE GRANULOCYTE % 0.9 % (0-3.0); LYMPH # 1.2 10^3/uL (1.5-4.5); LYMPH % 20.6 % (24.0-44.0); MEAN CORPUSCULAR HEMOGLOBIN 32.3 pg (27.0-33.0); MEAN CORPUSCULAR HGB CONC 33.7 g/dl (32.0-36.5); MEAN CORPUSCULAR VOLUME 95.9 fl (80.0-96.0); MONO % 16.6 % (0.0-5.0); NEUTROPHILS # 3.4 10^3/uL (1.8-7.7); NEUTROPHILS % 59.5 % (36.0-66.0); PLATELET COUNT, AUTOMATED 191 10^3/uL (150-450); RED BLOOD COUNT 2.91 10^6/uL (4.00-5.40); RED CELL DISTRIBUTION WIDTH 16.3 % (11.5-14.5); WHITE BLOOD COUNT 5.7 10^3/uL (4.0-10.0)
[2017-10-10 22:32] LABS: ALBUMIN 3.1 GM/DL (3.2-5.2); ALBUMIN/GLOBULIN RATIO 1.11 (1.00-1.93); ALKALINE PHOSPHATASE 49 U/L (45-117); ALT/SGPT 20 U/L (12-78); ANION GAP 11 MEQ/L (8-16); AST/SGOT 12 U/L (7-37); BILIRUBIN,DIRECT 0.1 MG/DL (0.0-0.2); BILIRUBIN,TOTAL 0.6 MG/DL (0.2-1.0); BLOOD UREA NITROGEN 20 MG/DL (7-18); CALCIUM LEVEL 8.5 MG/DL (8.8-10.2); CARBON DIOXIDE LEVEL 18 MEQ/L (21-32); CHLORIDE LEVEL 107 MEQ/L (98-107); CPK CREATINE PHOSPHOKINASE 63 U/L (26-192); CREATININE FOR GFR 1.65 MG/DL (0.55-1.30); FREE T4 0.91 NG/DL (0.76-1.46); GLOMERULAR FILTRATION RATE 31.2 (>32); GLUCOSE, FASTING 106 MG/DL (70-100); MAGNESIUM LEVEL 1.8 MG/DL (1.8-2.4); POTASSIUM SERUM 4.5 MEQ/L (3.5-5.1); SODIUM LEVEL 136 MEQ/L (136-145); TOTAL PROTEIN 5.9 GM/DL (6.4-8.2); TROPONIN I < 0.02 NG/ML (< 0.10)
[2017-10-10 22:37] LABS: LACTIC ACID SEPSIS PROTOCOL 2.3 MMOL/L (0.4-2.0)
[2017-10-10 22:37] LABS: CK-MB VALUE MASS < 1.0 NG/ML (<3.6); MB/CK RELATIVE INDEX 1.58 (< OR =4)
[2017-10-10 22:45] LABS: PROTHROMBIN TIME 15.4 SECONDS (12.1-14.4)
[2017-10-10 22:46] LABS: PARTIAL THROMBOPLASTIN TIME 28.9 SECONDS (25.4-37.6)
[2017-10-10] MEDS: MAG SULF 1GM/100ML (MAG RUN) 1 GM in APPROPRIATE DILUENT 1 EA IV (23:10)
[2017-10-10] MEDS: NS 1,000 ML IV (23:10)
[2017-10-10 23:35] LABS: KETONE, URINE AUTO RFX NEGATIVE (NEGATIVE); MUCUS, URINE RFX SMALL (NEGATIVE); NITRITE, URINE AUTO RFX NEGATIVE (NEGATIVE); RBC, URINE AUTO RFX 1 /HPF (0-3); SPECIFIC GRAVITY UR AUTO RFX 1.009 (1.002-1.035); SQUAM EPITHELIAL CELL UR AURFX 4 /HPF (0-6); TRANSITIONAL EPITHELIAL AU RFX 1 /HPF; WBC, URINE AUTO RFX 7 /HPF (0-3)
[2017-10-10 23:49] LABS: LEUKOCYTE ESTERASE UR AUTO RFX 2+ (NEGATIVE)
[2017-10-11] MEDS ORDERED: ONDANSETRON 4MG/2ML VIAL (J2405) IV (01:00)
[2017-10-11] MEDS ORDERED: IPRATROPIUM 0.5MG/ALBUTEROL 2.5MG INH SOL UD 3ML (DUONEB)(J7620) NEB (01:00)
[2017-10-11] MEDS ORDERED: DEXTROSE 50% 50 ML SYRINGE IV (01:00)
[2017-10-11] MEDS ORDERED: BISACODYL 10 MG SUPP PR (01:00)
[2017-10-11] MEDS ORDERED: GLUCOSE 4 GM CHEW TABLET PO (01:00)
[2017-10-11] MEDS ORDERED: METOCLOPRAMIDE INJ 10MG/2ML VIAL (J2765) IV (01:00)
[2017-10-11] MEDS ORDERED: GLUCAGON FOR INJ 1 MG VIAL (J1610) SC (01:00)
[2017-10-11] MEDS ORDERED: BISACODYL 5 MG TAB PO (01:00)
[2017-10-11] MEDS ORDERED: ALBUTEROL 90 MCG/ACT 8GM HFA INHALER INH (01:15)
[2017-10-11] MEDS ORDERED: NITROGLYCERIN 0.4 MG SUBL TABLET SL (01:15)
[2017-10-11] MEDS: cefTRIAXone SOD 1 GM in D5W MINI-BAG PLUS 50 ML IV (01:54)
[2017-10-11] MEDS: NS 1,000 ML IV ×2 (01:55→15:12)
[2017-10-11 06:15] LABS: HEMATOCRIT 24.1 % (36.0-47.0); HEMOGLOBIN 8.1 g/dl (12.0-15.5); MEAN CORPUSCULAR HEMOGLOBIN 32.3 pg (27.0-33.0); MEAN CORPUSCULAR HGB CONC 33.6 g/dl (32.0-36.5); PLATELET COUNT, AUTOMATED 145 10^3/uL (150-450); RED BLOOD COUNT 2.51 10^6/uL (4.00-5.40); RED CELL DISTRIBUTION WIDTH 16.1 % (11.5-14.5); WHITE BLOOD COUNT 4.4 10^3/uL (4.0-10.0)
[2017-10-11] MEDS: LEVOTHYROXINE 125MCG TABLET (0.125MG) PO (06:21)
[2017-10-11] MEDS: HEPARIN SOD (PORCINE) 5000 UNITS/ML VIAL SC ×3 (06:22→20:51)
[2017-10-11 06:43] LABS: ANION GAP 9 MEQ/L (8-16); BLOOD UREA NITROGEN 18 MG/DL (7-18); CALCIUM LEVEL 8.2 MG/DL (8.8-10.2); CARBON DIOXIDE LEVEL 20 MEQ/L (21-32); CHLORIDE LEVEL 115 MEQ/L (98-107); CREATININE FOR GFR 1.43 MG/DL (0.55-1.30); GLOMERULAR FILTRATION RATE 36.8 (>32); GLUCOSE, FASTING 98 MG/DL (70-100); POTASSIUM SERUM 4.7 MEQ/L (3.5-5.1); SODIUM LEVEL 144 MEQ/L (136-145)
[2017-10-11 06:48] LABS: CK-MB VALUE MASS < 1.0 NG/ML (<3.6); CPK CREATINE PHOSPHOKINASE 31 U/L (26-192); MB/CK RELATIVE INDEX 3.22 (< OR =4); TROPONIN I 0.02 NG/ML (< 0.10)
[2017-10-11] MEDS: HumaLOG INSULIN (NovoLOG) PER UNIT SC ×4 (07:30→20:54)
[2017-10-11] MEDS: ADVAIR HFA 115/21MCG INHALER INH ×2 (07:43→20:00)
[2017-10-11] MEDS ORDERED: LOSARTAN 50 MG TAB PO (09:00)
[2017-10-11] MEDS: CYANOCOBALAMIN 500 MCG TAB PO (09:55)
[2017-10-11] MEDS: ASPIRIN 81 MG ENTERIC TAB PO (09:56)
[2017-10-11] MEDS: FAMOTIDINE 20 MG TAB PO ×2 (09:56→20:51)
[2017-10-11] MEDS: PANTOPRAZOLE 40MG TAB (PROTONIX) PO (09:56)
[2017-10-11] MEDS: CLOPIDOGREL 75 MG TAB PO (09:56)
[2017-10-11] MEDS: ATORVASTATIN 20 MG TAB PO (09:56)
[2017-10-11] MEDS: VITAMIN D 1,000 INTERNATIONAL UNITS TABLET PO (09:56)
[2017-10-11] MEDS: LEVEMIR (INSULIN DETEMIR) 1 UNITS/0.01ML SC (10:05)
[2017-10-11] MEDS: ISOSORBIDE MON. (IMDUR) 60 MG XR TAB PO (10:07)
[2017-10-11 12:07] LABS: BEDSIDE GLUCOSE 164 MG/DL (83-110)
[2017-10-11 14:27] LABS: CK-MB VALUE MASS < 1.0 NG/ML (<3.6); CPK CREATINE PHOSPHOKINASE 36 U/L (26-192); MB/CK RELATIVE INDEX 2.77 (< OR =4); TROPONIN I < 0.02 NG/ML (< 0.10)
[2017-10-11 17:33] LABS: BEDSIDE GLUCOSE 146 MG/DL (83-110)
[2017-10-11] MEDS: NYSTATIN 100,000 UNITS/GM TOPICAL PWD 15 GM TOP (20:51)
[2017-10-11 20:55] LABS: BEDSIDE GLUCOSE 189 MG/DL (83-110)
[2017-10-11 22:36] LABS: CK-MB VALUE MASS < 1.0 NG/ML (<3.6); CPK CREATINE PHOSPHOKINASE 32 U/L (26-192); MB/CK RELATIVE INDEX 3.12 (< OR =4); TROPONIN I < 0.02 NG/ML (< 0.10)
[2017-10-12] MEDS: cefTRIAXone SOD 1 GM in D5W MINI-BAG PLUS 50 ML IV (02:00)
[2017-10-12] MEDS: NS 1,000 ML IV ×2 (03:45→20:50)
[2017-10-12 05:04] LABS: HEMATOCRIT 23.6 % (36.0-47.0); HEMOGLOBIN 7.9 g/dl (12.0-15.5); MEAN CORPUSCULAR HEMOGLOBIN 31.6 pg (27.0-33.0); MEAN CORPUSCULAR HGB CONC 33.5 g/dl (32.0-36.5); MEAN CORPUSCULAR VOLUME 94.4 fl (80.0-96.0); PLATELET COUNT, AUTOMATED 143 10^3/uL (150-450); RED CELL DISTRIBUTION WIDTH 16.1 % (11.5-14.5)
[2017-10-12 05:25] LABS: ANION GAP 7 MEQ/L (8-16); BLOOD UREA NITROGEN 20 MG/DL (7-18); CARBON DIOXIDE LEVEL 19 MEQ/L (21-32); CHLORIDE LEVEL 114 MEQ/L (98-107); CREATININE FOR GFR 1.52 MG/DL (0.55-1.30); GLOMERULAR FILTRATION RATE 34.3 (>32); GLUCOSE, FASTING 142 MG/DL (70-100); POTASSIUM SERUM 4.6 MEQ/L (3.5-5.1); SODIUM LEVEL 140 MEQ/L (136-145)
[2017-10-12] MEDS: LEVOTHYROXINE 125MCG TABLET (0.125MG) PO (06:16)
[2017-10-12] MEDS: HEPARIN SOD (PORCINE) 5000 UNITS/ML VIAL SC ×3 (06:16→21:15)
[2017-10-12] MEDS: ADVAIR HFA 115/21MCG INHALER INH ×2 (08:00→20:00)
[2017-10-12] MEDS: HumaLOG INSULIN (NovoLOG) PER UNIT SC ×4 (08:07→21:00)
[2017-10-12] MEDS: ASPIRIN 81 MG ENTERIC TAB PO (09:55)
[2017-10-12] MEDS: CYANOCOBALAMIN 500 MCG TAB PO (09:56)
[2017-10-12] MEDS: CLOPIDOGREL 75 MG TAB PO (09:56)
[2017-10-12] MEDS: NYSTATIN 100,000 UNITS/GM TOPICAL PWD 15 GM TOP ×2 (09:56→20:41)
[2017-10-12] MEDS: VITAMIN D 1,000 INTERNATIONAL UNITS TABLET PO (09:56)
[2017-10-12] MEDS: PANTOPRAZOLE 40MG TAB (PROTONIX) PO (09:56)
[2017-10-12] MEDS: ATORVASTATIN 20 MG TAB PO (09:56)
[2017-10-12] MEDS: FAMOTIDINE 20 MG TAB PO ×2 (09:56→20:40)
[2017-10-12] MEDS: LEVEMIR (INSULIN DETEMIR) 1 UNITS/0.01ML SC (09:57)
[2017-10-12] MEDS: ISOSORBIDE MON. (IMDUR) 60 MG XR TAB PO (10:01)
[2017-10-12 12:31] LABS: BEDSIDE GLUCOSE 147 MG/DL (83-110)
[2017-10-12 14:12] LABS: IMMEDIATE SPIN CROSSMATCH 1 2
[2017-10-12 18:10] LABS: BEDSIDE GLUCOSE 161 MG/DL (83-110)
[2017-10-12 20:47] LABS: BEDSIDE GLUCOSE 72 MG/DL (83-110)
[2017-10-12 22:04] LABS: BEDSIDE GLUCOSE 110 MG/DL (83-110)
[2017-10-13 05:09] LABS: HEMATOCRIT 29.9 % (36.0-47.0); MEAN CORPUSCULAR HEMOGLOBIN 31.3 pg (27.0-33.0); MEAN CORPUSCULAR HGB CONC 34.4 g/dl (32.0-36.5); MEAN CORPUSCULAR VOLUME 90.9 fl (80.0-96.0); PLATELET COUNT, AUTOMATED 124 10^3/uL (150-450); RED BLOOD COUNT 3.29 10^6/uL (4.00-5.40); RED CELL DISTRIBUTION WIDTH 17.9 % (11.5-14.5); WHITE BLOOD COUNT 4.7 10^3/uL (4.0-10.0)
[2017-10-13 05:21] LABS: HEMOGLOBIN 10.3 g/dl (12.0-15.5)
[2017-10-13 05:26] LABS: ANION GAP 10 MEQ/L (8-16); BLOOD UREA NITROGEN 23 MG/DL (7-18); CALCIUM LEVEL 8.5 MG/DL (8.8-10.2); CARBON DIOXIDE LEVEL 19 MEQ/L (21-32); CHLORIDE LEVEL 116 MEQ/L (98-107); CREATININE FOR GFR 1.52 MG/DL (0.55-1.30); GLOMERULAR FILTRATION RATE 34.3 (>32); GLUCOSE, FASTING 92 MG/DL (70-100); MAGNESIUM LEVEL 1.9 MG/DL (1.8-2.4); SODIUM LEVEL 145 MEQ/L (136-145)
[2017-10-13] MEDS: LEVOTHYROXINE 125MCG TABLET (0.125MG) PO (06:35)
[2017-10-13] MEDS: HEPARIN SOD (PORCINE) 5000 UNITS/ML VIAL SC (06:35)
[2017-10-13] MEDS: HumaLOG INSULIN (NovoLOG) PER UNIT SC ×2 (07:30→12:39)
[2017-10-13] MEDS: ADVAIR HFA 115/21MCG INHALER INH (08:00)
[2017-10-13] MEDS: NYSTATIN 100,000 UNITS/GM TOPICAL PWD 15 GM TOP (08:38)
[2017-10-13] MEDS: NS 1,000 ML IV ×2 (08:39→10:21)
[2017-10-13] MEDS: LEVEMIR (INSULIN DETEMIR) 1 UNITS/0.01ML SC (08:39)
[2017-10-13] MEDS: ACETAMINOPHEN TAB 650MG DOSE (2X325MG) PO (08:40)
[2017-10-13] MEDS: ASPIRIN 81 MG ENTERIC TAB PO (08:40)
[2017-10-13] MEDS: CYANOCOBALAMIN 500 MCG TAB PO (08:40)
[2017-10-13] MEDS: PANTOPRAZOLE 40MG TAB (PROTONIX) PO (08:40)
[2017-10-13] MEDS: ISOSORBIDE MON. (IMDUR) 60 MG XR TAB PO (08:41)
[2017-10-13] MEDS: ATORVASTATIN 20 MG TAB PO (08:41)
[2017-10-13] MEDS: CLOPIDOGREL 75 MG TAB PO (08:41)
[2017-10-13] MEDS: FAMOTIDINE 20 MG TAB PO (08:42)
[2017-10-13] MEDS: VITAMIN D 1,000 INTERNATIONAL UNITS TABLET PO (08:42)
[2017-10-13 11:53] LABS: BEDSIDE GLUCOSE 118 MG/DL (83-110)
== END 2017-10-13 12:55 | disposition home health service (06) | DRG 312 ==
LOC: M ED INP 10-11 00:54 → M ED 21:14 → M ICU 10-11 01:39
PROC: 30233N1 Transfusion of Nonautologous Red Blood Cells into Peripheral Vein, Percutaneous Approach (ICD-10-PCS; principal; 2017-10-12)
DX: I95.1 Orthostatic hypotension (principal); E87.2 Acidosis; C90.00 Multiple myeloma not having achieved remission; N18.3 Chronic kidney disease, stage 3 (moderate); I25.10 Atherosclerotic heart disease of native coronary artery without angina pectoris; M21.372 Foot drop, left foot; E11.22 Type 2 diabetes mellitus with diabetic chronic kidney disease; D64.9 Anemia, unspecified; I12.9 Hypertensive chronic kidney disease with stage 1 through stage 4 chronic kidney disease, or unspecified chronic kidney disease; E03.9 Hypothyroidism, unspecified; E78.5 Hyperlipidemia, unspecified; Z92.21 Personal history of antineoplastic chemotherapy; Z79.82 Long term (current) use of aspirin; Z79.02 Long term (current) use of antithrombotics/antiplatelets; Z79.4 Long term (current) use of insulin; Z79.51 Long term (current) use of inhaled steroids; Z79.899 Other long term (current) drug therapy; Z91.040 Latex allergy status; Z88.5 Allergy status to narcotic agent; Z88.7 Allergy status to serum and vaccine; Z88.2 Allergy status to sulfonamides; Z88.6 Allergy status to analgesic agent; Z88.8 Allergy status to other drugs, medicaments and biological substances; Z95.5 Presence of coronary angioplasty implant and graft; Z98.42 Cataract extraction status, left eye; Z90.710 Acquired absence of both cervix and uterus; Z96.652 Presence of left artificial knee joint

== ENCOUNTER → 2017-10-19 | Outpatient (CLI) | payer MEDICARE ==
[2017-10-19 15:16] LABS: INR 1.13; PROTHROMBIN TIME 14.7 SECONDS (12.1-14.4)
[2017-10-19 15:17] LABS: PARTIAL THROMBOPLASTIN TIME 26.8 SECONDS (25.4-37.6)
== END ==
LOC: M LAB 14:29
DX: C90.00 Multiple myeloma not having achieved remission (principal); Z79.01 Long term (current) use of anticoagulants
CPT/HCPCS: 85610

== ENCOUNTER → 2017-10-22 | Outpatient (REF) | payer MEDICARE ==
[2017-10-22 13:38] LABS: PROTHROMBIN TIME 14.4 SECONDS (12.1-14.4)
[2017-10-22 13:39] LABS: PARTIAL THROMBOPLASTIN TIME 27.4 SECONDS (25.4-37.6)
== END ==
LOC: M LAB REF 13:08
DX: Z01.818 Encounter for other preprocedural examination (principal); C90.02 Multiple myeloma in relapse; Z79.899 Other long term (current) drug therapy
CPT/HCPCS: 85610

== ENCOUNTER → 2017-11-01 | Outpatient (REF) | payer MEDICARE ==
[2017-11-01 21:28] LABS: IMMUNOGLOBULIN G 295 MG/DL (681-1648); TOTAL PROTEIN 5.6 GM/DL (6.4-8.2)
[2017-11-01 21:30] LABS: IMMUNOGLOBULIN M 14 MG/DL (40-230)
[2017-11-03 00:06] LABS: FREE KAPPA LIGHT CHAINS SERUM 5.9 mg/L (3.3-19.4); FREE LAMBDA LIGHT CHAINS SERUM 19.6 mg/L (5.7-26.3)
[2017-11-04 11:24] LABS: ALBUMIN 3.66 GM/DL (3.29-5.55); ALBUMIN % 65.4 % (55.8-66.1); ALPHA-1-GLOBULIN % 5.7 % (2.9-4.9); ALPHA-1-GLOBULINS 0.32 GM/DL (0.17-0.41); ALPHA-2-GLOBULINS % 12.5 % (7.1-11.8); BETA-1-GLOBULINS 0.33 GM/DL (0.28-0.60); BETA-1-GLOBULINS % 5.9 % (4.7-7.2); BETA-2-GLOBULINS 0.25 GM/DL (0.19-0.55); BETA-2-GLOBULINS % 4.5 % (3.2-6.5); GAMMA GLOBULINS 0.34 GM/DL (0.65-1.58)
== END ==
LOC: M LAB REF 13:43
DX: C90.02 Multiple myeloma in relapse (principal); Z79.899 Other long term (current) drug therapy
CPT/HCPCS: 84165

== ENCOUNTER 2017-11-08 10:55 | Day surgery (SDC) | payer MEDICARE ==
[2017-11-08 12:16] LABS: BEDSIDE GLUCOSE 115 MG/DL (83-110)
[2017-11-08] MEDS: HEPARIN SOD (PORCINE) 5000 UNITS/ML VIAL As Ordered (13:18)
[2017-11-08] MEDS ORDERED: BUPIVACAINE LIPOSOME/PF 1.3% 20 ML VIAL (13.3MG/ML)(EXPAREL) As Ordered (13:18)
[2017-11-08] MEDS: LIDOCAINE 1% MDV 20ML VIAL As Ordered (13:18)
[2017-11-08] MEDS ORDERED: MIDAZOLAM INJ 2 MG/2 ML VIAL (J2250) As Ordered (13:23)
[2017-11-08] MEDS ORDERED: fentaNYL 100 MCG/2 ML INJECTION (J3010) As Ordered (13:24)
[2017-11-08] MEDS ORDERED: LIDOCAINE 2% INJ 100 MG/5 ML SDV (FOR ANES.) As Ordered (13:25)
[2017-11-08] MEDS ORDERED: PROPOFOL 200 MG/20 ML VIAL As Ordered (13:25)
[2017-11-08] MEDS: MUPIROCIN 2% OINT 22 GM TUBE TOP (13:42)
[2017-11-08] MEDS ORDERED: fentaNYL 100 MCG/2 ML INJECTION (J3010) IV (14:45)
[2017-11-08] MEDS ORDERED: LR 1,000 ML IV (14:45)
[2017-11-08] MEDS ORDERED: ONDANSETRON 4MG/2ML VIAL (J2405) IV (14:45)
[2017-11-08] MEDS ORDERED: ACETAMINOPHEN TAB 650MG DOSE (2X325MG) PO (15:00)
== END 2017-11-08 15:08 | disposition home or self-care (01) ==
LOC: M SDC 10:55
DX: C90.00 Multiple myeloma not having achieved remission (principal); Z45.2 Encounter for adjustment and management of vascular access device; I25.10 Atherosclerotic heart disease of native coronary artery without angina pectoris; E11.9 Type 2 diabetes mellitus without complications; K21.9 Gastro-esophageal reflux disease without esophagitis; D64.9 Anemia, unspecified; Z98.61 Coronary angioplasty status; I10 Essential (primary) hypertension; E03.9 Hypothyroidism, unspecified
CPT/HCPCS: 36561

== ENCOUNTER → 2017-11-13 | Outpatient (CLI) | payer MEDICARE | LOC: M LAB 09:31 | DX: C90.00 Multiple myeloma not having achieved remission (principal) | CPT/HCPCS: 71046 ==

== ENCOUNTER 2017-11-24 17:47 | Emergency (ER) | payer MEDICARE ==
[2017-11-24 18:58] LABS: BASO % 0.8 % (0.0-1.0); EOS # 0.3 10^3/uL (0.0-0.50); EOS % 10.7 % (0.0-3.0); HEMATOCRIT 25.4 % (36.0-47.0); HEMOGLOBIN 8.8 g/dl (12.0-15.5); IMMATURE GRANULOCYTE % 0.8 % (0-3.0); LYMPH # 0.3 10^3/uL (1.5-4.5); LYMPH % 12.8 % (24.0-44.0); MEAN CORPUSCULAR HEMOGLOBIN 31.9 pg (27.0-33.0); MEAN CORPUSCULAR HGB CONC 34.6 g/dl (32.0-36.5); MONO # 0.9 10^3/uL (0.0-0.8); NEUTROPHILS % 37.9 % (36.0-66.0); PLATELET COUNT, AUTOMATED 107 10^3/uL (150-450); RED BLOOD COUNT 2.76 10^6/uL (4.00-5.40); RED CELL DISTRIBUTION WIDTH 15.3 % (11.5-14.5); WHITE BLOOD COUNT 2.4 10^3/uL (4.0-10.0)
[2017-11-24 19:08] LABS: INR 1.17; PROTHROMBIN TIME 15.1 SECONDS (12.1-14.4)
[2017-11-24 19:09] LABS: PARTIAL THROMBOPLASTIN TIME 29.7 SECONDS (25.4-37.6)
[2017-11-24] MEDS: ONDANSETRON 4MG/2ML VIAL (J2405) IV (19:21)
[2017-11-24] MEDS: MORPHINE 2 MG/ML 1ML SYRINGE (J2270) IV (19:22)
[2017-11-24 19:25] LABS: NEUTROPHILS # 0.9 10^3/uL (1.8-7.7); POSITIVE DIFF POS FLAG
[2017-11-24 19:30] LABS: ALBUMIN 2.6 GM/DL (3.2-5.2); ALBUMIN/GLOBULIN RATIO 1.37 (1.00-1.93); ALKALINE PHOSPHATASE 53 U/L (45-117); ALT/SGPT 32 U/L (12-78); ANION GAP 9 MEQ/L (8-16); AST/SGOT 17 U/L (7-37); BILIRUBIN,DIRECT 0.2 MG/DL (0.0-0.2); BILIRUBIN,TOTAL 0.7 MG/DL (0.2-1.0); BLOOD UREA NITROGEN 11 MG/DL (7-18); C REACTIVE PROTEIN QUANTITATIV 0.73 MG/DL (0.00-0.30); CALCIUM LEVEL 7.1 MG/DL (8.8-10.2); CARBON DIOXIDE LEVEL 22 MEQ/L (21-32); CHLORIDE LEVEL 109 MEQ/L (98-107); CK-MB VALUE MASS < 1.0 NG/ML (<3.6); CPK CREATINE PHOSPHOKINASE 33 U/L (26-192); CREATININE FOR GFR 1.56 MG/DL (0.55-1.30); GLOMERULAR FILTRATION RATE 33.3 (>32); GLUCOSE, FASTING 165 MG/DL (70-100); LIPASE 129 U/L (73-393); MB/CK RELATIVE INDEX 3.03 (< OR =4); NT-PRO BNP 1171 PG/ML (<450); SODIUM LEVEL 140 MEQ/L (136-145); TOTAL PROTEIN 4.5 GM/DL (6.4-8.2); TROPONIN I 0.02 NG/ML (< 0.10)
[2017-11-24] MEDS ORDERED: ISOVUE-370 76% 100ML VIAL (Q9967) As Ordered (21:23)
[2017-11-24] MEDS: NS 1,000 ML IV (21:24)
[2017-11-24] MEDS: PANTOPRAZOLE 40MG INJ (PROTONIX) (C9113) IV (23:07)
== END 2017-11-24 23:46 | disposition home or self-care (01) ==
LOC: M ED 17:47
DX: K21.0 Gastro-esophageal reflux disease with esophagitis (principal); R06.02 Shortness of breath; E11.9 Type 2 diabetes mellitus without complications; I12.9 Hypertensive chronic kidney disease with stage 1 through stage 4 chronic kidney disease, or unspecified chronic kidney disease; N18.3 Chronic kidney disease, stage 3 (moderate); C90.00 Multiple myeloma not having achieved remission; Z79.899 Other long term (current) drug therapy; Z79.890 Hormone replacement therapy; Z79.82 Long term (current) use of aspirin; Z79.4 Long term (current) use of insulin; Z79.02 Long term (current) use of antithrombotics/antiplatelets; Z88.5 Allergy status to narcotic agent; Z88.7 Allergy status to serum and vaccine; Z88.8 Allergy status to other drugs, medicaments and biological substances
CPT/HCPCS: C9113

== ENCOUNTER → 2017-11-25 | Outpatient (CLI) | payer MEDICARE ==
[~2017-11-25] MED LIST changes: +EMLA CREAM 5GM (LIDOCAINE/PRILOCAINE) As Ordered
== END ==
LOC: M RAD 13:20
DX: R10.9 Unspecified abdominal pain (principal); C90.00 Multiple myeloma not having achieved remission; N28.89 Other specified disorders of kidney and ureter; K57.30 Diverticulosis of large intestine without perforation or abscess without bleeding; Z90.710 Acquired absence of both cervix and uterus
CPT/HCPCS: Q9963

== ENCOUNTER → 2017-11-29 | Outpatient (REF) | payer MEDICARE | LOC: M LAB REF 12-03 10:53 | DX: E03.9 Hypothyroidism, unspecified (principal) | CPT/HCPCS: 84443 ==

== ENCOUNTER 2018-01-17 22:59 | Emergency (ER) | payer MEDICARE ==
[2018-01-17 23:18] LABS: BASO % 0.4 % (0.0-1.0); EOS # 0.5 10^3/uL (0.0-0.50); EOS % 9.4 % (0.0-3.0); HEMATOCRIT 31.1 % (36.0-47.0); IMMATURE GRANULOCYTE % 0.6 % (0-3.0); LYMPH # 0.7 10^3/uL (1.5-4.5); LYMPH % 13.9 % (24.0-44.0); MEAN CORPUSCULAR HEMOGLOBIN 31.5 pg (27.0-33.0); MEAN CORPUSCULAR HGB CONC 35.4 g/dl (32.0-36.5); MEAN CORPUSCULAR VOLUME 89.1 fl (80.0-96.0); MONO # 1.1 10^3/uL (0.0-0.8); MONO % 22.3 % (0.0-5.0); NEUTROPHILS # 2.7 10^3/uL (1.8-7.7); NEUTROPHILS % 53.4 % (36.0-66.0); PLATELET COUNT, AUTOMATED 110 10^3/uL (150-450); RED BLOOD COUNT 3.49 10^6/uL (4.00-5.40); RED CELL DISTRIBUTION WIDTH 13.8 % (11.5-14.5)
[2018-01-17 23:32] LABS: INR 1.13; PARTIAL THROMBOPLASTIN TIME 26.2 SECONDS (25.4-37.6); PROTHROMBIN TIME 14.6 SECONDS (12.1-14.4)
[2018-01-17 23:58] LABS: ALBUMIN 3.1 GM/DL (3.2-5.2); ALBUMIN/GLOBULIN RATIO 1.41 (1.00-1.93); ALKALINE PHOSPHATASE 51 U/L (45-117); ALT/SGPT 24 U/L (12-78); ANION GAP 10 MEQ/L (8-16); AST/SGOT 13 U/L (7-37); BILIRUBIN,DIRECT 0.2 MG/DL (0.0-0.2); BILIRUBIN,TOTAL 0.7 MG/DL (0.2-1.0); BLOOD UREA NITROGEN 17 MG/DL (7-18); CALCIUM LEVEL 8.7 MG/DL (8.8-10.2); CARBON DIOXIDE LEVEL 26 MEQ/L (21-32); CHLORIDE LEVEL 103 MEQ/L (98-107); CK-MB VALUE MASS < 1.0 NG/ML (<3.6); CPK CREATINE PHOSPHOKINASE 37 U/L (26-192); CREATININE FOR GFR 1.45 MG/DL (0.55-1.30); GLOMERULAR FILTRATION RATE 36.2 (>32); GLUCOSE, FASTING 176 MG/DL (70-100); LIPASE 138 U/L (73-393); POTASSIUM SERUM 3.3 MEQ/L (3.5-5.1); SODIUM LEVEL 139 MEQ/L (136-145); TOTAL PROTEIN 5.3 GM/DL (6.4-8.2); TROPONIN I 0.03 NG/ML (< 0.10)
[2018-01-18] MEDS: POTASSIUM CHLORIDE 10 MEQ SR TABLET PO (02:05)
[2018-01-18] MEDS ORDERED: ISOVUE-370 76% 100ML VIAL (Q9967) As Ordered (02:33)
[2018-01-18] MEDS: MORPHINE 4 MG/ML 1ML VIAL/SYRINGE (J2270) IV (03:20)
[2018-01-18 06:02] LABS: CPK CREATINE PHOSPHOKINASE 35 U/L (26-192); MB/CK RELATIVE INDEX 3.14 (< OR =4); TROPONIN I 0.04 NG/ML (< 0.10)
== END 2018-01-18 07:17 | disposition home or self-care (01) ==
LOC: M ED 22:59
DX: R07.9 Chest pain, unspecified (principal); E11.9 Type 2 diabetes mellitus without complications; I12.9 Hypertensive chronic kidney disease with stage 1 through stage 4 chronic kidney disease, or unspecified chronic kidney disease; N18.9 Chronic kidney disease, unspecified; E78.5 Hyperlipidemia, unspecified; I25.10 Atherosclerotic heart disease of native coronary artery without angina pectoris; E07.9 Disorder of thyroid, unspecified; D64.9 Anemia, unspecified; C90.00 Multiple myeloma not having achieved remission; Z79.899 Other long term (current) drug therapy; Z79.82 Long term (current) use of aspirin; Z79.890 Hormone replacement therapy; Z88.5 Allergy status to narcotic agent; Z88.7 Allergy status to serum and vaccine; Z88.8 Allergy status to other drugs, medicaments and biological substances
CPT/HCPCS: J2270

== ENCOUNTER 2018-01-30 08:40 | Emergency (ER) | payer MEDICARE | END 2018-01-30 09:31 | disposition short-term general hospital (02) | LOC: M ED 08:40 | DX: J06.9 Acute upper respiratory infection, unspecified (principal); E11.9 Type 2 diabetes mellitus without complications; I10 Essential (primary) hypertension; J45.909 Unspecified asthma, uncomplicated; J44.9 Chronic obstructive pulmonary disease, unspecified; C90.00 Multiple myeloma not having achieved remission; E04.9 Nontoxic goiter, unspecified; K21.9 Gastro-esophageal reflux disease without esophagitis; Z95.5 Presence of coronary angioplasty implant and graft; Z98.890 Other specified postprocedural states; Z88.8 Allergy status to other drugs, medicaments and biological substances; Z88.5 Allergy status to narcotic agent; Z88.7 Allergy status to serum and vaccine; Z91.040 Latex allergy status; Z88.2 Allergy status to sulfonamides; Z79.899 Other long term (current) drug therapy; Z79.01 Long term (current) use of anticoagulants; Z79.82 Long term (current) use of aspirin; Z79.890 Hormone replacement therapy; Z79.4 Long term (current) use of insulin ==

== ENCOUNTER 2018-01-31 00:08 | Inpatient (IN) | payer MEDICARE ==
[2018-01-31] MEDS: ACETAMINOPHEN TAB 650MG DOSE (2X325MG) PO (01:00)
[2018-01-31] MEDS: IPRATROPIUM 0.5MG/ALBUTEROL 2.5MG INH SOL UD 3ML (DUONEB)(J7620) NEB (01:19)
[2018-01-31 01:21] LABS: HEMATOCRIT 30.6 % (36.0-47.0); HEMOGLOBIN 10.6 g/dl (12.0-15.5); MEAN CORPUSCULAR HEMOGLOBIN 31.6 pg (27.0-33.0); MEAN CORPUSCULAR HGB CONC 34.6 g/dl (32.0-36.5); MEAN CORPUSCULAR VOLUME 91.3 fl (80.0-96.0); PLATELET COUNT, AUTOMATED 138 10^3/uL (150-450); RED BLOOD COUNT 3.35 10^6/uL (4.00-5.40); RED CELL DISTRIBUTION WIDTH 14.3 % (11.5-14.5); WHITE BLOOD COUNT 4.2 10^3/uL (4.0-10.0)
[2018-01-31 01:24] LABS: ADD MANUAL DIFFER YES; DIFF SLIDE NUMBER 110; POSITIVE MORPH POS FLAG
[2018-01-31 01:36] LABS: VENOUS BASE EXCESS -5.7 (-2.0-2.0); VENOUS HCO3 17.1 MEQ/L (23.0-27.0); VENOUS O2 SATURATION 87.6 % (60.0-80.0); VENOUS PARTIAL PRESSURE O2 49.9 mmHg (30.0-50.0); VENOUS PH 7.437 UNITS (7.330-7.430); VENOUS STANDARD HCO3 19.6 MEQ/L; VENOUS TOTAL CO2 17.9 MEQ/L (24.0-28.0)
[2018-01-31 01:40] LABS: BASOPHILS 1 % (0-4); EOSINOPHILS 1 % (0-5); LYMPHOCYTES 12 % (16-52); MONOCYTES 11 % (0-8); NEUTROPHILS 75 % (35-75)
[2018-01-31 01:41] LABS: PLATELET ESTIMATE DECREASED (NORMAL)
[2018-01-31 01:43] LABS: POIKILOCYTOSIS 1+
[2018-01-31 01:53] LABS: ANION GAP 9 MEQ/L (8-16); BLOOD UREA NITROGEN 12 MG/DL (7-18); CALCIUM LEVEL 7.6 MG/DL (8.8-10.2); CARBON DIOXIDE LEVEL 21 MEQ/L (21-32); CHLORIDE LEVEL 106 MEQ/L (98-107); GLOMERULAR FILTRATION RATE 37.7 (>32); GLUCOSE, FASTING 180 MG/DL (70-100); POTASSIUM SERUM 3.5 MEQ/L (3.5-5.1); SODIUM LEVEL 136 MEQ/L (136-145)
[2018-01-31] MEDS: IBUPROFEN 600 MG TAB PO (02:30)
[2018-01-31] MEDS: LevoFLOXacin IV 750 MG in APPROPRIATE DILUENT 1 EA IV (05:09)
[2018-01-31] MEDS ORDERED: GLUCOSE 4 GM CHEW TABLET PO (06:00)
[2018-01-31] MEDS ORDERED: GLUCAGON FOR INJ 1 MG VIAL (J1610) SC (06:00)
[2018-01-31] MEDS: HEPARIN SOD (PORCINE) 5000 UNITS/ML VIAL SC ×3 (06:00→21:16)
[2018-01-31] MEDS ORDERED: ALBUTEROL 90 MCG/ACT 8GM HFA INHALER INH (06:00)
[2018-01-31] MEDS ORDERED: ONDANSETRON 4 MG TAB (S0181) PO (06:00)
[2018-01-31] MEDS ORDERED: DEXTROSE 50% 50 ML SYRINGE IV (06:00)
[2018-01-31 08:26] LABS: BEDSIDE GLUCOSE 196 MG/DL (83-110)
[2018-01-31] MEDS: LEVOTHYROXINE 125MCG TABLET (0.125MG) PO (08:30)
[2018-01-31] MEDS: HumaLOG INSULIN (NovoLOG) PER UNIT SC ×4 (08:31→20:46)
[2018-01-31] MEDS: ATORVASTATIN 20 MG TAB PO (10:17)
[2018-01-31] MEDS: VITAMIN D 1,000 INTERNATIONAL UNITS TABLET PO (10:17)
[2018-01-31] MEDS: LEVEMIR (INSULIN DETEMIR) 1 UNITS/0.01ML SC (10:17)
[2018-01-31] MEDS: ASPIRIN 81 MG ENTERIC TAB PO (10:18)
[2018-01-31] MEDS: CLOPIDOGREL 75 MG TAB PO (10:18)
[2018-01-31] MEDS: PANTOPRAZOLE 40MG TAB (PROTONIX) PO (10:18)
[2018-01-31] MEDS: CYANOCOBALAMIN 500 MCG TAB PO (10:18)
[2018-01-31] MEDS: ISOSORBIDE MON. (IMDUR) 60 MG XR TAB PO (11:40)
[2018-01-31 11:58] LABS: BEDSIDE GLUCOSE 99 MG/DL (83-110)
[2018-01-31] MEDS: ADVAIR HFA 115/21MCG INHALER INH ×2 (16:16→22:11)
[2018-01-31 16:46] LABS: BEDSIDE GLUCOSE 62 MG/DL (83-110)
[2018-01-31 19:43] LABS: BEDSIDE GLUCOSE 165 MG/DL (83-110)
[2018-02-01] MEDS: ACETAMINOPHEN TAB 650MG DOSE (2X325MG) PO ×2 (00:12→21:15)
[2018-02-01] MEDS: HEPARIN SOD (PORCINE) 5000 UNITS/ML VIAL SC ×3 (05:35→20:25)
[2018-02-01] MEDS: LEVOTHYROXINE 125MCG TABLET (0.125MG) PO (05:35)
[2018-02-01] MEDS: ISOSORBIDE MON. (IMDUR) 60 MG XR TAB PO (06:56)
[2018-02-01 07:00] LABS: BASO # 0.1 10^3/uL (0.0-0.2); BASO % 1.4 % (0.0-1.0); EOS # 0.2 10^3/uL (0.0-0.50); EOS % 4.6 % (0.0-3.0); HEMATOCRIT 30.4 % (36.0-47.0); HEMOGLOBIN 10.3 g/dl (12.0-15.5); IMMATURE GRANULOCYTE % 0.6 % (0-3.0); LYMPH # 0.6 10^3/uL (1.5-4.5); MEAN CORPUSCULAR HEMOGLOBIN 31.1 pg (27.0-33.0); MEAN CORPUSCULAR HGB CONC 33.9 g/dl (32.0-36.5); MEAN CORPUSCULAR VOLUME 91.8 fl (80.0-96.0); MONO # 0.5 10^3/uL (0.0-0.8); MONO % 15.1 % (0.0-5.0); NEUTROPHILS # 2.1 10^3/uL (1.8-7.7); NEUTROPHILS % 60.3 % (36.0-66.0); PLATELET COUNT, AUTOMATED 122 10^3/uL (150-450); RED BLOOD COUNT 3.31 10^6/uL (4.00-5.40); RED CELL DISTRIBUTION WIDTH 14.1 % (11.5-14.5); WHITE BLOOD COUNT 3.5 10^3/uL (4.0-10.0)
[2018-02-01] MEDS: ADVAIR HFA 115/21MCG INHALER INH ×2 (07:19→21:57)
[2018-02-01 07:24] LABS: ANION GAP 11 MEQ/L (8-16); BLOOD UREA NITROGEN 12 MG/DL (7-18); CALCIUM LEVEL 8.3 MG/DL (8.8-10.2); CARBON DIOXIDE LEVEL 21 MEQ/L (21-32); CHLORIDE LEVEL 108 MEQ/L (98-107); GLOMERULAR FILTRATION RATE 37.7 (>32); GLUCOSE, FASTING 106 MG/DL (70-100); POTASSIUM SERUM 3.2 MEQ/L (3.5-5.1); SODIUM LEVEL 140 MEQ/L (136-145)
[2018-02-01] MEDS: ATORVASTATIN 20 MG TAB PO (08:26)
[2018-02-01] MEDS: CYANOCOBALAMIN 500 MCG TAB PO (08:26)
[2018-02-01] MEDS: VITAMIN D 1,000 INTERNATIONAL UNITS TABLET PO (08:26)
[2018-02-01] MEDS: ASPIRIN 81 MG ENTERIC TAB PO (08:26)
[2018-02-01] MEDS: CLOPIDOGREL 75 MG TAB PO (08:26)
[2018-02-01] MEDS: PANTOPRAZOLE 40MG TAB (PROTONIX) PO (08:26)
[2018-02-01] MEDS: LEVEMIR (INSULIN DETEMIR) 1 UNITS/0.01ML SC (08:27)
[2018-02-01] MEDS: LevoFLOXacin IV 500 MG in APPROPRIATE DILUENT 1 EA IV (08:27)
[2018-02-01] MEDS: HumaLOG INSULIN (NovoLOG) PER UNIT SC ×4 (08:27→21:00)
[2018-02-01] MEDS: POTASSIUM CHLORIDE 10 MEQ SR TABLET PO (09:41)
[2018-02-01 11:33] LABS: BEDSIDE GLUCOSE 144 MG/DL (83-110)
[2018-02-01 16:51] LABS: BEDSIDE GLUCOSE 122 MG/DL (83-110)
[2018-02-01 21:09] LABS: BEDSIDE GLUCOSE 164 MG/DL (83-110)
[2018-02-02 06:15] LABS: BEDSIDE GLUCOSE 119 MG/DL (83-110)
[2018-02-02] MEDS: LEVOTHYROXINE 125MCG TABLET (0.125MG) PO (06:16)
[2018-02-02] MEDS: HEPARIN SOD (PORCINE) 5000 UNITS/ML VIAL SC ×3 (06:16→21:26)
[2018-02-02] MEDS: LEVEMIR (INSULIN DETEMIR) 1 UNITS/0.01ML SC (08:11)
[2018-02-02] MEDS: HumaLOG INSULIN (NovoLOG) PER UNIT SC ×4 (08:11→21:01)
[2018-02-02] MEDS: ISOSORBIDE MON. (IMDUR) 60 MG XR TAB PO (08:12)
[2018-02-02] MEDS: ASPIRIN 81 MG ENTERIC TAB PO (08:12)
[2018-02-02] MEDS: PANTOPRAZOLE 40MG TAB (PROTONIX) PO (08:12)
[2018-02-02] MEDS: VITAMIN D 1,000 INTERNATIONAL UNITS TABLET PO (08:12)
[2018-02-02] MEDS: CLOPIDOGREL 75 MG TAB PO (08:12)
[2018-02-02] MEDS: CYANOCOBALAMIN 500 MCG TAB PO (08:12)
[2018-02-02] MEDS: ATORVASTATIN 20 MG TAB PO (08:12)
[2018-02-02] MEDS: LevoFLOXacin IV 500 MG in APPROPRIATE DILUENT 1 EA IV (08:13)
[2018-02-02] MEDS: ADVAIR HFA 115/21MCG INHALER INH ×2 (09:23→23:19)
[2018-02-02 09:25] LABS: BASO # 0.1 10^3/uL (0.0-0.2); EOS # 0.2 10^3/uL (0.0-0.50); HEMATOCRIT 28.6 % (36.0-47.0); HEMOGLOBIN 9.6 g/dl (12.0-15.5); IMMATURE GRANULOCYTE % 0.7 % (0-3.0); LYMPH # 0.6 10^3/uL (1.5-4.5); LYMPH % 19.7 % (24.0-44.0); MEAN CORPUSCULAR HGB CONC 33.6 g/dl (32.0-36.5); MEAN CORPUSCULAR VOLUME 92.3 fl (80.0-96.0); MONO # 0.5 10^3/uL (0.0-0.8); MONO % 15.1 % (0.0-5.0); NEUTROPHILS # 1.7 10^3/uL (1.8-7.7); NEUTROPHILS % 56.5 % (36.0-66.0); PLATELET COUNT, AUTOMATED 135 10^3/uL (150-450); RED CELL DISTRIBUTION WIDTH 14.4 % (11.5-14.5)
[2018-02-02 10:04] LABS: ANION GAP 10 MEQ/L (8-16); BLOOD UREA NITROGEN 10 MG/DL (7-18); CARBON DIOXIDE LEVEL 20 MEQ/L (21-32); CHLORIDE LEVEL 108 MEQ/L (98-107); CREATININE FOR GFR 1.56 MG/DL (0.55-1.30); GLOMERULAR FILTRATION RATE 33.3 (>32); GLUCOSE, FASTING 241 MG/DL (70-100); POTASSIUM SERUM 3.6 MEQ/L (3.5-5.1); SODIUM LEVEL 138 MEQ/L (136-145)
[2018-02-02 11:42] LABS: BEDSIDE GLUCOSE 101 MG/DL (83-110)
[2018-02-02 16:52] LABS: BEDSIDE GLUCOSE 175 MG/DL (83-110)
[2018-02-02 20:41] LABS: BEDSIDE GLUCOSE 147 MG/DL (83-110)
[2018-02-03] MEDS: ACETAMINOPHEN TAB 650MG DOSE (2X325MG) PO (01:55)
[2018-02-03] MEDS: LEVOTHYROXINE 125MCG TABLET (0.125MG) PO (05:33)
[2018-02-03] MEDS: HEPARIN SOD (PORCINE) 5000 UNITS/ML VIAL SC (05:34)
[2018-02-03] MEDS: ISOSORBIDE MON. (IMDUR) 60 MG XR TAB PO (06:02)
[2018-02-03 06:08] LABS: BASO # 0.1 10^3/uL (0.0-0.2); BASO % 1.6 % (0.0-1.0); EOS # 0.3 10^3/uL (0.0-0.50); EOS % 5.8 % (0.0-3.0); HEMATOCRIT 30.4 % (36.0-47.0); HEMOGLOBIN 10.4 g/dl (12.0-15.5); IMMATURE GRANULOCYTE % 0.9 % (0-3.0); LYMPH # 1.3 10^3/uL (1.5-4.5); LYMPH % 29.9 % (24.0-44.0); MEAN CORPUSCULAR HGB CONC 34.2 g/dl (32.0-36.5); MEAN CORPUSCULAR VOLUME 90.5 fl (80.0-96.0); MONO # 0.8 10^3/uL (0.0-0.8); NEUTROPHILS # 1.9 10^3/uL (1.8-7.7); NEUTROPHILS % 43.8 % (36.0-66.0); PLATELET COUNT, AUTOMATED 155 10^3/uL (150-450); RED BLOOD COUNT 3.36 10^6/uL (4.00-5.40); RED CELL DISTRIBUTION WIDTH 14.1 % (11.5-14.5); WHITE BLOOD COUNT 4.3 10^3/uL (4.0-10.0)
[2018-02-03 06:32] LABS: ANION GAP 10 MEQ/L (8-16); BLOOD UREA NITROGEN 12 MG/DL (7-18); CALCIUM LEVEL 9.5 MG/DL (8.8-10.2); CARBON DIOXIDE LEVEL 23 MEQ/L (21-32); CHLORIDE LEVEL 107 MEQ/L (98-107); CREATININE FOR GFR 1.52 MG/DL (0.55-1.30); GLOMERULAR FILTRATION RATE 34.3 (>32); GLUCOSE, FASTING 133 MG/DL (70-100); POTASSIUM SERUM 3.4 MEQ/L (3.5-5.1); SODIUM LEVEL 140 MEQ/L (136-145)
[2018-02-03] MEDS: HumaLOG INSULIN (NovoLOG) PER UNIT SC (07:33)
[2018-02-03] MEDS: LevoFLOXacin IV 500 MG in APPROPRIATE DILUENT 1 EA IV (08:38)
[2018-02-03] MEDS: PANTOPRAZOLE 40MG TAB (PROTONIX) PO (08:38)
[2018-02-03] MEDS: LEVEMIR (INSULIN DETEMIR) 1 UNITS/0.01ML SC (08:38)
[2018-02-03] MEDS: CLOPIDOGREL 75 MG TAB PO (08:38)
[2018-02-03] MEDS: ASPIRIN 81 MG ENTERIC TAB PO (08:39)
[2018-02-03] MEDS: VITAMIN D 1,000 INTERNATIONAL UNITS TABLET PO (08:39)
[2018-02-03] MEDS: CYANOCOBALAMIN 500 MCG TAB PO (08:39)
[2018-02-03] MEDS: POTASSIUM CHLORIDE 10 MEQ SR TABLET PO (08:39)
[2018-02-03] MEDS: ATORVASTATIN 20 MG TAB PO (08:39)
[2018-02-03] MEDS: ADVAIR HFA 115/21MCG INHALER INH (09:00)
== END 2018-02-03 11:00 | disposition home or self-care (01) | DRG 194 ==
LOC: M MSPAV 02-01 12:50 → M ED 00:08 → M ED INP 05:04 → M MS4PR 09:15
DX: J18.9 Pneumonia, unspecified organism (principal); C90.00 Multiple myeloma not having achieved remission; J44.9 Chronic obstructive pulmonary disease, unspecified; E11.9 Type 2 diabetes mellitus without complications; N18.3 Chronic kidney disease, stage 3 (moderate); I12.9 Hypertensive chronic kidney disease with stage 1 through stage 4 chronic kidney disease, or unspecified chronic kidney disease; I25.10 Atherosclerotic heart disease of native coronary artery without angina pectoris; Z95.2 Presence of prosthetic heart valve; E03.9 Hypothyroidism, unspecified; E55.9 Vitamin D deficiency, unspecified; E53.8 Deficiency of other specified B group vitamins; D64.9 Anemia, unspecified; Z79.82 Long term (current) use of aspirin; Z79.899 Other long term (current) drug therapy; Z79.4 Long term (current) use of insulin; Z88.5 Allergy status to narcotic agent; Z91.040 Latex allergy status; Z88.7 Allergy status to serum and vaccine; Z88.2 Allergy status to sulfonamides; Z96.642 Presence of left artificial hip joint

== ENCOUNTER 2018-05-12 03:50 | Emergency (ER) | payer MEDICARE ==
[~2018-05-12] VITALS: Ht 154.9 cm; Wt 54.1 kg
[~2018-05-12 03:50] MED LIST changes: +/LANS30GR OR; +ACET500T15 PO; +ACET65TA OR; +ACET65TA PR; +ACTO75TA OR; +ACYC200C8 PO; +ACYC400T PO; +ADV100INH INH; +ADV250INH INH; +ALPR0.25 OR; +AMOX500C PO; +ASPI81TA24 PO; +ASPI81TA83 OR; +ATEN25TA OR; +ATEN25TA PO; +ATEN50TA2 OR; +ATEN50TA2 PO; +ATOR40TA75 PO; +AVAP150T OR; +AVEL1TAB2 PO; +B-1210009 PO; +BISA10SU2 RE; +BISA5TA OR; +BORT3.5I SQ; +CALCCHW12 OR; +CEFD1CAP8 PO; +CETI10TA OR; +CHLO125TA PO; +CLAR10CA3 PO; +COUM1TAB18 OR; +COZA100T OR; +DECA4TAB PO; +DEXA4TA PO; -EMLA CREAM 5GM (LIDOCAINE/PRILOCAINE) As Ordered; -GASTROGRAFIN SOLUTION 30ML (Q9963) As Ordered; +GLIP5TAB8 PO; +HEPA500020 SC; +INSUDET SC; +ISOS120T7 PO; +ISOS30TA4 OR; +ISOS30TA4 PO; +ISOS60TA2 PO; -ISOVUE-370 76% 100ML VIAL (Q9967) As Ordered; +Isosorbide OR; +KLOR1TAB73 PO; +KLOR20TA42 PO; +LACT10SO29 PO; +LEVA1TAB2 PO; +LEVO112T2 PO; +LEVO125T4 PO; +LEVO500T3 PO; +LEVO75TA2 OR; +LIPI1TAB2 OR; +LOSA50TA5 PO; +LOSA50TA88 PO; +MEPR750S FT; +MUCI1TAB16 PO; +NITR0.4S SL; +NITR4TASL SL; +OMEP20CA3 PO; +PANT40TA3 PO; +PLAV1TAB2 PO; +PLAV75TA2 OR; +POTA10TA16 PO; +POTA10TA67 PO; +POTA20TA6 PO; +PRED20TAB PO; +PROAAER10 INH; +PROT1TAB2 PO; +PROTPAK PO; +RANI150C PO; +RANI150T PO; +RANI1TAB6 PO; +RECL5INJ2 IV; +REVL10CA2 PO; +ROCA0.25 PO; +SPIR-10 PO; +SUCR1TAB56 OR; +TRAM50TA2 OR; +TYL RE; +TYLE325T5 PO; +VELC3.5I IV; +VIT D 2000 PO; +VITA-112 PO; +VITA-113 OR; +VITA-113 SL; +VITA-121 PO; +VITA-176 PO; +VITA-182 PO; +VITA10002 PO; +VITA100L PO; +VITA1TAB22 PO; +ZETI10TA OR; +ZOFR4TAB16 PO; +januvia OR
[2018-05-12 04:22] LABS: BASO # 0.1 10^3/uL (0.0-0.2); BASO % 1.9 % (0.0-1.0); EOS % 0.7 % (0.0-3.0); HEMATOCRIT 31.1 % (36.0-47.0); HEMOGLOBIN 10.9 g/dl (12.0-15.5); LYMPH # 0.4 10^3/uL (1.5-4.5); LYMPH % 13.8 % (24.0-44.0); MEAN CORPUSCULAR HEMOGLOBIN 33.3 pg (27.0-33.0); MEAN CORPUSCULAR VOLUME 95.1 fl (80.0-96.0); MONO # 0.9 10^3/uL (0.0-0.8); NEUTROPHILS # 1.3 10^3/uL (1.8-7.7); NEUTROPHILS % 48.9 % (36.0-66.0); PLATELET COUNT, AUTOMATED 135 10^3/uL (150-450); RED BLOOD COUNT 3.27 10^6/uL (4.00-5.40); WHITE BLOOD COUNT 2.7 10^3/uL (4.0-10.0)
[2018-05-12 04:30] LABS: INR 1.15; PROTHROMBIN TIME 14.9 SECONDS (12.1-14.4)
[2018-05-12 04:57] LABS: INFLUENZA A AMPLIFICATION POSITIVE (NEGATIVE); INFLUENZA B AMPLIFICATION NEGATIVE (NEGATIVE)
[2018-05-12 05:07] LABS: ALBUMIN 3.3 GM/DL (3.2-5.2); ALT/SGPT 81 U/L (12-78); BILIRUBIN,TOTAL 0.8 MG/DL (0.2-1.0); BLOOD UREA NITROGEN 13 MG/DL (7-18); CALCIUM LEVEL 7.9 MG/DL (8.8-10.2); CARBON DIOXIDE LEVEL 22 MEQ/L (21-32); CHLORIDE LEVEL 105 MEQ/L (98-107); CK-MB VALUE MASS < 1.0 NG/ML (<3.6); CPK CREATINE PHOSPHOKINASE 48 U/L (26-192); CREATININE FOR GFR 1.56 MG/DL (0.55-1.30); GLOMERULAR FILTRATION RATE 33.3 (>32); GLUCOSE, FASTING 185 MG/DL (70-100); LIPASE 159 U/L (73-393); MB/CK RELATIVE INDEX 2.08 (< OR =4); POTASSIUM SERUM 3.5 MEQ/L (3.5-5.1); SODIUM LEVEL 137 MEQ/L (136-145); TOTAL PROTEIN 5.5 GM/DL (6.4-8.2); TROPONIN I 0.02 NG/ML (< 0.10)
[2018-05-12 05:30] VITALS: BP 156/70
[2018-05-12] MEDS ORDERED: ACETAMINOPHEN TAB 650MG DOSE (2X325MG) PO ONE (05:45)
--- NOTE | 2018-05-12 08:16 | REP ---
Oral chest x-ray: Single view. History: Chest pain. Comparison study: January 31, 2018. Findings: A right-sided [id number] catheter is again noted in place. EKG electrodes are seen. Mild cardiac enlargement is seen unchanged. The aorta is tortuous and a little calcific as before. The lungs are well inflated and free of infiltrate. There is a mild zone of linear fibrosis in the left lateral pleural angle. The previously noted infiltrate has resolved. No new infiltrate is seen. Impression: Mild cardiac enlargement. Dneumb-U-Krtd catheter. No active disease. Electronically Signed by Honorio Zarate MD 05/12/2018 08:08 A
--- NOTE | 2018-05-12 10:25 | ECGEPIP ---
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
[2018-05-23] MEDS ORDERED: REVL10CA2 PO (11:13)
== END 2018-05-12 05:46 | disposition home or self-care (01) ==
LOC: M ED 03:50
DX: J09.X2 Influenza due to identified novel influenza A virus with other respiratory manifestations (principal); Z20.828 Contact with and (suspected) exposure to other viral communicable diseases; I49.3 Ventricular premature depolarization; I45.10 Unspecified right bundle-branch block; I51.9 Heart disease, unspecified; I25.10 Atherosclerotic heart disease of native coronary artery without angina pectoris; C91.10 Chronic lymphocytic leukemia of B-cell type not having achieved remission; Z88.8 Allergy status to other drugs, medicaments and biological substances; Z88.2 Allergy status to sulfonamides; Z88.5 Allergy status to narcotic agent; Z88.7 Allergy status to serum and vaccine; Z91.040 Latex allergy status; Z79.899 Other long term (current) drug therapy; Z79.02 Long term (current) use of antithrombotics/antiplatelets; Z79.82 Long term (current) use of aspirin; Z79.51 Long term (current) use of inhaled steroids; Z79.4 Long term (current) use of insulin

== ENCOUNTER 2018-05-15 15:10 | Inpatient (IN) | payer MEDICARE ==
[~2018-05-15] VITALS: Ht 144.8 cm; Wt 58.0 kg
[2018-05-15] MEDS ORDERED: POTA20EL PO (15:34)
[2018-05-15] MEDS ORDERED: IPRATROPIUM 0.5MG/ALBUTEROL 2.5MG INH SOL UD 3ML (DUONEB)(J7620) NEB ONE (16:00)
[2018-05-15] MEDS ORDERED: NS 1,000 ML IV ONE (16:00)
[2018-05-15 16:11] LABS: BASO % 0.4 % (0.0-1.0); HEMATOCRIT 30.3 % (36.0-47.0); HEMOGLOBIN 10.5 g/dl (12.0-15.5); LYMPH # 0.3 10^3/uL (1.5-4.5); LYMPH % 13.4 % (24.0-44.0); MEAN CORPUSCULAR HEMOGLOBIN 32.5 pg (27.0-33.0); MEAN CORPUSCULAR HGB CONC 34.7 g/dl (32.0-36.5); MEAN CORPUSCULAR VOLUME 93.8 fl (80.0-96.0); MONO # 0.4 10^3/uL (0.0-0.8); MONO % 17.9 % (0.0-5.0); NEUTROPHILS # 1.7 10^3/uL (1.8-7.7); NEUTROPHILS % 67.9 % (36.0-66.0); PLATELET COUNT, AUTOMATED 119 10^3/uL (150-450); RED BLOOD COUNT 3.23 10^6/uL (4.00-5.40); WHITE BLOOD COUNT 2.5 10^3/uL (4.0-10.0)
--- NOTE | 2018-05-15 16:26 | REP ---
Clinical: Cough and dyspnea . Comparison: 05/12/2018 . Technique: AP and lateral. Findings: The mediastinum and cardiac silhouette are normal. Qxytld-Y-Dsmt in stable position. The lung zaidi demonstrate chronic stable changes without acute consolidation, effusion, or pneumothorax. The skeletal structures are intact and normal. Impression: Chronic stable changes. No obvious acute process. Electronically Signed by Nils Ying MD 05/15/2018 04:18 P
[2018-05-15 16:27] LABS: ALBUMIN 3.1 GM/DL (3.2-5.2); BILIRUBIN,DIRECT 0.3 MG/DL (0.0-0.2); BILIRUBIN,TOTAL 0.7 MG/DL (0.2-1.0); CALCIUM LEVEL 7.5 MG/DL (8.8-10.2); CREATININE FOR GFR 1.47 MG/DL (0.55-1.30); GLOMERULAR FILTRATION RATE 35.6 (>32); MB/CK RELATIVE INDEX 0.7 (< OR =4); THYROID STIMULATING HORMONE 29.2 uIU/ML (0.358-3.740); TOTAL PROTEIN 5.2 GM/DL (6.4-8.2); TROPONIN I 0.03 NG/ML (< 0.10)
[2018-05-15] MEDS ORDERED: ISOVUE-370 76% 125ML VIAL (Q9967 PER ML) As Ordered ONE (16:59)
[2018-05-15] MEDS ORDERED: POTASSIUM CHLORIDE 10 MEQ SR TABLET PO ONE ×2 (17:00→21:30)
[2018-05-15 17:02] LABS: MAGNESIUM LEVEL 1.9 MG/DL (1.8-2.4)
--- NOTE | 2018-05-15 17:39 | REP ---
Clinical: Acute chest pain and shortness of breath. Technique: Axial contrast enhanced images from the thoracic inlet to the upper abdomen using pulmonary embolus technique with multiplanar re-formations. 100 ml Isovue 70 intravenous contrast material administered without complication. Comparison: 01/18/2018. Findings: Satisfactory enhancement of the pulmonary vasculature is achieved and no filling defects are identified to suggest pulmonary embolus. Thoracic aorta and heart/pericardium are normal. Lung zaidi demonstrate chronic COPD/emphysematous changes with scattered scarring and moderate diffuse bronchiectasis. Very minimal bibasilar air space disease suggests atelectasis/early infiltrates (left greater than right). No effusion. No pneumothorax. Mediastinal and hilar lymph nodes measuring up to approximately 13 mm are nonspecific and possibly reactive. Musculoskeletal structures without focal osseous abnormality. Htnpke-O-Hesb identified with tip in the SVC/right atrium. Impression: 1. No pulmonary embolus. Normal thoracic aorta. 2. Moderate chronic COPD/emphysematous changes and bronchiectasis. Very minimal scattered lower lobe opacities may reflect atelectasis/early infiltrate. Electronically Signed by Nils Ying MD 05/15/2018 05:30 P
[2018-05-15] MEDS ORDERED: dexameTHASONE 20 MG/5 ML VIAL (J1100) IV ONE (17:45)
--- NOTE | 2018-05-15 17:48 | REP ---
Clinical: Abdominal pain. Technique: Axial contrast enhanced images from the lung bases to the pubic symphysis using 100 ml Isovue 370 intravenous contrast material with coronal and sagittal re-formations. Comparison: 01/18/2018. Findings: Liver, spleen, pancreas, gallbladder, bilateral adrenal glands and kidneys are relatively normal / stable. Evaluation of the enteric system is without obvious obstruction or acute inflammatory process. Colonic/sigmoid diverticulosis noted without acute diverticulitis. Pelvis demonstrates normal bladder and evidence for prior hysterectomy. No ascites. No free air. No obvious adenopathy. Abdominal aorta without aneurysm or dissection. Musculoskeletal structures demonstrate degenerative changes without focal osseous abnormality. Impression: 1. No obvious acute abdominopelvic pathology appreciated. Evaluation is somewhat limited due to respiratory motion artifact. 2. Meticulous is without acute diverticulitis. 3. No ascites, focal inflammatory stranding, or adenopathy appreciated. Electronically Signed by Nils Ying MD 05/15/2018 05:39 P
[2018-05-15] MEDS ORDERED: BENZONATATE 100 MG CAP PO ONE (18:00)
[2018-05-15 18:03] LABS: FREE T4 0.63 NG/DL (0.76-1.46)
[2018-05-15 19:15] LABS: MB/CK RELATIVE INDEX 0.72 (< OR =4); TROPONIN I 0.04 NG/ML (< 0.10)
--- NOTE | 2018-05-15 19:20 | ECGEPIP ---
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
--- NOTE | 2018-05-15 20:37 | ECGEPIP ---
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
[2018-05-15] MEDS ORDERED: DEXA4TA PO (20:51)
[2018-05-15] MEDS ORDERED: MEPR750S PO (20:51)
[2018-05-15] MEDS ORDERED: ACYC200C8 PO (20:51)
[2018-05-15] MEDS ORDERED: ISOS60TA2 PO (20:54)
[2018-05-15] MEDS ORDERED: RANI150T PO (20:54)
[2018-05-15] MEDS ORDERED: REVL10CA2 PO (20:54)
[2018-05-15] MEDS ORDERED: SPIR-10 PO (20:55)
[2018-05-15] MEDS ORDERED: OSELTAMIVIR PHOSPHATE 30MG CAPSULE PO SCH (21:00)
[2018-05-15] MEDS ORDERED: IPRATROPIUM 0.5MG/ALBUTEROL 2.5MG INH SOL UD 3ML (DUONEB)(J7620) NEB PRN (21:45)
[2018-05-15] MEDS ORDERED: NITROGLYCERIN 0.4 MG SUBL TABLET SL PRN (22:00)
[2018-05-15] MEDS ORDERED: GLUCOSE 4 GM CHEW TABLET PO PRN (22:15)
[2018-05-15] MEDS ORDERED: GLUCAGON FOR INJ 1 MG VIAL (J1610) SC PRN (22:15)
[2018-05-15] MEDS ORDERED: DEXTROSE 50% 50 ML SYRINGE IV PRN (22:15)
[2018-05-15] MEDS: ADVAIR HFA 115/21MCG INHALER INH SCH (22:56)
[2018-05-15 23:55] VITALS: BP 148/74
[2018-05-16] MEDS: OSELTAMIVIR PHOSPHATE 30MG CAPSULE PO SCH ×2 (00:25→20:11)
[2018-05-16] MEDS: POTASSIUM CHLORIDE 10% LIQ 20 MEQ/15 ML UDC PO SCH ×3 (00:25→20:12)
[2018-05-16] MEDS: AZITHROMYCIN INJ 500 MG, VIAL MATE ADAPTER 1 EACH in D5W 250 ML IV SCH ×2 (00:27→23:16)
[2018-05-16] MEDS ORDERED: HumaLOG INSULIN (NovoLOG) PER UNIT SC ONE (00:30)
[2018-05-16] MEDS: raNITIdine SYRUP 150 MG/10 ML UDC PO SCH ×3 (02:04→20:12)
[2018-05-16] MEDS: ACYCLOVIR 200 MG CAPSULE PO SCH ×3 (02:04→20:11)
[2018-05-16] MEDS: cefTRIAXone SOD 1 GM in D5W MINI-BAG PLUS 50 ML IV SCH (03:01)
[2018-05-16] MEDS: SODIUM CHLORIDE 0.9% INJ 10 ML SYR IV PRN (03:54)
[2018-05-16] MEDS: LEVOTHYROXINE 137MCG TABLET (0.137MG) PO SCH (05:37)
[2018-05-16 06:00] VITALS: BP 148/68
[2018-05-16] MEDS ORDERED: LEVOTHYROXINE 125MCG TABLET (0.125MG) PO SCH (06:00)
[2018-05-16 06:10] LABS: HEMATOCRIT 29.7 % (36.0-47.0); HEMOGLOBIN 10.1 g/dl (12.0-15.5); MEAN CORPUSCULAR HEMOGLOBIN 31.9 pg (27.0-33.0); MEAN CORPUSCULAR VOLUME 93.7 fl (80.0-96.0); PLATELET COUNT, AUTOMATED 113 10^3/uL (150-450); RED BLOOD COUNT 3.17 10^6/uL (4.00-5.40); WHITE BLOOD COUNT 2.4 10^3/uL (4.0-10.0)
[2018-05-16 06:37] LABS: CALCIUM LEVEL 7.2 MG/DL (8.8-10.2); CREATININE FOR GFR 1.39 MG/DL (0.55-1.30); POTASSIUM SERUM 3.9 MEQ/L (3.5-5.1); TROPONIN I 0.02 NG/ML (< 0.10)
[2018-05-16] MEDS: ADVAIR HFA 115/21MCG INHALER INH SCH ×2 (07:24→20:20)
--- NOTE | 2018-05-16 08:15 | HPE ---
DATE OF ADMISSION: 05/15/2018 CHIEF COMPLAINT: Cough, pleuritic chest pain and diarrhea. HISTORY OF PRESENT ILLNESS: Patient is an 87-year-old female. She had a significant past medical history of multiple myeloma on lenalidomide. She follows with Dr. Marsh. Pancytopenia because of multiple myeloma, chronic kidney disease (CKD) stage III, coronary artery disease (CAD) status post percutaneous coronary intervention (PCI), diabetes hypertension, hypothyroidism. She presented to the emergency room for the second time. She presented on Wednesday with cough, shortness of breath. She was diagnosed with the flu, however had been having the symptoms for quite a while so she was subsequently discharged. She presents again today stating that her cough is worsened. She has some pleuritic chest pain. She is having loose stools, last one was earlier today. It is a nonproductive cough. She denies any fevers or chills. She is mildly short of breath on exertion. She denies any abdominal pain or urinary symptoms. PAST MEDICAL HISTORY: See history of present illness (HPI). PAST SURGICAL HISTORY: She has had hysterectomy. Knee surgery. Appendectomy. Carpal tunnel syndrome. Gastric ulcer surgery. Cardiac stents. ALLERGIES: SULFA ANTIBIOTICS, ASPIRIN, CODEINE, DIPHTHERIA TOXOID, FLUTICASONE, HYDROCODONE, PLAQUENIL, LISINOPRIL, METFORMIN, MORPHINE, ROSIGLITAZONE, SALMETEROL. SOCIAL HISTORY: Denies tobacco, alcohol or illicit drug use. FAMILY HISTORY: Noncontributory. REVIEW OF SYSTEMS: A 12-point review of system was completed all of which were negative except those listed in the history of present illness (HPI). HOME MEDICATIONS: - albuterol - ranitidine - lenalidomide - acyclovir - aspirin - Lipitor - atovaquone - vitamin D - Plavix - B12 - Decadron - insulin - Imdur - levothyroxine - nitroglycerine - Protonix - potassium - Advair - spironolactone VITALS ON ADMISSION: Temperature 97.6, pulse 76, respirations 20, blood pressure blood pressure 1909/81, saturating at 96% on room air. Blood pressure subsequently decreased to 160s/70s after getting her medications. PHYSICAL EXAMINATION: General: She is well-nourished in no apparent distress. Head is normocephalic atraumatic. Eyes: Extraocular movements are intact. Pupils equal, round, and reactive to light. Neck is supple. No jugular venous pulse (JVP). Lungs: She has marked crackles in the right base. No wheezing. Cardiovascular: Regular rate and rhythm. Normal S1, S2. No murmurs, gallops or rubs. Abdomen is soft, nontender, nondistended, positive bowel sounds. No rebound or guarding. Extremities: No edema. No calf tenderness. Skin is intact. No rashes, lesions or breakdown. Neurological exam: Alert and oriented times three. No focal deficits. LABS/IMAGING: Done in the emergency room. White count 2, absolute neutrophil count 1700, hemoglobin and hematocrit 10/30, platelet count 119. BUN and creatinine 18/1.47. This is her baseline creatinine. Troponins negative times two. TSH 29, free T4 0.63. Magnesium within normal limits, potassium 3, this has been supplemented in the emergency room. IMAGING: CT of the abdomen and pelvis shows no obvious acute abdominopelvic pathology appreciated. CT angio of the chest shows no pulmonary embolus, moderate chronic obstructive pulmonary disease (COPD), scattered lower lobe opacities may reflect atelectasis or early infiltrate. ASSESSMENT/PLAN: Cough likely secondary to influenza with possibly now superimposed bacterial pneumonia. Will treat with Tamiflu renally dosed as well as Rocephin and azithromycin. Sputum culture. Oxygen as needed. DuoNebs. Also in the emergency department, patient had frequent preventricular contractions (PVCs) one period in time where her EKG almost resembled bigemini. She had two negative troponins. Will keep the patient on telemetry. Will get an echo. Her potassium was low and will supplement and recheck. Magnesium was within normal limits. She was asymptomatic during this entire period. Multiple myeloma with pancytopenia, stable. Will hold lenalidomide in the setting of infection. However, patient does not have the medication right now and was told by her oncologist Dr. Marsh, when she acutely has an infection, this medication is to be held. Chronic kidney disease (CKD) stage III: Stable at baseline. Coronary artery disease: Two troponins have been negative. Continue aspirin, Lipitor. Diabetes: Continue insulin as per schedule, long-acting as well as insulin sliding scale. For multiple myeloma again with pancytopenia, continue her Decadron every as per her oncologist. Insulin regimen to be adjusted on . Hypothyroidism: TSH is slightly elevated, free T4 is low. Will change the dose of Synthroid to 137 mcg and thyroid function tests should be checked in 4-6 weeks. For hypertension: Continue home medications. Deep venous thrombosis prophylaxis heparin subcutaneous. Gastrointestinal prophylaxis: She is on Protonix. Diet: Cardiac diabetic diet.
[2018-05-16] MEDS: CYANOCOBALAMIN 500 MCG TAB PO SCH (08:46)
[2018-05-16] MEDS: ASPIRIN 81 MG ENTERIC TAB PO SCH (08:46)
[2018-05-16] MEDS: SPIRONOLACTONE 25 MG TAB PO SCH (08:46)
[2018-05-16] MEDS: ATORVASTATIN 20 MG TAB PO SCH (08:46)
[2018-05-16] MEDS: CLOPIDOGREL 75 MG TAB PO SCH (08:46)
[2018-05-16] MEDS: PANTOPRAZOLE 40MG TAB (PROTONIX) PO SCH (08:46)
--- NOTE | 2018-05-16 08:46 | ECGEPIP ---
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
[2018-05-16] MEDS: LEVEMIR (INSULIN DETEMIR) 1 UNITS/0.01ML SC SCH (08:47)
[2018-05-16] MEDS: VITAMIN D 1,000 INTERNATIONAL UNITS TABLET PO SCH (08:47)
[2018-05-16] MEDS: HumaLOG INSULIN (NovoLOG) PER UNIT SC SCH ×3 (08:48→17:22)
[2018-05-16] MEDS: ISOSORBIDE MON. (IMDUR) 60 MG XR TAB PO SCH (08:50)
[2018-05-16] MEDS: SODIUM CHLORIDE 0.9% INJ 10 ML SYR IV SCH (08:52)
--- NOTE | 2018-05-16 08:53 | ECGEPIP ---
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
--- NOTE | 2018-05-16 12:13 | IPNPDOC ---
Text Note Date of Service The patient was seen on 05/16/18. NOTE Subjective: Feels a little better today but still is very weak. Does not have any appetite, Last diarrhea was yesterday. No fever or chills , continues to cough. PHYSICAL EXAMINATION: VITALS: As below General: She is well-nourished in no apparent distress. Head is normocephalic atraumatic. Eyes: Extraocular movements are intact. Pupils equal, round, and reactive to light. Neck is supple. No jugular venous pulse (JVP). Lungs: She has marked crackles in the right base. No wheezing. Cardiovascular: Regular rate and rhythm. Normal S1, S2. No murmurs, gallops or rubs. Abdomen is soft, nontender, nondistended, positive bowel sounds. No rebound or guarding. Extremities: No edema. No calf tenderness. Skin is intact. No rashes, lesions or breakdown. Neurological exam: Alert and oriented times three. No focal deficits. Labs And Radiology : reviewed. 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 She presented to the emergency room for the second time. She presented on 05/12/18 with cough, shortness of breath. She was diagnosed with the flu, however as she had been having the symptoms for quite a while she was not given Tamiflu. She was managed and subsequently discharged from ED. She presents again today stating that her cough is worsened. She has some pleuritic chest pain, diarrhea for the last 3 days, poor appetite, feeling extremely weak and unable to get out of bed. CXR showed new infiltrates. Patient was admitted for infleunza with superadded bacterial pneumonia in a immunocompromised patient. Pneumonia continue ceftriaxone and azithromycin. Influenza A started on Tamiflu, supportive . CKD stage 3 continue to monitor creatinine which is at baseline. continue spironolactone. COPD with emphysema and bronchiectasis. continue home meds advair, duonebs Hypothyroid continue Synthroid Diabetes will give Lispro Ac and HS. and levemir as directed CAD s/p stents. no issues continue home meds. 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 Last chemo was on 04/25/18 requires intermittent transfusion last was in 12/02 continue acyclovir, atovaquone, dexamethasone H/O peptic ulcer disease and surgery for gastric ulcer continue PPI Vit B12 and VIt D deficiency continue supplements. DVT prophylaxis has been ordered. VS,Fishbone, I+O VS, Fishbone, I+O Laboratory Tests 05/15/18 15:48 Red Blood Count 3.23 L, Mean Corpuscular Volume 93.8, Mean Corpuscular Hemoglobin 32.5, Mean Corpuscular Hemoglobin Concent 34.7, Red Cell Distribution Width 14.5, Neutrophils (%) (Auto) 67.9 H, Lymphocytes (%) (Auto) 13.4 L, Monocytes (%) (Auto) 17.9 H, Eosinophils (%) (Auto) 0.0, Basophils (%) (Auto) 0.4, Neutrophils # (Auto) 1.7 L, Lymphocytes # (Auto) 0.3 L, Monocytes # (Auto) 0.4, Eosinophils # (Auto) 0.0, Basophils # (Auto) 0.0 05/16/18 05:42 Red Blood Count 3.17 L, Mean Corpuscular Volume 93.7, Mean Corpuscular Hemoglobin 31.9, Mean Corpuscular Hemoglobin Concent 34.0, Red Cell Distribution Width 14.4, Calcium Level 7.2 L Vital Signs Date Time Temp Pulse Resp B/P (MAP) Pulse Ox O2 Delivery O2 Flow Rate FiO2 05/16/18 08:50 148/68 05/16/18 06:00 99.1 60 21 96 05/15/18 15:10 Room Air I&O- Last 24 Hours up to 6 AM 05/16/18 06:00 Intake Total 1305 ml Output Total 400 ml Balance 905 ml DANE QUINN MD May 16, 2018 12:13
[2018-05-16] MEDS: ATOVAQUONE SUSP 750MG/5ML 210 ML BTL PO SCH (12:59)
[2018-05-16 14:00] VITALS: BP 115/59
[2018-05-16 22:00] VITALS: BP 124/50
[2018-05-17] MEDS: cefTRIAXone SOD 1 GM in D5W MINI-BAG PLUS 50 ML IV SCH (00:36)
[2018-05-17] MEDS: SODIUM CHLORIDE 0.9% INJ 10 ML SYR IV PRN (01:46)
[2018-05-17] MEDS ORDERED: traMADol 50 MG TAB PO ONE (04:00)
[2018-05-17 06:00] VITALS: BP_SYST 127; BP_SYST 130; BP_DIAS 57; BP_DIAS 65
[2018-05-17] MEDS: LEVOTHYROXINE 137MCG TABLET (0.137MG) PO SCH (06:00)
[2018-05-17 06:03] LABS: HEMATOCRIT 27.5 % (36.0-47.0); HEMOGLOBIN 9.4 g/dl (12.0-15.5); MEAN CORPUSCULAR HEMOGLOBIN 32.3 pg (27.0-33.0); MEAN CORPUSCULAR HGB CONC 34.2 g/dl (32.0-36.5); MEAN CORPUSCULAR VOLUME 94.5 fl (80.0-96.0); PLATELET COUNT, AUTOMATED 119 10^3/uL (150-450); RED BLOOD COUNT 2.91 10^6/uL (4.00-5.40); WHITE BLOOD COUNT 2.9 10^3/uL (4.0-10.0)
[2018-05-17 06:27] LABS: CALCIUM LEVEL 7.6 MG/DL (8.8-10.2); CREATININE FOR GFR 1.28 MG/DL (0.55-1.30); GLOMERULAR FILTRATION RATE 41.8 (>32)
[2018-05-17] MEDS: ADVAIR HFA 115/21MCG INHALER INH SCH ×2 (07:15→20:00)
--- NOTE | 2018-05-17 07:48 | ECGEPIP ---
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
[2018-05-17] MEDS: ONDANSETRON 4 MG TAB (S0181) PO PRN ×2 (10:14→18:21)
[2018-05-17] MEDS: HumaLOG INSULIN (NovoLOG) PER UNIT SC SCH ×3 (10:15→16:47)
[2018-05-17] MEDS: ATOVAQUONE SUSP 750MG/5ML 210 ML BTL PO SCH (10:16)
[2018-05-17] MEDS: raNITIdine SYRUP 150 MG/10 ML UDC PO SCH ×2 (10:16→20:38)
[2018-05-17] MEDS: LEVEMIR (INSULIN DETEMIR) 1 UNITS/0.01ML SC SCH (10:16)
[2018-05-17] MEDS: POTASSIUM CHLORIDE 10% LIQ 20 MEQ/15 ML UDC PO SCH ×2 (10:16→20:38)
[2018-05-17] MEDS: ISOSORBIDE MON. (IMDUR) 60 MG XR TAB PO SCH (10:18)
[2018-05-17] MEDS: VITAMIN D 1,000 INTERNATIONAL UNITS TABLET PO SCH (10:19)
[2018-05-17] MEDS: ATORVASTATIN 20 MG TAB PO SCH (10:19)
[2018-05-17] MEDS: PANTOPRAZOLE 40MG TAB (PROTONIX) PO SCH (10:19)
[2018-05-17] MEDS: ACYCLOVIR 200 MG CAPSULE PO SCH ×2 (10:19→20:38)
[2018-05-17] MEDS: SPIRONOLACTONE 25 MG TAB PO SCH (10:20)
[2018-05-17] MEDS: CLOPIDOGREL 75 MG TAB PO SCH (10:20)
[2018-05-17] MEDS: ASPIRIN 81 MG ENTERIC TAB PO SCH (10:20)
[2018-05-17] MEDS: CYANOCOBALAMIN 500 MCG TAB PO SCH (10:20)
[2018-05-17] MEDS: SODIUM CHLORIDE 0.9% INJ 10 ML SYR IV SCH (10:21)
--- NOTE | 2018-05-17 13:08 | IPNPDOC ---
Date Seen The patient was seen on 05/17/18. Progress Note Subjective: still c/o cough, nausea without vomiting and received zofran she also c/o generalized weakness. no fever or chills. Despite, pancytopenia, no c/o bleeding. still requiring a sitter due to confusion. PHYSICAL EXAMINATION: VITALS: As below General: She is well-nourished in no apparent distress. Head is normocephalic atraumatic. Eyes: Extraocular movements are intact. Pupils equal, round, and reactive to light. Neck is supple. No jugular venous pulse (JVP). Lungs: She has marked crackles in the right base. No wheezing. Cardiovascular: Regular rate and rhythm. Normal S1, S2. No murmurs, gallops or rubs. Abdomen is soft, nontender, nondistended, positive bowel sounds. No rebound or guarding. Extremities: No edema. No calf tenderness. Skin is intact. No rashes, lesions or breakdown. Neurological exam: Alert and oriented times three. No focal deficits. Labs And Radiology : reviewed. 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 She presented to the emergency room for the second time. She presented on 05/12/18 with cough, shortness of breath. She was diagnosed with the flu, however as she had been having the symptoms for quite a while she was not given Tamiflu. She was managed and subsequently discharged from ED. She presents again today stating that her cough is worsened. She has some pleuritic chest pain, diarrhea for the last 3 days, poor appetite, feeling extremely weak and unable to get out of bed. CXR showed new infiltrates. Patient was admitted for infleunza with superadded bacterial pneumonia in a immunocompromised patient. Pneumonia continue ceftriaxone and azithromycin. Influenza A started on Tamiflu, supportive . CKD stage 3 continue to monitor creatinine which is at baseline. continue spironolactone. COPD with emphysema and bronchiectasis. continue home meds advtruong mehta pancytopenia, chronic Hypothyroid continue Synthroid Diabetes will give Lispro Ac and HS. and levemir as directed CAD s/p stents. no issues continue home meds. 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 Last chemo was on 04/25/18 requires intermittent transfusion last was in 12/02 continue acyclovir, atovaquone, dexamethasone H/O peptic ulcer disease and surgery for gastric ulcer continue PPI Vit B12 and VIt D deficiency continue supplements. DVT prophylaxis has been ordered. VS, I&O, 24H, Fishbone Vital Signs/I&O Vital Signs Date Time Temp Pulse Resp B/P (MAP) Pulse Ox O2 Delivery O2 Flow Rate FiO2 05/17/18 10:18 129/52 05/17/18 06:00 72 73 76 05/17/18 06:00 98.9 20 98 05/15/18 15:10 Room Air I&O- Last 24 Hours up to 6 AM 05/17/18 06:00 Intake Total 2105 ml Output Total 1100 ml Balance 1005 ml Laboratory Data 24H LABS Laboratory Tests 2 05/16/18 12:33: Bedside Glucose (Misc Panel) 214H 05/16/18 15:20: Bedside Glucose (Misc Panel) 173H 05/16/18 16:39: Bedside Glucose (Misc Panel) 164H 05/16/18 19:49: Bedside Glucose (Misc Panel) 134H 05/17/18 05:46: Nucleated Red Blood Cells % (auto) 0.0, Anion Gap 8, Glomerular Filtration Rate 41.8, Blood Urea Nitrogen 13, Creatinine 1.28, Sodium Level 135L, Potassium Level 4.0, Chloride Level 106, Carbon Dioxide Level 21, Calcium Level 7.6L 05/17/18 11:22: Bedside Glucose (Misc Panel) 211H CBC/BMP Laboratory Tests 05/17/18 05:46 Red Blood Count 2.91 L, Mean Corpuscular Volume 94.5, Mean Corpuscular H emoglobin 32.3, Mean Corpuscular Hemoglobin Concent 34.2, Red Cell Distribution Width 14.6 H, Calcium Level 7.6 L Microbiology Microbiology 05/15/18 Blood Culture - Preliminary, Resulted No growth after 24 hours . All specim... 05/15/18 Blood Culture - Preliminary, Resulted No growth after 24 hours . All specim... 05/15/18 Respiratory Virus Panel (PCR) ([facility]) - Final, Complete Influenza A H1-2009 BISI DSOUZA MD May 17, 2018 12:31
[2018-05-17 14:00] VITALS: BP 127/60
[2018-05-17] MEDS: OSELTAMIVIR PHOSPHATE 30MG CAPSULE PO SCH (20:38)
[2018-05-17 22:00] VITALS: BP 142/66
[2018-05-17] MEDS: AZITHROMYCIN INJ 500 MG, VIAL MATE ADAPTER 1 EACH in D5W 250 ML IV SCH (23:08)
[2018-05-18] MEDS: cefTRIAXone SOD 1 GM in D5W MINI-BAG PLUS 50 ML IV SCH ×2 (00:36→23:14)
[2018-05-18] MEDS: LEVOTHYROXINE 137MCG TABLET (0.137MG) PO SCH (05:34)
[2018-05-18 05:59] LABS: HEMOGLOBIN 9.1 g/dl (12.0-15.5); MEAN CORPUSCULAR HEMOGLOBIN 32.3 pg (27.0-33.0); MEAN CORPUSCULAR HGB CONC 33.7 g/dl (32.0-36.5); MEAN CORPUSCULAR VOLUME 95.7 fl (80.0-96.0); PLATELET COUNT, AUTOMATED 122 10^3/uL (150-450); RED BLOOD COUNT 2.82 10^6/uL (4.00-5.40); WHITE BLOOD COUNT 2.3 10^3/uL (4.0-10.0)
[2018-05-18 06:00] VITALS: BP 138/79
[2018-05-18 06:13] LABS: CALCIUM LEVEL 7.5 MG/DL (8.8-10.2); CREATININE FOR GFR 1.28 MG/DL (0.55-1.30); GLOMERULAR FILTRATION RATE 41.8 (>32); POTASSIUM SERUM 4.4 MEQ/L (3.5-5.1)
[2018-05-18] MEDS: HumaLOG INSULIN (NovoLOG) PER UNIT SC SCH ×3 (07:30→17:30)
[2018-05-18] MEDS: ADVAIR HFA 115/21MCG INHALER INH SCH ×2 (07:40→20:53)
[2018-05-18] MEDS: LEVEMIR (INSULIN DETEMIR) 1 UNITS/0.01ML SC SCH (10:24)
--- NOTE | 2018-05-18 10:56 | IPNPDOC ---
Date Seen The patient was seen on 05/18/18. Progress Note Subjective:Pt lives with her son. PT consulted for HSE. still c/o cough, nausea without vomiting and received zofran she also c/o generalized weakness. no fever or chills. Despite, pancytopenia, no c/o bleeding. still requiring a sitter due to confusion. PHYSICAL EXAMINATION: VITALS: As below General: She is well-nourished in no apparent distress. Head is normocephalic atraumatic. Eyes: Extraocular movements are intact. Pupils equal, round, and reactive to light. Neck is supple. No jugular venous pulse (JVP). Lungs: She has marked crackles in the right base. No wheezing. Cardiovascular: Regular rate and rhythm. Normal S1, S2. No murmurs, gallops or rubs. Abdomen is soft, nontender, nondistended, positive bowel sounds. No rebound or guarding. Extremities: No edema. No calf tenderness. Skin is intact. No rashes, lesions or breakdown. Neurological exam: Alert and oriented times three. No focal deficits. Labs And Radiology : reviewed. 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 She presented to the emergency room for the second time. She presented on 05/12/18 with cough, shortness of breath. She was diagnosed with the flu, however as she had been having the symptoms for quite a while she was not given Tamiflu. She was managed and subsequently discharged from ED. She presents again today stating that her cough is worsened. She has some pleuritic chest pain, diarrhea for the last 3 days, poor appetite, feeling extremely weak and unable to get out of bed. CXR showed new infiltrates. Patient was admitted for infleunza with superadded bacterial pneumonia in a immunocompromised patient. Pneumonia continue ceftriaxone and azithromycin. Influenza A started on Tamiflu, supportive . CKD stage 3 continue to monitor creatinine which is at baseline. continue spironolactone. COPD with emphysema and bronchiectasis. continue home meds advair, duonebs pancytopenia, chronic Hypothyroid continue Synthroid Diabetes will give Lispro Ac and HS. and levemir as directed CAD s/p stents. no issues continue home meds. 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 Last chemo was on 04/25/18 requires intermittent transfusion last was in 12/02 continue acyclovir, atovaquone, dexamethasone H/O peptic ulcer disease and surgery for gastric ulcer continue PPI Vit B12 and VIt D deficiency continue supplements. DVT prophylaxis has been ordered. VS, I&O, 24H, Fishbone Vital Signs/I&O Vital Signs Date Time Temp Pulse Resp B/P (MAP) Pulse Ox O2 Delivery O2 Flow Rate FiO2 05/18/18 06:00 97.5 65 18 138/79 (98) 96 05/15/18 15:10 Room Air I&O- Last 24 Hours up to 6 AM 05/18/18 06:00 Intake Total 1025 ml Output Total 1500 ml Balance -475 ml Laboratory Data 24H LABS Laboratory Tests 2 05/17/18 11:22: Bedside Glucose (Misc Panel) 211H 05/17/18 16:14: Bedside Glucose (Misc Panel) 91 05/17/18 20:44: Bedside Glucose (Misc Panel) 121H 05/18/18 05:34: Nucleated Red Blood Cells % (auto) 0.0, Anion Gap 6L, Glomerular Filtration Rate 41.8, Blood Urea Nitrogen 12, Creatinine 1.28, Sodium Level 139, Potassium Level 4.4, Chloride Level 110H, Carbon Dioxide Level 23, Calcium Level 7.5L CBC/BMP Laboratory Tests 05/18/18 05:34 Red Blood Count 2.82 L, Mean Corpuscular Volume 95.7, Mean Corpuscular Hemoglobin 32.3, Mean Corpuscular Hemoglobin Concent 33.7, Red Cell Distribution Width 14.7 H, Calcium Level 7.5 L Microbiology Microbiology 05/15/18 Blood Culture - Preliminary, Resulted No Growth after 48 hours. All Specime... 05/15/18 Blood Culture - Preliminary, Resulted No Growth after 48 hours. All Specime... 05/15/18 Respiratory Virus Panel (PCR) ([facility]) - Final, Complete Influenza A H1-2008 BISI SDOUZA MD May 18, 2018 10:56
[2018-05-18] MEDS ORDERED: TAMI30CA PO (11:19)
[2018-05-18] MEDS ORDERED: BACI1CAP PO (11:21)
[2018-05-18] MEDS ORDERED: LEVA250T13 PO (11:21)
[2018-05-18] MEDS: ATOVAQUONE SUSP 750MG/5ML 210 ML BTL PO SCH (12:39)
[2018-05-18] MEDS: raNITIdine SYRUP 150 MG/10 ML UDC PO SCH ×2 (12:40→21:26)
[2018-05-18] MEDS: MOM 30ML SUSPENSION UDC PO SCH (12:40)
[2018-05-18] MEDS: POTASSIUM CHLORIDE 10% LIQ 20 MEQ/15 ML UDC PO SCH ×2 (12:40→21:26)
[2018-05-18] MEDS: ISOSORBIDE MON. (IMDUR) 60 MG XR TAB PO SCH (12:43)
[2018-05-18] MEDS: CLOPIDOGREL 75 MG TAB PO SCH (12:44)
[2018-05-18] MEDS: VITAMIN D 1,000 INTERNATIONAL UNITS TABLET PO SCH (12:44)
[2018-05-18] MEDS: ATORVASTATIN 20 MG TAB PO SCH (12:44)
[2018-05-18] MEDS: ACYCLOVIR 200 MG CAPSULE PO SCH ×2 (12:44→21:26)
[2018-05-18] MEDS: SPIRONOLACTONE 25 MG TAB PO SCH (12:44)
[2018-05-18] MEDS: ASPIRIN 81 MG ENTERIC TAB PO SCH (12:45)
[2018-05-18] MEDS: CYANOCOBALAMIN 500 MCG TAB PO SCH (12:45)
[2018-05-18] MEDS: PANTOPRAZOLE 40MG TAB (PROTONIX) PO SCH (12:45)
[2018-05-18] MEDS: SODIUM CHLORIDE 0.9% INJ 10 ML SYR IV SCH (12:47)
[2018-05-18 14:00] VITALS: BP 144/74
[2018-05-18] MEDS: OSELTAMIVIR PHOSPHATE 30MG CAPSULE PO SCH (21:27)
[2018-05-18 22:00] VITALS: BP 151/66
[2018-05-18] MEDS: AZITHROMYCIN INJ 500 MG, VIAL MATE ADAPTER 1 EACH in D5W 250 ML IV SCH (22:15)
[2018-05-19] MEDS: LEVOTHYROXINE 137MCG TABLET (0.137MG) PO SCH (05:45)
[2018-05-19 06:00] VITALS: BP 155/69
[2018-05-19 06:37] LABS: HEMATOCRIT 29.3 % (36.0-47.0); HEMOGLOBIN 9.9 g/dl (12.0-15.5); MEAN CORPUSCULAR HEMOGLOBIN 32.6 pg (27.0-33.0); MEAN CORPUSCULAR HGB CONC 33.8 g/dl (32.0-36.5); MEAN CORPUSCULAR VOLUME 96.4 fl (80.0-96.0); PLATELET COUNT, AUTOMATED 174 10^3/uL (150-450); RED BLOOD COUNT 3.04 10^6/uL (4.00-5.40); WHITE BLOOD COUNT 2.8 10^3/uL (4.0-10.0)
[2018-05-19 06:59] LABS: CALCIUM LEVEL 8.1 MG/DL (8.8-10.2); CREATININE FOR GFR 1.35 MG/DL (0.55-1.30); GLOMERULAR FILTRATION RATE 39.3 (>32); POTASSIUM SERUM 4.5 MEQ/L (3.5-5.1)
[2018-05-19] MEDS: ADVAIR HFA 115/21MCG INHALER INH SCH ×2 (07:20→18:17)
[2018-05-19] MEDS: HumaLOG INSULIN (NovoLOG) PER UNIT SC SCH ×3 (07:30→18:14)
[2018-05-19] MEDS ORDERED: LEVEMIR (INSULIN DETEMIR) 1 UNITS/0.01ML SC SCH (09:00)
[2018-05-19] MEDS: SODIUM CHLORIDE 0.9% INJ 10 ML SYR IV SCH (09:00)
[2018-05-19] MEDS: MOM 30ML SUSPENSION UDC PO SCH (09:00)
[2018-05-19] MEDS: ACYCLOVIR 200 MG CAPSULE PO SCH ×2 (09:14→20:49)
[2018-05-19] MEDS: ATORVASTATIN 20 MG TAB PO SCH (09:14)
[2018-05-19] MEDS: SPIRONOLACTONE 25 MG TAB PO SCH (09:15)
[2018-05-19] MEDS: CYANOCOBALAMIN 500 MCG TAB PO SCH (09:15)
[2018-05-19] MEDS: CLOPIDOGREL 75 MG TAB PO SCH (09:15)
[2018-05-19] MEDS: POTASSIUM CHLORIDE 10% LIQ 20 MEQ/15 ML UDC PO SCH ×2 (09:15→20:49)
[2018-05-19] MEDS: VITAMIN D 1,000 INTERNATIONAL UNITS TABLET PO SCH (09:16)
[2018-05-19] MEDS: ASPIRIN 81 MG ENTERIC TAB PO SCH (09:16)
[2018-05-19] MEDS: raNITIdine SYRUP 150 MG/10 ML UDC PO SCH ×2 (09:16→20:49)
[2018-05-19] MEDS: PANTOPRAZOLE 40MG TAB (PROTONIX) PO SCH (09:17)
[2018-05-19] MEDS: ATOVAQUONE SUSP 750MG/5ML 210 ML BTL PO SCH (09:17)
[2018-05-19] MEDS: ISOSORBIDE MON. (IMDUR) 60 MG XR TAB PO SCH (09:17)
[2018-05-19] MEDS: LevoFLOXacin 250 MG TABLET PO SCH (10:36)
--- NOTE | 2018-05-19 11:19 | IPNPDOC ---
Date Seen The patient was seen on 05/19/18. Progress Note Subjective: possible dc in am. pleasantly confused but cooperative. Pt lives with her son. PT consulted for HSE. still c/o cough, nausea without vomiting and received zofran she also c/o generalized weakness. no fever or chills. Despite, pancytopenia, no c/o bleeding. still requiring a sitter due to confusion. PHYSICAL EXAMINATION: VITALS: As below General: She is well-nourished in no apparent distress. Head is normocephalic atraumatic. Eyes: Extraocular movements are intact. Pupils equal, round, and reactive to light. Neck is supple. No jugular venous pulse (JVP). Lungs: She has marked crackles in the right base. No wheezing. Cardiovascular: Regular rate and rhythm. Normal S1, S2. No murmurs, gallops or rubs. Abdomen is soft, nontender, nondistended, positive bowel sounds. No rebound or guarding. Extremities: No edema. No calf tenderness. Skin is intact. No rashes, lesions or breakdown. Neurological exam: Alert and oriented times three. No focal deficits. Labs And Radiology : reviewed. 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 She presented to the emergency room for the second time. She presented on 05/12/18 with cough, shortness of breath. She was diagnosed with the flu, however as she had been having the symptoms for quite a while she was not given Tamiflu. She was managed and subsequently discharged from ED. She presents again today stating that her cough is worsened. She has some pleuritic chest pain, diarrhea for the last 3 days, poor appetite, feeling extremely weak and unable to get out of bed. CXR showed new infiltrates. Patient was admitted for infleunza with superadded bacterial pneumonia in a immunocompromised patient. Pneumonia continue ceftriaxone and azithromycin. Influenza A started on Tamiflu, supportive . CKD stage 3 continue to monitor creatinine which is at baseline. continue spironolactone. COPD with emphysema and bronchiectasis. continue home meds advair, duonebs pancytopenia, chronic Hypothyroid continue Synthroid Diabetes will give Lispro Ac and HS. and levemir as directed CAD s/p stents. no issues continue home meds. 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 Last chemo was on 04/25/18 requires intermittent transfusion last was in 12/02 continue acyclovir, atovaquone, dexamethasone H/O peptic ulcer disease and surgery for gastric ulcer continue PPI Vit B12 and VIt D deficiency continue supplements. DVT prophylaxis has been ordered. disposition: dc in am if passes HSE. VS, I&O, 24H, Fishbone Vital Signs/I&O Vital Signs Date Time Temp Pulse Resp B/P (MAP) Pulse Ox O2 Delivery O2 Flow Rate FiO2 05/19/18 09:17 124/62 05/19/18 06:00 97.7 62 18 97 05/15/18 15:10 Room Air I&O- Last 24 Hours up to 6 AM 05/19/18 05:59 Intake Total 1385 ml Output Total 1500 ml Balance -115 ml Laboratory Data 24H LABS Laboratory Tests 2 05/18/18 11:50: Bedside Glucose (Misc Panel) 237H 05/18/18 16:25: Bedside Glucose (Misc Panel) 77L 05/18/18 20:03: Bedside Glucose (Misc Panel) 129H 05/19/18 06:18: Nucleated Red Blood Cells % (auto) 0.0, Anion Gap 6L, Glomerular Filtration Rate 39.3, Blood Urea Nitrogen 13, Creatinine 1.35H, Sodium Level 138, Potassium Level 4.5, Chloride Level 107, Carbon Dioxide Level 25, Calcium Level 8.1L CBC/BMP Laboratory Tests 05/19/18 06:18 Red Blood Count 3.04 L, Mean Corpuscular Volume 96.4 H, Mean Corpuscular Hemoglobin 32.6, Mean Corpuscular Hemoglobin Concent 33.8, Red Cell Distribution Width 14.6 H, Calcium Level 8.1 L Microbiology Microbiology 05/15/18 Blood Culture - Preliminary, Resulted No Growth after 72 hours. All specime... 05/15/18 Blood Culture - Preliminary, Resulted No Growth after 72 hours. All specime... 05/15/18 Respiratory Virus Panel (PCR) ([facility]) - Final, Complete Influenza A H1-2009 BISI DSOUZA MD May 19, 2018 11:19
[2018-05-19] MEDS ORDERED: BACITAB PO (11:27)
[2018-05-19] MEDS ORDERED: LEVA250T13 PO (11:27)
[2018-05-19 14:00] VITALS: BP 177/81
--- NOTE | 2018-05-19 15:51 | ECHO ---
DATE OF STUDY: 05/17/2018 REFERRING PHYSICIAN: Dr. Paz Wednesday INDICATION: Abnormal ECG. HEIGHT: 145 cm WEIGHT: 54.1 kg 2-D MEASUREMENTS: Aortic root: 2.9 cm Left atrium: 3.0 cm Ventricular septum: 1.18 cm Posterior wall: 1.21 cm Left ventricle diastole: 4.6 cm Aortic annulus: 1.9 cm Inferior vena cava: 2.1 cm (more than 50% respiratory variation) DOPPLER MEASUREMENTS: Trace aortic regurgitation. No aortic stenosis. Aortic valve velocity: 166 cm/s LVOT velocity: 95.3 cm/s LVOT VTI: 22.8 cm Moderate mitral regurgitation. Mitral E velocity: 98.5 cm/s Mitral A velocity: 85.4 cm/s Mitral deceleration time: 201 ms Very mild tricuspid regurgitation. Estimated right ventricle systolic pressure 35-40 assuming an atrial pressure of 5-10 mmHg. Very mild pulmonic regurgitation. Pulmonary artery systolic pressure: 30 mmHg MITRAL ANNULAR TISSUE DOPPLER: E prime septal: 5.0 cm/s E prime lateral: 6.64 cm/s DESCRIPTION: Rhythm was sinus. Image quality was fair. This was a 2-D, M-mode, color flow Doppler and pulse waved Doppler examination and included mitral annular tissue Doppler. CONCLUSIONS: 1. Borderline concentric left ventricular hypertrophy. Normal regional LV wall motion and wall thickening. Normal LV systolic function. Left ventricular ejection fraction (LVEF) 60% (3D). Suggestive of grade 2 LV diastolic dysfunction (pseudonormal LV filling pattern). However, caution in interpretation of LV diastolic function in the setting of moderate mitral regurgitation. 2. Moderate mitral annular calcification. Moderate mitral regurgitation. No mitral stenosis. 3. Mild aortic valve sclerosis of a 3-cusp aortic valve. Trace aortic regurgitation. 4. Suggestive of mild elevation of estimated right ventricular systolic pressure. 5. Tiny pericardial effusion. 6. Otherwise, normal appearing echocardiogram-Doppler findings.
[2018-05-19 18:41] LABS: CALCIUM LEVEL 9.2 MG/DL (8.8-10.2); CREATININE FOR GFR 1.45 MG/DL (0.55-1.30); GLOMERULAR FILTRATION RATE 36.2 (>32); POTASSIUM SERUM 4.8 MEQ/L (3.5-5.1)
[2018-05-19] MEDS: OSELTAMIVIR PHOSPHATE 30MG CAPSULE PO SCH (20:48)
[2018-05-19 22:00] VITALS: BP 154/74
[2018-05-20] MEDS: LevoFLOXacin 250 MG TABLET PO SCH (05:48)
[2018-05-20] MEDS: LEVOTHYROXINE 137MCG TABLET (0.137MG) PO SCH (05:48)
[2018-05-20 06:00] VITALS: BP 145/85
[2018-05-20 06:21] LABS: HEMATOCRIT 30.4 % (36.0-47.0); HEMOGLOBIN 10.4 g/dl (12.0-15.5); MEAN CORPUSCULAR HEMOGLOBIN 32.4 pg (27.0-33.0); MEAN CORPUSCULAR HGB CONC 34.2 g/dl (32.0-36.5); MEAN CORPUSCULAR VOLUME 94.7 fl (80.0-96.0); PLATELET COUNT, AUTOMATED 226 10^3/uL (150-450); RED BLOOD COUNT 3.21 10^6/uL (4.00-5.40); WHITE BLOOD COUNT 4.7 10^3/uL (4.0-10.0)
[2018-05-20 06:38] LABS: CALCIUM LEVEL 8.9 MG/DL (8.8-10.2); CREATININE FOR GFR 1.47 MG/DL (0.55-1.30); GLOMERULAR FILTRATION RATE 35.6 (>32); POTASSIUM SERUM 4.7 MEQ/L (3.5-5.1)
[2018-05-20] MEDS: ADVAIR HFA 115/21MCG INHALER INH SCH (07:32)
[2018-05-20 08:34] VITALS: BP 145/85
[2018-05-20] MEDS: raNITIdine SYRUP 150 MG/10 ML UDC PO SCH (08:34)
[2018-05-20] MEDS: VITAMIN D 1,000 INTERNATIONAL UNITS TABLET PO SCH (08:34)
[2018-05-20] MEDS: ASPIRIN 81 MG ENTERIC TAB PO SCH (08:34)
[2018-05-20] MEDS: ISOSORBIDE MON. (IMDUR) 60 MG XR TAB PO SCH (08:34)
[2018-05-20] MEDS: CLOPIDOGREL 75 MG TAB PO SCH (08:34)
[2018-05-20] MEDS: POTASSIUM CHLORIDE 10% LIQ 20 MEQ/15 ML UDC PO SCH (08:34)
[2018-05-20] MEDS: PANTOPRAZOLE 40MG TAB (PROTONIX) PO SCH (08:34)
[2018-05-20] MEDS: ATORVASTATIN 20 MG TAB PO SCH (08:34)
[2018-05-20] MEDS: ATOVAQUONE SUSP 750MG/5ML 210 ML BTL PO SCH (08:34)
[2018-05-20] MEDS: CYANOCOBALAMIN 500 MCG TAB PO SCH (08:34)
[2018-05-20] MEDS: MOM 30ML SUSPENSION UDC PO SCH ×2 (08:35→08:38)
[2018-05-20] MEDS: SODIUM CHLORIDE 0.9% INJ 10 ML SYR IV SCH (08:35)
[2018-05-20] MEDS: LEVEMIR (INSULIN DETEMIR) 1 UNITS/0.01ML SC SCH (08:36)
[2018-05-20] MEDS: HumaLOG INSULIN (NovoLOG) PER UNIT SC SCH (08:36)
[2018-05-20] MEDS: ACYCLOVIR 200 MG CAPSULE PO SCH (09:59)
--- NOTE | 2018-05-20 11:41 | DS.PDOC ---
Discharge Summary General Date of Admission May 15, 2018 at 21:46 Date of Discharge May 20, 2018 Discharge Summary DISCHARGE DIAGNOSES: Pneumonia Influenza A CKD stage 3 COPD with emphysema and bronchiectasis. pancytopenia, chronic Hypothyroid Diabetes CAD s/p stents. 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 She presented to the emergency room for the second time. She presented on 05/12/18 with cough, shortness of breath. She was diagnosed with the flu, however as she had been having the symptoms for quite a while she was not given Tamiflu. She was managed and subsequently discharged from ED. She presents again today stating that her cough is worsened. She has some pleuritic chest pain, diarrhea for the last 3 days, poor appetite, feeling extremely weak and unable to get out of bed. CXR showed new infiltrates. Patient was admitted for infleunza with superadded bacterial pneumonia in a immunocompromised patient. HOSPITAL COURSE: Pneumonia S/P ceftriaxone and azithromycin. to complete 7days of antibiotics. po levaquin as outpt. Influenza A S/P Tamiflu completed as inpt, supportive . CKD stage 3 continue to monitor creatinine which is at baseline. continue spironolactone. COPD with emphysema and bronchiectasis. continue home meds advtruong mehta pancytopenia, chronic Hypothyroid continue Synthroid Diabetes will give Lispro Ac and HS. and levemir as directed CAD s/p stents. no issues continue home meds. 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 Last chemo was on 04/25/18 requires intermittent transfusion last was in 12/02 continue acyclovir, atovaquone, dexamethasone H/O peptic ulcer disease and surgery for gastric ulcer continue PPI Vit B12 and VIt D deficiency continue supplements. DVT prophylaxis has been ordered. DISCHARGE PHYSICAL EXAMINATION: VITALS: As below General: She is well-nourished in no apparent distress. Head is normocephalic atraumatic. Eyes: Extraocular movements are intact. Pupils equal, round, and reactive to light. Neck is supple. No jugular venous pulse (JVP). Lungs: She has marked crackles in the right base. No wheezing. Cardiovascular: Regular rate and rhythm. Normal S1, S2. No murmurs, gallops or rubs. Abdomen is soft, nontender, nondistended, positive bowel sounds. No rebound or guarding. Extremities: No edema. No calf tenderness. Skin is intact. No rashes, lesions or breakdown. Neurological exam: Alert and oriented times three. No focal deficits. DISCHARGE LABORATORY DATA, IMAGING STUDIES, MICROBIOLOGY: PLS SEE BELOW TIME SPENT ON DISCHARGE: 30 MIN. Vital Signs/I&Os Vital Signs Date Time Temp Pulse Resp B/P (MAP) Pulse Ox O2 Delivery O2 Flow Rate FiO2 05/20/18 08:34 145/85 05/20/18 06:00 98.4 66 18 95 05/15/18 15:10 Room Air I&O- Last 24 Hours up to 6 AM 05/20/18 06:00 Intake Total 630 ml Output Total 1500 ml Balance -870 ml Laboratory Data Labs 24H Laboratory Tests 2 05/19/18 12:22: Bedside Glucose (Misc Panel) 201H 05/19/18 17:01: Bedside Glucose (Misc Panel) 151H 05/19/18 18:05: Anion Gap 8, Glomerular Filtration Rate 36.2, Blood Urea Nitrogen 16, Creatinine 1.45H, Sodium Level 133L, Potassium Level 4.8, Chloride Level 103, Carbon Dioxide Level 22, Calcium Level 9.2 05/19/18 20:10: Bedside Glucose (Misc Panel) 234H 05/20/18 05:31: Nucleated Red Blood Cells % (auto) 0.0, Anion Gap 6L, Glomerular Filtration Rate 35.6, Blood Urea Nitrogen 17, Creatinine 1.47H, Sodium Level 135L, Potassium Level 4.7, Chloride Level 104, Carbon Dioxide Level 25, Calcium Level 8.9 CBC/BMP Laboratory Tests 05/19/18 18:05 Calcium Level 9.2 05/20/18 05:31 Calcium Level 8.9, Red Blood Count 3.21 L, Mean Corpuscular Volume 94.7, Mean Corpuscular Hemoglobin 32.4, Mean Corpuscular Hemoglobin Concent 34.2, Red Cell Distribution Width 14.3 FSBS Laboratory Tests Test 05/19/18 12:22 05/19/18 17:01 05/19/18 20:10 Range/Units Bedside Glucose (Misc Panel) 201 151 234 83-110 MG/DL Microbiology Microbiology 05/15/18 Blood Culture - Preliminary, Resulted No Growth after 72 hours. All specime... 05/15/18 Blood Culture - Preliminary, Resulted No Growth after 72 hours. All specime... 05/15/18 Respiratory Virus Panel (PCR) ([facility]) - Final, Complete Influenza A H1-2009 Discharge Medications Scheduled (Acyclovir) 200 Mg Cap, 200 MG PO BID, (Reported) Aspirin (Aspirin EC) 81 Mg Tab, 81 MG PO DAILY, (Reported) Atorvastatin Calcium (Atorvastatin Calcium) 40 Mg Tab, 40 MG PO DAILY, (Reported) Atovaquone (Mepron) 750 Mg/5 Ml Susp, 1,500 MG PO DAILY, (Reported) Cholecalciferol (Vitamin D3) 1,000 Unit Cap, 1,000 UNIT PO DAILY, (Reported) Clopidogrel Bisulfate (Plavix) 75 Mg Tab, 75 MG PO DAILY, (Reported) Cyanocobalamin (B-12) 1,000 Mcg Tab, 1,000 MCG PO DAILY, (Reported) Dexamethasone (Dexamethasone) 4 Mg Tab, 20 MG PO 1XWK, (Reported) TAKE ON , THURSDAYS Insulin Detemir (Levemir) 1 Units/0.01 Ml Susp, 4 UNITS SC 6XWK, (Reported) TAKES ON WEDNESDAY, WEDNESDAY, WEDNESDAY, WEDNESDAY, WEDNESDAY AND WEDNESDAY Insulin Detemir (Levemir) 1 Units/0.01 Ml Susp, 10 UNITS SC 1XWK, (Reported) TAKES ON , WEDNESDAY Isosorbide Mononitrate (Isosorbide Mononitrate ER) 60 Mg Tab, 60 MG PO DAILY, (Reported) Lactobacillus Acidophilus (Bacid) 1 Tab Tab, 1 TAB PO TID Lenalidomide (Revlimid) 10 Mg Cap, 10 MG PO DAILY, (Reported) Levofloxacin Hemihydrate (Levaquin) 250 Mg Tab, 250 MG PO DAILY@06 Levothyroxine Sodium (Synthroid) 125 Mcg Tab, 125 MCG PO DAILY, (Reported) Pantoprazole Sodium (Pantoprazole Sodium) 40 Mg Tab, 40 MG PO DAILY, (Reported) Potassium Chloride (Potassium Chloride) 10 % Phoebe, 30 ML PO BID, (Reported) Ranitidine HCl (Ranitidine HCl) 150 Mg Tab, 1 TAB PO BID, (Reported) Salmeterol/Fluticasone (Advair Diskus 250-50 Mcg/Dose) 14 Puff/Inhaler Aerp, 1 PUFF INH BID, (Reported) Spironolactone (Spironolactone) 25 Mg Tab, 25 MG PO DAILY, (Reported) Scheduled PRN Albuterol Sulfate (Proair Hfa) 108 Mcg/Act Aer, 2 PUFFS INH QID PRN for SHORTNESS OF BREATH, (Reported) Nitroglycerin (Nitrostat) 0.4 Mg Subl, 0.4 MG SL NITRO PRN for CHEST PAIN, (Reported) Ondansetron HCl (Zofran) 4 Mg Tab, 4 MG PO Q8H PRN for NAUSEA, (Reported) Allergies Coded Allergies: latex (Unverified Allergy, Severe, PALPITATION / SWELLING, 05/12/18) Sulfa (Sulfonamide Antibiotics) (Unverified Allergy, Intermediate, MIGRAINE , HEART POUNDS, 05/12/18) hydroxychloroquine (Unverified Allergy, Mild, RASH, 05/12/18) diphtheria toxoid,adsorbed (Unverified Allergy, Unknown, 05/12/18) fluticasone (Unverified Allergy, Unknown, 05/12/18) metformin (Unverified Allergy, Unknown, 05/12/18) rosiglitazone (Unverified Allergy, Unknown, 05/12/18) salmeterol (Unverified Allergy, Unknown, 05/12/18) tetanus toxoid, adsorbed (Unverified Allergy, Unknown, 05/12/18) lisinopril (Unverified Adverse Reaction, Intermediate, COUGH, 05/12/18) codeine (Unverified Adverse Reaction, Mild, CANT WAKE, 05/12/18) aspirin (Unverified Adverse Reaction, Unknown, REGULAR ASPIRIN, 05/12/18) hydrocodone (Unverified Adverse Reaction, Unknown, "CANT WALK , OUT OF IT", 05/12/18) morphine (Unverified Adverse Reaction, Unknown, 05/12/18) BISI DSOUZA MD May 20, 2018 11:29
[2018-05-23] MEDS ORDERED: REVL10CA2 PO (11:13)
== END 2018-05-20 12:10 | disposition home health service (06) | DRG 194 ==
LOC: M ED 15:10 → M ED INP 21:46 → M MSPAV 23:52
PROVIDERS: ADMIT Internal Medicine; ATTEND General Practice
DX: J10.08 Influenza due to other identified influenza virus with other specified pneumonia (principal); C90.01 Multiple myeloma in remission; D61.818 Other pancytopenia; C91.10 Chronic lymphocytic leukemia of B-cell type not having achieved remission; N18.3 Chronic kidney disease, stage 3 (moderate); I25.10 Atherosclerotic heart disease of native coronary artery without angina pectoris; E11.22 Type 2 diabetes mellitus with diabetic chronic kidney disease; J15.9 Unspecified bacterial pneumonia; I12.9 Hypertensive chronic kidney disease with stage 1 through stage 4 chronic kidney disease, or unspecified chronic kidney disease; R19.7 Diarrhea, unspecified; G62.0 Drug-induced polyneuropathy; I49.3 Ventricular premature depolarization; R07.89 Other chest pain; J44.0 Chronic obstructive pulmonary disease with (acute) lower respiratory infection; E53.8 Deficiency of other specified B group vitamins; I45.10 Unspecified right bundle-branch block; E55.9 Vitamin D deficiency, unspecified; E03.9 Hypothyroidism, unspecified; Z95.5 Presence of coronary angioplasty implant and graft; Z88.2 Allergy status to sulfonamides; Z88.5 Allergy status to narcotic agent; Z88.6 Allergy status to analgesic agent; Z88.7 Allergy status to serum and vaccine; Z88.8 Allergy status to other drugs, medicaments and biological substances; Z79.82 Long term (current) use of aspirin; Z79.02 Long term (current) use of antithrombotics/antiplatelets; Z79.4 Long term (current) use of insulin; Z79.899 Other long term (current) drug therapy; Z20.828 Contact with and (suspected) exposure to other viral communicable diseases; Z91.040 Latex allergy status; Z79.51 Long term (current) use of inhaled steroids

== ENCOUNTER 2018-07-22 16:46 | Emergency (ER) | payer MEDICARE ==
[~2018-07-22 16:46] MED LIST changes: +BACI1CAP PO; +BACITAB PO; +CYAN100T5 PO; +LEVA250T13 PO; +MEPR750S PO; +POTA20EL PO; +TAMI30CA PO; -VITA1TAB22 PO; +VITA200012 PO
--- NOTE | 2018-07-22 18:00 | REP ---
Right humerus two views History: Fall There is no acute fracture or dislocation. The joint spaces are normal in appearance. Impression: There is no acute fracture or dislocation. Electronically Signed by Bam Kamara MD 07/22/2018 05:51 P
[2018-07-22] MEDS ORDERED: LIDOCAINE 5% (LIDODERM) PATCH TD ONE (20:15)
[2018-07-22] MEDS ORDERED: ACETAMINOPHEN 325 MG TAB PO ONE (20:15)
[2018-07-22] MEDS ORDERED: **NOTE PATIENT COMMENT** MISC XX SCH (21:00)
--- NOTE | 2018-07-22 21:14 | REPVR ---
EXAM: CT Thoracic Spine Without Contrast EXAM DATE/TIME: 07/22/2018 8:22 PM CLINICAL HISTORY: 87 years old, female; Injury or trauma; Fall; Initial encounter; Blunt trauma (contusions or hematomas); Additional info: PT tender, fall TECHNIQUE: Imaging protocol: Axial computed tomography images of the thoracic spine without intravenous contrast. Coronal and sagittal reformatted images were created and reviewed. Radiation optimization: All CT scans at this facility use at least one of these dose optimization techniques: automated exposure control; mA and/or kV adjustment per patient size (includes targeted exams where dose is matched to clinical indication); or iterative reconstruction. COMPARISON: No relevant prior studies available. FINDINGS: Tubes, catheters and devices: Right subclavian central line to the mid to distal superior vena cava. Vertebrae: No acute fracture. Normal alignment. Discs/Spinal canal/Neural foramina: No ankylosis is seen. Minimal degenerative spurring anteriorly. Degenerative changes of upper thoracic apophyseal joints. No spinal or foraminal stenosis. Minimal dependent atelectasis in the lungs. Soft tissues: Unremarkable. IMPRESSION: 1. Minimal degenerative spurring anteriorly. 2. Right subclavian central line to the mid to distal superior vena cava. 3. Otherwise negative CT thoracic spine. No fracture or subluxation is evident and no spinal or foraminal stenosis. Electronically signed by: Shamir Alexander On 07/22/2018 21:14:39 PM
[2018-07-22 21:28] LABS: BASO # 0.1 10^3/uL (0.0-0.2); BASO % 2.2 % (0.0-1.0); EOS # 0.1 10^3/uL (0.0-0.50); EOS % 3.3 % (0.0-3.0); HEMATOCRIT 33.1 % (36.0-47.0); HEMOGLOBIN 11.6 g/dl (12.0-15.5); LYMPH # 0.7 10^3/uL (1.5-4.5); LYMPH % 23.6 % (24.0-44.0); MEAN CORPUSCULAR VOLUME 97.1 fl (80.0-96.0); MONO # 0.6 10^3/uL (0.0-0.8); MONO % 21.8 % (0.0-5.0); NEUTROPHILS # 1.3 10^3/uL (1.8-7.7); NEUTROPHILS % 47.6 % (36.0-66.0); PLATELET COUNT, AUTOMATED 145 10^3/uL (150-450); RED BLOOD COUNT 3.41 10^6/uL (4.00-5.40); WHITE BLOOD COUNT 2.8 10^3/uL (4.0-10.0)
[2018-07-22 21:58] LABS: ALBUMIN 3.5 GM/DL (3.2-5.2); ALT/SGPT 26 U/L (12-78); BILIRUBIN,TOTAL 0.9 MG/DL (0.2-1.0); BLOOD UREA NITROGEN 19 MG/DL (7-18); CALCIUM LEVEL 8.8 MG/DL (8.8-10.2); CARBON DIOXIDE LEVEL 26 MEQ/L (21-32); CHLORIDE LEVEL 101 MEQ/L (98-107); CREATININE FOR GFR 1.53 MG/DL (0.55-1.30); GLUCOSE, FASTING 409 MG/DL (70-100); LIPASE 206 U/L (73-393); POTASSIUM SERUM 3.3 MEQ/L (3.5-5.1); SODIUM LEVEL 136 MEQ/L (136-145); TOTAL PROTEIN 6.1 GM/DL (6.4-8.2)
[2018-07-22 22:17] LABS: CK-MB VALUE MASS < 1.0 NG/ML (<3.6); CPK CREATINE PHOSPHOKINASE 56 U/L (26-192); MB/CK RELATIVE INDEX 1.79 (< OR =4); TROPONIN I < 0.02 NG/ML (< 0.10)
[2018-07-22] MEDS ORDERED: ACET650T15 PO (22:34)
[2018-07-22 23:00] VITALS: BP 158/76
--- NOTE | 2018-07-23 08:09 | REP ---
UNILATERAL RIGHT RIBS, FOUR VIEWS: HISTORY: Fall. There is no acute fracture or bone lesion. The right lung is clear. An Infusaport catheter is present. IMPRESSION: No acute disease. Electronically Signed by Bam Kamara MD 07/23/2018 08:10 A
--- NOTE | 2018-07-23 09:13 | ECGEPIP ---
[facility] - ED Test Date: 2018-07-22 Pat Name: CHELLE BROOKS Department: Room: - Gender: Female [employer]ning [employer] Tender: MONICO : 1930 Requested By: MARYBETH Braden PA-C Order Number: [id number] Reading MD: Timo Faria Measurements Intervals [place] Rate: 72 P: 53 MS: 186 QRS: QRSD: 103 T: 51 QT: 382 QTc: 421 Interpretive Statements SINUS RHYTHM WITH OCCASIONAL SUPRAVENTRICULAR PREMATURE COMPLEXES INCOMPLETE RIGHT BUNDLE BRANCH BLOCK MODERATE ST DEPRESSION Mainly similar to tracing done 05-16-18 Electronically Signed on 07-23-2018 9:12:52 EDT by Timo Faria
--- NOTE | 2018-07-26 07:59 | REP ---
RIGHT SHOULDER, THREE VIEWS: HISTORY: Fall. There is no acute fracture or dislocation. The joint spaces are normal in appearance. An osteophyte is present on the acromion. IMPRESSION: There is no acute fracture or dislocation. Electronically Signed by Bam Kamara MD 07/26/2018 08:49 A
== END 2018-07-23 | disposition home or self-care (01) ==
LOC: M ED 16:46
DX: S49.91XA Unspecified injury of right shoulder and upper arm, initial encounter (principal); W18.39XA Other fall on same level, initial encounter; Y92.018 Other place in single-family (private) house as the place of occurrence of the external cause; C90.00 Multiple myeloma not having achieved remission; R73.9 Hyperglycemia, unspecified; N18.4 Chronic kidney disease, stage 4 (severe); J44.9 Chronic obstructive pulmonary disease, unspecified; I12.9 Hypertensive chronic kidney disease with stage 1 through stage 4 chronic kidney disease, or unspecified chronic kidney disease; I25.2 Old myocardial infarction; C93.10 Chronic myelomonocytic leukemia not having achieved remission; K27.9 Peptic ulcer, site unspecified, unspecified as acute or chronic, without hemorrhage or perforation; Z79.899 Other long term (current) drug therapy; Z79.4 Long term (current) use of insulin; Z79.82 Long term (current) use of aspirin; Z79.02 Long term (current) use of antithrombotics/antiplatelets; Z88.1 Allergy status to other antibiotic agents; Z88.2 Allergy status to sulfonamides; Z88.5 Allergy status to narcotic agent; Z88.7 Allergy status to serum and vaccine; Z88.8 Allergy status to other drugs, medicaments and biological substances; Z91.040 Latex allergy status; Z87.891 Personal history of nicotine dependence
CPT/HCPCS: 36591; 71100; 72128; 73030; 73060; 80053; 81001; 82232; 82550; 82553; 82784; 83690; 83883; 84165; 84484; 85025; 85027; 87086; 93005; 99284; J1642